=== PATIENT | female | born 1990 | race African-American/Black ===

== ENCOUNTER 2016-07-14 14:05 | Emergency (ER) | payer OTHER ==
[~2016-07-14 14:05] MED LIST: ACET50TA PO; GLYBPOW OR; HUMUINJ SC; HUMUINJ3 SC; IBUP80TA PO; PRENTAB74 PO; SUMA20SP; SUMA5SPR
[2016-07-14] MEDS ORDERED: ACETAMINOPHEN 325 MG TAB As Ordered ONE (14:56)
[2016-07-14] MEDS ORDERED: KETOROLAC 30 MG/ML VIAL (J1885) As Ordered ONE (14:56)
[2016-07-14] MEDS ORDERED: CYCLOBENZAPRINE 10 MG TAB As Ordered ONE (14:56)
--- NOTE | 2016-07-14 15:17 | REP ---
Left shoulder: Four views. History: Pain. Findings: The left glenohumeral and acromioclavicular joints are normally aligned. No fracture or subluxation is seen. Periarticular soft tissues are unremarkable. Impression: Negative left shoulder views. Signed by Gerald Moore MD 07/14/2016 03:09 P
--- NOTE | 2016-07-14 16:07 | EDDOCDS ---
Nurse's Notes [facility] Name: Neeta Swanson Age: 26 yrs Sex: Female : 1990 Arrival Date: 07/14/2016 Time: 14:05 Bed PD Private MD: [facility] - Adults Diagnosis: Muscle spasm of back Presentation: 07/14 14:13 Presenting complaint: Patient states: pain left shoulder began while at work last kr3 night. recently ws on disability for injury left shoulder. last night was first night at work where she had to do active work, had been doing sedentary work. Adult Sepsis Screening: The patient does not have new or worsening altered mentation. Patient's respiratory rate is less than 22. Systolic blood pressure is greater than 100. Patient has a qSOFA score of 0- Negative Sepsis Screen. Suicide/Homicide risk assessment- the patient denies having any suicidal and/or homicidal ideations and does not present with any other emotional, behavioral or mental health complaints. 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 Transition of care: patient was not received from another setting of care. 14:13 Acuity: MARILYN Level 4 kr3 14:13 Method Of Arrival: Walkin/Carried/Asstd kr3 Triage Assessment: 14:15 General: Appears in no apparent distress, Behavior is cooperative. Pain: Location: left kr3 shoulder Pain currently is 10 out of 10 on a pain scale. HIV screening NA for this visit Offered previously. Derm: Skin is normal. Musculoskeletal: Range of motion limited in left shoulder. 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 Naproxen Unknown Oral 2 times per day (Last dose: 07/13/2016) - PMHx: Ovarian cyst; - PSHx: none; - Social history: Smoking status: Patient uses tobacco products, current every day smoker. No barriers to communication noted, The patient speaks fluent Liberian, Speaks appropriately for age. - Family history: Not pertinent. - : The pt / caregiver states he / she is not on anticoagulants. Home medication list is obtained from the patient. - Exposure Risk Screening:: None identified. Screenin:28 Screening information is obtained from the patient. Fall risk: No risks identified. jf3 Assistance ADL's: requires no assistance with activities of daily living. Abuse/DV Screen: The patient / caregiver reports he/she is: not in a situation that causes fear, pain or injury. Nutritional screening: No deficits noted. Advance Directives: Currently, there is no health care proxy. There is no active DNR order. home support is adequate. Assessment: 14:28 Adult Sepsis Screening: The patient does not have new or worsening altered mentation. jf3 Patient's respiratory rate is less than 22. Systolic blood pressure is greater than 100. Patient has a qSOFA score of 0- Negative Sepsis Screen. General: Appears in no apparent distress, comfortable, Behavior is cooperative, pt states injured at work in March 2016, box fell on left shoulder and elbow. [place] pop last night and entire left arm hurting with tingling throughout. Pain: Location: left arm, left shoulder Pain currently is 10 out of 10 on a pain scale. 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 Cardiovascular: Capillary refill < 3 seconds Chest pain is denied. Respiratory: Airway is patent Respiratory effort is even, unlabored, Respiratory pattern is regular, symmetrical, Denies shortness of breath. Derm: Skin is normal. Musculoskeletal: Circulation, motion, and sensation intact Capillary refill < 3 seconds Range of motion limited in left shoulder, left elbow and left wrist, left hand. 16:05 Reassessment: Patient appears in no apparent distress at this time. Musculoskeletal: kr3 sling left arm with good CSM digits left hand. Vital Signs: 14:07 BP 153 / 80; Pulse 111; Resp 18 S; Temp 99.4(O); Pulse Ox 98% on R/A; Weight 127.01 kg gr2 (R); Height 5 ft. 5 in. (165.10 cm) (R); Pain 9/10; 16:04 BP 148 / 95; Pulse 74; Resp 16; Temp 97.8(O); Pulse Ox 100% ; Pain 8/10; kr3 14:07 Body Mass Index 46.59 (127.01 kg, 165.10 cm) gr2 Vitals: 14:07 Log In Time: July 14, 2016 at 14:07. gr2 ED Course: 14:06 Patient visited by Misael Smiley. gr2 14:06 Patient moved to Waiting gr2 14:07 [facility] - [facility] is Private Physician. gr2 14:08 Patient visited by Misael Smiley. gr2 14:08 Patient moved to Pre RCE gr2 14:15 Triage Initiated kr3 14:27 Patient moved to Triage 1 jf3 14:28 The patient / caregiver is instructed regarding the plan of care and ED course. jf3 14:30 Galen Beal PA-C is PHCP. jk8 14:30 Sepideh Saez MD is Attending Physician. jk8 14:30 Patient visited by Galen Beal PA-C. jk8 14:30 Patient visited by Galen Beal PA-C. jk8 14:32 Patient visited by León Charlton RN. jf3 14:57 Patient moved to PD2 / kr3 15:07 [facility] Payment Agreement was scanned into [employer] and attached to record. lg 15:24 Patient visited by León Charlton RN. jf3 15:24 Sling applied to left arm. Patient with positive distal sensation and brisk distal jf3 capillary refill after application. 15:25 Shoulder, Complete Returned. EDMS 16:05 No IV's were initiated during this patient's visit. No procedures done that require kr3 assistance. Administered Medications: 14:59 Drug: ketorolac 60 mg [ketorolac 30 mg/mL (1 mL) injection solution (2 mL)] Route: IM; kr3 Site: right gluteus; 16:04 Follow up: BP 148 / 95; Pulse 74 bpm; Resp 16 bpm; Temp 97.8 Oral; Pulse Ox 100% ; Pain kr3 810 Adult 14:59 Drug: Cyclobenzaprine 10 mg [cyclobenzaprine 10 mg tablet (1 tabs)] Route: PO; kr3 14:59 Drug: Acetaminophen 650 mg [acetaminophen 325 mg tablet (2 tabs)] Route: PO; kr3 16:04 Follow up: Response: No significant change. kr3 Order Results: Radiology Order: Shoulder, Complete Test: Shoulder, Complete REASON FOR EXAMINATION: pain; Left shoulder: Four views.; ; History: Pain.; ; Findings: The left glenohumeral and acromioclavicular joints are normally; aligned. No fracture or subluxation is seen. Periarticular soft tissues are; unremarkable.; ; Impression:; ; Negative left shoulder views.; ; ; Signed by; Gerald Moore MD 07/14/2016 03:09 P; Outcome: 15:51 Discharge ordered by Provider. jk8 16:04 Discharge Assessment: patient administered narcotics - no. The following High Risk kr3 Discharge criteria are identified: None. Discharged to home ambulatory. Condition: stable. Discharge instructions given to patient, Instructed on discharge instructions, follow up and referral plans. medication usage, Demonstrated understanding of instructions, medications, Pt was receptive of discharge instructions/ teaching. Prescriptions given X 4. No special radiology studies were completed. Property sent home with patient. 16:06 Patient left the ED. kr3 Signatures: Dispatcher [employer] EDMS Artemio Bhandari, Cari Guido lg,RN RN kr3 Misael Smiley gr2 Galen Beal PA-C PA-C jk8 León Charltno,RN RN jf3 MTDLul
--- NOTE | 2016-07-14 16:07 | EDDOCDS ---
Physician Documentation [facility] Name: Neeta Swanson Age: 26 yrs Sex: Female : 1990 Arrival Date: 07/14/2016 Time: 14:05 Bed PD Private MD: [facility] - Adults Disposition: 07/14/16 15:51 Discharged to Home/Self Care. Impression: Muscle spasm of back. - Condition is Stable. - Prescriptions for naproxen 500 mg Oral tablet - take 1 tablet by ORAL route every 12 hours; 28 tablet. Tylenol 325 mg Oral Tablet - take 2 tablet by ORAL route every 6 hours as needed; 1 bottle. Cyclobenzaprine 5 mg Oral Tablet - take 1 tablet by ORAL route 3 times per day As needed; 15 tablet. - Medication Reconciliation, Work Release Form - 3 day, Local Pharmacy Hours form. - Follow up: Emergency Department; When: As soon as possible; Reason: Worsening of conditions. Follow up: Private Physician; When: 2 - 3 days; Reason: Recheck today's complaints. - Problem is new. - Symptoms have worsened. Historical: - Allergies: no known allergies; - Home Meds: 1. Naproxen Unknown Oral 2 times per day (Last dose: 07/13/2016) - PMHx: Ovarian cyst; - PSHx: none; - Social history: Smoking status: Patient uses tobacco products, current every day smoker. No barriers to communication noted, The patient speaks fluent Portuguese, Speaks appropriately for age. - Family history: Not pertinent. - : The pt / caregiver states he / she is not on anticoagulants. Home medication list is obtained from the patient. - Exposure Risk Screening:: None identified. 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 5 in. (165.10 cm) (R); Pain 9/10; 16:04 BP 148 / 95; Pulse 74; Resp 16; Temp 97.8(O); Pulse Ox 100% ; Pain 8/10; kr3 14:07 Body Mass Index 46.59 (127.01 kg, 165.10 cm) gr2 MDM: 14:49 ketorolac 60 mg IM once ordered. jk8 14:49 Cyclobenzaprine 10 mg PO once ordered. jk8 14:49 Acetaminophen Tablet 650 mg PO once ordered. jk8 14:50 Sling ordered. jk8 14:51 Shoulder, Complete Ordered. EDMS 14:54 Financial registration complete. lg 15:07 [facility] Payment Agreement was scanned into [employer] and attached to record. lg 15:49 Shoulder, Complete Reviewed. jk8 Administered Medications: 14:59 Drug: ketorolac 60 mg [ketorolac 30 mg/mL (1 mL) injection solution (2 mL)] Route: IM; kr3 Site: right gluteus; 16:04 Follow up: BP 148 / 95; Pulse 74 bpm; Resp 16 bpm; Temp 97.8 Oral; Pulse Ox 100% ; Pain kr3 8/10 Adult 14:59 Drug: Cyclobenzaprine 10 mg [cyclobenzaprine 10 mg tablet (1 tabs)] Route: PO; kr3 14:59 Drug: Acetaminophen 650 mg [acetaminophen 325 mg tablet (2 tabs)] Route: PO; kr3 16:04 Follow up: Response: No significant change. kr3 Signatures: Dispatcher [employer] Artemio Chiu Reg Reg lg Cari Osullivan,RN RN kr3 Galen Beal PA-C PABhavana jk8 León CharltonRN RN jf3 The chart was reviewed and I authenticate all verbal orders and agree with the evaluation and treatment provided.Attachments: 15:07 [facility] Payment Agreement lg MTDD
--- NOTE | 2016-07-16 17:07 | EDDOCDS ---
Physician Documentation [facility] Name: Neeta Swanson Age: 26 yrs Sex: Female : 1990 Arrival Date: 07/14/2016 Time: 14:05 Bed PD Private MD: [facility] - Adults Disposition: 07/14/16 15:51 Discharged to Home/Self Care. Impression: Muscle spasm of back. - Condition is Stable. - Prescriptions for naproxen 500 mg Oral tablet - take 1 tablet by ORAL route every 12 hours; 28 tablet. Tylenol 325 mg Oral Tablet - take 2 tablet by ORAL route every 6 hours as needed; 1 bottle. Cyclobenzaprine 5 mg Oral Tablet - take 1 tablet by ORAL route 3 times per day As needed; 15 tablet. - Medication Reconciliation, Work Release Form - 3 day, Local Pharmacy Hours form. - Follow up: Emergency Department; When: As soon as possible; Reason: Worsening of conditions. Follow up: Private Physician; When: 2 - 3 days; Reason: Recheck today's complaints. - Problem is new. - Symptoms have worsened. Historical: - Allergies: no known allergies; - Home Meds: 1. Naproxen Unknown Oral 2 times per day (Last dose: 07/13/2016) - PMHx: Ovarian cyst; - PSHx: none; - Social history: Smoking status: Patient uses tobacco products, current every day smoker. No barriers to communication noted, The patient speaks fluent Burundian, Speaks appropriately for age. - Family history: Not pertinent. - : The pt / caregiver states he / she is not on anticoagulants. Home medication list is obtained from the patient. - Exposure Risk Screening:: None identified. 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 5 in. (165.10 cm) (R); Pain 9/10; 16:04 BP 148 / 95; Pulse 74; Resp 16; Temp 97.8(O); Pulse Ox 100% ; Pain 8/10; kr3 14:07 Body Mass Index 46.59 (127.01 kg, 165.10 cm) gr2 MDM: 14:49 ketorolac 60 mg IM once ordered. jk8 14:49 Cyclobenzaprine 10 mg PO once ordered. jk8 14:49 Acetaminophen Tablet 650 mg PO once ordered. jk8 14:50 Sling ordered. jk8 14:51 Shoulder, Complete Ordered. EDMS 14:54 Financial registration complete. lg 15:07 [facility] Payment Agreement was scanned into [employer] and attached to record. lg 15:49 Shoulder, Complete Reviewed. jk8 07/15 11:47 T-Sheet-- Draft Copy was scanned into [employer] and attached to record. gb Administered Medications: 07/14 14:59 Drug: ketorolac 60 mg [ketorolac 30 mg/mL (1 mL) injection solution (2 mL)] Route: IM; kr3 Site: right gluteus; 16:04 Follow up: BP 148 / 95; Pulse 74 bpm; Resp 16 bpm; Temp 97.8 Oral; Pulse Ox 100% ; Pain kr3 01/16 Adult 14:59 Drug: Cyclobenzaprine 10 mg [cyclobenzaprine 10 mg tablet (1 tabs)] Route: PO; kr3 14:59 Drug: Acetaminophen 650 mg [acetaminophen 325 mg tablet (2 tabs)] Route: PO; kr3 16:04 Follow up: Response: No significant change. kr3 Signatures: Dispatcher [employer] EDFL Lorraine Solo, Reg Reg gb Artemio Bhandari, Reg Reg lg Cari Osullivan RN RN kr3 Galen Beal PA-C PA-C jk8 León Charlton,RN RN jf3 The chart was reviewed and I authenticate all verbal orders and agree with the evaluation and treatment provided.Attachments: 15:07 [facility] Payment Agreement lg 07/15 11:47 T-Sheet-- Draft Copy gb Chart Complete MTDD
--- NOTE | 2016-07-16 17:07 | EDDOCDS ---
Nurse's Notes [facility] Name: Neeta Swanson Age: 26 yrs Sex: Female : 1990 Arrival Date: 07/14/2016 Time: 14:05 Bed PD Private MD: [facility] - Adults Diagnosis: Muscle spasm of back Presentation: 07/14 14:13 Presenting complaint: Patient states: pain left shoulder began while at work last kr3 night. recently ws on disability for injury left shoulder. last night was first night at work where she had to do active work, had been doing sedentary work. Adult Sepsis Screening: The patient does not have new or worsening altered mentation. Patient's respiratory rate is less than 22. Systolic blood pressure is greater than 100. Patient has a qSOFA score of 0- Negative Sepsis Screen. Suicide/Homicide risk assessment- the patient denies having any suicidal and/or homicidal ideations and does not present with any other emotional, behavioral or mental health complaints. 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 Transition of care: patient was not received from another setting of care. 14:13 Acuity: MARILYN Level 4 kr3 14:13 Method Of Arrival: Walkin/Carried/Asstd kr3 Triage Assessment: 14:15 General: Appears in no apparent distress, Behavior is cooperative. Pain: Location: left kr3 shoulder Pain currently is 10 out of 10 on a pain scale. HIV screening NA for this visit Offered previously. Derm: Skin is normal. Musculoskeletal: Range of motion limited in left shoulder. 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 Naproxen Unknown Oral 2 times per day (Last dose: 07/13/2016) - PMHx: Ovarian cyst; - PSHx: none; - Social history: Smoking status: Patient uses tobacco products, current every day smoker. No barriers to communication noted, The patient speaks fluent North Korean, Speaks appropriately for age. - Family history: Not pertinent. - : The pt / caregiver states he / she is not on anticoagulants. Home medication list is obtained from the patient. - Exposure Risk Screening:: None identified. Screenin:28 Screening information is obtained from the patient. Fall risk: No risks identified. jf3 Assistance ADL's: requires no assistance with activities of daily living. Abuse/DV Screen: The patient / caregiver reports he/she is: not in a situation that causes fear, pain or injury. Nutritional screening: No deficits noted. Advance Directives: Currently, there is no health care proxy. There is no active DNR order. home support is adequate. Assessment: 14:28 Adult Sepsis Screening: The patient does not have new or worsening altered mentation. jf3 Patient's respiratory rate is less than 22. Systolic blood pressure is greater than 100. Patient has a qSOFA score of 0- Negative Sepsis Screen. General: Appears in no apparent distress, comfortable, Behavior is cooperative, pt states injured at work in March 2016, box fell on left shoulder and elbow. [place] pop last night and entire left arm hurting with tingling throughout. Pain: Location: left arm, left shoulder Pain currently is 10 out of 10 on a pain scale. 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 Cardiovascular: Capillary refill < 3 seconds Chest pain is denied. Respiratory: Airway is patent Respiratory effort is even, unlabored, Respiratory pattern is regular, symmetrical, Denies shortness of breath. Derm: Skin is normal. Musculoskeletal: Circulation, motion, and sensation intact Capillary refill < 3 seconds Range of motion limited in left shoulder, left elbow and left wrist, left hand. 16:05 Reassessment: Patient appears in no apparent distress at this time. Musculoskeletal: kr3 sling left arm with good CSM digits left hand. Vital Signs: 14:07 BP 153 / 80; Pulse 111; Resp 18 S; Temp 99.4(O); Pulse Ox 98% on R/A; Weight 127.01 kg gr2 (R); Height 5 ft. 5 in. (165.10 cm) (R); Pain 9/10; 16:04 BP 148 / 95; Pulse 74; Resp 16; Temp 97.8(O); Pulse Ox 100% ; Pain 8/10; kr3 14:07 Body Mass Index 46.59 (127.01 kg, 165.10 cm) gr2 Vitals: 14:07 Log In Time: July 14, 2016 at 14:07. gr2 ED Course: 14:06 Patient visited by Misael Smiley. gr2 14:06 Patient moved to Waiting gr2 14:07 [facility] - [facility] is Private Physician. gr2 14:08 Patient visited by Misael Smiley. gr2 14:08 Patient moved to Pre RCE gr2 14:15 Triage Initiated kr3 14:27 Patient moved to Triage 1 jf3 14:28 The patient / caregiver is instructed regarding the plan of care and ED course. jf3 14:30 Galen Beal PA-C is PHCP. jk8 14:30 Sepideh Saez MD is Attending Physician. jk8 14:30 Patient visited by Galen Beal PA-C. jk8 14:30 Patient visited by Gaeln Beal PA-C. jk8 14:32 Patient visited by León Charlton RN. jf3 14:57 Patient moved to PD2 / kr3 15:07 [facility] Payment Agreement was scanned into [email or web address] and attached to record. lg 15:24 Patient visited by León Charlton RN. jf3 15:24 Sling applied to left arm. Patient with positive distal sensation and brisk distal jf3 capillary refill after application. 15:25 Shoulder, Complete Returned. EDMS 16:05 No IV's were initiated during this patient's visit. No procedures done that require kr3 assistance. 07/15 11:47 T-Sheet-- Draft Copy was scanned into [email or web address] and attached to record. gb Administered Medications: 07/14 14:59 Drug: ketorolac 60 mg [ketorolac 30 mg/mL (1 mL) injection solution (2 mL)] Route: IM; kr3 Site: right gluteus; 16:04 Follow up: BP 148 / 95; Pulse 74 bpm; Resp 16 bpm; Temp 97.8 Oral; Pulse Ox 100% ; Pain kr3 8 Adult 14:59 Drug: Cyclobenzaprine 10 mg [cyclobenzaprine 10 mg tablet (1 tabs)] Route: PO; kr3 14:59 Drug: Acetaminophen 650 mg [acetaminophen 325 mg tablet (2 tabs)] Route: PO; kr3 16:04 Follow up: Response: No significant change. kr3 Order Results: Radiology Order: Shoulder, Complete Test: Shoulder, Complete REASON FOR EXAMINATION: pain; Left shoulder: Four views.; ; History: Pain.; ; Findings: The left glenohumeral and acromioclavicular joints are normally; aligned. No fracture or subluxation is seen. Periarticular soft tissues are; unremarkable.; ; Impression:; ; Negative left shoulder views.; ; ; Signed by; Gerald Moore MD 07/14/2016 03:09 P; Outcome: 15:51 Discharge ordered by Provider. jk8 16:04 Discharge Assessment: patient administered narcotics - no. The following High Risk kr3 Discharge criteria are identified: None. Discharged to home ambulatory. Condition: stable. Discharge instructions given to patient, Instructed on discharge instructions, follow up and referral plans. medication usage, Demonstrated understanding of instructions, medications, Pt was receptive of discharge instructions/ teaching. Prescriptions given X 4. No special radiology studies were completed. Property sent home with patient. 16:06 Patient left the ED. kr3 Signatures: Dispatcher [employer] EDAL Lorraine Solo, Reg Reg gb Artemio Bhandari, Reg Reg lg Cari Osullivan,HEAVEN RN kr3 Misael Smiley gr2 Galen Beal PA-C PA-C jk8 León Charlton,RN RN jf3 Chart Complete MTDD
--- NOTE | 2016-07-16 17:07 | EDDOCDS ---
Physician Documentation [facility] Name: Neeta Swanson Age: 26 yrs Sex: Female : 1990 Arrival Date: 07/14/2016 Time: 14:05 Bed PD Private MD: [facility] - Adults Disposition: 07/14/16 15:51 Discharged to Home/Self Care. Impression: Muscle spasm of back. - Condition is Stable. - Prescriptions for naproxen 500 mg Oral tablet - take 1 tablet by ORAL route every 12 hours; 28 tablet. Tylenol 325 mg Oral Tablet - take 2 tablet by ORAL route every 6 hours as needed; 1 bottle. Cyclobenzaprine 5 mg Oral Tablet - take 1 tablet by ORAL route 3 times per day As needed; 15 tablet. - Medication Reconciliation, Work Release Form - 3 day, Local Pharmacy Hours form. - Follow up: Emergency Department; When: As soon as possible; Reason: Worsening of conditions. Follow up: Private Physician; When: 2 - 3 days; Reason: Recheck today's complaints. - Problem is new. - Symptoms have worsened. Historical: - Allergies: no known allergies; - Home Meds: 1. Naproxen Unknown Oral 2 times per day (Last dose: 07/13/2016) - PMHx: Ovarian cyst; - PSHx: none; - Social history: Smoking status: Patient uses tobacco products, current every day smoker. No barriers to communication noted, The patient speaks fluent Comoran, Speaks appropriately for age. - Family history: Not pertinent. - : The pt / caregiver states he / she is not on anticoagulants. Home medication list is obtained from the patient. - Exposure Risk Screening:: None identified. 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 5 in. (165.10 cm) (R); Pain 9/10; 16:04 BP 148 / 95; Pulse 74; Resp 16; Temp 97.8(O); Pulse Ox 100% ; Pain 8/10; kr3 14:07 Body Mass Index 46.59 (127.01 kg, 165.10 cm) gr2 MDM: 14:49 ketorolac 60 mg IM once ordered. jk8 14:49 Cyclobenzaprine 10 mg PO once ordered. jk8 14:49 Acetaminophen Tablet 650 mg PO once ordered. jk8 14:50 Sling ordered. jk8 14:51 Shoulder, Complete Ordered. EDMS 14:54 Financial registration complete. lg 15:07 [facility] Payment Agreement was scanned into [employer] and attached to record. lg 15:49 Shoulder, Complete Reviewed. jk8 07/15 11:47 T-Sheet-- Draft Copy was scanned into [employer] and attached to record. gb Administered Medications: 07/14 14:59 Drug: ketorolac 60 mg [ketorolac 30 mg/mL (1 mL) injection solution (2 mL)] Route: IM; kr3 Site: right gluteus; 16:04 Follow up: BP 148 / 95; Pulse 74 bpm; Resp 16 bpm; Temp 97.8 Oral; Pulse Ox 100% ; Pain kr3 01/16 Adult 14:59 Drug: Cyclobenzaprine 10 mg [cyclobenzaprine 10 mg tablet (1 tabs)] Route: PO; kr3 14:59 Drug: Acetaminophen 650 mg [acetaminophen 325 mg tablet (2 tabs)] Route: PO; kr3 16:04 Follow up: Response: No significant change. kr3 Signatures: Dispatcher [employer] EDMD Lorraine Solo, Reg Reg gb Artemio Bhandari, Reg Reg lg Cari Osullivan RN RN kr3 Galen Beal PA-C PA-C jk8 León Charlton,RN RN jf3 The chart was reviewed and I authenticate all verbal orders and agree with the evaluation and treatment provided.Attachments: 15:07 [facility] Payment Agreement lg 07/15 11:47 T-Sheet-- Draft Copy gb Chart Complete MTDD
== END 2016-07-14 16:06 | disposition home or self-care (01) ==
LOC: M ED 14:05
DX: M62.830 Muscle spasm of back (principal); Z79.1 Long term (current) use of non-steroidal anti-inflammatories (NSAID); F17.210 Nicotine dependence, cigarettes, uncomplicated
CPT/HCPCS: 73030; 96372; 99284; J1885

== ENCOUNTER 2016-11-18 09:54 | Emergency (ER) | payer MEDICAID, OTHER ==
[~2016-11-18] VITALS: Ht 165.1 cm; Wt 142.3 kg
[2016-11-18] MEDS ORDERED: BUPR15TA PO (10:08)
[2016-11-18] MEDS ORDERED: AMOX875T PO (11:58)
[2016-11-18] MEDS ORDERED: MAGICMW MT (11:58)
[2016-11-18 12:07] VITALS: BP 141/72
== END 2016-11-18 12:07 | disposition home or self-care (01) ==
LOC: M ED 10:42
DX: J02.0 Streptococcal pharyngitis (principal); J45.909 Unspecified asthma, uncomplicated; E66.01 Morbid (severe) obesity due to excess calories; Z87.891 Personal history of nicotine dependence; Z79.899 Other long term (current) drug therapy

== ENCOUNTER 2016-12-26 10:39 | Emergency (ER) | payer MEDICAID, OTHER ==
[~2016-12-26] VITALS: Ht 160 cm; Wt 142.0 kg
[~2016-12-26 10:39] MED LIST changes: +AMOX875T PO; +BUPR15TA PO; +MAGICMW MT
[2016-12-26] MEDS ORDERED: ACETAMINOPHEN TAB 650MG DOSE (2X325MG) PO ONE (11:30)
[2016-12-26] MEDS ORDERED: ONDANSETRON 4 MG ORAL DISINTEGRATING TAB (S0181) PO ONE (11:30)
[2016-12-26 11:57] LABS: BASO % 0.6 % (0.0-1.0); EOS # 0.2 K/mm3 (0.0-0.50); EOS % 2.7 % (0.0-3.0); LARGE UNSTAINED CELL # 0.1 K/mm3 (0.0-0.4); LARGE UNSTAINED CELL % 1.7 % (0.0-4.0); LYMPH # 2.2 K/mm3 (1.5-6.5); LYMPH % 27.2 % (24.0-44.0); MEAN CORPUSCULAR HGB CONC 33.5 g/dl (32.0-36.5); MEAN CORPUSCULAR VOLUME 89.6 fl (80.0-96.0); MONO # 0.3 K/mm3 (0.0-0.8); NEUTROPHILS # 4.9 K/mm3 (1.8-7.7); NEUTROPHILS % 63.8 % (36.0-66.0); PLATELET COUNT, AUTOMATED 304 k/mm3 (150-450); RED CELL DISTRIBUTION WIDTH 14.8 % (11.5-14.5); WHITE BLOOD COUNT 7.7 K/mm3 (4.0-10.0)
[2016-12-26 12:17] LABS: CONTROL LINE HCG INT CTR LINE PRESENT
[2016-12-26 12:42] LABS: ALBUMIN 3.8 GM/DL (3.2-5.2); ALBUMIN/GLOBULIN RATIO 0.95 (1.00-1.93); ALKALINE PHOSPHATASE 71 U/L (45-117); ALT/SGPT 23 U/L (12-78); ANION GAP 6 MEQ/L (8-16); AST/SGOT 14 U/L (15-37); BILIRUBIN,DIRECT < 0.1 MG/DL (0.0-0.2); BILIRUBIN,TOTAL 0.3 MG/DL (0.2-1.0); BLOOD UREA NITROGEN 9 MG/DL (7-18); CARBON DIOXIDE LEVEL 25 MEQ/L (21-32); CHLORIDE LEVEL 110 MEQ/L (98-107); CREATININE FOR GFR 0.92 MG/DL (0.55-1.02); GLOMERULAR FILTRATION RATE > 60.0 (>60); GLUCOSE, FASTING 96 MG/DL (70-105); POTASSIUM SERUM 4.1 MEQ/L (3.5-5.1); SODIUM LEVEL 141 MEQ/L (136-145); TOTAL PROTEIN 7.8 GM/DL (6.4-8.2)
[2016-12-26] MEDS ORDERED: NAPR500T PO (13:00)
[2016-12-26 13:12] VITALS: BP 128/94
== END 2016-12-26 13:12 | disposition home or self-care (01) ==
LOC: M ED 10:39
DX: R51 Headache (principal); R53.83 Other fatigue; F99 Mental disorder, not otherwise specified

== ENCOUNTER → 2017-01-15 | Outpatient (REF) | payer OTHER ==
[~2017-01-15] MED LIST changes: +NAPR500T PO; +PENI500T PO
[2017-01-15 20:37] LABS: ALBUMIN 3.6 GM/DL (3.2-5.2); ALKALINE PHOSPHATASE 63 U/L (45-117); ALT/SGPT 25 U/L (12-78); ANION GAP 8 MEQ/L (8-16); AST/SGOT 15 U/L (15-37); BILIRUBIN,TOTAL 0.3 MG/DL (0.2-1.0); BLOOD UREA NITROGEN 10 MG/DL (7-18); CALCIUM LEVEL 8.6 MG/DL (8.5-10.1); CARBON DIOXIDE LEVEL 23 MEQ/L (21-32); CHLORIDE LEVEL 108 MEQ/L (98-107); CHOLESTEROL LEVEL 129 MG/DL (<200); CREATININE FOR GFR 0.86 MG/DL (0.55-1.02); GLOMERULAR FILTRATION RATE > 60.0 (>60); GLUCOSE, FASTING 102 MG/DL (70-105); POTASSIUM SERUM 4.4 MEQ/L (3.5-5.1); SODIUM LEVEL 139 MEQ/L (136-145); TOTAL PROTEIN 7.2 GM/DL (6.4-8.2); TRIGLYCERIDES LEVEL 127 MG/DL (<150)
== END ==
LOC: M LAB REF 17:55
PROVIDERS: ATTEND Nurse Practitioner Family
DX: R63.5 Abnormal weight gain (principal); Z13.220 Encounter for screening for lipoid disorders; Z13.29 Encounter for screening for other suspected endocrine disorder; F32.9 Major depressive disorder, single episode, unspecified

== ENCOUNTER 2017-03-11 10:18 | Day surgery (SDC) | payer OTHER ==
[~2017-03-11] VITALS: Ht 162.6 cm; Wt 138.3 kg
[~2017-03-11 10:18] MED LIST changes: -PENI500T PO
[2017-03-11] MEDS ORDERED: LIDOCAINE 1% MDV 20ML VIAL ONE (10:19)
[2017-03-11] MEDS ORDERED: dexameTHASONE 10 MG/1 ML VIAL PRES.FREE (J1100) ONE (10:19)
[2017-03-11] MEDS ORDERED: ROPIvacaine 0.5% 30 ML INJECTION (J2795) ONE (10:19)
[2017-03-11] MEDS ORDERED: LR 1,000 ML IV ONE (10:45)
[2017-03-11 11:11] LABS: CONTROL LINE HCG INT CTR LINE PRESENT
[2017-03-11] MEDS ORDERED: LIDOCAINE 1% MDV 20ML VIAL As Ordered ONE (11:24)
[2017-03-11] MEDS ORDERED: EPINEPHrine 1MG/ML INJ 30ML MD-VIAL As Ordered ONE (11:26)
[2017-03-11] MEDS ORDERED: fentaNYL 100 MCG/2 ML INJECTION (J3010) As Ordered ONE ×2 (11:55→13:19)
[2017-03-11] MEDS ORDERED: MIDAZOLAM INJ 2 MG/2 ML VIAL (J2250) As Ordered ONE (11:55)
[2017-03-11] MEDS: MIDAZOLAM INJ 2 MG/2 ML VIAL (J2250) IV PRN ×2 (12:24→12:26)
[2017-03-11] MEDS ORDERED: fentaNYL 100 MCG/2 ML INJECTION (J3010) IV PRN ×2 (12:45→15:00)
[2017-03-11] MEDS ORDERED: PROPOFOL 200 MG/20 ML VIAL As Ordered ONE ×2 (13:19→13:59)
[2017-03-11] MEDS ORDERED: ROCURONIUM BROMIDE 50 MG/5 ML VIAL/SYRINGE As Ordered ONE (13:19)
[2017-03-11] MEDS ORDERED: LIDOCAINE 2% INJ 100 MG/5 ML SDV (FOR ANES.) As Ordered ONE (13:19)
[2017-03-11] MEDS ORDERED: SUCCINYLCHOLINE 100 MG/5 ML SYRINGE (J0330) As Ordered ONE ×2 (13:19→13:49)
[2017-03-11] MEDS ORDERED: dexameTHASONE 4 MG/ML 1ML VIAL (J1100) As Ordered ONE ×2 (13:19→13:47)
[2017-03-11] MEDS ORDERED: PHENYLephrine HCL 500 MCG/5 ML (100MCG/ML) SYRINGE (J2370) As Ordered ONE (13:28)
[2017-03-11] MEDS ORDERED: ePHEDrine SULFATE 25 MG/5 ML(5MG/ML) SYRINGE As Ordered ONE (13:28)
[2017-03-11] MEDS ORDERED: METOCLOPRAMIDE INJ 10MG/2ML VIAL (J2765) As Ordered ONE (13:46)
[2017-03-11] MEDS ORDERED: GLYCOPYRROLATE INJ 0.2 MG/ML 2 ML VIAL As Ordered ONE (13:53)
[2017-03-11] MEDS ORDERED: ONDANSETRON 4MG/2ML VIAL (J2405) As Ordered ONE (14:11)
[2017-03-11] MEDS ORDERED: PERCOCET 5MG/325MG TAB PO PRN (15:00)
[2017-03-11] MEDS ORDERED: ONDANSETRON 4MG/2ML VIAL (J2405) IV PRN (15:00)
[2017-03-11] MEDS ORDERED: LR 1,000 ML IV SCH ×2 (15:00)
[2017-03-11] MEDS ORDERED: HYDROmorphone HCL 1 MG/ML SYRINGE (J1170) IV PRN (15:00)
[2017-03-11 15:30] VITALS: BP 125/65
--- NOTE | 2017-03-13 05:54 | RO ---
DATE OF PROCEDURE: 03/11/2017 PREPROCEDURE DIAGNOSES: 1. Left shoulder impingement. 2. Left shoulder possible rotator cuff tear. POSTPROCEDURE DIAGNOSES: 1. Left shoulder impingement. 2. Left shoulder partial thickness bursal sided rotator cuff tear. PROCEDURE: Left shoulder arthroscopy with rotator cuff debridement and subacromial decompression. SURGEON: Dr. Aleksey Mojica [employer]ING OPERATOR: LUCA Singer ANESTHESIA: General with a preoperative nerve block. ESTIMATED BLOOD LOSS: Less than 50 mL. IV FLUIDS: Lactated ringers. IMPLANTS: None. INDICATION: Neeta is a 26-year-old female who sustained a left shoulder injury at work. She had failed extensive nonoperative treatment including physical therapy, subacromial cortisone injections and anti-inflammatory medications. On physical exam, she was noted to have positive impingement signs and some slight weakness in the supraspinatus. Preoperative MRI showed a large subacromial spur and some tendinopathy in the supraspinatus. We discussed the risks and benefits of arthroscopic management. I explained that this would most likely be a decompression and debridement if there was a partial rotator cuff tear, unlikely to need a repair. After discussing the risks and benefits of the above procedure, written informed consent was obtained. PROCEDURE: The patient was identified in the preoperative holding area and the left shoulder was initialed by myself. She had a preoperative nerve block by anesthesia. She was then brought to the operating room and carefully placed supine on a well padded OR table with the extra large coronado bag. General anesthesia was then induced without complication. She was then placed into the right side down lateral decubitus position with an axillary roll. Due to the patient's large size, we used extra seat belts and straps to secure her to the OR table. Her body mass index (BMI) was over 50. She had Venodyne boots bilateral lower extremities for deep venous thrombosis (DVT) prophylaxis. She received appropriate IV antibiotics within 1 hour of incision. Examination under anesthesia revealed 170 degrees of positive forward flexion, 60 degrees of external rotation with arm at her side and no increased anterior or posterior translation. The left arm was then prepped and draped in a normal sterile fashion with the left arm in a Arthrex star sleeve and then hooked up to 10 pounds of traction. Prior to incision, a time out was performed in which myself and all OR staff confirmed the patient's name, medical record number, date of and the correct side and site of procedure. A spinal needle was used to localize the glenohumeral joint. An incision made with the 11 blade. 30 degree arthroscope attempted to enter the glenohumeral joint but was unable to do so. The scope was then placed into the subacromial space where bursitis and a large subacromial spur were identified. A lateral working portal was localized with a spinal needle and then cautery used to perform a bursectomy and to skeletonize the anterior acromion. The CA ligament was not fully released. There was a partial thickness bursal sided rotator cuff tear in the entire supraspinatus. A switching stick was used to palpate and probe that tear and was estimated to be less than 25% thickness. No significant tearing was noted on MRI either. I then performed a rotator cuff debridement with the #4-0 shaver. Switching stick was used to repalpate the rotator cuff and no high grade partial tears were appreciated. The shoulder was internally and externally rotated and abducted as well and the cuff moved nicely as a unit. I then used the bur to perform an acromioplasty. Patient did not have any AC joint symptoms preop. I then attempted again to place the scope back into the glenohumeral joint but had difficulty doing so due to the patient's body habitus. Given that she did not have any intra-articular pathology on her MRI or concerns for labral tear based on preoperative examination, felt that it was best to avoid further attempts at entering the joint. The shoulder was irrigated and drained. Portals closed with #3-0 Nylon suture and then a bulky sterile bandage applied. Patient was placed into a standard shoulder mobilizer. She was carefully transferred to a stretcher and sent to the postanesthesia care unit in stable condition. All counts were correct times two. Complications: None.
== END 2017-03-11 16:14 | disposition home or self-care (01) ==
LOC: M SDC 10:18
PROVIDERS: ATTEND Orthopaedic Surgery
DX: M75.42 Impingement syndrome of left shoulder (principal); M75.112 Incomplete rotator cuff tear or rupture of left shoulder, not specified as traumatic; J45.909 Unspecified asthma, uncomplicated; R06.83 Snoring
CPT/HCPCS: 29822; 29826; 36415; 84703; 96374; 96375; J0330; J0690; J1100; J2250; J2370; J2405; J2765; J2795; J3010

== ENCOUNTER 2017-03-30 04:36 | Emergency (ER) | payer OTHER ==
[~2017-03-30] VITALS: Ht 162.6 cm; Wt 88.6 kg
[2017-03-30 07:27] VITALS: BP 172/86
[2017-03-30] MEDS ORDERED: PENI500T PO (07:37)
[2017-03-30] MEDS ORDERED: PENICILLIN V POTASSIUM 500 MG TAB PO ONE (07:45)
[2017-03-30] MEDS ORDERED: NAPROXEN 250 MG TAB PO ONE (07:45)
== END 2017-03-30 07:47 | disposition home or self-care (01) ==
LOC: M ED 04:36
DX: J02.0 Streptococcal pharyngitis (principal); Z87.891 Personal history of nicotine dependence

== ENCOUNTER 2017-04-18 20:43 | Emergency (ER) | payer OTHER ==
[~2017-04-18] VITALS: Ht 162.6 cm; Wt 133.2 kg
[~2017-04-18 20:43] MED LIST changes: +PENI500T PO
[2017-04-18 20:52] VITALS: BP 143/98
[2017-04-18] MEDS ORDERED: VITA250L PO (20:57)
[2017-04-18] MEDS ORDERED: LOVE1INJ SC (20:57)
[2017-04-18] MEDS ORDERED: MULT1CHW39 PO (20:57)
[2017-04-18] MEDS ORDERED: BIOT10008 PO (20:57)
[2017-04-18] MEDS ORDERED: OXYCODONE/APAP 5MG/325MG(BULK FOR ED) 1 TABLET PO ONE (21:30)
== END 2017-04-18 21:46 | disposition home or self-care (01) ==
LOC: M ED 20:43
DX: M25.512 Pain in left shoulder (principal); I10 Essential (primary) hypertension; Z79.899 Other long term (current) drug therapy; Z87.891 Personal history of nicotine dependence

== ENCOUNTER → 2017-05-21 | Outpatient (REF) | payer OTHER ==
[~2017-05-21] MED LIST changes: +BIOT10008 PO; +LOVE1INJ SC; +MULT1CHW39 PO; +VITA250L PO
[2017-05-21 12:37] LABS: ALBUMIN 3.7 GM/DL (3.2-5.2); ALBUMIN/GLOBULIN RATIO 1.19 (1.00-1.93); ALKALINE PHOSPHATASE 64 U/L (45-117); ALT/SGPT 30 U/L (12-78); ANION GAP 16 MEQ/L (8-16); AST/SGOT 19 U/L (7-37); BILIRUBIN,TOTAL 0.5 MG/DL (0.2-1.0); BLOOD UREA NITROGEN 6 MG/DL (7-18); CALCIUM LEVEL 8.7 MG/DL (8.5-10.1); CARBON DIOXIDE LEVEL 17 MEQ/L (21-32); CHLORIDE LEVEL 108 MEQ/L (98-107); CHOLESTEROL LEVEL 104 MG/DL (<200); CREATININE FOR GFR 0.65 MG/DL (0.55-1.02); GLOMERULAR FILTRATION RATE > 60.0 (>60); GLUCOSE, FASTING 78 MG/DL (70-105); POTASSIUM SERUM 3.8 MEQ/L (3.5-5.1); SODIUM LEVEL 141 MEQ/L (136-145); TOTAL PROTEIN 6.8 GM/DL (6.4-8.2); TRIGLYCERIDES LEVEL 110 MG/DL (<150)
== END ==
LOC: M LAB REF 11:59
PROVIDERS: ATTEND Nurse Practitioner Adult Health
DX: E88.81 Metabolic syndrome and other insulin resistance (principal)

== ENCOUNTER 2017-06-06 20:52 | Emergency (ER) | payer OTHER ==
[2017-06-06] MEDS: NITROFURANTOIN (MACROBID) 100 MG CAP PO (22:22)
[2017-06-06] MEDS: PHENAZOPYRIDINE 100 MG TAB PO (22:22)
== END 2017-06-06 22:41 | disposition home or self-care (01) ==
LOC: M ED 20:52
DX: N39.0 Urinary tract infection, site not specified (principal); I10 Essential (primary) hypertension; J45.909 Unspecified asthma, uncomplicated; Z98.84 Bariatric surgery status; Z79.899 Other long term (current) drug therapy; Z87.891 Personal history of nicotine dependence
CPT/HCPCS: 81001

== ENCOUNTER → 2017-11-28 | Outpatient (CLI) | payer OTHER | LOC: M RAD 09:31 | DX: N63.20 Unspecified lump in the left breast, unspecified quadrant (principal); Z80.3 Family history of malignant neoplasm of breast | CPT/HCPCS: 77065 ==

== ENCOUNTER 2017-12-31 11:33 | Emergency (ER) | payer OTHER ==
[2017-12-31] MEDS: PANTOPRAZOLE 40MG INJ (PROTONIX) (C9113) IV (12:20)
[2017-12-31] MEDS: GI COCKTAIL 50ML BTL(HYOSCYAMINE/MAALOX/LIDOCAINE VISCOUS)(1:3:1) PO (12:20)
[2017-12-31] MEDS: NS 1,000 ML IV (12:21)
[2017-12-31 12:27] LABS: KETONE, URINE AUTO RFX NEGATIVE (NEGATIVE); LEUKOCYTE ESTERASE UR AUTO RFX NEGATIVE (NEGATIVE); MUCUS, URINE RFX SMALL (NEGATIVE); NITRITE, URINE AUTO RFX NEGATIVE (NEGATIVE); RBC, URINE AUTO RFX 0 /HPF (0-3); SPECIFIC GRAVITY UR AUTO RFX 1.016 (1.002-1.035); SQUAM EPITHELIAL CELL UR AURFX 5 /HPF (0-6); WBC, URINE AUTO RFX 4 /HPF (0-3)
[2017-12-31 12:29] LABS: BASO # 0.1 10^3/uL (0.0-0.2); BASO % 0.6 % (0.0-1.0); EOS # 0.1 10^3/uL (0.0-0.50); HEMATOCRIT 37.3 % (36.0-47.0); HEMOGLOBIN 12.5 g/dl (12.0-15.5); IMMATURE GRANULOCYTE % 0.2 % (0-3.0); LYMPH # 3.7 10^3/uL (1.5-6.5); LYMPH % 38.2 % (24.0-44.0); MEAN CORPUSCULAR HEMOGLOBIN 30.9 pg (27.0-33.0); MEAN CORPUSCULAR HGB CONC 33.5 g/dl (32.0-36.5); MEAN CORPUSCULAR VOLUME 92.1 fl (80.0-96.0); MONO # 0.7 10^3/uL (0.0-0.8); NEUTROPHILS # 5.1 10^3/uL (1.8-7.7); PLATELET COUNT, AUTOMATED 332 10^3/uL (150-450); RED BLOOD COUNT 4.05 10^6/uL (4.00-5.40); WHITE BLOOD COUNT 9.6 10^3/uL (4.0-10.0)
[2017-12-31 12:51] LABS: ALBUMIN 3.5 GM/DL (3.2-5.2); ALKALINE PHOSPHATASE 69 U/L (45-117); ALT/SGPT 35 U/L (12-78); AMYLASE 79 U/L (25-115); ANION GAP 8 MEQ/L (8-16); AST/SGOT 20 U/L (7-37); BILIRUBIN,DIRECT 0.1 MG/DL (0.0-0.2); BILIRUBIN,TOTAL 0.4 MG/DL (0.2-1.0); BLOOD UREA NITROGEN 11 MG/DL (7-18); CALCIUM LEVEL 8.5 MG/DL (8.5-10.1); CARBON DIOXIDE LEVEL 24 MEQ/L (21-32); CHLORIDE LEVEL 108 MEQ/L (98-107); CREATININE FOR GFR 0.85 MG/DL (0.55-1.30); GLOMERULAR FILTRATION RATE > 60.0 (>60); GLUCOSE, FASTING 88 MG/DL (70-100); LIPASE 94 U/L (73-393); POTASSIUM SERUM 3.8 MEQ/L (3.5-5.1); SODIUM LEVEL 140 MEQ/L (136-145); TOTAL PROTEIN 7.4 GM/DL (6.4-8.2)
== END 2017-12-31 13:15 | disposition home or self-care (01) ==
LOC: M ED 11:33
DX: R10.2 Pelvic and perineal pain (principal); K21.9 Gastro-esophageal reflux disease without esophagitis; I10 Essential (primary) hypertension; Z98.84 Bariatric surgery status; Z79.899 Other long term (current) drug therapy; Z87.891 Personal history of nicotine dependence
CPT/HCPCS: C9113

== ENCOUNTER 2018-03-23 08:54 | Emergency (ER) | payer OTHER ==
[2018-03-23 09:41] LABS: BASO # 0.1 10^3/uL (0.0-0.2); BASO % 0.8 % (0.0-1.0); EOS # 0.1 10^3/uL (0.0-0.50); EOS % 1.4 % (0.0-3.0); HEMATOCRIT 36.5 % (36.0-47.0); HEMOGLOBIN 11.8 g/dl (12.0-15.5); IMMATURE GRANULOCYTE % 0.2 % (0-3.0); LYMPH # 2.5 10^3/uL (1.5-6.5); LYMPH % 37.5 % (24.0-44.0); MEAN CORPUSCULAR HEMOGLOBIN 29.8 pg (27.0-33.0); MEAN CORPUSCULAR HGB CONC 32.3 g/dl (32.0-36.5); MEAN CORPUSCULAR VOLUME 92.2 fl (80.0-96.0); MONO # 0.5 10^3/uL (0.0-0.8); MONO % 7.5 % (0.0-5.0); NEUTROPHILS # 3.5 10^3/uL (1.8-7.7); NEUTROPHILS % 52.6 % (36.0-66.0); PLATELET COUNT, AUTOMATED 294 10^3/uL (150-450); RED BLOOD COUNT 3.96 10^6/uL (4.00-5.40); RED CELL DISTRIBUTION WIDTH 14.3 % (11.5-14.5); WHITE BLOOD COUNT 6.7 10^3/uL (4.0-10.0)
[2018-03-23 10:08] LABS: HCG, SERUM QUANTITATIVE < 1.0 MIU/ML
== END 2018-03-23 10:40 | disposition home or self-care (01) ==
LOC: M ED 08:54
DX: O20.9 Hemorrhage in early pregnancy, unspecified (principal); O16.1 Unspecified maternal hypertension, first trimester; O99.511 Diseases of the respiratory system complicating pregnancy, first trimester; J45.909 Unspecified asthma, uncomplicated; Z3A.00 Weeks of gestation of pregnancy not specified
CPT/HCPCS: 76856

== ENCOUNTER 2018-05-04 13:41 | Emergency (ER) | payer OTHER ==
[2018-05-04 14:16] LABS: BASO # 0.1 10^3/uL (0.0-0.2); BASO % 0.5 % (0.0-1.0); EOS # 0.1 10^3/uL (0.0-0.50); EOS % 0.8 % (0.0-3.0); HEMATOCRIT 33.4 % (36.0-47.0); IMMATURE GRANULOCYTE % 0.4 % (0-3.0); KETONE, URINE AUTO RFX NEGATIVE (NEGATIVE); LYMPH # 3.4 10^3/uL (1.5-6.5); LYMPH % 35.9 % (24.0-44.0); MEAN CORPUSCULAR HEMOGLOBIN 29.9 pg (27.0-33.0); MEAN CORPUSCULAR HGB CONC 32.9 g/dl (32.0-36.5); MEAN CORPUSCULAR VOLUME 90.8 fl (80.0-96.0); MONO # 0.6 10^3/uL (0.0-0.8); MONO % 6.9 % (0.0-5.0); MUCUS, URINE RFX SMALL (NEGATIVE); NEUTROPHILS # 5.2 10^3/uL (1.8-7.7); NEUTROPHILS % 55.5 % (36.0-66.0); NITRITE, URINE AUTO RFX NEGATIVE (NEGATIVE); PLATELET COUNT, AUTOMATED 301 10^3/uL (150-450); RBC, URINE AUTO RFX 4 /HPF (0-3); RED BLOOD COUNT 3.68 10^6/uL (4.00-5.40); RED CELL DISTRIBUTION WIDTH 15.2 % (11.5-14.5); SPECIFIC GRAVITY UR AUTO RFX 1.024 (1.002-1.035); SQUAM EPITHELIAL CELL UR AURFX 10 /HPF (0-6); WBC, URINE AUTO RFX 7 /HPF (0-3); WHITE BLOOD COUNT 9.3 10^3/uL (4.0-10.0)
[2018-05-04 14:23] LABS: LEUKOCYTE ESTERASE UR AUTO RFX TRACE (NEGATIVE)
[2018-05-04 15:06] LABS: ANION GAP 7 MEQ/L (8-16); BLOOD UREA NITROGEN 10 MG/DL (7-18); CALCIUM LEVEL 8.4 MG/DL (8.5-10.1); CARBON DIOXIDE LEVEL 26 MEQ/L (21-32); CHLORIDE LEVEL 107 MEQ/L (98-107); CREATININE FOR GFR 0.67 MG/DL (0.55-1.30); GLOMERULAR FILTRATION RATE > 60.0 (>60); GLUCOSE, FASTING 78 MG/DL (70-100); HCG, SERUM QUANTITATIVE 51223 MIU/ML; LIPASE 97 U/L (73-393); POTASSIUM SERUM 3.8 MEQ/L (3.5-5.1); SODIUM LEVEL 140 MEQ/L (136-145)
[2018-05-04] MEDS: NS 1,000 ML IV (17:03)
[2018-05-04] MEDS: METOCLOPRAMIDE INJ 10MG/2ML VIAL (J2765) IV (17:03)
== END 2018-05-04 19:42 | disposition home or self-care (01) ==
LOC: M ED 13:41
DX: O26.891 Other specified pregnancy related conditions, first trimester (principal); O21.8 Other vomiting complicating pregnancy; R10.2 Pelvic and perineal pain; Z3A.01 Less than 8 weeks gestation of pregnancy; O10.011 Pre-existing essential hypertension complicating pregnancy, first trimester; O99.511 Diseases of the respiratory system complicating pregnancy, first trimester; J45.909 Unspecified asthma, uncomplicated; O99.841 Bariatric surgery status complicating pregnancy, first trimester; Z87.891 Personal history of nicotine dependence
CPT/HCPCS: J2765

== ENCOUNTER → 2018-05-28 | Outpatient (REF) | payer OTHER ==
[~2018-05-28] MED LIST changes: +FLUOXETINE PO; +MACR100C43 PO; +NAPR-49 PO; -NAPR500T PO; +OMEP40CA2 PO; +PEPC1TAB5 PO; +PRENTAB45 PO; +PYRI1TAB5 PO; +REGL10TA6 PO; +SPIR-10 PO; +TRI-TAB; +VITA200016 PO; +[UNRECOGNIZED DRUG - CODE] PO
[2018-05-29 10:11] LABS: HEPATITIS C VIRUS ABY INDEX 0.1 INDEX (<0.8); HIV 1&2 SCREEN CENTAUR NEGATIVE (NEGATIVE); RUBELLA IgG QUALITATIVE IMMUNE (IMMUNE)
== END ==
LOC: M LAB REF 12:24
PROVIDERS: ATTEND Obstetrics & Gynecology
DX: Z34.81 Encounter for supervision of other normal pregnancy, first trimester (principal)

== ENCOUNTER 2018-07-12 10:56 | Emergency (ER) | payer OTHER ==
[~2018-07-12] VITALS: Ht 165.1 cm; Wt 93.2 kg
[~2018-07-12 10:56] MED LIST changes: -NAPR-49 PO; +NAPR-50 PO
[2018-07-12] MEDS ORDERED: NS 1,000 ML IV ONE (11:45)
[2018-07-12 11:52] LABS: BASO # 0.1 10^3/uL (0.0-0.2); BASO % 0.5 % (0.0-1.0); EOS # 0.1 10^3/uL (0.0-0.50); EOS % 0.7 % (0.0-3.0); HEMATOCRIT 34.7 % (36.0-47.0); HEMOGLOBIN 11.8 g/dl (12.0-15.5); LYMPH # 2.9 10^3/uL (1.5-4.5); LYMPH % 28.9 % (24.0-44.0); MEAN CORPUSCULAR HEMOGLOBIN 32.2 pg (27.0-33.0); MEAN CORPUSCULAR VOLUME 94.8 fl (80.0-96.0); MONO # 0.8 10^3/uL (0.0-0.8); MONO % 7.8 % (0.0-5.0); NEUTROPHILS # 6.2 10^3/uL (1.8-7.7); NEUTROPHILS % 61.7 % (36.0-66.0); PLATELET COUNT, AUTOMATED 233 10^3/uL (150-450); RED BLOOD COUNT 3.66 10^6/uL (4.00-5.40); WHITE BLOOD COUNT 10.1 10^3/uL (4.0-10.0)
[2018-07-12 12:00] LABS: AMORPHOUS SEDIMENT SMALL (NEGATIVE); APPEARANCE, URINE CLOUDY (CLEAR); BACTERIA, URINE AUTO 1+ (NEGATIVE); BILIRUBIN, URINE AUTO NEGATIVE (NEGATIVE); BLOOD, URINE BLOOD NEGATIVE (NEGATIVE); COLOR, URINE AMBER (YELLOW); GLUCOSE, URINE (UA) AUTO NEGATIVE (NEGATIVE); KETONE, URINE AUTO NEGATIVE (NEGATIVE); LEUKOCYTE ESTERASE, URINE AUTO TRACE (NEGATIVE); MUCUS, URINE SMALL (NEGATIVE); NITRITE, URINE AUTO NEGATIVE (NEGATIVE); PROTEIN, URINE AUTO NEGATIVE (NEGATIVE); RBC, URINE AUTO 5 /HPF (0-3); SPECIFIC GRAVITY URINE AUTO 1.029 (1.002-1.035); SQUAMOUS EPITHELIAL CELL UR AU 11 /HPF (0-6); WBC, URINE AUTO 2 /HPF (0-3)
[2018-07-12 12:13] LABS: BLOOD UREA NITROGEN 8 MG/DL (7-18); CALCIUM LEVEL 7.8 MG/DL (8.5-10.1); CARBON DIOXIDE LEVEL 21 MEQ/L (21-32); CHLORIDE LEVEL 108 MEQ/L (98-107); CREATININE FOR GFR 0.54 MG/DL (0.55-1.30); GLOMERULAR FILTRATION RATE > 60.0 (>60); GLUCOSE, FASTING 67 MG/DL (70-100); SODIUM LEVEL 138 MEQ/L (136-145)
[2018-07-12] MEDS ORDERED: ENDO10TA8 PO (12:24)
[2018-07-12] MEDS ORDERED: IBUP80TA PO (12:24)
--- NOTE | 2018-07-12 12:57 | REP ---
Clinical: Left flank pain. Rule out urolithiasis. Technique: Real time kwok scale ultrasound examination using curved array transducer. Findings: Bilateral kidneys are normal in contour, size, echogenicity without hydronephrosis, obvious nephrolithiasis, cystic or renal mass lesion. No perinephric fluid collection. Right kidney measures 12.2 x 6.6 x 4.2 cm. Left kidney measures 12.1 x 5.1 x 5.5 cm. The bladder is normal in appearance. Intrauterine identified. Impression: No hydronephrosis or obvious nephrolithiasis. Electronically Signed by Chandler Hartman MD 07/12/2018 12:49 P
[2018-07-12] MEDS ORDERED: ACE65ERTAB PO (13:30)
[2018-07-12] MEDS ORDERED: NITR-67 PO (13:31)
[2018-07-12 13:40] VITALS: BP 115/65
== END 2018-07-12 13:41 | disposition home or self-care (01) ==
LOC: M ED 10:56
DX: O23.42 Unspecified infection of urinary tract in pregnancy, second trimester (principal); O99.012 Anemia complicating pregnancy, second trimester; O13.2 Gestational [pregnancy-induced] hypertension without significant proteinuria, second trimester; O99.512 Diseases of the respiratory system complicating pregnancy, second trimester; O99.342 Other mental disorders complicating pregnancy, second trimester; O99.842 Bariatric surgery status complicating pregnancy, second trimester; Z87.442 Personal history of urinary calculi; Z87.891 Personal history of nicotine dependence; Z79.899 Other long term (current) drug therapy

== ENCOUNTER → 2018-07-21 | Outpatient (CLI) | payer OTHER ==
[~2018-07-21] MED LIST changes: +ACE65ERTAB PO; +ENDO10TA8 PO; +NITR-67 PO
[2018-07-21 16:52] LABS: HEMATOCRIT 34.8 % (36.0-47.0); HEMOGLOBIN 11.9 g/dl (12.0-15.5); MEAN CORPUSCULAR HEMOGLOBIN 32.1 pg (27.0-33.0); MEAN CORPUSCULAR HGB CONC 34.2 g/dl (32.0-36.5); MEAN CORPUSCULAR VOLUME 93.8 fl (80.0-96.0); PLATELET COUNT, AUTOMATED 263 10^3/uL (150-450); RED BLOOD COUNT 3.71 10^6/uL (4.00-5.40); WHITE BLOOD COUNT 11.6 10^3/uL (4.0-10.0)
[2018-07-21 17:12] LABS: ALBUMIN 3.1 GM/DL (3.2-5.2); ALT/SGPT 24 U/L (12-78); BILIRUBIN,TOTAL 0.2 MG/DL (0.2-1.0); BLOOD UREA NITROGEN 7 MG/DL (7-18); CALCIUM LEVEL 8.1 MG/DL (8.5-10.1); CARBON DIOXIDE LEVEL 24 MEQ/L (21-32); CHLORIDE LEVEL 103 MEQ/L (98-107); CREATININE FOR GFR 0.58 MG/DL (0.55-1.30); GLOMERULAR FILTRATION RATE > 60.0 (>60); GLUCOSE CHALLENGE TEST 1 HOUR 154 MG/DL (LESS THAN 140); GLUCOSE, FASTING 154 MG/DL (70-100); POTASSIUM SERUM 3.6 MEQ/L (3.5-5.1); SODIUM LEVEL 137 MEQ/L (136-145); TOTAL PROTEIN 6.3 GM/DL (6.4-8.2)
== END ==
LOC: M LAB 14:46
PROVIDERS: ATTEND Obstetrics & Gynecology
DX: O24.419 Gestational diabetes mellitus in pregnancy, unspecified control (principal)

== ENCOUNTER → 2018-07-23 | Outpatient (CLI) | payer OTHER | LOC: M LAB 08:55 | PROVIDERS: ATTEND Obstetrics & Gynecology | DX: Z36.89 Encounter for other specified antenatal screening (principal); R73.02 Impaired glucose tolerance (oral); Z3A.00 Weeks of gestation of pregnancy not specified ==

== ENCOUNTER → 2018-08-18 | Outpatient (REF) | payer OTHER ==
[2018-08-18 14:14] LABS: ALBUMIN 2.5 GM/DL (3.2-5.2); ALT/SGPT 21 U/L (12-78); BILIRUBIN,TOTAL 0.1 MG/DL (0.2-1.0); BLOOD UREA NITROGEN 10 MG/DL (7-18); CALCIUM LEVEL 7.7 MG/DL (8.5-10.1); CARBON DIOXIDE LEVEL 26 MEQ/L (21-32); CHLORIDE LEVEL 107 MEQ/L (98-107); CREATININE FOR GFR 0.52 MG/DL (0.55-1.30); GLOMERULAR FILTRATION RATE > 60.0 (>60); GLUCOSE, FASTING 76 MG/DL (70-100); POTASSIUM SERUM 3.9 MEQ/L (3.5-5.1); SODIUM LEVEL 139 MEQ/L (136-145); TOTAL PROTEIN 5.7 GM/DL (6.4-8.2)
[2018-08-18 14:39] LABS: HEMOGLOBIN A1c 5.1 %
== END ==
LOC: M LAB REF 13:32
PROVIDERS: ATTEND Obstetrics & Gynecology
DX: Z34.82 Encounter for supervision of other normal pregnancy, second trimester (principal); Z3A.00 Weeks of gestation of pregnancy not specified

== ENCOUNTER → 2018-09-17 | Outpatient (REF) | payer OTHER ==
[~2018-09-17] MED LIST changes: -ACET50TA PO; +MAPA500T17 PO; -MULT1CHW39 PO; +MULT200T7 PO; -NAPR-50 PO; +NAPR-837 PO
[2018-09-17 12:57] LABS: HEMOGLOBIN 10.5 g/dl (12.0-15.5); MEAN CORPUSCULAR HEMOGLOBIN 32.3 pg (27.0-33.0); MEAN CORPUSCULAR HGB CONC 33.9 g/dl (32.0-36.5); MEAN CORPUSCULAR VOLUME 95.4 fl (80.0-96.0); PLATELET COUNT, AUTOMATED 265 10^3/uL (150-450); RED BLOOD COUNT 3.25 10^6/uL (4.00-5.40); WHITE BLOOD COUNT 10.9 10^3/uL (4.0-10.0)
== END ==
LOC: M LAB REF 12:26
PROVIDERS: ATTEND Obstetrics & Gynecology
DX: Z34.82 Encounter for supervision of other normal pregnancy, second trimester (principal); Z36.89 Encounter for other specified antenatal screening
CPT/HCPCS: 85027; 86850; 86901; J2790

== ENCOUNTER 2018-10-09 07:26 | Outpatient (CLI) | payer OTHER ==
[~2018-10-09] VITALS: Ht 165.1 cm; Wt 107.3 kg
[2018-10-09 07:44] VITALS: BP 119/64
[2018-10-09] MEDS ORDERED: VITAD1000T PO (07:51)
[2018-10-09] MEDS ORDERED: PROZ20CA11 PO (07:51)
[2018-10-09 09:06] VITALS: BP 110/54
== END 2018-10-09 10:45 | disposition home or self-care (01) ==
LOC: M LDO 07:26
PROVIDERS: ATTEND Obstetrics & Gynecology
DX: O26.893 Other specified pregnancy related conditions, third trimester (principal); Z3A.29 29 weeks gestation of pregnancy; O99.213 Obesity complicating pregnancy, third trimester

== ENCOUNTER 2018-11-14 20:52 | Outpatient (CLI) | payer OTHER ==
[~2018-11-14] VITALS: Ht 165.1 cm; Wt 108.3 kg
[~2018-11-14 20:52] MED LIST changes: +PROZ20CA11 PO; +VITAD1000T PO
[2018-11-14 21:09] VITALS: BP 130/67
[2018-11-14] MEDS ORDERED: FIORICET TAB PO ONE (21:45)
[2018-11-14 21:57] LABS: HEMOGLOBIN 9.2 g/dl (12.0-15.5); MEAN CORPUSCULAR HEMOGLOBIN 31.8 pg (27.0-33.0); MEAN CORPUSCULAR HGB CONC 32.9 g/dl (32.0-36.5); MEAN CORPUSCULAR VOLUME 96.9 fl (80.0-96.0); PLATELET COUNT, AUTOMATED 202 10^3/uL (150-450); RED BLOOD COUNT 2.89 10^6/uL (4.00-5.40); WHITE BLOOD COUNT 9.9 10^3/uL (4.0-10.0)
[2018-11-14 22:14] LABS: TOTAL PROTEIN,RANDOM URINE 20.3 MG/DL (0.0-12.0)
[2018-11-14 22:20] LABS: ALT/SGPT 19 U/L (12-78); BILIRUBIN,TOTAL 0.1 MG/DL (0.2-1.0); CREATININE FOR GFR 0.58 MG/DL (0.55-1.30); GLOMERULAR FILTRATION RATE > 60.0 (>60); LDH LACTATE DEHYDROGENASE 193 U/L (84-246); URIC ACID 3.8 MG/DL (2.6-6.0)
[2018-11-15] MEDS ORDERED: LACTATED RINGER'S 1000 ML IV STA (00:02)
[2018-11-15] MEDS ORDERED: PROMETHAZINE INJ 25 MG/ML VIAL (J2550) IV PRN (00:15)
[2018-11-15] MEDS ORDERED: BUTORPHANOL 2 MG/ML INJ (J0595) IV ONE (00:15)
[2018-11-15] MEDS: LR 1,000 ML IV SCH ×2 (01:12→08:58)
[2018-11-15 07:12] VITALS: BP 107/51
[2018-11-15] MEDS ORDERED: FIORICET TAB PO PRN (07:15)
[2018-11-15 08:59] VITALS: BP 112/56
[2018-11-15] MEDS ORDERED: METOCLOPRAMIDE INJ 10MG/2ML VIAL (J2765) IV ONE (09:45)
[2018-11-15] MEDS ORDERED: diphenhydrAMINE INJ 50MG/ML VIAL (J1200) IV PRN (09:45)
[2018-11-15] MEDS ORDERED: BUTACAP78 PO (12:12)
--- NOTE | 2018-11-15 20:57 | NUR ---
L&D Triage Note: S: 28yo at 34+ wks present with c/o headache, dizziness and nausea. Denies Headache trauma, URI symptoms h/o migraines. No ctx, LOF or vaginal bleeding. Reports active movement. O: vss, AF cat 1 tracing gen: well appearing neuro: grossly normal 9.9>--9.2/28.0--<202, preeclamptic panel wnl, spot urine wnl -patient provided stadol / phenergan and Fioricet with minimal relief -Reglan and benadryl with relief of headache A/P: 28yo at 34wks with headache - resolved Reassuring status -home with PTL precautions -rx for Fioricet -f/u with her OB later this week Terra Nixon MD
== END 2018-11-15 11:37 | disposition home or self-care (01) ==
LOC: M LDO 20:52
PROVIDERS: ATTEND Obstetrics & Gynecology
DX: O99.89 Other specified diseases and conditions complicating pregnancy, childbirth and the puerperium (principal); R51 Headache; H53.9 Unspecified visual disturbance; O26.893 Other specified pregnancy related conditions, third trimester; M54.9 Dorsalgia, unspecified; Z3A.34 34 weeks gestation of pregnancy
CPT/HCPCS: 36415; 59025; 82247; 82565; 82570; 83615; 84156; 84450; 84460; 84550; 85027; J0595; J1200; J2765

== ENCOUNTER → 2018-12-03 | Outpatient (REF) | payer OTHER ==
[~2018-12-03] MED LIST changes: +BUTA1CAP4 PO; +BUTACAP78 PO; +FERR1TAB8 PO
== END ==
LOC: M LAB REF 12:41
PROVIDERS: ATTEND Obstetrics & Gynecology
DX: Z34.83 Encounter for supervision of other normal pregnancy, third trimester (principal); Z3A.00 Weeks of gestation of pregnancy not specified

== ENCOUNTER 2018-12-11 00:05 | Outpatient (CLI) | payer OTHER ==
[~2018-12-11] VITALS: Ht 160 cm; Wt 117.7 kg
[~2018-12-11 00:05] MED LIST changes: -BUTA1CAP4 PO; -FERR1TAB8 PO
[2018-12-11 00:40] VITALS: BP 111/71
[2018-12-11 01:13] VITALS: BP 98/64
[2018-12-11 01:26] VITALS: BP 96/59
[2018-12-11 01:41] VITALS: BP 103/57
[2018-12-11] MEDS ORDERED: FIORICET TAB PO ONE ×2 (02:15→08:45)
[2018-12-11] MEDS ORDERED: FERR1TAB8 PO (02:42)
[2018-12-11] MEDS ORDERED: PROMETHAZINE INJ 25 MG/ML VIAL (J2550) IV ONE (03:45)
[2018-12-11] MEDS ORDERED: LR 1,000 ML IV SCH (03:45)
[2018-12-11 09:14] VITALS: BP 110/57
[2018-12-11 11:02] VITALS: BP 119/55
[2018-12-11] MEDS ORDERED: BUTA1CAP4 PO (11:13)
== END 2018-12-11 11:23 | disposition home or self-care (01) ==
LOC: M LDO 00:05
PROVIDERS: ATTEND Obstetrics & Gynecology
DX: O99.89 Other specified diseases and conditions complicating pregnancy, childbirth and the puerperium (principal); R51 Headache; Z3A.37 37 weeks gestation of pregnancy

== ENCOUNTER 2018-12-12 14:25 | Outpatient (CLI) | payer OTHER ==
[~2018-12-12] VITALS: Ht 160 cm; Wt 118.4 kg
[~2018-12-12 14:25] MED LIST changes: +BUTA1CAP4 PO; +FERR1TAB8 PO
[2018-12-12 14:34] VITALS: BP 133/70
[2018-12-12 14:49] VITALS: BP 123/66
[2018-12-12 15:40] VITALS: BP 111/57
== END 2018-12-12 15:53 | disposition home or self-care (01) ==
LOC: M LDO 14:25
PROVIDERS: ATTEND Specialist
DX: O36.8130 Decreased fetal movements, third trimester, not applicable or unspecified (principal); Z3A.37 37 weeks gestation of pregnancy

== ENCOUNTER 2018-12-13 16:41 | Outpatient (CLI) | payer OTHER ==
[~2018-12-13] VITALS: Ht 160 cm; Wt 117.6 kg
[2018-12-13 16:58] VITALS: BP 117/63
[2018-12-13] MEDS ORDERED: PERCOCET 5MG/325MG TAB PO ONE (17:15)
[2018-12-13 17:27] VITALS: BP 116/55
[2018-12-13 17:29] LABS: HEMATOCRIT 26.8 % (36.0-47.0); HEMOGLOBIN 8.9 g/dl (12.0-15.5); MEAN CORPUSCULAR HEMOGLOBIN 31.3 pg (27.0-33.0); MEAN CORPUSCULAR HGB CONC 33.2 g/dl (32.0-36.5); MEAN CORPUSCULAR VOLUME 94.4 fl (80.0-96.0); PLATELET COUNT, AUTOMATED 235 10^3/uL (150-450); RED BLOOD COUNT 2.84 10^6/uL (4.00-5.40); WHITE BLOOD COUNT 9.5 10^3/uL (4.0-10.0)
[2018-12-13 18:56] VITALS: BP 123/65
== END 2018-12-13 19:00 | disposition home or self-care (01) ==
LOC: M LDO 16:41
PROVIDERS: ATTEND Specialist
DX: O36.8130 Decreased fetal movements, third trimester, not applicable or unspecified (principal); O26.893 Other specified pregnancy related conditions, third trimester; R51 Headache; R11.0 Nausea; O99.89 Other specified diseases and conditions complicating pregnancy, childbirth and the puerperium; H53.8 Other visual disturbances; Z3A.37 37 weeks gestation of pregnancy

== ENCOUNTER 2018-12-22 07:28 | Inpatient (IN) | payer OTHER ==
[2018-12-22] VITALS (41 sets, daily range): BP systolic 112–140; BP diastolic 55–85
[~2018-12-22] VITALS: Ht 165.1 cm; Wt 118.7 kg
[2018-12-22] MEDS ORDERED: MULTCAP PO (08:01)
[2018-12-22] MEDS ORDERED: LACTATED RINGER'S 1000 ML IV STA (08:37)
[2018-12-22] MEDS ORDERED: OXYTOCIN DRIP 30 UNITS in APPROPRIATE DILUENT 1 EA IV SCH (08:45)
[2018-12-22 09:21] LABS: HEMATOCRIT 28.3 % (36.0-47.0); HEMOGLOBIN 9.3 g/dl (12.0-15.5); MEAN CORPUSCULAR HEMOGLOBIN 30.9 pg (27.0-33.0); MEAN CORPUSCULAR HGB CONC 32.9 g/dl (32.0-36.5); PLATELET COUNT, AUTOMATED 203 10^3/uL (150-450); RED BLOOD COUNT 3.01 10^6/uL (4.00-5.40); WHITE BLOOD COUNT 9.7 10^3/uL (4.0-10.0)
[2018-12-22 09:54] LABS: ALT/SGPT 17 U/L (12-78); BILIRUBIN,TOTAL 0.2 MG/DL (0.2-1.0); CREATININE FOR GFR 0.58 MG/DL (0.55-1.30); GLOMERULAR FILTRATION RATE > 60.0 (>60); LDH LACTATE DEHYDROGENASE 258 U/L (84-246); URIC ACID 4.1 MG/DL (2.6-6.0)
[2018-12-22] MEDS ORDERED: FENTANYL 2MCG/ML ROPIVACAINE 0.2% IN 0.9% NACL 100ML IVBAG As Ordered ONE (12:43)
[2018-12-22] MEDS: LR 1,000 ML IV SCH ×2 (12:45→17:43)
[2018-12-22] MEDS ORDERED: LACTATED RINGER'S 1000 ML IV PRN (13:45)
[2018-12-22] MEDS ORDERED: EPIDURAL/PCA KEYS XX PRN (13:45)
[2018-12-22] MEDS ORDERED: EPIDURAL COMMENT XX SCH (13:45)
[2018-12-22] MEDS ORDERED: NALOXONE INJ 0.4 MG/1 ML VIAL (J2310) IV PRN (13:45)
[2018-12-22] MEDS ORDERED: ONDANSETRON 4MG/2ML VIAL (J2405) IV PRN (13:45)
[2018-12-22] MEDS ORDERED: diphenhydrAMINE INJ 50MG/ML VIAL (J1200) IV PRN (13:45)
[2018-12-22] MEDS ORDERED: ePHEDrine SULFATE 25 MG/5 ML(5MG/ML) SYRINGE IV PRN (13:45)
[2018-12-22] MEDS ORDERED: REFRIGERATOR IV KEYS XX PRN (13:45)
[2018-12-22] MEDS: FENTANYL/ROPIVACAINE/NACL BAG 100 ML EPIDURAL SCH ×2 (17:43→23:33)
--- NOTE | 2018-12-22 19:53 | HPE ---
DATE OF ADMISSION: 12/22/2018 Neeta is a 28-year-old female, 8, para 2-1-5-3, with a history of diabetes, estimated date of confinement (EDC) 12/28/2018, estimated gestational age 39-3/7 weeks gestation, who is being admitted for an induction. Patient has suspected macrosomia on ultrasound. She also had a prior fetus that was 10 pounds 11 ounces. Currently patient has gestational diabetes, diet controlled. Her record reviewed, which was essentially unremarkable other than gestational diabetes and patient does have a prior history of gastric bypass. LABORATORIES: Blood type is O positive, rubella immune, hepatitis negative, HIV negative, gonorrhea and chlamydia negative, group B Streptococcus (GBS) is negative. PAST MEDICAL HISTORY: She is significant for gestational diabetes. PAST SURGICAL HISTORY 1. Shoulder arthroscopy on the left. 2. Gastric bypass. SOCIAL HISTORY: Patient denies any alcohol or drug or cigarette smoking. She is . FAMILY HISTORY: Significant for thyroid disease and diabetes. MEDICATIONS: - vitamin - multivitamins - vitamin B12 - calcium. ALLERGIES: No known drug allergies: PHYSICAL EXAMINATION: Morbidly obese female in no acute distress. HEENT: Grossly within normal limits. ABDOMEN: Soft, nontender, nondistended. EXTREMITIES: No clubbing, cyanosis or edema. VAGINAL EXAM: 2-3 cm dilated, 60-70% effaced, fetus at -3 station, in vertex position. Tracing reviewed; category one tracing. ASSESSMENT: 1. Intrauterine at 39 weeks gestation being admitted for induction. 2. Gestational diabetes, diet controlled. 3. Morbid obesity. 4. Prior history of macrosomia and current suspected macrosomia. At last ultrasound, fetus was 9 pounds 5 ounces. PLAN: Patient is being admitted to labor and delivery. Induction process discussed. Risks and benefits of induction also discussed as well as her gestational diabetes and the risk of macrosomia and shoulder dystocia. Patient is fully aware of risks and is willing for a trial of labor. She will undergo Pitocin induction with possible artificial rupture of membrane.
[2018-12-23] VITALS (25 sets, daily range): BP systolic 108–149; BP diastolic 52–89
[2018-12-23] MEDS: LR 1,000 ML IV SCH (02:27)
[2018-12-23] MEDS ORDERED: OXYTOCIN DRIP 30 UNITS in APPROPRIATE DILUENT 1 EA IV SCH (04:36)
[2018-12-23] MEDS ORDERED: OXYTOCIN 30 UNITS IN 0.9% NaCl 500ML IV BAG (J2590) As Ordered ONE (04:40)
[2018-12-23] MEDS ORDERED: DIBUCAINE 1% OINTMENT 30GM TOP PRN (04:45)
[2018-12-23] MEDS ORDERED: RHOGAM 300 MCG (1500 IU) INJ (J2790) IM SCH (04:45)
[2018-12-23] MEDS ORDERED: ANUSOL HC CREAM 30GM TOP PRN (04:45)
[2018-12-23] MEDS ORDERED: MEASLES,MUMPS,RUBELLA VACCINE INJ (MMR-II) (90707) SC SCH (04:45)
[2018-12-23] MEDS ORDERED: METHYLERGONOVINE MALEATE 0.2 MG TAB PO PRN (04:45)
[2018-12-23] MEDS ORDERED: IBUPROFEN 800 MG TAB PO PRN (04:45)
[2018-12-23] MEDS ORDERED: ACETAMINOPHEN 500 MG TAB PO PRN (04:45)
[2018-12-23] MEDS ORDERED: IBUPROFEN 600 MG TAB PO PRN (04:45)
[2018-12-23 05:01] LABS: CORD GAS PH A 7.265 UNITS
[2018-12-23 05:02] LABS: CORD GAS ABE A -3.5; CORD GAS O2 SAT A 51.6 %; CORD GAS PO2 A 26.2 mmHg; CORD GAS SBC A 20.6 MEQ/L; CORD GAS TCO2 A 25.6 MEQ/L
[2018-12-23 05:04] LABS: CORD GAS ABE V -4.3; CORD GAS HCO3 V 20.5 MEQ/L; CORD GAS O2 SAT V 81.2 %; CORD GAS PCO2 V 36.9 mmHg; CORD GAS PH V 7.363 UNITS; CORD GAS PO2 V 39.9 mmHg; CORD GAS SBC V 20.6 MEQ/L; CORD GAS TCO2 V 21.7 MEQ/L
[2018-12-23] MEDS ORDERED: SLF 3 ML SYR IV PRN (06:15)
[2018-12-23] MEDS: ACETAMINOPHEN TAB 650MG DOSE (2X325MG) PO PRN ×2 (07:31→18:13)
[2018-12-23] MEDS: PRENATAL VITAMINS CHEWABLE TABLET PO SCH (09:26)
[2018-12-23] MEDS: DOCUSATE SODIUM 100 MG CAP PO SCH ×2 (09:26→21:00)
--- NOTE | 2018-12-23 10:33 | DN ---
DATE OF DELIVERY: 12/23/2018 Neeta is a 28-year-old female, 8, para 2-1-5-3, who presented to labor and delivery at 39 weeks gestation for induction. She underwent Pitocin induction with artificial rupture of membranes. She then progressed to fully dilated, delivered a live male infant in right occiput anterior position with tight nuchal cord times two, which was caught in the perineum. scores 9 and 9, weight 8 pounds 13 ounces. Placenta delivered spontaneously intact. Three-vessel cord. Perineum, vagina and cervix inspected. No laceration noted. Estimated blood loss 350 mL. Both mother and baby in stable condition.
[2018-12-23] MEDS: SLF 3 ML SYR IV SCH ×2 (14:52→22:00)
[2018-12-24] MEDS: ACETAMINOPHEN TAB 650MG DOSE (2X325MG) PO PRN (03:33)
[2018-12-24 05:28] VITALS: BP 117/78
[2018-12-24] MEDS: SLF 3 ML SYR IV SCH (06:54)
[2018-12-24] MEDS: PRENATAL VITAMINS CHEWABLE TABLET PO SCH (07:56)
[2018-12-24] MEDS: DOCUSATE SODIUM 100 MG CAP PO SCH (07:56)
== END 2018-12-24 15:05 | disposition home or self-care (01) | DRG 560 ==
LOC: M LDI 07:28 → M OBS 12-23 08:57
PROVIDERS: ADMIT Obstetrics & Gynecology; ATTEND Obstetrics & Gynecology
PROC: 3E033VJ Introduction of Other Hormone into Peripheral Vein, Percutaneous Approach (ICD-10-PCS; 2018-12-22)
PROC: 10E0XZZ Delivery of Products of Conception, External Approach (ICD-10-PCS; principal; 2018-12-23)
PROC: 10907ZC Drainage of Amniotic Fluid, Therapeutic from Products of Conception, Via Natural or Artificial Opening (ICD-10-PCS; 2018-12-23)
DX: O24.420 Gestational diabetes mellitus in childbirth, diet controlled (principal); E66.9 Obesity, unspecified; Z3A.39 39 weeks gestation of pregnancy; O99.844 Bariatric surgery status complicating childbirth; O36.63X0 Maternal care for excessive fetal growth, third trimester, not applicable or unspecified; O99.214 Obesity complicating childbirth; O69.1XX0 Labor and delivery complicated by cord around neck, with compression, not applicable or unspecified; Z37.0 Single live birth

== ENCOUNTER → 2019-04-29 | Outpatient (REF) | payer OTHER ==
[~2019-04-29] MED LIST changes: +CHOL100029 PO; +MULTCAP PO; -OMEP40CA2 PO; +OMEP40CA97 PO; -VITAD1000T PO
[2019-04-29 17:39] LABS: HEMATOCRIT 35.7 % (36.0-47.0); HEMOGLOBIN 11.6 g/dl (12.0-15.5); MEAN CORPUSCULAR HEMOGLOBIN 30.1 pg (27.0-33.0); MEAN CORPUSCULAR HGB CONC 32.5 g/dl (32.0-36.5); MEAN CORPUSCULAR VOLUME 92.5 fl (80.0-96.0); PLATELET COUNT, AUTOMATED 412 10^3/uL (150-450); RED BLOOD COUNT 3.86 10^6/uL (4.00-5.40); WHITE BLOOD COUNT 11.8 10^3/uL (4.0-10.0)
[2019-04-29 17:59] LABS: HCG, SERUM QUANTITATIVE 94192 MIU/ML
[2019-04-30 12:37] LABS: RUBELLA IgG QUALITATIVE IMMUNE (IMMUNE)
[2019-04-30 13:05] LABS: HEPATITIS C VIRUS ABY INDEX 0.1 INDEX (<0.8)
[2019-04-30 13:06] LABS: HIV 1&2 SCREEN CENTAUR NEGATIVE (NEGATIVE)
== END ==
LOC: M LAB REF 17:04
PROVIDERS: ATTEND Obstetrics & Gynecology
DX: Z32.01 Encounter for pregnancy test, result positive (principal); O36.80X0 Pregnancy with inconclusive fetal viability, not applicable or unspecified; Z3A.00 Weeks of gestation of pregnancy not specified

== ENCOUNTER → 2019-06-11 | Outpatient (REF) | payer MEDICAID | LOC: M LAB REF 12:30 | PROVIDERS: ATTEND Obstetrics & Gynecology | DX: Z36.89 Encounter for other specified antenatal screening (principal); Z3A.00 Weeks of gestation of pregnancy not specified ==

== ENCOUNTER 2019-06-13 19:27 | Emergency (ER) | payer MEDICAID ==
[~2019-06-13] VITALS: Ht 162.6 cm; Wt 95.5 kg
[2019-06-13 19:52] LABS: BASO % 0.4 % (0.0-1.0); EOS # 0.1 10^3/uL (0.0-0.5); EOS % 0.8 % (0.0-3.0); HEMATOCRIT 35.5 % (36.0-47.0); HEMOGLOBIN 11.8 g/dl (12.0-15.5); LYMPH # 3.7 10^3/uL (1.5-5.0); LYMPH % 34.1 % (24.0-44.0); MEAN CORPUSCULAR HEMOGLOBIN 31.6 pg (27.0-33.0); MEAN CORPUSCULAR HGB CONC 33.2 g/dl (32.0-36.5); MEAN CORPUSCULAR VOLUME 94.9 fl (80.0-96.0); MONO # 0.6 10^3/uL (0.0-0.8); MONO % 5.1 % (0.0-5.0); NEUTROPHILS # 6.4 10^3/uL (1.5-8.5); NEUTROPHILS % 59.1 % (36.0-66.0); PLATELET COUNT, AUTOMATED 248 10^3/uL (150-450); RED BLOOD COUNT 3.74 10^6/uL (4.00-5.40); WHITE BLOOD COUNT 10.8 10^3/uL (4.0-10.0)
[2019-06-13 20:48] LABS: BLOOD UREA NITROGEN 11 MG/DL (7-18); CALCIUM LEVEL 8.2 MG/DL (8.5-10.1); CARBON DIOXIDE LEVEL 22 MEQ/L (21-32); CHLORIDE LEVEL 109 MEQ/L (98-107); CREATININE FOR GFR 0.66 MG/DL (0.55-1.30); GLOMERULAR FILTRATION RATE > 60.0 (>60); GLUCOSE, FASTING 150 MG/DL (70-100); HCG, SERUM QUANTITATIVE 64545 MIU/ML; POTASSIUM SERUM 3.6 MEQ/L (3.5-5.1); SODIUM LEVEL 139 MEQ/L (136-145)
[2019-06-13] MEDS ORDERED: RHOGAM 300 MCG (1500 IU) INJ (J2790) IM ONE (21:45)
[2019-06-13 22:39] VITALS: BP 131/74
--- NOTE | 2019-06-14 08:37 | REP ---
Emergency obstetric sonography: Repeat dictation. History: Vaginal bleeding. Preliminary report is provided at time of exam by [facility]. Sonographic findings: Scanning through the gravid uterus demonstrates a single living intrauterine gestation in a free-floating lie. heart rate is recorded at 153 beats per minute. motion is observed. No subchorionic hemorrhage is appreciated. Anterior placenta is seen without evidence of previa. No gross anomaly is seen. Closed cervical length is 4.3 cm. Biometry chart: BPD 2.3 cm 13 weeks 6 days [place] Dyne-rump length 7.6 cm 13 weeks 5 days Head circumference 9.0 cm 14 weeks 0 days Abdominal circumference 6.9 cm 13 weeks 4 days Femur length 1.1 cm 13 weeks 2 days HC/AC ratio normal 1.30, cephalic index normal 0.71, estimated weight 77 grams/0 pounds 2 ounces/45th percentile for 13 weeks 2 days. Impression: Viable single intrauterine gestation at 13 weeks 5 days by today's composite sonographic criteria. MARC by today's sonography December 14, 2019. No complication is identified. Electronically Signed by Gerald Moore MD 06/14/2019 09:03 A
== END 2019-06-13 22:40 | disposition home or self-care (01) ==
LOC: M ED 19:27
DX: O26.851 Spotting complicating pregnancy, first trimester (principal); Z31.82 Encounter for Rh incompatibility status; O24.410 Gestational diabetes mellitus in pregnancy, diet controlled; O16.9 Unspecified maternal hypertension, unspecified trimester; O99.841 Bariatric surgery status complicating pregnancy, first trimester; O99.331 Smoking (tobacco) complicating pregnancy, first trimester; Z3A.13 13 weeks gestation of pregnancy; Z79.899 Other long term (current) drug therapy
CPT/HCPCS: 76801; 80048; 81001; 84702; 85025; 86850; 86901; 87086; 93976; 96372; 99283; J2790

== ENCOUNTER → 2019-07-15 | Outpatient (CLI) | payer OTHER ==
--- NOTE | 2019-07-15 20:25 | REP ---
Clinical: Anatomical evaluation. Comparison: 06/13/2019 . Findings: Examination demonstrates a single live intrauterine in breech presentation. motion is identified by technologist. Placenta is noted anterior and grade zero without evidence for placenta previa or abruption. Amniotic fluid volume is normal. Cervix measures 3.8 cm in length and appears closed. No evidence for nuchal cord. Gestational age by LMP 17 weeks 6 days with MARC 12/17/2019 . Gestational age by current measurements 18 weeks 1 day with MARC at 12/15/2019 . FHR equals 146 beats per minute. BPD 4.0 cm 18 weeks 0 days HC 15.1 cm 18 weeks 1 day AC 12.8 cm 18 weeks 2 days FL 2.7 cm 18 weeks 1 day HL 2.5 cm 17 weeks 6 days HC/AC ratio 1.18 Estimated weight 231 grams ( 60th percentile). Anatomical assessment demonstrates normal structures including cranium, choroid plexus, cavum, cerebellum/posterior fossa, facial features, lungs, diaphragm, stomach, cord insertion/three-vessel cord, kidneys/bladder, spine, and extremities. Impression: Single live intrauterine in breech presentation demonstrating appropriate interval growth. Limited evaluation of the heart/ventricular outflow tracts. Remainder of the anatomical assessment is complete and normal. Electronically Signed by Chandler Hartman MD 07/15/2019 08:17 P
== END ==
LOC: M RAD 12:09
PROVIDERS: ATTEND Obstetrics & Gynecology
DX: O32.1XX0 Maternal care for breech presentation, not applicable or unspecified (principal); Z36.89 Encounter for other specified antenatal screening; Z3A.17 17 weeks gestation of pregnancy

== ENCOUNTER → 2019-08-18 | Outpatient (CLI) | payer OTHER ==
--- NOTE | 2019-08-19 07:39 | REP ---
Clinical: Anatomical evaluation. Comparison: 07/15/2019 . Findings: Examination demonstrates a single live intrauterine in cephalic presentation. motion is identified by technologist. Placenta is noted anterior and grade I I without evidence for placenta previa or abruption. Amniotic fluid volume is normal. Cervix measures 4.3 cm in length and appears closed. Nuchal cord cannot be excluded. Gestational age by LMP 22 weeks 5-day with MARC 12/17/2019 . Gestational age by current measurements 22 weeks 5-day with MARC it is 12/17/2019 . FHR equals 160 beats per minute. Estimated weight 525 grams ( 44th percentile). Anatomical assessment demonstrates normal structures including cranium, choroid plexus, cavum, facial features, lungs, four-chamber heart/ventricular outflow tracts, diaphragm, stomach, cord insertion/three-vessel cord, kidneys/bladder, and extremities. Impression: 1. Single live intrauterine in cephalic presentation demonstrating appropriate interval growth. 2. Nuchal cord cannot be excluded. 3. In conjunction with prior examination anatomical assessment is complete and normal. Electronically Signed by Chandler Hartman MD 08/19/2019 07:30 A
== END ==
LOC: M RAD 13:52
PROVIDERS: ATTEND Obstetrics & Gynecology
DX: Z34.82 Encounter for supervision of other normal pregnancy, second trimester (principal); Z36.89 Encounter for other specified antenatal screening; Z3A.22 22 weeks gestation of pregnancy

== ENCOUNTER → 2019-10-14 | Outpatient (REF) | payer OTHER ==
[2019-10-14 12:36] LABS: HEMATOCRIT 30.1 % (36.0-47.0); HEMOGLOBIN 9.6 g/dl (12.0-15.5); MEAN CORPUSCULAR HEMOGLOBIN 29.7 pg (27.0-33.0); MEAN CORPUSCULAR HGB CONC 31.9 g/dl (32.0-36.5); MEAN CORPUSCULAR VOLUME 93.2 fl (80.0-96.0); PLATELET COUNT, AUTOMATED 226 10^3/uL (150-450); RED BLOOD COUNT 3.23 10^6/uL (4.00-5.40); WHITE BLOOD COUNT 9.8 10^3/uL (4.0-10.0)
== END ==
LOC: M LAB REF 12:13
PROVIDERS: ATTEND Obstetrics & Gynecology
DX: Z34.82 Encounter for supervision of other normal pregnancy, second trimester (principal)
CPT/HCPCS: 85027; 86850; 86901; J2790

== ENCOUNTER → 2019-11-15 | Outpatient (REF) | payer OTHER | LOC: M LAB REF 12:00 | PROVIDERS: ATTEND Obstetrics & Gynecology | DX: Z34.83 Encounter for supervision of other normal pregnancy, third trimester (principal) ==

== ENCOUNTER → 2019-11-18 | Outpatient (CLI) | payer OTHER ==
--- NOTE | 2019-11-19 03:22 | REP ---
Clinical: Growth evaluation. Comparison: 08/18/2019 . Findings: Examination demonstrates a single live intrauterine in cephalic presentation. motion is identified by technologist. Placenta is noted anterior and grade I I without evidence for placenta previa or abruption. Amniotic fluid volume is normal. Cervix measures 3.1 cm in length and appears closed. No evidence for nuchal cord. Gestational age by LMP 35 weeks 6 days with MARC 12/17/2019 . Gestational age by current measurements 35 weeks 3 days with MARC see 12/20/2019 . FHR equals 158 beats per minute. Estimated weight 2801 grams ( 51st percentile). Impression: Single live intrauterine in cephalic presentation demonstrating appropriate interval growth. No gross abnormalities are identified.
== END ==
LOC: M WHC 10:57
PROVIDERS: ATTEND Advanced Practice Midwife
DX: O24.410 Gestational diabetes mellitus in pregnancy, diet controlled (principal); Z3A.35 35 weeks gestation of pregnancy

== ENCOUNTER 2019-12-01 11:03 | Inpatient (IN) | payer OTHER ==
[~2019-12-01] VITALS: Ht 165.1 cm; Wt 119.1 kg
[2019-12-01] VITALS (39 sets, daily range): BP systolic 118–176; BP diastolic 58–103
[2019-12-01] MEDS ORDERED: LACTATED RINGER'S 1000 ML IV STA (11:24)
[2019-12-01] MEDS ORDERED: LR 1,000 ML IV SCH (11:24)
[2019-12-01 11:52] LABS: HEMATOCRIT 28.2 % (36.0-47.0); MEAN CORPUSCULAR HEMOGLOBIN 27.2 pg (27.0-33.0); MEAN CORPUSCULAR HGB CONC 31.9 g/dl (32.0-36.5); MEAN CORPUSCULAR VOLUME 85.2 fl (80.0-96.0); PLATELET COUNT, AUTOMATED 181 10^3/uL (150-450); RED BLOOD COUNT 3.31 10^6/uL (4.00-5.40); WHITE BLOOD COUNT 11.1 10^3/uL (4.0-10.0)
[2019-12-01 12:00] LABS: ALBUMIN 2.5 GM/DL (3.2-5.2); ALT/SGPT 14 U/L (12-78); BILIRUBIN,TOTAL 0.2 MG/DL (0.2-1.0); BLOOD UREA NITROGEN 6 MG/DL (7-18); CALCIUM LEVEL 8.2 MG/DL (8.5-10.1); CARBON DIOXIDE LEVEL 22 MEQ/L (21-32); CHLORIDE LEVEL 109 MEQ/L (98-107); CREATININE FOR GFR 0.62 MG/DL (0.55-1.30); GLOMERULAR FILTRATION RATE > 60.0 (>60); GLUCOSE, FASTING 102 MG/DL (70-100); POTASSIUM SERUM 3.4 MEQ/L (3.5-5.1); SODIUM LEVEL 140 MEQ/L (136-145); TOTAL PROTEIN 6.2 GM/DL (6.4-8.2)
[2019-12-01] MEDS ORDERED: FENTANYL 2MCG/ML ROPIVACAINE 0.2% IN 0.9% NACL 100ML IVBAG As Ordered ONE (12:54)
[2019-12-01] MEDS ORDERED: LACTATED RINGER'S 1000 ML IV PRN (15:45)
[2019-12-01] MEDS ORDERED: EPIDURAL/PCA KEYS XX PRN (15:45)
[2019-12-01] MEDS ORDERED: NALOXONE INJ 0.4MG/1ML VIAL (J2310 PER 1MG) IV PRN (15:45)
[2019-12-01] MEDS ORDERED: EPIDURAL COMMENT XX SCH (15:45)
[2019-12-01] MEDS ORDERED: ePHEDrine SULFATE 25 MG/5 ML(5MG/ML) SYRINGE IV PRN (15:45)
[2019-12-01] MEDS ORDERED: FENTANYL/ROPIVACAINE/NACL BAG 100 ML EPIDURAL SCH (15:45)
[2019-12-01] MEDS ORDERED: diphenhydrAMINE 50MG/ML VIAL (J1200) IV PRN (15:45)
[2019-12-01] MEDS ORDERED: ONDANSETRON 4MG/2ML VIAL IV PRN (15:45)
[2019-12-01] MEDS ORDERED: REFRIGERATOR IV KEYS XX PRN (15:45)
[2019-12-01] MEDS ORDERED: OXYTOCIN 30 UNITS IN 0.9% NaCl 500ML IV BAG (J2590) As Ordered ONE (17:00)
[2019-12-01] MEDS ORDERED: OXYTOCIN DRIP 30 UNITS in IV 1 EA IV SCH ×2 (17:00→20:21)
[2019-12-01] MEDS ORDERED: MOM 30ML SUSPENSION UDC PO PRN (20:30)
[2019-12-01] MEDS ORDERED: IBUPROFEN 600MG TAB PO PRN (20:30)
[2019-12-01] MEDS ORDERED: METHYLERGONOVINE MALEATE 0.2 MG TAB PO PRN (20:30)
[2019-12-01] MEDS ORDERED: RHOGAM 300 MCG (1500 IU) INJ (J2790) IM SCH (20:30)
[2019-12-01] MEDS ORDERED: MEASLES,MUMPS,RUBELLA VACCINE INJ (MMR-II) (90707) SC SCH (20:30)
[2019-12-01] MEDS ORDERED: IBUPROFEN 800 MG TAB PO PRN (20:30)
[2019-12-01] MEDS ORDERED: ACETAMINOPHEN TAB 650MG DOSE (2X325MG) PO PRN (20:30)
[2019-12-01] MEDS ORDERED: DIBUCAINE 1% OINTMENT 30GM TOP PRN (20:30)
[2019-12-01] MEDS ORDERED: DOCUSATE SODIUM 100 MG CAP PO PRN (20:30)
[2019-12-01] MEDS: DOCUSATE SODIUM 100 MG CAP PO SCH (21:00)
[2019-12-01] MEDS: ACETAMINOPHEN 500 MG TAB PO PRN (22:03)
[2019-12-01] MEDS ORDERED: ONDANSETRON 4 MG TAB PO ONE (23:15)
[2019-12-02] VITALS (9 sets, daily range): BP systolic 138–162; BP diastolic 62–93
[2019-12-02] MEDS ORDERED: LR 600 ML IV ONE (01:30)
[2019-12-02] MEDS ORDERED: BICITRA 30ML SOLN UDC PO ONE (02:15)
[2019-12-02 02:52] LABS: BASO % 0.2 % (0.0-1.0); HEMATOCRIT 27.8 % (36.0-47.0); HEMOGLOBIN 8.9 g/dl (12.0-15.5); LYMPH # 1.4 10^3/uL (1.5-5.0); LYMPH % 7.1 % (24.0-44.0); MEAN CORPUSCULAR HEMOGLOBIN 27.1 pg (27.0-33.0); MEAN CORPUSCULAR VOLUME 84.5 fl (80.0-96.0); MONO # 1.2 10^3/uL (0.0-0.8); MONO % 6.2 % (0.0-5.0); NEUTROPHILS # 16.4 10^3/uL (1.5-8.5); NEUTROPHILS % 85.4 % (36.0-66.0); PLATELET COUNT, AUTOMATED 200 10^3/uL (150-450); RED BLOOD COUNT 3.29 10^6/uL (4.00-5.40); WHITE BLOOD COUNT 19.2 10^3/uL (4.0-10.0)
[2019-12-02] MEDS ORDERED: OMEPRAZOLE 20 MG CAP PO ONE (03:15)
[2019-12-02 03:16] LABS: ALBUMIN 2.3 GM/DL (3.2-5.2); ALT/SGPT 16 U/L (12-78); BILIRUBIN,TOTAL 0.3 MG/DL (0.2-1.0); BLOOD UREA NITROGEN 7 MG/DL (7-18); CALCIUM LEVEL 8.2 MG/DL (8.5-10.1); CARBON DIOXIDE LEVEL 22 MEQ/L (21-32); CHLORIDE LEVEL 105 MEQ/L (98-107); CREATININE FOR GFR 0.49 MG/DL (0.55-1.30); GLOMERULAR FILTRATION RATE > 60.0 (>60); GLUCOSE, FASTING 126 MG/DL (70-100); POTASSIUM SERUM 3.7 MEQ/L (3.5-5.1); SODIUM LEVEL 137 MEQ/L (136-145); TOTAL PROTEIN 5.7 GM/DL (6.4-8.2)
[2019-12-02] MEDS: ACETAMINOPHEN 500 MG TAB PO PRN ×2 (04:05→11:40)
--- NOTE | 2019-12-02 08:06 | REPVR ---
PROCEDURE INFORMATION: Exam: US Abdomen Limited, Right Upper Quadrant Exam date and time: 12/02/2019 7:55 AM Age: 29 years old Clinical indication: Vomiting; Abdominal pain; Additional info: Pain, vomiting TECHNIQUE: Imaging protocol: Real-time ultrasound of the abdomen with image documentation. Examination was focused on the right upper quadrant. COMPARISON: RENAL US 07/12/2018 12:38 PM FINDINGS: Liver: Normal. No masses. Gallbladder: Gallbladder is dilated. No gallbladder wall thickening. Small sludge in the gallbladder. No shadowing gallstones. Common bile duct: CBD measures 5.4 mm in diameter. Pancreas: Pancreas is obscured by overlying bowel gas. Right kidney: Right kidney measures 12.8 cm in length. No right hydronephrosis. Normal right renal echogenicity. IMPRESSION: 1. No evidence of acute cholecystitis. 2. Small sludge in the gallbladder. 3. Dilated gallbladder. Possible fasting state. Electronically signed by: Torsten De La Crzu On 12/02/2019 08:06:17 AM
[2019-12-02] MEDS ORDERED: PROMETHAZINE INJ 25 MG/ML VIAL (J2550) IV ONE ×2 (09:00→17:00)
[2019-12-02] MEDS ORDERED: PANTOPRAZOLE 40MG VIAL (C9113 PER 1) IV ONE (09:00)
[2019-12-02] MEDS: PRENATAL VITAMINS CHEWABLE TABLET PO SCH (09:00)
[2019-12-02] MEDS ORDERED: OMEPRAZOLE 20 MG CAP PO SCH (09:00)
[2019-12-02] MEDS ORDERED: BUTORPHANOL 2 MG/ML INJ (J0595) IV ONE (09:00)
[2019-12-02] MEDS ORDERED: SUCRALFATE 1 GM TAB PO ONE (10:00)
--- NOTE | 2019-12-02 10:15 | HPE ---
DATE OF ADMISSION: 12/01/2019 HISTORY: Neeta is a 29-year-old female, 6, para 1-3-1-4, with an expected date of confinement (EDC) of 12/25/2019, estimated gestational age (EGA) 38 weeks gestation, history of gestational diabetes, noncompliant with her sugar testing. She also has morbid obesity with a history of prior macrosomia. She presented to labor and delivery with complaints of contractions every 3-4 minutes. Upon evaluation, she was found to be in labor. At this point, a decision was made for admission. Her record was reviewed which was essentially unremarkable other than her history of gestational diabetes for which she was not compliant with her sugar log. LABS: Blood type is O negative. Rubella immune. Hepatitis negative. HIV negative. GC and chlamydia negative. 1-hour sugar testing was abnormal. Her GBS is negative. PAST MEDICAL HISTORY: Denies. PAST SURGICAL HISTORY: Shoulder arthroscopy and gastric bypass. FAMILY HISTORY: Mother with thyroid disease. SOCIAL HISTORY: She is a former smoker. Denies any alcohol, drug use. REVIEW OF SYSTEMS: Unremarkable. MEDICATIONS: vitamin. ALLERGIES: No known drug allergies. PHYSICAL EXAMINATION: Obese female in no acute distress. Abdomen: Soft, nontender, nondistended, gravid. Extremities: No clubbing, cyanosis or edema. Vaginal Exam: 3-4 cm dilated, 100% effaced, fetus at -2 station, vertex position, and intact membranes. ASSESSMENT: 1. Intrauterine at 38 weeks gestation in early labor. 2. Gestational diabetic with poor compliance. PLAN: Admit to labor and delivery. Routine labs sent as well as complete medical panel. Will continue to monitor. Anticipate delivery.
[2019-12-02] MEDS: DOCUSATE SODIUM 100 MG CAP PO SCH ×2 (10:27→19:30)
[2019-12-02] MEDS: LR 1,000 ML IV SCH ×2 (10:27→16:56)
[2019-12-02 11:13] LABS: AMPHETAMINES URINE REFLEX NEGATIVE (NEGATIVE); BARBITURATES URINE REFLEX NEGATIVE (NEGATIVE); BENZODIAZEPINES URINE REFLEX NEGATIVE (NEGATIVE); CANNABINOIDS URINE REFLEX NEGATIVE (NEGATIVE); COCAINE METABOLITE URINE REFLE NEGATIVE (NEGATIVE); METHADONE URINE REFLEX NEGATIVE (NEGATIVE); OPIATES URINE REFLEX NEGATIVE (NEGATIVE); PHENCYCLIDINE URINE REFLEX NEGATIVE (NEGATIVE)
[2019-12-02 12:28] LABS: AMORPHOUS SEDIMENT SMALL (NEGATIVE); APPEARANCE, URINE CLOUDY (CLEAR); BACTERIA, URINE AUTO NEGATIVE (NEGATIVE); BILIRUBIN, URINE AUTO 1+ (NEGATIVE); BLOOD, URINE BLOOD 2+ (NEGATIVE); COLOR, URINE AMBER (YELLOW); GLUCOSE, URINE (UA) AUTO 1+ mg/dL (NEGATIVE); KETONE, URINE AUTO 2+ mg/dL (NEGATIVE); LEUKOCYTE ESTERASE, URINE AUTO NEGATIVE (NEGATIVE); MUCUS, URINE SMALL (NEGATIVE); NITRITE, URINE AUTO NEGATIVE (NEGATIVE); PROTEIN, URINE AUTO 2+ mg/dL (NEGATIVE); RBC, URINE AUTO 111 /HPF (0-3); SPECIFIC GRAVITY URINE AUTO 1.043 (1.002-1.035); SQUAMOUS EPITHELIAL CELL UR AU 2 /HPF (0-6); UROBILINOGEN, URINE AUTO 0.2 mg/dL (0.0-2.0); WBC, URINE AUTO 2 /HPF (0-3)
[2019-12-02 12:37] LABS: AMYLASE 74 U/L (25-115); LIPASE 132 U/L (73-393)
--- NOTE | 2019-12-02 12:59 | CR.PDOC ---
General Date of Consultation: Dec 02, 2019 Consultation REASON FOR CONSULTATION/CHIEF COMPLAINT: Abdominal pain. HISTORY OF PRESENT ILLNESS: 29-year-old female who is admitted post vaginal delivery yesterday is being consulted on for abdominal pain. Patient reports epigastric abdominal pain separate than her labor pains which started yesterday around the same time she went into labor. She denies any prior history of similar abdominal pain. She does report a history of gastric bypass 3 years ago, underwent abdominal ultrasound earlier today which was negative for acute cholecystitis. She has had blood work including lipase and amylase, which is negative as well. She denies any previous history of heartburn/reflux. She reports pain is epigastric, constant, sharp, nonradiating, associated nausea and vomiting. She denies any chest pain, shortness of breath, diarrhea or constipation. 10 point review of system is negative except for above ALLERGIES: Please see below. HOME MEDICATIONS: Please see below. PAST MEDICAL HISTORY: 1. Morbid obesity. PAST SURGICAL HISTORY: 1. Gastric bypass FAMILY HISTORY: Negative for malignancy SOCIAL HISTORY: Previous smoker. Denies alcohol. Denies drug use PHYSICAL EXAMINATION: VITAL SIGNS: Please see below. GENERAL: No distress, morbidly obese HEENT: Normocephalic, atraumatic, moist mucous membranes NECK: Supple CARDIOVASCULAR EXAMINATION: S1, S2, no murmurs RESPIRATORY EXAMINATION: Diminished, poor air movement, no wheezing ABDOMINAL EXAMINATION: Soft, diffuse tenderness to palpation, no rebound or guarding, nondistended, positive bowel sounds EXTREMITIES: Range of motion intact SKIN: No rash NEUROLOGICAL EXAMINATION: Alert and oriented 3, no focal deficits PSYCHIATRIC EXAMINATION: Calm and cooperative LABORATORY DATA: Please see below. ASSESSMENT/PLAN: 29-year-old female who is admitted after an uncomplicated vaginal delivery is evaluated for epigastric abdominal pain. 1. Abdominal pain. Epigastric, abdominal ultrasound, negative for gallbladder disease, lipase/am ylase within normal limits, history of gastric bypass surgery, reports minimal relief with Protonix/Carafate, Mylanta as needed, upper GI series ordered for further evaluation, we'll continue to follow and further workup based on clinical progression. 2. . Management as per primary team Vital Signs/I&O Vital Signs Date Time Temp Pulse Resp B/P (MAP) Pulse Ox O2 Delivery O2 Flow Rate FiO2 12/02/19 09:33 18 12/02/19 08:50 154/77 (102) 12/02/19 08:30 98.1 110 99 Room Air I&O- Last 24 Hours up to 6 AM 12/02/19 06:00 Output Total 700 ml Balance -700 ml Laboratory Data Labs 24H Laboratory Tests 2 12/02/19 02:38: Immature Granulocyte % (Auto) 1.1, Neutrophils (%) (Auto) 85.4H, Lymphocytes (%) (Auto) 7.1L, Monocytes (%) (Auto) 6.2H, Eosinophils (%) (Auto) 0.0, Basophils (%) (Auto) 0.2, Neutrophils # (Auto) 16.4H, Lymphocytes # (Auto) 1.4L, Monocytes # (Auto) 1.2H, Eosinophils # (Auto) 0.0, Basophils # (Auto) 0.0, Nucleated Red Blood Cells % (auto) 0.1H, Anion Gap 10, Glomerular Filtration Rate > 60.0, Calcium Level 8.2L, Total Bilirubin 0.3, Aspartate Amino Transf (AST/SGOT) 25, Alanine Aminotransferase (ALT/SGPT) 16, Alkaline Phosphatase 113, Total Protein 5.7L, Albumin 2.3L, Albumin/Globulin Ratio 0.7L 12/02/19 09:00: Bedside Glucose (Misc Panel) 139H 12/02/19 09:06: Urine Color LIAN, Urine Appearance CLOUDYH, Urine pH 5.0, Urine Specific [place] 1.043, Urine Protein 2+H, Urine Glucose (Auto)(UA) 1+H, Urine Ketones (Auto) 2+H, Urine Blood 2+H, Urine Nitrite NEGATIVE, Urine Bilirubin 1+H, Urine Urobilinogen 0.2, Urine Leukocyte Esterase (Auto) NEGATIVE, Urine WBC (Auto) 2, Urine RBC (Auto) 111H, Urine Hyaline Casts (Auto) 0, Urine Bacteria (Auto) NEGATIVE, Urine Squamous Epithelial Cells 2, Urine Amorphous Sediment (Auto) SMALLH, Urine Mucus (Auto) SMALL, Urine Sperm (Auto) , Urine Opiates Screen NEGATIVE, Urine Methadone Screen NEGATIVE, Urine Barbiturates Screen NEGATIVE, Urine Phencyclidine Screen NEGATIVE, Urine Amphetamines Screen NEGATIVE, Urine B enzodiazepines Screen NEGATIVE, Urine Cocaine Metabolite Screen NEGATIVE, Urine Cannabinoids Screen NEGATIVE 12/02/19 11:58: Amylase Level 74, Lipase 132 CBC/BMP Laboratory Tests 12/02/19 02:38 Allergies Coded Allergies: No Known Allergies (Unverified , 11/14/18) Home Medications Scheduled Cyanocobalamin (Vitamin B-12) (Vitamin B-12) 250 Mcg Tiff, 500 MCG PO DAILY, (Reported) Multivitamin (Multivitamins) 1 Each Capsule, 1 CAP PO DAILY for 30 Days, #30 (Reported) Vit No.129/Iron/Folic ( One Daily Tablet) 1 Tab Tab, 1 TAB PO DAILY for 30 Days, #30 (Reported) Vitamin D (Vitamin D3) 1,000 Unit Tablet, 1 TAB PO DAILY for 30 Days, #30 (Reported) YULIANA LR MD Dec 02, 2019 12:59
[2019-12-02] MEDS ORDERED: MAALOX 30 ML SUSP *UDC PO PRN (13:00)
[2019-12-02] MEDS ORDERED: MORPHINE 2 MG/ML 1ML VIAL (J2270) IV ONE ×2 (13:45→22:45)
[2019-12-02] MEDS: ONDANSETRON 4MG/2ML VIAL IV SCH ×3 (15:07→23:12)
[2019-12-02] MEDS ORDERED: KETOROLAC 30 MG/ML 1ML VIAL IV ONE (17:00)
[2019-12-02] MEDS: GASTROGRAFIN SOLUTION 30ML PO SCH ×2 (17:43→18:14)
[2019-12-02] MEDS ORDERED: ISOVUE-370 76% 100ML VIAL As Ordered ONE (19:08)
--- NOTE | 2019-12-02 19:34 | REPVR ---
PROCEDURE INFORMATION: Exam: CT Abdomen And Pelvis With Contrast Exam date and time: 12/02/2019 7:11 PM Age: 29 years old Clinical indication: Nausea and vomiting; Abdominal pain; Generalized; Prior surgery; Surgery date: Post-operative (0-2 days); Surgery type: Gave yesterday; Additional info: Nausea, vomiting, abd pain TECHNIQUE: Imaging protocol: Computed tomography of the abdomen and pelvis with intravenous contrast. Axial, coronal and sagittal reformatted images were created and reviewed. Radiation optimization: All CT scans at this facility use at least one of these dose optimization techniques: automated exposure control; mA and/or kV adjustment per patient size (includes targeted exams where dose is matched to clinical indication); or iterative reconstruction. Contrast material: ISOVUE 370; Contrast volume: 100 ml; Contrast route: INTRAVENOUS (IV); COMPARISON: CT ABD PELVIS WITH CONTRAST 09/12/2017 9:05 PM FINDINGS: Lungs: Minimal bibasilar atelectatic change. Mediastinal space: Contrast in the distal esophagus, suggesting reflux. Liver: Unremarkable. Gallbladder and bile ducts: No radiodense gallstones. No biliary ductal dilatation. Pancreas: Unremarkable. Spleen: Unremarkable. Adrenals: Unremarkable. Kidneys and ureters: No mass. No radiodense calculi. No hydronephrosis. Stomach and bowel: Status post gastric bypass surgery. Multiple moderately dilated loops of proximal small bowel with abrupt transition to decompressed small bowel in the region of the anastomosis in the left mid abdomen, where there are several thick-walled, edematous loops of small bowel associated with an apparent intussusception versus internal hernia. No pneumatosis. Appendix: Normal. Intraperitoneal space: Small ascites, likely reactive. No organized collection. No free air. Vasculature: Unremarkable. No aneurysm. Lymph nodes: No pathologically enlarged lymph nodes. Bladder: Unremarkable. Reproductive: uterus. Bones/joints: No acute osseous abnormality. Mild degenerative changes. Soft tissues: Unremarkable. IMPRESSION: 1. High-grade small bowel obstruction, secondary to left mid abdominal small bowel intussusception versus internal hernia. Closed-loop component/developing ischemia is suspected. Emergent surgical consultation is recommended. 2. Additional findings, as above. Electronically signed by: Satnam Roberts On 12/02/2019 19:34:35 PM
[2019-12-02] MEDS ORDERED: AMPICILLIN SOD/SULBACTAM SOD 3 GM in D5W MINI-BAG PLUS 100 ML IV ONE (20:00)
[2019-12-02] MEDS ORDERED: NALOXONE INJ 0.4MG/1ML VIAL (J2310 PER 1MG) As Ordered ONE ×2 (23:45→23:56)
[2019-12-02] MEDS ORDERED: NALOXONE INJ 0.4MG/1ML VIAL (J2310 PER 1MG) IV STA ×2 (23:54)
[2019-12-03] VITALS (13 sets, daily range): BP systolic 122–168; BP diastolic 62–108
[2019-12-03] MEDS: LR 1,000 ML IV SCH ×3 (01:00→16:59)
[2019-12-03] MEDS: ONDANSETRON 4MG/2ML VIAL IV SCH (03:21)
[2019-12-03 03:26] LABS: HEMATOCRIT 27.8 % (36.0-47.0); MEAN CORPUSCULAR HEMOGLOBIN 27.3 pg (27.0-33.0); MEAN CORPUSCULAR HGB CONC 32.4 g/dl (32.0-36.5); MEAN CORPUSCULAR VOLUME 84.2 fl (80.0-96.0); PLATELET COUNT, AUTOMATED 219 10^3/uL (150-450)
[2019-12-03 03:42] LABS: LYMPHOCYTES 4 % (16-44); MONOCYTES 8 % (0-5); NEUTROPHILS 86 % (28-66); PLATELET ESTIMATE NORMAL (NORMAL)
[2019-12-03] MEDS: PIPERACILLIN/TAZOBACTAM SOD 3.375 GM in D5W MINI-BAG PLUS 50 ML IV SCH ×4 (03:45→19:52)
[2019-12-03 03:59] LABS: ALBUMIN 2.2 GM/DL (3.2-5.2); ALT/SGPT 19 U/L (12-78); BILIRUBIN,TOTAL 0.2 MG/DL (0.2-1.0); BLOOD UREA NITROGEN 11 MG/DL (7-18); CALCIUM LEVEL 8.1 MG/DL (8.5-10.1); CARBON DIOXIDE LEVEL 26 MEQ/L (21-32); CHLORIDE LEVEL 105 MEQ/L (98-107); CREATININE FOR GFR 0.62 MG/DL (0.55-1.30); GLOMERULAR FILTRATION RATE > 60.0 (>60); GLUCOSE, FASTING 122 MG/DL (70-100); POTASSIUM SERUM 3.4 MEQ/L (3.5-5.1); SODIUM LEVEL 137 MEQ/L (136-145); TOTAL PROTEIN 5.5 GM/DL (6.4-8.2)
[2019-12-03] MEDS ORDERED: LIDOCAINE 2% 100MG/5ML SDV (FOR ANES.) As Ordered ONE (06:39)
[2019-12-03] MEDS ORDERED: KETOROLAC 60MG 2ML VIAL As Ordered ONE (06:39)
[2019-12-03] MEDS ORDERED: dexameTHASONE 4 MG/ML 1ML VIAL (J1100 PER 1MG) As Ordered ONE (06:39)
[2019-12-03] MEDS ORDERED: fentaNYL 100 MCG/2 ML INJECTION (J3010) As Ordered ONE (06:39)
[2019-12-03] MEDS ORDERED: ONDANSETRON 4MG/2ML VIAL As Ordered ONE (06:39)
[2019-12-03] MEDS ORDERED: ROCURONIUM BROMIDE 50 MG/5 ML VIAL As Ordered ONE ×2 (06:39→08:12)
[2019-12-03] MEDS ORDERED: MIDAZOLAM INJ 2MG/2ML VIAL (J2250 PER 1MG) As Ordered ONE (06:39)
[2019-12-03] MEDS ORDERED: propofoL 200 MG/20 ML VIAL As Ordered ONE (06:39)
[2019-12-03] MEDS ORDERED: BUPIVACAINE HCL 0.25% 30ML VIAL As Ordered ONE (07:02)
[2019-12-03] MEDS ORDERED: SUCCINYLCHOLINE 100 MG/5 ML SYRINGE (J0330) As Ordered ONE ×2 (07:24→07:47)
[2019-12-03] MEDS ORDERED: HYDROmorphone HCL 2 MG/ML 1ML VIAL (J1170) As Ordered ONE (07:47)
[2019-12-03] MEDS ORDERED: PHENYLephrine HCL 500 MCG/5 ML (100MCG/ML) SYRINGE (J2370) As Ordered ONE (08:08)
--- NOTE | 2019-12-03 08:20 | CR ---
DATE OF CONSULTATION: 12/03/[address] QUINN REASON FOR CONSULTATION: Bowel obstruction, possible intussusception status post gastric bypass. HISTORY OF PRESENT ILLNESS: The patient is a 29-year-old woman who presented to the hospital on November 30 in labor with her fifth child. She reported that even at the time that she presented she was having some nausea and vomiting. This persisted after delivery and she had severe upper abdominal pain with severe nausea and vomiting. Simple measures did not resolve her symptoms and ultimately she underwent a CT scan of the abdomen and pelvis done at approximately 1900 on December 01. This was interpreted by the radiologist as showing dilated loops of proximal small bowel with an apparent intussusception versus an internal hernia at the site of her small bowel anastomosis following her gastric bypass. Following this, a nasogastric tube was placed which improved her comfort level significantly and has had large amounts of drainage. I was consulted to evaluate the patient regarding this problem. MEDICATIONS: Prior to admission, vitamin B12, multivitamin, vitamin, and some vitamin D. ALLERGIES: The patient reports NO KNOWN DRUG ALLERGIES. PAST SURGICAL HISTORY: The patient underwent a left shoulder arthroscopy back in about 2016. She also had her gastric bypass in 2017. She reports that she was approaching 400 pounds before her bypass and was approximately 175 before her most recent . Medical history is significant primarily for her obesity. SOCIAL HISTORY: She is a former smoker, but denies any alcohol use. FAMILY HISTORY Her mother apparently has some thyroid disease. REVIEW OF SYSTEMS: The patient denies any heart trouble, breathing problems, kidney or bladder issues. She has no ongoing bone or joint issues. She denies any history of seizure or stroke. She has had no history of deep vein thrombosis (DVT) or pulmonary embolus. PHYSICAL EXAMINATION: Reveals a pleasant woman lying quietly on the hospital stretcher. She was dozing when I came to see her, but roused readily and was alert and oriented. She appears fairly comfortable currently at rest, but does complain of some epigastric abdominal discomfort. The nasogastric (NG) tube is draining some greenish brown fluid. Most recent vital signs show a pulse of 103, blood pressure of 139/79 and her room air oxygen saturation is 100%. Skin is warm and dry. Mucous membranes are moist. Neck is supple. Heart exam shows a regular rhythm. The lungs are clear. The abdomen is obese and protuberant. She does have some bowel sounds present. She has some tenderness to percussion in the epigastrium. Palpation reveals moderate direct tenderness in the upper abdomen and mid epigastrium. There is no rebound or significant guarding. Extremities are without edema and she has palpable radial and pedal pulses. LABORATORY FINDINGS: Her most recent labs were on the at 2:30 in the morning and showed normal electrolytes with BUN of 7, creatinine 0.5 and a glucose of 126. Liver function tests were normal. She had a CBC also on the at 0238 showing a white count of 19,000, hemoglobin 9, hematocrit 28 and a platelet count of 200,000. CT scan as noted was done at approximately 1900 on the . This set of images I reviewed personally. There does appear to be an intussusception at the level of the small [id number]-cohco bowel anastomosis. Her efferent limb from her gastric bypass in the proximal small bowel is quite distended at the time of the study. Distally, the small bowel was decompressed. There is no evidence of free air and no pneumatosis. IMPRESSION: Small bowel intussusception status post gastric bypass. PLAN: I counseled the patient that surgery is indicated to assess the bowel and reduce her intussusception. I will obtain some stat labs including a CBC, CPA and a lactate. I will also start her on some Zosyn to guard against significant infectious problems. I advised her that urgent surgery is warranted. Unfortunately, I have a patient with a perforated viscus who is already getting ready to go to the operating room and I will proceed with that surgery first and she can then go shortly thereafter. I counseled her that I would hope to do this laparoscopically, but if necessary an open incision would be made. She had an opportunity to ask questions. She desires to proceed with the surgery. We will see how her labs look, but plan on proceeding as soon as might be following the emergency that is already scheduled. MARIBEL
--- NOTE | 2019-12-03 08:27 | REP ---
Portable chest x-ray: Single view. History: Aspiration. Comparison study: May 29, 2016. Findings: An NG tube enters left upper quadrant of the abdomen. The lungs are symmetrically aerated and clear. Monitoring electrodes are seen. Pleural angles are sharp. Cardiomediastinal silhouette is unremarkable. Impression: No infiltrate seen. Electronically Signed by Gerald Moore MD 12/03/2019 08:19 A
[2019-12-03] MEDS ORDERED: METOCLOPRAMIDE INJ 10MG/2ML VIAL (J2765 PER 1) As Ordered ONE (08:28)
[2019-12-03] MEDS ORDERED: SUGAMMADEX SODIUM 500 MG/5 ML VIAL (BRIDION) As Ordered ONE (08:29)
[2019-12-03] MEDS ORDERED: BOOSTRIX/ADACEL VACCINE (DIPHTH/PERTUSS/ACELL/TETANUS) 0.5ML SYR IM ONE (09:00)
[2019-12-03] MEDS ORDERED: LABETALOL 100MG/20ML VIAL As Ordered ONE (09:16)
[2019-12-03] MEDS ORDERED: ACETAMINOPHEN 1000MG 100ML IV BTL (OFIRMEV) (J0131 PER 10MG) As Ordered ONE (09:30)
[2019-12-03] MEDS ORDERED: ZOSYN 3.375GM VIAL (J2543) As Ordered ONE (10:00)
[2019-12-03] MEDS ORDERED: fentaNYL 100 MCG/2 ML INJECTION (J3010) IV PRN (12:00)
[2019-12-03] MEDS ORDERED: ONDANSETRON 4MG/2ML VIAL IV PRN (12:00)
[2019-12-03] MEDS ORDERED: PERCOCET 5MG/325MG TAB PO PRN (12:00)
[2019-12-03] MEDS ORDERED: LR 1,000 ML IV SCH (12:00)
[2019-12-03] MEDS ORDERED: METOCLOPRAMIDE INJ 10MG/2ML VIAL (J2765 PER 1) IV PRN (12:00)
[2019-12-03] MEDS: PRENATAL VITAMINS CHEWABLE TABLET PO SCH (12:27)
[2019-12-03] MEDS: DOCUSATE SODIUM 100 MG CAP PO SCH ×2 (12:27→19:50)
[2019-12-03] MEDS: oxyCODONE 5MG TAB PO PRN ×2 (15:45→19:51)
--- NOTE | 2019-12-03 17:24 | ECGEPIP ---
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 No significant changes Electronically Signed on 12-03-2019 17:23:40 EDT by River Vergara
[2019-12-03] MEDS: MORPHINE 2 MG/ML 1ML VIAL (J2270) IV PRN (22:27)
[2019-12-04] VITALS: BP 124/64
[2019-12-04] MEDS: oxyCODONE 5MG TAB PO PRN ×5 (00:01→16:42)
[2019-12-04] MEDS: PIPERACILLIN/TAZOBACTAM SOD 3.375 GM in D5W MINI-BAG PLUS 50 ML IV SCH ×4 (02:01→20:00)
[2019-12-04 04:00] VITALS: BP 118/63
[2019-12-04] MEDS: MORPHINE 2 MG/ML 1ML VIAL (J2270) IV PRN (05:57)
--- NOTE | 2019-12-04 07:35 | IPNPDOC ---
Text Note Date of Service The patient was seen on 12/04/19. 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 Adequate pain management. Out of bed independently. Voiding. VSS, afebrile, normotensive. NG tube draining small amount serosanguinous fluid Abdominal dressings intact, small amount of old drainage noted Fundus firm Lochia rubra light without odor PP #3, day 1 post abdominal surgery for bowel obstruction Continue Post operative care per surgery. VS,Fishbone, I+O VS, Fishbone, I+O Vital Signs Date Time Temp Pulse Resp B/P (MAP) Pulse Ox O2 Delivery O2 Flow Rate FiO2 12/04/19 06:07 16 12/04/19 04:00 98.1 96 118/63 (81) 100 Room Air 12/03/19 17:30 2.0 I&O- Last 24 Hours up to 6 AM 12/04/19 06:00 Intake Total 4780 ml Output Total 1650 ml Balance 3130 ml Sherin Rodriguez CNM Dec 04, 2019 07:32
[2019-12-04 08:00] VITALS: BP 123/66
[2019-12-04] MEDS: PRENATAL VITAMINS CHEWABLE TABLET PO SCH (08:11)
[2019-12-04] MEDS: DOCUSATE SODIUM 100 MG CAP PO SCH ×2 (08:12→19:58)
[2019-12-04] MEDS: LR 1,000 ML IV SCH ×3 (08:17→16:42)
--- NOTE | 2019-12-04 11:10 | IPNPDOC ---
Subjective Date Seen The patient was seen on 12/04/19. Subjective Chief Complaint/HPI Patient has still has the NG tube and she is nothing by mouth but does not any offer any complaints of abdominal pain, nausea, vomiting General: Denies: ROS Unobtainable, Chills, Night Sweats, Fatigue, Malaise, Normal Appetite, Other Symptoms Constitutional: Denies: Chills, Fever, Malaise, Night Sweats, Weakness, Fatigue, Weight Loss, Lethargy, Other Pulmonary: Denies: Dyspnea, Cough, Pleuritic Chest Pain, Other Symptoms Cardiovascular: Denies: Chest Pain, Palpitations, Orthopnea, Paroxysmal Noc. Dyspnea, Edema, Lt Headedness, Other Symptoms Gastrointestinal: Denies: Nausea, Vomiting, Abdominal Pain, Diarrhea, Constipation, Melena, Hematochezia, Other Symptoms Musculoskeletal: Denies: Neck Pain, Back Pain, Shoulder Pain, Arm Pain, Hand Pain, Leg Pain, Foot Pain, Joint Pain, Muscle Pain, Spasms, Other Symptoms Neurological: Denies: Weakness, Numbness, Incoordination, Change in speech, Confusion, Seizures, Other Symptoms Objective Physical Examination General Exam: Positive: Alert, Cooperative Eye Exam: Positive: PERRLA, Conjunctiva & lids normal ENT Exam: Positive: Atraumatic, Mucous membr. moist/pink Chest Exam: Positive: Clear to auscultation, Normal air movement Heart Exam: Positive: Rate Normal, Normal S1, Normal S2 Abdomen Exam: Positive: Normal bowel sounds, Soft, Other (NG tube in place) Extremity Exam: Positive: Normal pulses Skin Exam: Positive: Nl turgor and temperature Neuro Exam: Positive: Strength at 5/5 X4 ext, Cranial Nerves 3-12 NL Psych Exam: Positive: Mood NL, Oriented x 3 Assessment /Plan Problems (1) Normal delivery Status: Acute Problem Text: Status post normal full-term delivery Further, as per MILK DRIVER team (2) Hypokalemia Status: Acute Problem Text: Potassium chloride 40 mg by mouth 1 given Check labs in a.m. (3) Intussusception Status: Acute Problem Text: Status post surgical intervention for intussusception Patient is clinically stable, asymptomatic. NG tube in place Continue IV fluids and IV Zosyn Continue morphine sulfate for pain management Further management as per surgery Plan/VTE VTE Prophylaxis Ordered?: Yes VS, I&O, 24H, Fishbone Vital Signs/I&O Vital Signs Date Time Temp Pulse Resp B/P (MAP) Pulse Ox O2 Delivery O2 Flow Rate FiO2 12/04/19 08:11 98.1 96 16 118/63 100 Room Air 12/03/19 17:30 2.0 I&O- Last 24 Hours up to 6 AM 12/04/19 05:59 Intake Total 4030 ml Output Total 2025 ml Balance 2004 ml DANITZA BECERRA MD Dec 04, 2019 11:10
[2019-12-04 12:00] VITALS: BP 120/63
[2019-12-04] MEDS ORDERED: POTASSIUM CHLORIDE 10 MEQ SR TABLET PO ONE (12:00)
[2019-12-04 16:00] VITALS: BP 131/66
--- NOTE | 2019-12-04 16:07 | DN ---
DATE OF DELIVERY: 12/01/2019 This is a 29-year-old female, 6, para 1-3-1-4 with a history of gestational diabetes, at approximately 38 weeks gestation who was admitted in active labor. She progressed to fully dilated after artificial rupture of membranes. Delivered a live male in left occiput anterior position over an intact perineum. scores 9 and 9, weight 6 pounds 9 ounces. Placenta delivered spontaneously intact. Three-vessel cord. Perineum, vagina, cervix inspected. No laceration noted. Estimated blood loss 300 mL. Both mother and baby in stable condition.
--- NOTE | 2019-12-04 18:34 | IPN ---
DATE: 12/04/2019 The patient is status post small-bowel resection and reanastomosis for a small-bowel intussusception and overall has been doing relatively well. Her nasogastric (NG) tube has been putting out much less today compared to yesterday. Her urine output has bumped up quite nicely, and overall she is having some discomfort but not severe pain like she was preoperatively. She has had no nausea and no vomiting. Abdomen is mildly distended, obese, but she states this is better than it was yesterday. IMPRESSION AND PLAN: The patient seems to be making some slow but progressive improvement. Unfortunately, it may take a little while for her ileus to resolve postoperatively, given the small-bowel necrosis that occurred in the small-bowel resection, and thus at this point I would like to keep her NG tube in place and nothing by mouth and will watch how she does overnight with this. I would recommend that she increase her activity and will decrease her intravenous (IV) fluids as well.
[2019-12-04] MEDS: ACETAMINOPHEN 500 MG TAB PO PRN (19:59)
[2019-12-04 21:00] VITALS: BP 119/65
[2019-12-05] VITALS (14 sets, daily range): BP systolic 111–148; BP diastolic 56–83
[2019-12-05] MEDS: PIPERACILLIN/TAZOBACTAM SOD 3.375 GM in D5W MINI-BAG PLUS 50 ML IV SCH ×4 (02:40→20:09)
[2019-12-05] MEDS ORDERED: POTASSIUM CHLORIDE 10 MEQ SR TABLET PO ONE (07:30)
[2019-12-05] MEDS: PRENATAL VITAMINS CHEWABLE TABLET PO SCH (08:29)
[2019-12-05] MEDS: oxyCODONE 5MG TAB PO PRN ×2 (08:29→16:32)
[2019-12-05] MEDS: DOCUSATE SODIUM 100 MG CAP PO SCH ×2 (08:29→20:08)
[2019-12-05 08:49] LABS: HEMATOCRIT 22.2 % (36.0-47.0); MEAN CORPUSCULAR HEMOGLOBIN 27.1 pg (27.0-33.0); MEAN CORPUSCULAR HGB CONC 30.6 g/dl (32.0-36.5); MEAN CORPUSCULAR VOLUME 88.4 fl (80.0-96.0); PLATELET COUNT, AUTOMATED 235 10^3/uL (150-450); RED BLOOD COUNT 2.51 10^6/uL (4.00-5.40); WHITE BLOOD COUNT 8.2 10^3/uL (4.0-10.0)
[2019-12-05 08:52] LABS: ALBUMIN 1.7 GM/DL (3.2-5.2); ALT/SGPT 13 U/L (12-78); BILIRUBIN,TOTAL 0.2 MG/DL (0.2-1.0); BLOOD UREA NITROGEN 9 MG/DL (7-18); CALCIUM LEVEL 7.6 MG/DL (8.5-10.1); CARBON DIOXIDE LEVEL 27 MEQ/L (21-32); CHLORIDE LEVEL 107 MEQ/L (98-107); CREATININE FOR GFR 0.59 MG/DL (0.55-1.30); GLOMERULAR FILTRATION RATE > 60.0 (>60); GLUCOSE, FASTING 68 MG/DL (70-100); POTASSIUM SERUM 3.3 MEQ/L (3.5-5.1); SODIUM LEVEL 142 MEQ/L (136-145); TOTAL PROTEIN 4.7 GM/DL (6.4-8.2)
[2019-12-05 08:57] LABS: HEMOGLOBIN 6.8 g/dl (12.0-15.5)
[2019-12-05] MEDS ORDERED: BOOSTRIX/ADACEL VACCINE (DIPHTH/PERTUSS/ACELL/TETANUS) 0.5ML SYR IM ONE (09:00)
--- NOTE | 2019-12-05 10:17 | IPNPDOC ---
Subjective Date Seen The patient was seen on 12/05/19. Subjective Chief Complaint/HPI Patient seen and examined. She is sitting in chair with her baby, offers no new complaints. NG tube in place General: Denies: ROS Unobtainable, Chills, Night Sweats, Fatigue, Malaise, Normal Appetite, Other Symptoms Constitutional: Denies: Chills, Fever, Malaise, Night Sweats, Weakness, Fatigue, Weight Loss, Lethargy, Other Pulmonary: Denies: Dyspnea, Cough, Pleuritic Chest Pain, Other Symptoms Cardiovascular: Denies: Chest Pain, Palpitations, Orthopnea, Paroxysmal Noc. Dyspnea, Edema, Lt Headedness, Other Symptoms Gastrointestinal: Denies: Nausea, Vomiting, Abdominal Pain, Diarrhea, Constipation, Melena, Hematochezia, Other Symptoms Endocrine: Denies: Polydipsia, Polyphagia, Polyuria, Heat Intolerance, Cold Intolerance, Other Endocrine Sx Musculoskeletal: Denies: Neck Pain, Back Pain, Shoulder Pain, Arm Pain, Hand Pain, Leg Pain, Foot Pain, Joint Pain, Muscle Pain, Spasms, Other Symptoms Neurological: Denies: Weakness, Numbness, Incoordination, Change in speech, Confusion, Seizures, Other Symptoms Objective Physical Examination General Exam: Positive: Alert, Cooperative Eye Exam: Positive: PERRLA, Conjunctiva & lids normal ENT Exam: Positive: Atraumatic, Mucous membr. 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 NG tube in place Continue IV fluids and IV Zosyn Continue morphine sulfate for pain management Further management as per surgery (3) Hypokalemia Status: Acute Problem Text: Potassium chloride 40 mg by mouth 1 given Check labs in a.m. (4) Acute blood loss as cause of postoperative anemia Status: Acute Problem Text: Transfuse 2 units of PRBC today Repeat H&H in a.m. Plan/VTE VTE Prophylaxis Ordered?: Yes VS, I&O, 24H, Fishbone Vital Signs/I&O Vital Signs Date Time Temp Pulse Resp B/P (MAP) Pulse Ox O2 Delivery O2 Flow Rate FiO2 12/05/19 08:59 97.7 77 18 117/58 96 Room Air 12/03/19 17:30 2.0 I&O- Last 24 Hours up to 6 AM 12/05/19 06:00 Intake Total 2062.5 ml Output Total 1950 ml Balance 112.5 ml Laboratory Data 24H LABS Laboratory Tests 2 12/05/19 08:11: Nucleated Red Blood Cells % (auto) 0.6H, Anion Gap 8, Glomerular Filtration Rate > 60.0, Calcium Level 7.6L, Total Bilirubin 0.2, Aspartate Amino Transf (AST/SGOT) 14, Alanine Aminotransferase (ALT/SGPT) 13, Alkaline Phosphatase 67, Total Protein 4.7L, Albumin 1.7#L, Albumin/Globulin Ratio 0.6L CBC/BMP Laboratory Tests 12/05/19 08:11 DANITZA BECERRA MD Dec 05, 2019 10:17
--- NOTE | 2019-12-05 15:07 | IPNPDOC ---
Progress Note Date of Service: Dec 05, 2019 Progress Note S: Improving. Lochia normal. Receiving 2 units PRBCs. O: vss, AF Gen: well appearing, NG tube in place abd: soft, FF below umbilicus, appropriately tender ext: neg calf tender A?P 29yo PPD#4 s/p - stable Bowel obstruction from Intussusception s/p exploratory laparotomy and bowel resection stable - Obstetrical stable. Continue surgical management Terra Nixon MD VS, I&O, 24H, Fishbone Vital Signs/I&O Vital Signs Date Time Temp Pulse Resp B/P (MAP) Pulse Ox O2 Delivery O2 Flow Rate FiO2 12/05/19 12:00 97.5 80 18 132/79 (96) 99 Room Air 12/03/19 17:30 2.0 I&O- Last 24 Hours up to 6 AM 12/05/19 06:00 Intake Total 2062.5 ml Output Total 1950 ml Balance 112.5 ml Laboratory Data 24H LABS Laboratory Tests 2 12/05/19 08:11: Nucleated Red Blood Cells % (auto) 0.6H, Anion Gap 8, Glomerular Filtration Rate > 60.0, Calcium Level 7.6L, Total Bilirubin 0.2, Aspartate Amino Transf (AST /SGOT) 14, Alanine Aminotransferase (ALT/SGPT) 13, Alkaline Phosphatase 67, Total Protein 4.7L, Albumin 1.7#L, Albumin/Globulin Ratio 0.6L CBC/BMP Laboratory Tests 12/05/19 08:11 TERRA NIXON MD. Dec 05, 2019 15:07
[2019-12-05] MEDS: ACETAMINOPHEN 500 MG TAB PO PRN (18:57)
[2019-12-06] VITALS: BP 119/68
[2019-12-06] MEDS: oxyCODONE 5MG TAB PO PRN (00:25)
[2019-12-06] MEDS: PIPERACILLIN/TAZOBACTAM SOD 3.375 GM in D5W MINI-BAG PLUS 50 ML IV SCH ×3 (02:14→14:26)
[2019-12-06 04:00] VITALS: BP 126/76
[2019-12-06 07:03] LABS: BASO % 0.3 % (0.0-1.0); EOS # 0.1 10^3/uL (0.0-0.5); EOS % 1.1 % (0.0-3.0); LYMPH # 2.1 10^3/uL (1.5-5.0); LYMPH % 30.5 % (24.0-44.0); MEAN CORPUSCULAR HEMOGLOBIN 28.1 pg (27.0-33.0); MEAN CORPUSCULAR HGB CONC 32.5 g/dl (32.0-36.5); MEAN CORPUSCULAR VOLUME 86.4 fl (80.0-96.0); MONO # 0.5 10^3/uL (0.0-0.8); MONO % 7.6 % (0.0-5.0); NEUTROPHILS # 3.9 10^3/uL (1.5-8.5); NEUTROPHILS % 56.5 % (36.0-66.0); PLATELET COUNT, AUTOMATED 282 10^3/uL (150-450); RED BLOOD COUNT 3.24 10^6/uL (4.00-5.40)
[2019-12-06 07:08] LABS: HEMOGLOBIN 9.1 g/dl (12.0-15.5)
[2019-12-06 07:32] LABS: ALT/SGPT 16 U/L (12-78); BILIRUBIN,TOTAL 0.2 MG/DL (0.2-1.0); BLOOD UREA NITROGEN 6 MG/DL (7-18); CARBON DIOXIDE LEVEL 27 MEQ/L (21-32); CHLORIDE LEVEL 106 MEQ/L (98-107); CREATININE FOR GFR 0.68 MG/DL (0.55-1.30); GLOMERULAR FILTRATION RATE > 60.0 (>60); GLUCOSE, FASTING 76 MG/DL (70-100); POTASSIUM SERUM 3.4 MEQ/L (3.5-5.1); SODIUM LEVEL 140 MEQ/L (136-145); TOTAL PROTEIN 5.3 GM/DL (6.4-8.2)
[2019-12-06 08:00] VITALS: BP 129/70
--- NOTE | 2019-12-06 08:06 | IPN ---
DATE: 12/05/2019 The patient seems to be doing well at this point status post small bowel resection. Her nasogastric (NG) tube really has not had much out this morning and she has had no nausea or vomiting. She has had some flatus and bowel movements. Her abdomen is soft, nontender, nondistended; however, morbidly obese. IMPRESSION AND PLAN: The patient is resolving her bowel obstruction. I would recommend that we discontinue her NG tube and see how she is doing later on today and if she is still tolerating this out and still has flatus and bowel movements then we can start her on a clear liquid diet. I anticipate if she does well with clears today that we can progress to a regular diet tomorrow and probable discharge after that.
[2019-12-06] MEDS: DOCUSATE SODIUM 100 MG CAP PO SCH (09:27)
[2019-12-06] MEDS: PRENATAL VITAMINS CHEWABLE TABLET PO SCH (09:27)
--- NOTE | 2019-12-06 10:01 | IPNPDOC ---
Subjective Date Seen The patient was seen on 12/06/19. Subjective Chief Complaint/HPI Patient is comfortable in no distress tolerated to toast and tea today General: Denies: ROS Unobtainable, Chills, Night Sweats, Fatigue, Malaise, Normal Appetite, Other Symptoms Constitutional: Denies: Chills, Fever, Malaise, Night Sweats, Weakness, Fatigue, Weight Loss, Lethargy, Other Pulmonary: Denies: Dyspnea, Cough, Pleuritic Chest Pain, Other Symptoms Cardiovascular: Denies: Chest Pain, Palpitations, Orthopnea, Paroxysmal Noc. Dyspnea, Edema, Lt Headedness, Other Symptoms Gastrointestinal: Denies: Nausea, Vomiting, Abdominal Pain, Diarrhea, Constipation, Melena, Hematochezia, Other Symptoms Musculoskeletal: Denies: Neck Pain, Back Pain, Shoulder Pain, Arm Pain, Hand Pain, Leg Pain, Foot Pain, Joint Pain, Muscle Pain, Spasms, Other Symptoms Neurological: Denies: Weakness, Numbness, Incoordination, Change in speech, Confusion, Seizures, Other Symptoms Objective Physical Examination General Exam: Positive: Alert, Cooperative Chest Exam: Positive: Clear to auscultation, Normal air movement Heart Exam: Positive: Rate Normal, Normal S1, Normal S2 Abdomen Exam: Positive: Normal bowel sounds, Soft, Other (NG tube in place) Extremity Exam: Positive: Normal pulses Skin Exam: Positive: Nl turgor and temperature Assessment /Plan Problems (1) Normal delivery Status: Acute Problem Text: Status post normal full-term delivery Discharge plan as per PULP MAKER team (2) Intussusception Status: Acute Problem Text: Status post surgical intervention for intussusception Patient is clinically stable, asymptomatic. NG tube in place Continue IV fluids and IV Zosyn Continue morphine sulfate for pain management Patient received 2 units of PRBC yesterday. Her hemoglobin is 9.1 today Patient tolerated solid food this morning Discharge planning as per surgery (3) Hypokalemia Status: Acute Problem Text: Potassium chloride 40 mg by mouth 1 given Check labs in a.m. (4) Acute blood loss as cause of postoperative anemia Status: Acute Problem Text: Transfuse 2 units of PRBC today Repeat H&H is 9.1 and 28 Monitor CBC in a.m. Plan/VTE VTE Prophylaxis Ordered?: Yes VS, I&O, 24H, Fishbone Vital Signs/I&O Vital Signs Date Time Temp Pulse Resp B/P (MAP) Pulse Ox O2 Delivery O2 Flow Rate FiO2 12/06/19 08:00 97.8 71 18 129/70 (89) Room Air 12/06/19 04:00 98 12/05/19 15:32 I&O- Last 24 Hours up to 6 AM 12/06/19 06:00 Intake Total 1817 ml Output Total 1630 ml Balance 187 ml Laboratory Data 24H LABS Laboratory Tests 2 12/06/19 06:24: Immature Granulocyte % (Auto) 4.0H, Neutrophils (%) (Auto) 56.5, Lymphocytes (%) (Auto) 30.5, Monocytes (%) (Auto) 7.6H, Eosinophils (%) (Auto) 1.1, Basophils (%) (Auto) 0.3, Neutrophils # (Auto) 3.9, Lymphocytes # (Auto) 2.1, Monocytes # (Auto) 0.5, Eosinophils # (Auto) 0.1, Basophils # (Auto) 0.0, Nucleated Red Blood Cells % (auto) 0.4H, Anion Gap 7L, Glomerular Filtration Rate > 60.0, Calcium Level 8.0L, Total Bilirubin 0.2, Aspartate Amino Transf (AST/SGOT) 15, Alanine Aminotransferase (ALT/SGPT) 16, Alkaline Phosphatase 77, Total Protein 5.3L, Albumin 2.0L, Albumin/Globulin Ratio 0.6L CBC/BMP Laboratory Tests 12/06/19 06:24 DANITZA BECERRA MD Dec 06, 2019 10:01
[2019-12-06 12:28] VITALS: BP 131/79
--- NOTE | 2019-12-06 13:10 | IPN ---
DATE OF SERVICE: 12/06/2019 The patient has been doing quite well with the clear liquids overnight. Has been up, moving around. No significant pain or discomfort and feeling great otherwise. She is in the midst of changing her baby's diaper, and otherwise she feels great and feeling better each day. Otherwise, does not look distended and does not have any other complaints at this time. Her vitals have been stable. Her hematocrit is pending today. IMPRESSION AND PLAN: The patient is status post small bowel resection. She tolerated clears quite nicely yesterday. Will advance her diet as tolerated today; and once she is tolerating food, she can be discharged home from a surgical standpoint. She will need to followup with Dr. Du next week for staple removal, but I anticipate if she does well with breakfast and lunch that she could be discharged home this afternoon with followup with Dr. Du next week.
[2019-12-06] MEDS ORDERED: OXYC-517 PO (19:50)
--- NOTE | 2019-12-06 20:07 | DS.PDOC ---
Discharge Summary General Date of Admission Dec 01, 2019 at 11:16 Date of Discharge 12/06/19 Attending Physician: Alexander Velasquez DO Specialist/Consultants Involve: Win Du Discharge Summary PROCEDURES PERFORMED DURING STAY: [Vaginal delivery and Resection of small bowel due to bowel obstruction secondary to intussuseption from prior gastric bypass]. ADMITTING DIAGNOSES: 1. [Term In labor 2. Bowel obstruction secondary to intususeption from prior gastric bypass.]. DISCHARGE DIAGNOSES: 1. [Same]. COMPLICATIONS/CHIEF COMPLAINT: LABOR. Small bowel obstruction HISTORY OF PRESENT ILLNESS: . HOSPITAL COURSE: [29 y/o female Para 5 with prior history of gastric bypass at term admitted in labor. She had an uncomplicated vaginal delivery but soon after developed severe pain with nausea and vomiting. She underwent a cat scan after a hospitalist consult and was found to have a small bowel obstruction due to intususeption after gastric bypass. She underwent a small bowel resection as well as two units of PRBC transfusion. She did well. Tolerated po well and on post fay mumber 3 she remain stab;e and was discharge home]. DISCHARGE MEDICATIONS: Please see below. ALLERGIES: Please see below. PHYSICAL EXAMINATION ON DISCHARGE: VITAL SIGNS: Please see below. GENERAL: Appears well in no distress] HEENT: [WNL] NECK: [WNL] CARDIOVASCULAR EXAMINATION: RESPIRATORY EXAMINATION: ABDOMINAL EXAMINATION: [Soft; ND. Good BS] EXTREMITIES: [No C/C/E] SKIN: [WNL] NEUROLOGICAL EXAMINATION: PSYCHIATRIC EXAMINATION: LABORATORY DATA: Please see below. IMAGING: PROGNOSIS: [good] ACTIVITY: [As tolerated]. DIET: [Regular] DISCHARGE PLAN: [Discharge home. F/U with Dr. Du in one week for staple remove and DR. Velasquez in 6 weeks for care.] DISPOSITION: Home. DISCHARGE INSTRUCTIONS: 1. [See discharge]. ITEMS TO FOLLOWUP ON ON OUTPATIENT: 1. [Stable removal in one week. 6 weeks for ]. DISCHARGE CONDITION: [Stable]. TIME SPENT ON DISCHARGE: Greater than [45] minutes. Vital Signs/I&Os Vital Signs Date Time Temp Pulse Resp B/P (MAP) Pulse Ox O2 Delivery O2 Flow Rate FiO2 12/06/19 17:00 97.2 64 18 100 Room Air 12/06/19 12:28 131/79 (96) 6/28/20 15:32 I&O- Last 24 Hours up to 6 AM 12/06/19 06:00 Intake Total 1817 ml Output Total 1630 ml Balance 187 ml Laboratory Data Labs 24H Laboratory Tests 2 12/06/19 06:24: Immature Granulocyte % (Auto) 4.0H, Neutrophils (%) (Auto) 56.5, Lymphocytes (%) (Auto) 30.5, Monocytes (%) (Auto) 7.6H, Eosinophils (%) (Auto) 1.1, Basophils (%) (Auto) 0.3, Neutrophils # (Auto) 3.9, Lymphocytes # (Auto) 2.1, Monocytes # (Auto) 0.5, Eosinophils # (Auto) 0.1, Basophils # (Auto) 0.0, Nucleated Red Blo od Cells % (auto) 0.4H, Anion Gap 7L, Glomerular Filtration Rate > 60.0, Calcium Level 8.0L, Total Bilirubin 0.2, Aspartate Amino Transf (AST/SGOT) 15, Alanine Aminotransferase (ALT/SGPT) 16, Alkaline Phosphatase 77, Total Protein 5.3L, Albumin 2.0L, Albumin/Globulin Ratio 0.6L CBC/BMP Laboratory Tests 12/06/19 06:24 Discharge Medications Scheduled Cyanocobalamin (Vitamin B-12) (Vitamin B-12) 250 Mcg Tiff, 500 MCG PO DAILY, (Reported) Multivitamin (Multivitamins) 1 Each Capsule, 1 CAP PO DAILY, (Reported) Vit No.129/Iron/Folic ( One Daily Tablet) 1 Tab Tab, 1 TAB PO DAILY, (Reported) Vitamin D (Vitamin D3) 1,000 Unit Tablet, 1 TAB PO DAILY, (Reported) Scheduled PRN Oxycodone HCl (Oxycodone HCl) 5 Mg Tablet, 5 MG PO Q4HP PRN for MODERATE/SEVERE PAIN (PS 5-10) Allergies Coded Allergies: No Known Allergies (Unverified , 11/14/18) Alexander Velasquez DO Dec 06, 2019 20:07
--- NOTE | 2019-12-09 09:44 | RO ---
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 POSTOPERATIVE DIAGNOSIS: Infarcted intussusception of jejunum into jejunum status post gastric bypass. PROCEDURE PERFORMED: Robotic-assisted laparoscopy, laparotomy with resection of infarcted intussusception and reconstruction of jejunojejunal anastomosis. SURGEON: Dr. Du ANESTHESIA: General. INDICATIONS FOR THE PROCEDURE: Patient is a 29-year-old woman who presented to obstetrics approximately at term with an intrauterine gestation for delivery. She presented on 12/01/2019 and delivered vaginally that evening. Following her delivery, she had some nausea and vomiting and abdominal pain. This persisted into the . She ultimately underwent evaluation with a CT scan of the abdomen and pelvis. The patient is status post a Toby-en-Y gastric bypass in 2017. The CT scan revealed an intussusception at the level of the jejunojejunal anastomosis. I was consulted and she is now for laparoscopy and possible laparotomy. OPERATIVE PROCEDURE: The patient was brought to the operating room with a nasogastric tube in place. She was placed supine on the operating table. She was placed under general endotracheal anesthesia. The patient's abdomen was prepped and draped in a sterile fashion. 0.25% Marcaine was infiltrated at the trocar sites. Palpation of the abdomen under anesthesia revealed a roughly 12 cm mass that was mobile in the left midabdomen slightly above the level of the umbilicus. I selected a point for insertion of the initial trocar in the right midabdomen about at the level of the umbilicus. A short transverse incision was made. A Veress needle was inserted and after positive hanging drop test the abdomen was insufflated with carbon dioxide gas. An 8 mm trocar was placed over a 5 mm scope and advanced through the abdominal wall without difficulty. Initial examination revealed a prominent uterus. There was no sign of trocar or Veress needle injury. There was dilated small bowel identified in the mid and upper abdomen with some decompressed bowel in the lower abdomen, particularly on the right. The liver appeared normal. A second trocar was placed along the midline above the umbilicus and two additional trocars were placed in the left lower quadrant. The patient was tilted to a slight Trendelenburg position and rolled slightly to the right. The patient cart of the [employer] system was brought into position and the endoscope port was docked. This was the medial left lower quadrant trocar. Targeting took place. A Prograsp grasper, a Force bipolar and a cauterizing scissor were inserted. I then moved to the control console and proceeded with the laparoscopic of the robotic portion of the procedure. The dilated bowel was inspected. I identified the level of the jejunojejunal anastomosis. Two of the three lumens at this anastomosis were markedly dilated. As I moved the small bowel around I identified the third lumen, which was completely decompressed. The site of the intussusception was clearly identified. The lumen of the bowel at the area of the intussusception was markedly dilated. The wall of the bowel appeared intact and viable. The scissors were removed and a suction college intern was used to probe the area. I then placed an additional grasper instead of the suction college intern. I attempted with gentle traction on the intussusceptum to remove this from within the intussuscipiens. It was impossible to try to apply significant compression to the intussuscipiens to deliver the small bowel. The bowel was somewhat edematous and several small seromuscular tears were created. Ultimately, I determined within fairly short order that an open approach would be necessary to address this. Therefore, the robot was undocked. The patient cart was withdrawn. I returned to the patient bedside. I elected to make a paramedian incision in the left lower quadrant centered on the trocar site in this area. An incision approximately 10 cm in length was made. This was deepened through the abundant fibrofatty subcutaneous tissues using cautery. The fascia was divided longitudinally and the rectus muscle fibers were spread. The posterior fascia was then also incised longitudinally. A Mobius retractor was inserted. By palpation the mass of the intussusception was identified and this was delivered through the retractor. Inspection identified the limb of bowel coming from the ligament of Treitz. The intussusception was of the proximal portion of the Toby limb intussuscepting into the anastomosis. I tried to deliver the intussusceptum by applying some external compression but this was ineffective. The bowel within the lumen felt quite firm. At this point, I elected to open the bowel and inspect the intussusceptum. An incision was made along the suture line and on opening the bowel a suction was used to remove a small amount of fluid. It was clear that the intussusceptum was about 10-15 cm in length and was quite edematous and appeared infarcted. Therefore, I continued the incision to extend the opening in the bowel and effectively remove the proximal attachment of the Toby limb from the anastomosis. The end was excised removing the infarcted intussusceptum and this was sent for permanent pathology. I trimmed up the opening in the bowel, which now represented the limb from the ligament of Treitz at its anastomosis to the Toby limb. The tissues were tailored somewhat and the residual opening was closed with a firing of a TX60G stapler. This was reinforced with some sutures of #3-0 Vicryl. The remaining limb of small bowel was then anastomosed just distal to this closure. This was performed with a linear cutter 55 with residual opening closed with a TX60G. This anastomosis was also reinforced with several #3-0 Vicryl sutures. I then used a number of #2-0 silk sutures to close the gap between the mesentery of the adjacent loops of small bowel. Final inspection showed excellent anastomosis. There was no sign of any bleeding. The reconstructed anastomosis was then returned to the abdomen. The abdomen was copiously irrigated with warm saline irrigation. The Mobius retractor was removed. The posterior rectus sheath was closed with a running locking suture of #1 Vicryl. The muscle fibers were allowed to fall back together and the anterior sheath was closed with interrupted simple sutures of #1 Vicryl. The subcutaneous tissues were closed with some chromic sutures and the skin edges were approximated with running subcuticular #4-0 Vicryl or simple buried #4-0 Vicryl sutures and Steri-Strips. Sterile dressings were applied. The patient tolerated procedure well without apparent complication. She was awakened in the operating room, extubated and moved to the recovery room in stable condition. Edited: 12/09/2019 0951 trevor LÓPEZ
== END 2019-12-06 20:45 | disposition home or self-care (01) | DRG 560 ==
LOC: M LDO 11:03 → M LDI 11:16 → M OBS 21:26 → M PED 12-03 13:10
PROVIDERS: ADMIT Obstetrics & Gynecology; ATTEND Obstetrics & Gynecology
PROC: 10E0XZZ Delivery of Products of Conception, External Approach (ICD-10-PCS; principal; 2019-12-01)
PROC: 0DB80ZZ Excision of Small Intestine, Open Approach (ICD-10-PCS; 2019-12-03)
PROC: 0D1A0ZA Bypass Jejunum to Jejunum, Open Approach (ICD-10-PCS; 2019-12-03)
PROC: 8E0W4CZ Robotic Assisted Procedure of Trunk Region, Percutaneous Endoscopic Approach (ICD-10-PCS; 2019-12-03)
PROC: 30233N1 Transfusion of Nonautologous Red Blood Cells into Peripheral Vein, Percutaneous Approach (ICD-10-PCS; 2019-12-05)
DX: O24.429 Gestational diabetes mellitus in childbirth, unspecified control (principal); K56.1 Intussusception; E66.01 Morbid (severe) obesity due to excess calories; D62 Acute posthemorrhagic anemia; Z37.0 Single live birth; Z3A.38 38 weeks gestation of pregnancy; Z91.19 Patient's noncompliance with other medical treatment and regimen; Z87.891 Personal history of nicotine dependence; O99.214 Obesity complicating childbirth; O99.63 Diseases of the digestive system complicating the puerperium; E87.6 Hypokalemia; O99.285 Endocrine, nutritional and metabolic diseases complicating the puerperium; O99.03 Anemia complicating the puerperium; Z53.31 Laparoscopic surgical procedure converted to open procedure; O99.845 Bariatric surgery status complicating the puerperium

== ENCOUNTER 2020-02-07 15:11 | Emergency (ER) | payer OTHER ==
[~2020-02-07] VITALS: Ht 165.1 cm; Wt 94.5 kg
[~2020-02-07 15:11] MED LIST changes: +OXYC-517 PO
[2020-02-07] MEDS ORDERED: OMEP-221 PO (15:22)
[2020-02-07] MEDS ORDERED: PHEN15CA PO (15:22)
[2020-02-07] MEDS ORDERED: SUCR1TAB56 PO (15:22)
[2020-02-07] MEDS ORDERED: SPIR-10 PO (15:22)
[2020-02-07] MEDS ORDERED: BACITRACIN OINTMENT 30GM TUBE TOP STA (16:35)
[2020-02-07] MEDS ORDERED: IBUPROFEN 600MG TAB PO ONE (16:45)
[2020-02-07] MEDS ORDERED: ACETAMINOPHEN 500 MG TAB PO ONE (16:45)
[2020-02-07] MEDS ORDERED: BACI500O21 TOP (16:46)
[2020-02-07 17:05] VITALS: BP 136/78
== END 2020-02-07 17:11 | disposition home or self-care (01) ==
LOC: M ED 15:11
DX: T22.231A Burn of second degree of right upper arm, initial encounter (principal); Y92.099 Unspecified place in other non-institutional residence as the place of occurrence of the external cause; Y93.9 Activity, unspecified

== ENCOUNTER 2020-08-29 18:50 | Inpatient (IN) | payer OTHER, SELFPAY ==
[~2020-08-29] VITALS: Ht 165.1 cm; Wt 79.2 kg
[~2020-08-29 18:50] MED LIST changes: +BACI500O21 TOP; +OMEP-221 PO; +PHEN15CA PO; +SUCR1TAB56 PO
[2020-08-29 20:18] LABS: BASO # 0.1 10^3/uL (0.0-0.2); BASO % 0.2 % (0.0-1.0); EOS % 0.2 % (0.0-3.0); HEMATOCRIT 33.4 % (36.0-47.0); HEMOGLOBIN 10.9 g/dl (12.0-15.5); LYMPH % 4.2 % (24.0-44.0); MEAN CORPUSCULAR HEMOGLOBIN 29.8 pg (27.0-33.0); MEAN CORPUSCULAR HGB CONC 32.6 g/dl (32.0-36.5); MEAN CORPUSCULAR VOLUME 91.3 fl (80.0-96.0); MONO # 0.5 10^3/uL (0.0-0.8); MONO % 1.9 % (2.0-8.0); NEUTROPHILS # 21.8 10^3/uL (1.5-8.5); NEUTROPHILS % 92.7 % (36.0-66.0); PLATELET COUNT, AUTOMATED 372 10^3/uL (150-450); RED BLOOD COUNT 3.66 10^6/uL (4.00-5.40); WHITE BLOOD COUNT 23.6 10^3/uL (4.0-10.0)
[2020-08-29 20:40] LABS: HCG, SERUM QUALITATIVE NEGATIVE (NEGATIVE)
[2020-08-29] MEDS ORDERED: NS 1,000 ML IV ONE (20:40)
[2020-08-29] MEDS ORDERED: MORPHINE 4 MG/ML 1ML VIAL/SYRINGE (J2270) IV ONE (20:40)
[2020-08-29] MEDS ORDERED: ONDANSETRON 4MG/2ML VIAL IV ONE (20:40)
[2020-08-29 20:43] LABS: ALBUMIN 3.5 GM/DL (3.2-5.2); ALT/SGPT 17 U/L (12-78); BILIRUBIN,DIRECT 0.3 MG/DL (0.0-0.2); BILIRUBIN,TOTAL 0.7 MG/DL (0.2-1.0); BLOOD UREA NITROGEN 9 MG/DL (7-18); CALCIUM LEVEL 8.3 MG/DL (8.5-10.1); CARBON DIOXIDE LEVEL 26 MEQ/L (21-32); CHLORIDE LEVEL 109 MEQ/L (98-107); CREATININE FOR GFR 0.68 MG/DL (0.55-1.30); GLOMERULAR FILTRATION RATE > 60.0 (>60); GLUCOSE, FASTING 115 MG/DL (70-100); LIPASE 42 U/L (73-393); POTASSIUM SERUM 3.6 MEQ/L (3.5-5.1); SODIUM LEVEL 140 MEQ/L (136-145); TOTAL PROTEIN 7.1 GM/DL (6.4-8.2)
[2020-08-29] MEDS ORDERED: PIPERACILLIN/TAZOBACTAM SOD 3.375 GM in D5W MINI-BAG PLUS 50 ML IV ONE (20:45)
[2020-08-29] MEDS ORDERED: NS 1,320 ML in IV 1 EA IV ONE (20:45)
[2020-08-29] MEDS ORDERED: ACETAMINOPHEN 500 MG TAB PO ONE (20:50)
[2020-08-29] MEDS ORDERED: fentaNYL 100 MCG/2 ML INJECTION (J3010) IV ONE ×2 (21:10→22:00)
--- NOTE | 2020-08-29 21:51 | REPVR ---
PROCEDURE INFORMATION: Exam: XR Complete Acute Abdomen Series Exam date and time: 08/29/20 (8:52pm) Age: 30 years old Clinical indication: Abdominal pain. Evaluate for free air, peritonitis. History of Toby-en-Y surgery and intussusception. TECHNIQUE: Imaging protocol: XR complete acute abdomen series, including 2 or more views of the abdomen and a single view chest COMPARISON: Portable CXR of 12/03/19 FINDINGS: Lung bragg are clear. No focal infiltrates. No pleural effusions. Normal heart size. Bilateral nipple piercings. Flat and upright films of the abdomen are provided. Mildly distended, air-filled small bowel loops in the mid and lower abdomen, and in the left abdomen. Some air-fluid levels are present on the upright film. No definite free air. No abnormal mass. IMPRESSION: No acute chest pathology. Clear lung bragg. Possible small bowel obstruction. Small bowel air-fluid levels are present. Some small bowel loops are mildly distended. No definite free air. Clinical correlation and follow-up are suggested. Electronically signed by: Chanell Singer On 08/29/2020 21:51:14 PM
[2020-08-29] MEDS: GASTROGRAFIN SOLUTION 30ML PO SCH ×2 (22:48→23:22)
[2020-08-29] MEDS ORDERED: ISOVUE-370 76% 100ML VIAL As Ordered ONE (23:39)
[2020-08-29] MEDS ORDERED: KETOROLAC 30 MG/ML 1ML VIAL IV ONE (23:45)
--- NOTE | 2020-08-30 00:27 | REPVR ---
PROCEDURE INFORMATION: Exam: CT Abdomen And Pelvis With Contrast Exam date and time: 08/29/2020 9:57 PM Age: 30 years old Clinical indication: Abdominal pain; Epigastric; Additional info: Epigastric pain, peritonitis, nausea, HX rouxeny, colectomy TECHNIQUE: Imaging protocol: Computed tomography of the abdomen and pelvis with contrast. Axial, coronal and sagittal reformatted images were created and reviewed. Radiation optimization: All CT scans at this facility use at least one of these dose optimization techniques: automated exposure control; mA and/or kV adjustment per patient size (includes targeted exams where dose is matched to clinical indication); or iterative reconstruction. Contrast material: ISO; Contrast volume: 100 ml; Contrast route: INTRAVENOUS (IV); COMPARISON: CT ABD/PEL W/IV ORAL CONTRAS 12/02/2019 7:02 PM FINDINGS: Lungs: Mild linear stranding and groundglass at the lung bases, likely due to atelectasis. Pleural spaces: Trace dependent pleural fluid at the lung bases. Liver: Mild hepatomegaly. Gallbladder and bile ducts: Cholelithiasis and mild gallbladder distention. Pancreas: Unremarkable. Spleen: Unremarkable. Adrenal glands: Normal. No mass. Kidneys and ureters: No mass. No radiodense calculi. No hydronephrosis. Stomach and bowel: Status post gastric bypass surgery. Multiple dilated, mildly thickened loops of small bowel without discrete transition point. Contrast passes into the right colon. No pneumatosis. Appendix: Normal. Intraperitoneal space: Trace nonspecific free pelvic fluid, likely physiologic. No organized fluid collection. No free air. Vasculature: Unremarkable. No aneurysm. Lymph nodes: No pathologically enlarged lymph nodes. Urinary bladder: Unremarkable as visualized. Reproductive: Unremarkable. Bones/joints: No acute osseous abnormality. Mild degenerative changes. Soft tissues: Unremarkable. IMPRESSION: 1. Multiple dilated, mildly thickened loops of small bowel without discrete transition point. Query nonspecific enteritis and/or ileus. A component of underlying partial small bowel obstruction cannot be excluded. 2. Additional findings, as above. Electronically signed by: Satnam Roberts On 08/30/2020 00:26:54 AM
--- NOTE | 2020-08-30 02:21 | HPEPDOC ---
[facility] Medical History & Physical Date of Admission Aug 30, 2020 Date of Service: Aug 30, 2020 Other Provider Bettye Rodriguez Attending Physician: ARIC LYNN MD History and Physical TIME OF SERVICE: 245pm CHIEF COMPLAINT: abdominal pain HISTORY OF PRESENT ILLNESS: Part of the history was obtained from LUCA Barth, and chart review the pt had received pain meds and was lethargic. This 30 yr old F presented w c/o 7/10 in severity mid abdominal pain associated w nausea and diarrhea that begun yesterday. She denied having v/f/c. Lary discussed the case with & started abx. REVIEW OF SYSTEMS: 12-point review of systems negative except as listed in HPI PAST MEDICAL/ SURGICAL HISTORY: gastric bypass partial colectomy SOCIAL HISTORY: former smoker, drinks socially a few times a month FAMILY HISTORY: thyroid dz ALLERGIES: Please see below. HOME MEDICATIONS: Please see below. PHYSICAL EXAMINATION: Vital Signs Date Time Temp Pulse Resp B/P (MAP) Pulse Ox O2 Delivery O2 Flow Rate FiO2 08/29/20 18:51 98.5 105 18 130/70 (90) 98 08/29/20 21:22 Room Air GENERAL APPEARANCE: well nourished and developed/ doesnt appear toxic CARDIOVASCULAR: RRR /NMRG / no BLE edema LUNGS: CTAB on RA ABDOMEN: + tattoo / soft / flat / tender w palpation MUSCULOSKELETAL: NCAT NEUROLOGICAL: speech not dysarthric PSYCHIATRIC: lethargic but arousable w vocal stimuli LABORATORY DATA: 08/29/20 20:08 08/29/20 20:08: Immature Granulocyte % (Auto) 0.8, Neutrophils (%) (Auto) 92.7H, Lymphocytes (%) (Auto) 4.2L, Monocytes (%) (Auto) 1.9L, Eosinophils (%) (Auto) 0.2, Basophils (%) (Auto) 0.2, Neutrophils # (Auto) 21.8H, Lymphocytes # (Auto) 1.0L, Monocytes # (Auto) 0.5, Eosinophils # (Auto) 0.0, Basophils # (Auto) 0.1, Nucleated Red Blood Cells % (auto) 0.0, Anion Gap 5L, Glomerular Filtration Rate > 60.0, Lactic Acid Level 1.0, Calcium Level 8.3L, Total Bilirubin 0.7, Direct Bilirubin 0.3H, Aspartate Amino Transf (AST/SGOT) 8, Alanine Aminotransferase (ALT/SGPT) 17, Alkaline Phosphatase 88, Total Protein 7.1, Albumin 3.5, Albumin/Globulin Ratio 1.0L, Lipase 42L, Human Chorionic Gonadotropin, Qual NEGATIVE 08/30/20 00:44: Urine Color YELLOW, Urine Appearance CLEAR, Urine pH 5.0, Urine Specific [place] >1.060H, Urine Protein NEGATIVE, Urine Glucose (UA) NEGATIVE, Urine Ketones TRACEH, Urine Blood NEGATIVE, Urine Nitrite NEGATIVE, Urine Bilirubin NEGATIVE, Urine Urobilinogen 0.2, Urine Leukocyte Esterase NEGATIVE, Urine WBC (Auto) 0, Urine RBC (Auto) 0, Urine Hyaline Casts (Auto) 0, Urine Bacteria (Auto) NEGATIVE, Urine Squamous Epithelial Cells 2, Urine Mucus (Auto) SMALL, Urine Sperm (Auto) IMAGING: XRAY abd IMPRESSION: IMPRESSION: No acute chest pathology. Clear lung bragg. CT abd/pelvis IMPRESSION: 1. Multiple dilated, mildly thickened loops of small bowel without discrete transition point. Query nonspecific enteritis and/or ileus. A component of underlying partial small bowel obstruction cannot be excluded. 2. Additional findings, as above. MICROBIOLOGY: covid neg ASSESSMENT: is a 30 yr old w a hx of who presented w c/o abdominal pain possibly 2/2 enteritis, ileitis or partial SBO. PLAN: 1 Sepsis Possibly 2/2 partial SBO vs enteritis/illeitus SIRS criterial elevated WBC and HR Plan: admit to medical floor / NPO / IVF/ placed consult for / morphine for pain / Zosyn & IVF / f/u blood cx 2 N anemia Plan: trend Hg / Iron studies / will likely need out pt Gyne referral DVT px w SCDs Dispo: home after at least 2 midnights stay Home Medications Scheduled Desogestrel-Ethinyl Estradiol (Isibloom 28 Day Tablet) 1 Each Tablet, 1 TAB PO DAILY Misoprostol (Misoprostol) 200 Mcg Tablet, 200 MCG PO [facility] Omeprazole (Omeprazole) 40 Mg Capsule.dr, 40 MG PO BID Allergies Coded Allergies: NSAIDS (Non-Steroidal Anti-Inflamma (Unverified Adverse Reaction, Unknown, nsaids, 02/07/20) gastric bypass A-FIB/CHADSVASC A-FIB History Current/History of A-Fib/PAF?: No Current PO Anticoag Therapy: No ARIC LYNN MD Aug 30, 2020 02:21
[2020-08-30 02:41] LABS: FERRITIN 21 NG/ML (8-252); IRON (FE) 8 UG/DL (50-170); PERCENT SATURATION 1.9 % (13.2-45.0); TOTAL IRON BINDING CAPACITY 431 UG/DL (250-450)
[2020-08-30] MEDS ORDERED: MISO200T56 PO (02:59)
[2020-08-30] MEDS ORDERED: OMEP-221 PO (02:59)
[2020-08-30] MEDS ORDERED: ISIB1TAB PO (02:59)
[2020-08-30] MEDS: LR 1,000 ML IV SCH ×3 (03:03→14:16)
[2020-08-30] MEDS: PIPERACILLIN/TAZOBACTAM SOD 4.5 GM in D5W MINI-BAG PLUS 50 ML IV SCH ×4 (05:16→21:58)
[2020-08-30 05:40] LABS: HEMOGLOBIN 9.5 g/dl (12.0-15.5); MEAN CORPUSCULAR HGB CONC 32.8 g/dl (32.0-36.5); MEAN CORPUSCULAR VOLUME 91.5 fl (80.0-96.0); PLATELET COUNT, AUTOMATED 326 10^3/uL (150-450); RED BLOOD COUNT 3.17 10^6/uL (4.00-5.40); WHITE BLOOD COUNT 20.6 10^3/uL (4.0-10.0)
[2020-08-30 06:02] LABS: BLOOD UREA NITROGEN 8 MG/DL (7-18); CALCIUM LEVEL 7.7 MG/DL (8.5-10.1); CARBON DIOXIDE LEVEL 25 MEQ/L (21-32); CHLORIDE LEVEL 108 MEQ/L (98-107); CREATININE FOR GFR 0.61 MG/DL (0.55-1.30); GLOMERULAR FILTRATION RATE > 60.0 (>60); GLUCOSE, FASTING 100 MG/DL (70-100); POTASSIUM SERUM 3.5 MEQ/L (3.5-5.1); SODIUM LEVEL 140 MEQ/L (136-145)
[2020-08-30 07:00] VITALS: O2SAT 99
[2020-08-30 07:29] VITALS: BP 107/59
[2020-08-30 08:00] VITALS: BP 111/58
[2020-08-30] MEDS: MORPHINE 2 MG/ML 1ML VIAL (J2270) IV PRN ×6 (09:02→21:59)
[2020-08-30] MEDS: ONDANSETRON 4MG/2ML VIAL IV PRN ×2 (09:18→21:58)
[2020-08-30 09:31] LABS: TROPONIN I < 0.02 NG/ML (< 0.10)
[2020-08-30 09:35] LABS: VITAMIN B12 LEVEL 287 PG/ML
[2020-08-30 09:37] LABS: FOLATE 7.8 NG/ML
[2020-08-30 11:30] VITALS: BP 103/61
[2020-08-30 15:41] VITALS: BP 108/53
--- NOTE | 2020-08-30 19:05 | IPNPDOC ---
Subjective Date Seen The patient was seen on 08/30/20. Subjective Chief Complaint/HPI Mrs. Swanson is a 30 year old female with gastric bypass and partial colectomy who presents with abdominal pain. This morning, she denies dyspnea but reported a pleuritic chest pain. She continues to have abdominal pain. Discussed case with general surgery. Patient does not have SBO, but has enteritis. Recommending NPO and antibiotics. Otherwise I spoke with radiology. Cannot have another contrast study within 24 hours of the previous. Objective Physical Examination General Exam: Positive: Alert, Cooperative, Moderate Distress Eye Exam: Positive: EOMI; Negative: Sclera icteric ENT Exam: Positive: Atraumatic Chest Exam: Positive: Clear to auscultation; Negative: Rales, Rhonchi, Wheezing Heart Exam: Positive: Rate Normal, Regular Rhythm Abdomen Exam: Positive: BS Hypoactive, Tenderness Extremity Exam: Negative: Edema Neuro Exam: Positive: Normal Speech Psych Exam: Positive: Mental status NL, Mood NL Assessment /Plan Assessment Mrs. Swanson is a 30 year old female with gastric bypass and partial colectomy who presents with abdominal pain. General surgery evaluated patient. Patient does not have SBO, but has enteritis. Recommending NPO and antibiotics. Plan/VTE VTE Prophylaxis Ordered?: Yes Plan 1. Enteritis -General surgery following recommendations appreciated -Not SBO -NPO and Zosyn 2. Sepsis -Patient has leukocytosis and tachycardia -IVF and Zosyn -LA of 1 3. Normocytic anemia -Iron low at 8 -Ferritin at 21 -After resolution of abdominal pain and enteritis, can consider starting iron 4. Pleuritic chest pain -Troponin negative -At room air -She is on OCP -Cannot obtain contrast studies within [address] Will obtain CT angio chest tomorrow Disposition: pending clinical improvement VS, I&O, 24H, Fishbone Vital Signs/I&O Vital Signs Date Time Temp Pulse Resp B/P (MAP) Pulse Ox O2 Delivery O2 Flow Rate FiO2 08/30/20 16:36 16 Room Air 08/30/20 15:41 99.2 71 108/53 (71) 100 I&O- Last 24 Hours up to 6 AM 08/30/20 06:00 Intake Total 2520 ml Output Total 0 ml Balance 2520 ml Laboratory Data 24H LABS Laboratory Tests 2 08/29/20 20:08: Immature Granulocyte % (Auto) 0.8, Neutrophils (%) (Auto) 92.7H, Lymphocytes (%) (Auto) 4.2L, Monocytes (%) (Auto) 1.9L, Eosinophils (%) (Auto) 0.2, Basophils (%) (Auto) 0.2, Neutrophils # (Auto) 21.8H, Lymphocytes # (Auto) 1.0L, Monocytes # (Auto) 0.5, Eosinophils # (Auto) 0.0, Basophils # (Auto) 0.1, Nucleated Red Blood Cells % (auto) 0.0, Anion Gap 5L, Glomerular Filtration Rate > 60.0, Lactic Acid Level 1.0, Calcium Level 8.3L, Iron Level 8L, Total Iron Binding Capacity 431, Transferrin % Saturation 1.9L, Ferritin 21, Total Bilirubin 0.7, Direct Bilirubin 0.3H, Aspartate Amino Transf (AST/SGOT) 8, Alanine Aminotransferase (ALT/SGPT) 17, Alkaline Phosphatase 88, Total Protein 7.1, Albumin 3.5, Albumin/Globulin Ratio 1.0L, Lipase 42L, Vitamin B12 Level 287, Folate 7.8, Human Chorionic Gonadotropin, Qual NEGATIVE 08/30/20 00:44: Urine Color YELLOW, Urine Appearance CLEAR, Urine pH 5.0, Urine Specific [place] >1.060H, Urine Protein NEGATIVE, Urine Glucose (UA) NEGATIVE, Urine Ketones TRACEH, Urine Blood NEGATIVE, Urine Nitrite NEGATIVE, Urine Bilirubin NEGATIVE, Urine Urobilinogen 0.2, Urine Leukocyte Esterase NEGATIVE, Urine WBC (Auto) 0, Urine RBC (Auto) 0, Urine Hyaline Casts (Auto) 0, Urine Bacteria (Auto) NEGATIVE, Urine Squamous Epithelial Cells 2, Urine Mucus (Auto) SMALL, Urine Sperm (Auto) 08/30/20 01:59: Coronavirus (COVID-19)(PCR) NEGATIVE 08/30/20 05:16: Nucleated Red Blood Cells % (auto) 0.0, Anion Gap 7L, Glomerular Filtration Rate > 60.0, Calcium Level 7.7L, Troponin I < 0.02 08/30/20 11:41: Bedside Glucose (Misc Panel) 75 08/30/20 13:02: Troponin I < 0.02 08/30/20 17:56: Bedside Glucose (Misc Panel) 68L CBC/BMP Laboratory Tests 08/29/20 20:08 08/30/20 05:16 Microbiology Microbiology 08/29/20 Blood Culture, Received Pending 08/29/20 Blood Culture, Received Pending LAURA GARVEY 24, 2021 19:05
[2020-08-30 20:00] VITALS: BP 133/60
[2020-08-31] VITALS: BP 119/61
[2020-08-31] MEDS ORDERED: ACETAMINOPHEN TAB 650MG DOSE (2X325MG) PO PRN (00:20)
[2020-08-31] MEDS: LR 1,000 ML IV SCH (01:09)
[2020-08-31] MEDS: PIPERACILLIN/TAZOBACTAM SOD 4.5 GM in D5W MINI-BAG PLUS 50 ML IV SCH ×4 (03:50→22:15)
[2020-08-31] MEDS: MORPHINE 2 MG/ML 1ML VIAL (J2270) IV PRN ×4 (03:53→20:52)
[2020-08-31 04:00] VITALS: BP 115/66
[2020-08-31 05:58] LABS: HEMATOCRIT 26.6 % (36.0-47.0); HEMOGLOBIN 8.5 g/dl (12.0-15.5); MEAN CORPUSCULAR HEMOGLOBIN 29.6 pg (27.0-33.0); MEAN CORPUSCULAR VOLUME 92.7 fl (80.0-96.0); PLATELET COUNT, AUTOMATED 298 10^3/uL (150-450); RED BLOOD COUNT 2.87 10^6/uL (4.00-5.40); WHITE BLOOD COUNT 11.1 10^3/uL (4.0-10.0)
[2020-08-31 06:15] LABS: BLOOD UREA NITROGEN 10 MG/DL (7-18); CALCIUM LEVEL 7.8 MG/DL (8.5-10.1); CARBON DIOXIDE LEVEL 26 MEQ/L (21-32); CHLORIDE LEVEL 109 MEQ/L (98-107); CREATININE FOR GFR 0.65 MG/DL (0.55-1.30); GLOMERULAR FILTRATION RATE > 60.0 (>60); GLUCOSE, FASTING 70 MG/DL (70-100); POTASSIUM SERUM 3.3 MEQ/L (3.5-5.1); SODIUM LEVEL 142 MEQ/L (136-145)
[2020-08-31 07:27] VITALS: BP 117/62
[2020-08-31] MEDS: KCL 20MEQ IN D5/0.45NS 1000ML 1,000 ML IV SCH ×2 (07:53→20:48)
--- NOTE | 2020-08-31 09:13 | ECGEPIP ---
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
[2020-08-31] MEDS ORDERED: ISOVUE-370 76% 100ML VIAL As Ordered ONE (10:19)
--- NOTE | 2020-08-31 11:01 | REP ---
INDICATION: Pleuritic chest pain. COMPARISON: None. TECHNIQUE: CT of the chest with IV contrast, CT angiography. FINDINGS: There are no emboli in the pulmonary trunk or central pulmonary arteries. There are no emboli in the pulmonary artery lobar or segment branches. There is atelectasis in the right lower lobe and in the left lower lobe. There is a 2 mm lung nodule peripherally in the right upper lobe. The lung bragg are otherwise clear. There are no pleural effusions. There is no pleural thickening. There is no mediastinal, hilar or axillary lymph node enlargement. The thoracic aorta is unremarkable. Cardiac size is normal. There is no pericardial effusion. Upper abdomen: The visualized areas of the adrenals, spleen, pancreas and liver are unremarkable. IMPRESSION: There are no pulmonary emboli. There is atelectasis in the right lower lobe and in the left lower lobe. There are no pleural effusions. No pleural thickening. There is a 2 mm nodule peripherally in the right upper lobe. <Electronically signed by Ambrosio Howell > 08/31/20 1056
[2020-08-31 12:00] VITALS: BP 101/59
--- NOTE | 2020-08-31 12:24 | IPNPDOC ---
Text Note Date of Service The patient was seen on 08/31/20. NOTE General Surgery Dr Alva. The pt is a 30 yo female admitted 08/30/20 with partial SBO, possible enteritis/Ileitis. The pt was started on IV abx and IVF and NPO. This AM the pt reports some improvement in abdominal pain. Denies nausea, emesis. Reports diarrhea x 1, denies any blood. Tmax 100.7 VSS Awake and alert, NAD resting in bed. abd soft, ND, tenderness noted with light palpation LUQ with grimacing noted on exam. WBC 11.1, decreased from 20.6. Hgb 8.5. Plt 295. BC neg x 2. A/P 30 yo female with partial SBO, possible enteritis/Ileitis. The pt is reviewed and examined as per Dr Alva this AM. Continue IVF Continue IV abx. Trial of clear liquids. monitor. VS,Fishbone, I+O VS, Fishbone, I+O Laboratory Tests 08/31/20 05:19 Vital Signs Date Time Temp Pulse Resp B/P (MAP) Pulse Ox O2 Delivery O2 Flow Rate FiO2 08/31/20 12:00 97.8 68 18 101/59 (73) 95 Room Air I&O- Last 24 Hours up to 6 AM 08/31/20 05:59 Intake Total 3250 ml Output Total 1100 ml Balance 2150 ml Charisma Castro Aug 31, 2020 12:24
--- NOTE | 2020-08-31 12:31 | CR ---
CONSULTATION DATE: 08/30/2020 REASON FOR CONSULTATION: Abdominal pain. HISTORY OF PRESENT ILLNESS: The patient is a 30-year-old female with history of gastric bypass in the past as well as small bowel obstruction. She presented yesterday with severe abdominal pain associated with nausea and diarrhea. Denies any fevers or chills. No recent changes in diet or activity. No changes in medications. In the emergency room she was found to have leukocytosis 23.[address] findings showing what appeared to be enteritis with possible obstruction. Recommendation was to admit to medicine service for antibiotics and I was asked to consult. At this time her abdominal pain is slightly improved from admission. She is not having any vomiting just slight nausea occasionally and continues to have loose stools. Last normal bowel movement was yesterday. MEDICAL HISTORY: Obesity. SURGICAL HISTORY: Gastric bypass and partial small bowel resection secondary to obstruction. FAMILY HISTORY: Noncontributory. SOCIAL HISTORY: Denies drug, alcohol or tobacco abuse. ALLERGIES: NSAIDS. HOME MEDICATIONS: Please see Med Rec. REVIEW OF SYSTEMS: Pertinent positives and negatives as stated in the HPI. PHYSICAL EXAMINATION: General: No acute distress. Vitals: Temp 96.5, pulse 66, respirations 16, blood pressure 111/58, pulse ox 97% on room air. HEENT: Pupils equal, round and reactive to light and accommodation. Heart: S1 and S2 regular rate and rhythm. Lungs: Clear to auscultation bilaterally. Abdomen: Soft, tender to palpation epigastric and left upper quadrant, localized guarding, no rigidity. Extremities: No clubbing, cyanosis or edema. LABS: White count 23.6, down to 20.6 this morning, hemoglobin 9.5, platelets 326. Potassium 3.5, creatinine 0.61, lactic acid 1. IMAGING: CT abdomen and pelvis show multiple dilated, mildly thickened loops of small bowel without discrete transition point, possible enteritis versus ileus, underlying partial small bowel obstruction cannot be excluded. ASSESSMENT/PLAN: The patient is a 30-year-old female with left upper quadrant and epigastric abdominal pains, nausea and diarrhea, presents with severe abdominal pain, also having findings of enteritis on CT. Recommendation at this time is to treat as an enteritis, IV fluids, NPO and antibiotics. I will continue to monitor her closely. If she improves over the next 24 hours will start her on liquid diet and slowly advance as tolerated. If she starts to show any signs of obstruction with increased nausea and some emesis we will place an NG tube and treat as necessary. Thank you for the consult and will continue to follow with you.
[2020-08-31 13:23] LABS: HEMATOCRIT 28.2 % (36.0-47.0); HEMOGLOBIN 9.1 g/dl (12.0-15.5); MEAN CORPUSCULAR HEMOGLOBIN 29.8 pg (27.0-33.0); MEAN CORPUSCULAR HGB CONC 32.3 g/dl (32.0-36.5); MEAN CORPUSCULAR VOLUME 92.5 fl (80.0-96.0); PLATELET COUNT, AUTOMATED 325 10^3/uL (150-450); RED BLOOD COUNT 3.05 10^6/uL (4.00-5.40); WHITE BLOOD COUNT 9.8 10^3/uL (4.0-10.0)
[2020-08-31 13:54] LABS: BLOOD UREA NITROGEN 8 MG/DL (7-18); CARBON DIOXIDE LEVEL 28 MEQ/L (21-32); CHLORIDE LEVEL 108 MEQ/L (98-107); CREATININE FOR GFR 0.68 MG/DL (0.55-1.30); GLOMERULAR FILTRATION RATE > 60.0 (>60); GLUCOSE, FASTING 87 MG/DL (70-100); POTASSIUM SERUM 3.8 MEQ/L (3.5-5.1); SODIUM LEVEL 141 MEQ/L (136-145)
[2020-08-31 16:00] VITALS: BP 111/62
--- NOTE | 2020-08-31 19:01 | IPNPDOC ---
Subjective Date Seen The patient was seen on 08/31/20. Subjective Chief Complaint/HPI Mrs. Swanson is a 30 year old female with gastric bypass and partial colectomy who presents with abdominal pain. This morning, she denies dyspnea, but still has pleuritic chest pain. Troponin was negative x2. Ordered CT angio for PE which was also negative. Otherwise, general surgery advance diet to clear liquids Objective Physical Examination General Exam: Positive: Alert, Cooperative Eye Exam: Positive: EOMI; Negative: Sclera icteric ENT Exam: Positive: Atraumatic Chest Exam: Positive: Clear to auscultation; Negative: Rales, Rhonchi, Wheezing Heart Exam: Positive: Rate Normal, Regular Rhythm Abdomen Exam: Positive: BS Hypoactive, Tenderness Extremity Exam: Negative: Edema Neuro Exam: Positive: Normal Speech Psych Exam: Positive: Mental status NL, Mood NL Assessment /Plan Assessment Mrs. Swanson is a 30 year old female with gastric bypass and partial colectomy who presents with abdominal pain. General surgery evaluated patient. Patient does not have SBO, but has enteritis. Continuing with supportive care and antibiotics Plan/VTE VTE Prophylaxis Ordered?: Yes Plan 1. Enteritis -General surgery following recommendations appreciated -Not SBO -Clear liquid diet and Zosyn day 2 2. Sepsis -Patient has leukocytosis and tachycardia -IVF and Zosyn day 2 -LA of 1 3. Normocytic anemia -Iron low at 8 -Ferritin at 21 -After resolution of abdominal pain and enteritis, can consider starting iron 4. Pleuritic chest pain -Troponin negative -She is on OCP. CT angio negative for PE Disposition: pending clinical improvement VS, I&O, 24H, [facility] Vital Signs/I&O Vital Signs Date Time Temp Pulse Resp B/P (MAP) Pulse Ox O2 Delivery O2 Flow Rate FiO2 08/31/20 17:18 18 Room Air 08/31/20 16:00 97.6 75 111/62 (78) 99 I&O- Last 24 Hours up to 6 AM 08/31/20 06:00 Intake Total 3250 ml Output Total 1100 ml Balance 2150 ml Laboratory Data 24H LABS Laboratory Tests 2 08/30/20 23:45: Bedside Glucose (Misc Panel) 76 08/31/20 05:19: Nucleated Red Blood Cells % (auto) 0.0, Anion Gap 7L, Glomerular Filtration Rate > 60.0, Calcium Level 7.8L, Magnesium Level 2.0 08/31/20 13:10: Nucleated Red Blood Cells % (auto) 0.0, Anion Gap 5L, Glomerular Filtration Rate > 60.0, Calcium Level 8.0L CBC/BMP Laboratory Tests 08/31/20 05:19 08/31/20 13:10 Microbiology Microbiology 08/29/20 Blood Culture - Preliminary, Resulted No growth after 24 hours . All specim... 08/29/20 Blood Culture - Preliminary, Resulted No growth after 24 hours . All specim... LAURA GARVEY DO Aug 31, 2020 19:01
[2020-08-31 20:00] VITALS: BP 122/67
[2020-08-31] MEDS ORDERED: KETOROLAC 30 MG/ML 1ML VIAL IV ONE (22:40)
[2020-09-01] VITALS: BP 113/67
[2020-09-01] MEDS: PIPERACILLIN/TAZOBACTAM SOD 4.5 GM in D5W MINI-BAG PLUS 50 ML IV SCH ×4 (03:44→22:03)
[2020-09-01 04:00] VITALS: BP 122/60
[2020-09-01 05:29] LABS: HEMOGLOBIN 8.3 g/dl (12.0-15.5); MEAN CORPUSCULAR HEMOGLOBIN 29.1 pg (27.0-33.0); MEAN CORPUSCULAR HGB CONC 31.9 g/dl (32.0-36.5); MEAN CORPUSCULAR VOLUME 91.2 fl (80.0-96.0); PLATELET COUNT, AUTOMATED 301 10^3/uL (150-450); RED BLOOD COUNT 2.85 10^6/uL (4.00-5.40); WHITE BLOOD COUNT 6.5 10^3/uL (4.0-10.0)
[2020-09-01 06:07] LABS: BLOOD UREA NITROGEN 4 MG/DL (7-18); CALCIUM LEVEL 7.8 MG/DL (8.5-10.1); CARBON DIOXIDE LEVEL 28 MEQ/L (21-32); CHLORIDE LEVEL 111 MEQ/L (98-107); CREATININE FOR GFR 0.57 MG/DL (0.55-1.30); GLOMERULAR FILTRATION RATE > 60.0 (>60); GLUCOSE, FASTING 104 MG/DL (70-100); POTASSIUM SERUM 3.6 MEQ/L (3.5-5.1); SODIUM LEVEL 144 MEQ/L (136-145)
[2020-09-01] MEDS: KCL 20MEQ IN D5/0.45NS 1000ML 1,000 ML IV SCH (07:36)
[2020-09-01] MEDS: ONDANSETRON 4MG/2ML VIAL IV PRN (07:38)
[2020-09-01 08:00] VITALS: BP 142/75
--- NOTE | 2020-09-01 10:26 | IPNPDOC ---
Text Note Date of Service The patient was seen on 09/01/20. NOTE General Surgery Dr Alva. The pt is a 30 yo female admitted 08/30/20 with partial SBO, possible enteritis/Ileitis. This AM the pt continues to report some improvement in abdominal pain. Denies nausea, emesis. States she is tolerating clear liquids but has had some discomfort with Jell-O. Tmax 99.3 VSS Awake and alert, NAD resting in bed. abd soft, ND, she is still noted to have some tenderness in the LUQ but this is less pronounced compared with yesterday, still with some guarding but this is less and no grimacing. WBC 6.5, down trending Hgb 8.3 Plt 301 BC neg x 2. A/P 30 yo female with partial SBO, possible enteritis/Ileitis. The pt is reviewed and examined as per Dr. Alva this morning. For the most part, the patient has tolerated clear liquids and Dr. Alva feels she could try soft diet and see if she tolerates this. If she is able to tolerate a soft diet he has discussed with the patient that she could possibly be discharged home later today to finish course of oral antibiotics as an outpatient. Continue to monitor. VS,Fishbone, I+O VS, Fishbone, I+O Laboratory Tests 08/31/20 13:10 09/01/20 05:13 Vital Signs Date Time Temp Pulse Resp B/P (MAP) Pulse Ox O2 Delivery O2 Flow Rate FiO2 09/01/20 08:00 98.5 57 16 142/75 (97) 99 Room Air I&O- Last 24 Hours up to 6 AM 09/01/20 06:00 Intake Total 2785 ml Output Total 400 ml Balance 2385 ml Charisma Castro Sep 01, 2020 10:26
[2020-09-01] MEDS: MORPHINE 2 MG/ML 1ML VIAL (J2270) IV PRN (12:59)
[2020-09-01 14:00] VITALS: BP 124/68
[2020-09-01] MEDS: PERCOCET 5MG/325MG TAB PO PRN (18:37)
--- NOTE | 2020-09-01 19:57 | IPNPDOC ---
Subjective Date Seen The patient was seen on 09/01/20. Subjective Chief Complaint/HPI Mrs. Swanson is a 30 year old female with gastric bypass and partial colectomy who presents with abdominal pain. This morning, she did okay with the clear liquids. Denies dyspnea. Pleuritic chest pain improved, and reports it is more upper abdomen/lower chest pain. She was advanced to mechanical soft diet by general surgery. Did not tolerate it as well. Will continue with antibiotics. Objective Physical Examination General Exam: Positive: Alert, Cooperative Eye Exam: Positive: EOMI; Negative: Sclera icteric ENT Exam: Positive: Atraumatic Chest Exam: Positive: Clear to auscultation; Negative: Rales, Rhonchi, Wheezing Heart Exam: Positive: Rate Normal, Regular Rhythm Abdomen Exam: Positive: BS Hypoactive, Tenderness Extremity Exam: Negative: Edema Neuro Exam: Positive: Normal Speech Psych Exam: Positive: Mental status NL, Mood NL Assessment /Plan Assessment Mrs. Swanson is a 30 year old female with gastric bypass and partial colectomy who presents with abdominal pain. General surgery evaluated patient. Patient does not have SBO, but has enteritis. Continuing with supportive care and antibiotics. Advancing diet as tolerated Plan/VTE VTE Prophylaxis Ordered?: Yes Plan 1. Enteritis -General surgery following recommendations appreciated -Not SBO -Clear liquid diet and Zosyn day 3 2. Sepsis -Patient has leukocytosis and tachycardia. Both have resolved -IVF and Zosyn day 3 -LA of 1 3. Normocytic anemia -Iron low at 8 -Ferritin at 21 -After resolution of abdominal pain and enteritis, can consider starting iron 4. Pleuritic chest pain/upper abdominal pain -Troponin negative -She is on OCP. CT angio negative for PE -Most likely pain from her abdomen rather than chest pain Disposition: pending ability to tolerate a solid diet VS, I&O, 24H, Fishbone Vital Signs/I&O Vital Signs Date Time Temp Pulse Resp B/P (MAP) Pulse Ox O2 Delivery O2 Flow Rate FiO2 09/01/20 18:37 16 09/01/20 14:00 97.4 72 124/68 (86) 99 Room Air I&O- Last 24 Hours up to 6 AM 09/01/20 06:00 Intake Total 2785 ml Output Total 400 ml Balance 2385 ml Laboratory Data 24H LABS Laboratory Tests 2 09/01/20 01:49: Bedside Glucose (Misc Panel) 103 09/01/20 05:13: Nucleated Red Blood Cells % (auto) 0.0, Anion Gap 5L, Glomerular Filtration Rate > 60.0, Calcium Level 7.8L CBC/BMP Laboratory Tests 09/01/20 05:13 Microbiology Microbiology 08/29/20 Blood Culture - Preliminary, Resulted No Growth after 48 hours. All Specime... 08/29/20 Blood Culture - Preliminary, Resulted No Growth after 48 hours. All Specime... LAURA GARVEY DO Sep 01, 2020 19:56
[2020-09-01 20:13] VITALS: BP 130/72
[2020-09-02] MEDS: PIPERACILLIN/TAZOBACTAM SOD 4.5 GM in D5W MINI-BAG PLUS 50 ML IV SCH (04:13)
[2020-09-02] MEDS: PERCOCET 5MG/325MG TAB PO PRN (05:53)
[2020-09-02 06:00] VITALS: BP 123/78
[2020-09-02 06:18] LABS: HEMATOCRIT 26.9 % (36.0-47.0); HEMOGLOBIN 8.7 g/dl (12.0-15.5); MEAN CORPUSCULAR HEMOGLOBIN 29.8 pg (27.0-33.0); MEAN CORPUSCULAR HGB CONC 32.3 g/dl (32.0-36.5); MEAN CORPUSCULAR VOLUME 92.1 fl (80.0-96.0); PLATELET COUNT, AUTOMATED 353 10^3/uL (150-450); RED BLOOD COUNT 2.92 10^6/uL (4.00-5.40); WHITE BLOOD COUNT 5.8 10^3/uL (4.0-10.0)
[2020-09-02 06:40] LABS: BLOOD UREA NITROGEN 5 MG/DL (7-18); CARBON DIOXIDE LEVEL 27 MEQ/L (21-32); CHLORIDE LEVEL 112 MEQ/L (98-107); CREATININE FOR GFR 0.59 MG/DL (0.55-1.30); GLOMERULAR FILTRATION RATE > 60.0 (>60); GLUCOSE, FASTING 82 MG/DL (70-100); POTASSIUM SERUM 3.5 MEQ/L (3.5-5.1); SODIUM LEVEL 143 MEQ/L (136-145)
[2020-09-02] MEDS ORDERED: MIRALAX *UNIT DOSE* 17GM PACKET PO PRN (07:35)
[2020-09-02] MEDS ORDERED: DOCUSATE SODIUM 100MG CAPSULE PO SCH (09:00)
[2020-09-02] MEDS ORDERED: AUGM875T28 PO (09:47)
[2020-09-02] MEDS ORDERED: PROBCAP14 PO (09:47)
--- NOTE | 2020-09-02 23:16 | DS.PDOC ---
Discharge Summary General Date of Admission Aug 30, 2020 at 03:14 Date of Discharge Sep 02, 2020 Specialist/Consultants [facility] General surgery, Dr. Alva Discharge Summary PROCEDURES PERFORMED DURING STAY: None ADMITTING DIAGNOSES: 1. Sepsis 2. Enteritis 3. Normocytic anemia DISCHARGE DIAGNOSES: 1. Sepsis 2. Enteritis 3. Normocytic anemia COMPLICATIONS/CHIEF COMPLAINT: Abdominal pain HISTORY OF PRESENT ILLNESS: Mrs. Swanson is a 30 year old female who presents with abdominal pain. Abdominal pain started the day prior to admission. She had 7/10 mid abdominal pain with associated nausea and diarrhea. Denies vomiting. Denies fever or chills. Work up in the ED was significant for enteritis and possibly ileus vs SBO. Otherwise, patient had leukocytosis of 23.6 and tachyc ardia of 105. Patient met criteria for SIRS. Patient was admitted for sepsis 2/2 to enteritis HOSPITAL COURSE: General surgery evaluated patient. She did not have SBO, but does have enteritis. She was treated with IV Zosyn and started on NPO diet. She did well and was eventually advanced to solid diet. Otherwise, she had pleuritic chest pain early in the admission. Troponin was negative x2. CT angio chest was negative for PE, but did demonstrate a 2mm lung nodule. On day of discharge, she was feeling better. Abdominal pain improved and she tolerated a solid diet. She felt ready for home and subsequently discharged home DISCHARGE MEDICATIONS: Please see below. ALLERGIES: Please see below. PHYSICAL EXAMINATION ON DISCHARGE: VITAL SIGNS: Please see below. GENERAL: Comfortable, in no apparent distress HEENT: Head normocephalic, atraumatic NECK: Supple CARDIOVASCULAR EXAMINATION: Regular rate and rhythm RESPIRATORY EXAMINATION: Lungs clear to auscultation bilaterally ABDOMINAL EXAMINATION: Soft, non-tender, normal bowel sounds EXTREMITIES: No pitting edema bilaterally SKIN: Warm and dry NEUROLOGICAL EXAMINATION: CN 3-12 grossly intact PSYCHIATRIC EXAMINATION: Normal mood and affect LABORATORY DATA: Please see below. IMAGING: radiologist interpretation CT abd/pelvis 1. Multiple dilated, mildly thickened loops of small bowel without discrete transition point. Query nonspecific enteritis and/or ileus. A component of underlying partial small bowel obstruction cannot be excluded. CT angio chest There are no pulmonary emboli. There is atelectasis in the right lower lobe and in the left lower lobe. There are no pleural effusions. No pleural thickening. There is a 2 mm nodule peripherally in the right upper lobe. PROGNOSIS: Good ACTIVITY: As tolerated. DIET: As tolerated DISCHARGE PLAN: Home DISPOSITION: 01 Home, Self-Care. DISCHARGE INSTRUCTIONS: 1. Follow up with PCP within 1 week ITEMS TO FOLLOWUP ON ON OUTPATIENT: 1. Right upper lobe 2mm nodule DISCHARGE CONDITION: Stable. Total time spent on discharge planning, discharge summary, and medication recon ciliation: 40 minutes Vital Signs/I&Os Vital Signs Date Time Temp Pulse Resp B/P (MAP) Pulse Ox O2 Delivery O2 Flow Rate FiO2 09/02/20 06:23 16 09/02/20 06:00 98.1 64 123/78 (93) 100 Room Air I&O- Last 24 Hours up to 6 AM0 09/02/20 05:59 Intake Total 1200 ml Output Total 300 ml Balance 900 ml Laboratory Data Labs 24H Laboratory Tests 2 09/02/20 05:46: Nucleated Red Blood Cells % (auto) 0.0, Anion Gap 4L, Glomerular Filtration Rate > 60.0, Calcium Level 8.0L CBC/BMP Laboratory Tests 09/02/20 05:46 Microbiology Microbiology 08/29/20 Blood Culture - Preliminary, Resulted No Growth after 72 hours. All specime... 08/29/20 Blood Culture - Preliminary, Resulted No Growth after 72 hours. All specime... Discharge Medications Scheduled Amoxicillin/Potassium Clav (Augmentin 875-125 Tablet) 1 Each Tablet, 1 TAB PO BID Desogestrel-Ethinyl Estradiol (Isibloom 28 Day Tablet) 1 Each Tablet, 1 TAB PO DAILY, (Reported) Lactobacillus Acidophilus (Probiotic) 1 Each Capsule, 1 CAP PO DAILY Misoprostol (Misoprostol) 200 Mcg Tablet, 200 MCG PO [facility]HS, (Reported) Omeprazole (Omeprazole) 40 Mg Capsule.dr, 40 MG PO BID, (Reported) Allergies Coded Allergies: NSAIDS (Non-Steroidal Anti-Inflamma (Unverified Adverse Reaction, Unknown, nsaids, 02/07/20) gastric bypass LAURA GARVEY DO Sep 02, 2020 23:16
== END 2020-09-02 11:55 | disposition home or self-care (01) | DRG 720 ==
LOC: M ED 18:50 → M ED INP 08-30 03:14 → ENRESERV 08-30 04:00 → M PCU 08-30 04:24 → M MS5PR 09-01 14:00 → UNDODISIN 09-02 10:30
PROVIDERS: ADMIT Internal Medicine; ATTEND Internal Medicine
DX: A41.9 Sepsis, unspecified organism (principal); D64.9 Anemia, unspecified; K52.9 Noninfective gastroenteritis and colitis, unspecified; Z79.899 Other long term (current) drug therapy; Z88.6 Allergy status to analgesic agent; Z87.891 Personal history of nicotine dependence; R10.9 Unspecified abdominal pain

== ENCOUNTER 2021-03-04 13:46 | Emergency (ER) | payer OTHER ==
[~2021-03-04] VITALS: Ht 162.6 cm; Wt 79.1 kg
[~2021-03-04 13:46] MED LIST changes: +AUGM875T28 PO; +ISIB1TAB PO; +MISO200T56 PO; +OMEP40CA4 PO; -OMEP40CA97 PO; +PROBCAP14 PO
[2021-03-04] MEDS ORDERED: BUPR150T12 (14:11)
[2021-03-04] MEDS ORDERED: NORE1PAT (14:11)
[2021-03-04 15:30] LABS: BASO # 0.1 10^3/uL (0.0-0.2); EOS # 0.1 10^3/uL (0.0-0.5); EOS % 1.2 % (0.0-3.0); HEMATOCRIT 33.3 % (36.0-47.0); HEMOGLOBIN 10.8 g/dl (12.0-15.5); LYMPH # 3.1 10^3/uL (1.5-5.0); LYMPH % 37.5 % (24.0-44.0); MEAN CORPUSCULAR HEMOGLOBIN 29.8 pg (27.0-33.0); MEAN CORPUSCULAR HGB CONC 32.4 g/dl (32.0-36.5); MEAN CORPUSCULAR VOLUME 91.7 fl (80.0-96.0); MONO # 0.5 10^3/uL (0.0-0.8); MONO % 5.7 % (2.0-8.0); NEUTROPHILS # 4.4 10^3/uL (1.5-8.5); NEUTROPHILS % 54.5 % (36.0-66.0); PLATELET COUNT, AUTOMATED 313 10^3/uL (150-450); RED BLOOD COUNT 3.63 10^6/uL (4.00-5.40); WHITE BLOOD COUNT 8.1 10^3/uL (4.0-10.0)
[2021-03-04 15:57] LABS: ALBUMIN 3.3 GM/DL (3.2-5.2); ALT/SGPT 22 U/L (12-78); BILIRUBIN,DIRECT 0.1 MG/DL (0.0-0.2); BILIRUBIN,TOTAL 0.3 MG/DL (0.2-1.0); BLOOD UREA NITROGEN 10 MG/DL (7-18); CALCIUM LEVEL 8.7 MG/DL (8.5-10.1); CARBON DIOXIDE LEVEL 29 MEQ/L (21-32); CHLORIDE LEVEL 108 MEQ/L (98-107); CREATININE FOR GFR 0.78 MG/DL (0.55-1.30); GLOMERULAR FILTRATION RATE > 60.0 (>60); GLUCOSE, FASTING 81 MG/DL (70-100); LIPASE 57 U/L (73-393); POTASSIUM SERUM 4.4 MEQ/L (3.5-5.1); SODIUM LEVEL 141 MEQ/L (136-145); TOTAL PROTEIN 6.4 GM/DL (6.4-8.2)
[2021-03-04] MEDS ORDERED: NS 1,000 ML IV ONE (16:20)
[2021-03-04] MEDS ORDERED: MORPHINE 4 MG/ML 1ML VIAL/SYRINGE (J2270) IV ONE (16:20)
[2021-03-04] MEDS ORDERED: ONDANSETRON 4MG/2ML VIAL IV ONE (16:20)
--- NOTE | 2021-03-04 16:57 | REP ---
INDICATION: upper abd pain, nausea ? bowel obstruction. COMPARISON: Multiple the latest 08/01/2020 TECHNIQUE: Standard helical technique without intravenous or oral bowel preparatory contrast administration FINDINGS: The lung bases are clear. Limited evaluation of the liver and spleen show no gross abnormalities or significant changes. Dense material is seen in the dependent portion of the gallbladder likely secondary to either gravel-like calculi or dense sludge. This is essentially unchanged compared to the prior exam. Limited evaluation of the pancreas, adrenal glands, and kidneys show no gross abnormalities. Limited evaluation of the bowel loops and the mesenteries show no gross abnormalities. There is no evidence of mass or adenopathy. There is no evidence of free air. There is a trace amount of free pelvic fluid which is likely physiologic. There are left upper quadrant postoperative changes status quo. Bone window technique throughout the examination shows no significant change in appearance of the osseous structures. IMPRESSION: There is no evidence of acute disease. Findings as described above. <Electronically signed by Jose D Polanco > 03/04/21 2301
[2021-03-04] MEDS ORDERED: OMEPRAZOLE 20 MG CAP PO ONE (18:05)
[2021-03-04] MEDS ORDERED: SUCRALFATE SUSP 1GM/10ML UD PO ONE (18:05)
[2021-03-04] MEDS ORDERED: OMEP40CA4 PO (18:39)
[2021-03-04 19:50] VITALS: BP 115/80
== END 2021-03-04 19:53 | disposition home or self-care (01) ==
LOC: M ED 13:46
DX: R10.13 Epigastric pain (principal); K27.9 Peptic ulcer, site unspecified, unspecified as acute or chronic, without hemorrhage or perforation; K80.20 Calculus of gallbladder without cholecystitis without obstruction; Z98.84 Bariatric surgery status; Z90.49 Acquired absence of other specified parts of digestive tract; D75.9 Disease of blood and blood-forming organs, unspecified; F41.9 Anxiety disorder, unspecified; F32.9 Major depressive disorder, single episode, unspecified; Z79.3 Long term (current) use of hormonal contraceptives; Z79.899 Other long term (current) drug therapy; Z88.6 Allergy status to analgesic agent
CPT/HCPCS: 74176; 80047; 80048; 80076; 81001; 83690; 84702; 85025; 96361; 96374; 96375; 99284; J2270; J2405

== ENCOUNTER → 2021-04-12 | Outpatient (CLI) | payer OTHER ==
[~2021-04-12] MED LIST changes: +BUPR150T12; +ISOVUE-370 76% 100ML VIAL As Ordered ONE; +NORE1PAT; +TESS100C PO
--- NOTE | 2021-04-12 16:35 | REP ---
INDICATION: SOLITARY PULMONARY NODULE COMPARISON: 08/31/2020 the only prior a CT angio chest TECHNIQUE: Standard helical technique after the intravenous administration of 100 cc Isovue 370. FINDINGS: The mediastinum and pulmonary angelo are stable. There is no evidence of a mass or adenopathy. There are no pleural or pericardial effusions. The imaged upper abdomen and imaged osseous structures are stable. Evaluation of the lung bragg shows a stable 2 mm size nodule in the right upper lobe. There is an incidental calcified granuloma in the right lower lobe. No new abnormal nodules, masses, or opacities have developed. IMPRESSION: Stable CT examination of the chest as described above. Follow-up as per the revised Fleischner society criteria. <Electronically signed by Jose D Polanco > 04/12/21 0339
== END ==
LOC: M RAD 16:02
PROVIDERS: ATTEND Physician Assistant
DX: R91.8 Other nonspecific abnormal finding of lung field (principal); J84.10 Pulmonary fibrosis, unspecified
CPT/HCPCS: 71260; Q9967

== ENCOUNTER → 2021-04-13 | Outpatient (CLI) | payer OTHER ==
[~2021-04-13] MED LIST changes: -ISOVUE-370 76% 100ML VIAL As Ordered ONE
== END ==
LOC: M LABSMTC 10:44
PROVIDERS: ATTEND Pediatrics
DX: Z20.828 Contact with and (suspected) exposure to other viral communicable diseases (principal)

== ENCOUNTER 2021-04-16 09:22 | Emergency (ER) | payer OTHER ==
[~2021-04-16] VITALS: Ht 162.6 cm; Wt 77.3 kg
[~2021-04-16 09:22] MED LIST changes: -TESS100C PO
--- OUTSIDE RECORDS SUMMARY | 2021-04-16 09:28 | CCD | Continuity of Care Document ---
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 [employer] [phone] Problems Description No Information Available Social History Type Date Description Comments Sex Unknown ETOH Use Rarely consumes alcohol Tobacco Use Start: Unknown End: Unknown Patient is a former smoker quiet in March 2016 Allergies and adverse reactions Description No Known Drug Allergies Medications Active Medications SIG Qnty Indications Ordering Provide r Date Multivitamin Adult Tablets 1 by mouth every day Unknown Control by mouth Unknown Immunizations Description No Information Available Vital Signs Date Vital Result Comment 11/26/2017 2:12pm Body Temperature 98.4 F Height 63.5 inches 5'3.50" Weight 203.50 lb BMI (Body Mass Index) 35.5 kg/m2 06/20/2017 8:20am Height 64.5 inches 5'4.50" Weight 262.00 lb BMI (Body Mass Index) 44.3 kg/m2 Results Description No Information Available Procedures Description No Information Available Medical Devices Description No Information Available Encounters Description No Information Available Assessments Description No Information Available Plan of Treatment 08/10/2018 - Aleksey Mojica MD* M75.42 Impingement syndrome of left shoulder* Follow up:* prn * M75.22 Bicipital tendinitis, left shoulder Functional Status Description No Information Available Mental Status Description No Information Available Referrals Description No Information Available
--- OUTSIDE RECORDS SUMMARY | 2021-04-16 09:29 | CCD ---
Author Organization Unknown Address [address] [place] [address] Phone [phone] Care Team Providers Care Environmental Services Technician Name Role Phone Meggan Azar Unavailable Unavailable Allergies Code Code System Name Reaction Severity Status Onset NKDA Medications Name Status Start Date Stop Date amoxicillin 875 mg-potassium clavulanate 125 mg tablet TAKE ONE TABLET BY MOUTH TWO TIMES A DAY Completed 02/15/2021 B12 Active Not available cephalexin 500 mg capsule TAKE 1 CAPSULE BY MOUTH EVERY 6 HOURS FOR 7 DAYS Completed 07/12/2020 fluconazole 150 mg tablet Completed 2020 Isibloom 0.15 mg-0.03 mg tablet TAKE ONE TABLET BY MOUTH EVERY DAY Completed 02/2021 misoprostol 200 mcg tablet TAKE ONE TABLET BY MOUTH FOUR TIMES A DAY WITH MEALS AND AT BEDTIME Completed 02/15/2021 multivitamin Active Not available omeprazole 40 mg capsule,delayed release TAKE ONE CAPSULE BY MOUTH TWICE A DAY 30 MINUTES BEFORE MEALS Active Not available ondansetron HCl 4 mg tablet TAKE ONE TABLET BY MOUTH EVERY 4 HOURS NEEDED Completed 02/15/2021 oxycodone 5 mg tablet TAKE 1 TABLET BY MOUTH EVERY 4 HOURS NEEDED FOR MODERATE SEVERE PAIN (PAIN SCALE 5 10). DO NOT EXCEED 6 PER 24 HOURS Completed 05/24/2020 phentermine 15 mg capsule TAKE 1 CAPSULE BY MOUTH ONCE DAILY Completed 02/2021 spironolactone 25 mg tablet Completed 07/2020 sucralfate 1 gram tablet Completed 021 Take Action 1.5 mg tablet TAKE DIRECTED Completed 09/05/2020 Tri-Lo-Desirae 0.18/0.215/0.25 mg-25 mcg tablet Completed 02/15/2021 Vitamin D Active Not available Wellbutrin XL 150 mg 24 hr tablet, exten ded release Take 1 tablet every day by oral route. 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 History Body Mass Index 30+ - Obesity Active 11/12/2016 Hi story Depressive Disorder Active 11/12/2016 History Abnormal Weight Gain Unknown 11/12/2016 History Exposure to Second Hand Tobacco Smoke Active 11/12/2016 History Procedure by Method Unknown 11/12/2016 History Vitamin D Deficiency Active 01/22/2017 History Metabolic Syndrome X Active 01/22/2017 History Clinical Finding Unknown 01/22/2017 History Streptococcal Sore Throat Unknown 03/31/2017 Histor y Pre-surgery Testing Unknown 03/31/2017 History Crowding of Teeth Unknown 04/23/2017 History Dental Caries on Smooth Surface Penetrating into Pulp Unknown 04/23/2017 History Hirsutism Active 05/28/2017 History Finding of Gastrointestinal Device Active 05/28/2017 History Contraception Care Management Unknown 03/10/2019 [email or web address] Procedures Date Name Performed by 02/14/2021 CT, Chest, W/ Contrast [facility] [address] [place] [id number] (Work Place) Notes: Bariatric surgery, emergency smal l bowel surgery, Results Lab Results Date Name Specimen Result Interpretation Description Value Range Status Address 09/02/2020 Cbc Normal White Blood Count 5.8 10 4.0-10. 0 10 [facility]: [address] [place] [address] Low Red Blood Count 2.92 10 4.00-5.40 10 [facility]: [address] [place] [address] Low Hemoglobin 8.7 g/dL 12.0-15.5 g/dL F inal [facility]: [address] [place] [address] Low Hematocrit 26.9 % 36.0-47.0 % [facility]: [address] [place] [address] Normal Mean Corpuscular Volume 92.1 fL 80.0 -96.0 fL [facility]: [address] [place] [address] Normal Mean Corpuscular Hemoglobin 29.8 pg 27.0-33.0 pg [facility]: [address] [place] [address] Normal Mean Corpuscular HGB Conc 32.3 g/dL 32.0-36.5 g/dL [facility]: [address] [facility] Normal Red Cell Distribution Width 13.8 % 1 1.5-14.5 % [facility]: [address] [facility] Normal Platelet Count, Automated 353 10 150 -450 10 [facility]: [address] [facility] Normal Nucleated Red Blood Cell % 0.0 % 0- 0 % [facility]: [address] [facility] 09/02/2020 BMP, Serum or Plasma Normal Glucose, Fastin g 82 mg/dL 70-100 mg/dL [facility]: 83 0 [facility] Low Blood Urea Nitrogen 5 mg/dL 7-18 mg/ dL [facility]: 0 [facility] Normal Creatinine for GFR 0.59 mg/dL 0.55-1 .30 mg/dL [facility]: 0 [facility] Normal Glomerular Filtration Rate > 60.0 >6 0 [facility]: [address] [facility] Normal Sodium Level 143 mEq/L 136-145 mEq/L [facility]: [address] [facility] Normal Potassium Serum 3.5 mEq/L 3.5-5.1 mE q/L [facility]: 0 [facility] High Chloride Level 112 mEq/L 98-107 mEq/ L [facility]: [address] [facility] Normal Carbon Dioxide Level 27 mEq/L 21-32 mEq/L [facility]: [address] [facility] Low Anion Gap 4 mEq/L 8-16 mEq/L [facility]: [address] [facility] Low Calcium Level 8.0 mg/dL 8.5-10.1 mg/ dL [facility]: [address] [facility] 09/01/2020 Glucose, Fingerstick, Blood Normal Bedside Glucose 103 mg/dL 70-105 mg/dL [facility]: [address] 0 [facility] 09/01/2020 Cbc Normal White Blood Count 6.5 10 4.0-10. 0 10 [facility]: [address] [place] [address] Low Red Blood Count 2.85 10 4.00-5.40 10 [facility]: [address] [place] [address] Low Hemoglobin 8.3 g/dL 12.0-15.5 g/dL F inal [facility]: [address] [place] [address] Low Hematocrit 26.0 % 36.0-47.0 % [facility]: [address] [place] [address] Normal Mean Corpuscular Volume 91.2 fL 80.0 -96.0 fL [facility]: [address] [place] [address] Normal Mean Corpuscular Hemoglobin 29.1 pg 27.0-33.0 pg [facility]: [address] [place] [address] Low Mean Corpuscular HGB Conc 31.9 g/dL 32.0-36.5 g/dL [facility]: [address] [place] [address] Normal Red Cell Distribution Width 13.9 % 1 1.5-14.5 % [facility]: [address] [place] [address] Normal Platelet Count, Automated 301 10 150 -450 10 [facility]: [address] [place] [address] Normal Nucleated Red Blood Cell % 0.0 % 0- 0 % [facility]: [address] [place] [address] 09/01/2020 BMP, Serum or Plasma High Glucose, Fastin g 104 mg/dL 70-100 mg/dL [facility]: 83 0 [facility] Low Blood Urea Nitrogen 4 mg/dL 7-18 mg/ dL [facility]: [address] [place] [address] Normal Creatinine for GFR 0.57 mg/dL 0.55-1 .30 mg/dL [facility]: [address] [place] [address] Normal Glomerular Filtration Rate > 60.0 >6 0 [facility]: [address] [place] [address] Normal Sodium Level 144 mEq/L 136-145 mEq/L [facility]: [address] [place] [address] Normal Potassium Serum 3.6 mEq/L 3.5-5.1 mE q/L [facility]: [address] [place] [address] High Chloride Level 111 mEq/L 98-107 mEq/ L [facility]: [address] [place] [address] Normal Carbon Dioxide Level 28 mEq/L 21-32 mEq/L [facility]: [address] [place] [address] Low Anion Gap 5 mEq/L 8-16 mEq/L [facility]: [address] [place] [address] Low Calcium Level 7.8 mg/dL 8.5-10.1 mg/ dL [facility]: [address] [place] [address] 08/31/2020 Cbc High White Blood Count 11.1 10 4.0-10 .0 10 [facility]: [address] [place] [address] Low Red Blood Count 2.87 10 4.00-5.40 10 [facility]: [address] [place] [address] Low Hemoglobin 8.5 g/dL 12.0-15.5 g/dL F inal [facility]: [address] [place] [address] Low Hematocrit 26.6 % 36.0-47.0 % [facility]: [address] [place] [address] Normal Mean Corpuscular Volume 92.7 fL 80.0 -96.0 fL [facility]: [address] [place] [address] Normal Mean Corpuscular Hemoglobin 29.6 pg 27.0-33.0 pg [facility]: [address] [place] [address] Normal Mean Corpuscular HGB Conc 32.0 g/dL 32.0-36.5 g/dL [facility]: [address] [place] [address] Normal Red Cell Distribution Width 14.4 % 1 1.5-14.5 % [facility]: [address] [place] [address] Normal Platelet Count, Automated 298 10 150 -450 10 [facility]: [address] [place] [address] Normal Nucleated Red Blood Cell % 0.0 % 0- 0 % [facility]: [address] [place] [address] 08/31/2020 BMP, Serum or Plasma Normal Glucose, Fastin g 70 mg/dL 70-100 mg/dL [facility]: [address] 0 [facility] Normal Blood Urea Nitrogen 10 mg/dL 7-18 mg /dL [facility]: [address] [facility] Normal Creatinine for GFR 0.65 mg/dL 0.55-1 .30 mg/dL [facility]: [address] [facility] Normal Glomerular Filtration Rate > 60.0 >6 0 [facility]: [address] [facility] Normal Sodium Level 142 mEq/L 136-145 mEq/L [facility]: [address] [facility] Low Potassium Serum 3.3 mEq/L 3.5-5.1 mE q/L [facility]: [address] [facility] High Chloride Level 109 mEq/L 98-107 mEq/ L [facility]: [address] [facility] Normal Carbon Dioxide Level 26 mEq/L 21-32 mEq/L [facility]: [address] [facility] Low Anion Gap 7 mEq/L 8-16 mEq/L [facility]: [address] [facility] Low Calcium Level 7.8 mg/dL 8.5-10.1 mg/ dL [facility]: 0 [facility] 08/31/2020 Magnesium, Serum or Plasma Normal Magnesium Level 2.0 mg/dL 1.8-2.4 mg/dL [facility]: [address] 0 [facility] 08/31/2020 Cbc Normal White Blood Count 9.8 10 4.0-10. 0 10 [facility]: [address] [facility] Low Red Blood Count 3.05 10 4.00-5.40 10 [facility]: [address] [facility] Low Hemoglobin 9.1 g/dL 12.0-15.5 g/dL F inal [facility]: 0 [facility] Low Hematocrit 28.2 % 36.0-47.0 % [facility]: [address] [facility] Normal Mean Corpuscular Volume 92.5 fL 80.0 -96.0 fL [facility]: [address] [facility] Normal Mean Corpuscular Hemoglobin 29.8 pg 27.0-33.0 pg [facility]: [address] [facility] Normal Mean Corpuscular HGB Conc 32.3 g/dL 32.0-36.5 g/dL [facility]: [address] [facility] Normal Red Cell Distribution Width 14.3 % 1 1.5-14.5 % [facility]: [address] [facility] Normal Platelet Count, Automated 325 10 150 -450 10 [facility]: [address] [facility] Normal Nucleated Red Blood Cell % 0.0 % 0- 0 % [facility]: 0 [facility] 08/31/2020 BMP, Serum or Plasma Normal Glucose, Fastin g 87 mg/dL 70-100 mg/dL [facility]: [address] 0 [facility] Normal Blood Urea Nitrogen 8 mg/dL 7-18 mg/ dL [facility]: 0 [facility] Normal Creatinine for GFR 0.68 mg/dL 0.55-1 .30 mg/dL [facility]: 0 [facility] Normal Glomerular Filtration Rate > 60.0 >6 0 [facility]: 0 [facility] Normal Sodium Level 141 mEq/L 136-145 mEq/L [facility]: 0 [facility] Normal Potassium Serum 3.8 mEq/L 3.5-5.1 mE q/L [facility]: [address] [facility] High Chloride Level 108 mEq/L 98-107 mEq/ L [facility]: 0 [facility] Normal Carbon Dioxide Level 28 mEq/L 21-32 mEq/L [facility]: 0 [facility] Low Anion Gap 5 mEq/L 8-16 mEq/L [facility]: 0 [facility] Low Calcium Level 8.0 mg/dL 8.5-10.1 mg/ dL [facility]: 0 [facility] 08/30/2020 UA W/ Reflex to Culture Normal Appearance, Urine Rfx clear clear [facility]: [address] 0 [facility] Normal Color, Urine Rfx yellow yellow [facility]: [address] [facility] Normal pH,urine Rfx 5.0 units 5.0-9.0 units [facility]: [address] [facility] High Specific [place] Ur Auto Rfx >1.060 1.002-1.035 [facility]: [address] [facility] Normal Protein, Urine Auto Rfx negative mg/ dL negative mg/dL [facility]: [address] [facility] Normal Glucose, Urine (UA) Auto Rfx n egative mg/dL negative mg/dL [facility]: [address] [facility] High Ketone, Urine Auto Rfx trace mg/dL n egative mg/dL [facility]: [address] [facility] Normal Urobilinogen, Urine Auto Rfx 0.2 mg/ dL 0.0-2.0 mg/dL [facility]: [address] [facility] Normal Bilirubin, Urine Auto Rfx negative n egative [facility]: [address] [facility] Normal Nitrite, Urine Auto Rfx negative neg ative [facility]: [address] [facility] Normal Leukocyte Esterase Ur Auto Rfx negat mick negative [facility]: [address] [facility] Normal Blood, Urine Blood Rfx negative nega tive [facility]: [address] [facility] Normal WBC, Urine Auto Rfx 0 /hpf 0-3 /hpf [facility]: [address] [facility] Normal RBC, Urine Auto Rfx 0 /hpf 0-3 /hpf [facility]: [address] [facility] Normal Bacteria, Urine Auto Rfx negative ne gative [facility]: [address] [facility] Normal Squam Epithelial Cell Ur Aurfx 2 /hp f 0-6 /hpf [facility]: [address] [facility] Normal Mucus, Urine Rfx small negative Fin [facility]: [address] [facility] Normal Hyaline Cast, Urine Auto Rfx 0 /lpf 0-1 /lpf [facility]: [address] [facility] 08/30/2020 SARS CoV 2 RNA (COVID-19), QL, storyboard artist-PCR, Respirat ory Specimen Normal Sars Covid-19 Amplification negative negative [facility]: [address] [facility] 08/30/2020 Cbc High White Blood Count 20.6 10 4.0-10 .0 10 [facility]: [address] [place] [address] Low Red Blood Count 3.17 10 4.00-5.40 10 [facility]: 0 [facility] Low Hemoglobin 9.5 g/dL 12.0-15.5 g/dL F inal [facility]: [address] [place] [address] Low Hematocrit 29.0 % 36.0-47.0 % [facility]: 0 [facility] Normal Mean Corpuscular Volume 91.5 fL 80.0 -96.0 fL [facility]: 0 [facility] Normal Mean Corpuscular Hemoglobin 30.0 pg 27.0-33.0 pg [facility]: [address] [place] [address] Normal Mean Corpuscular HGB Conc 32.8 g/dL 32.0-36.5 g/dL [facility]: 0 [facility] Normal Red Cell Distribution Width 14.3 % 1 1.5-14.5 % [facility]: [address] [facility] Normal Platelet Count, Automated 326 10 150 -450 10 [facility]: 0 [facility] Normal Nucleated Red Blood Cell % 0.0 % 0- 0 % [facility]: [address] [facility] 08/30/2020 BMP, Serum or Plasma Normal Glucose, Fastin g 100 mg/dL 70-100 mg/dL [facility]: [address] 0 [facility] Normal Blood Urea Nitrogen 8 mg/dL 7-18 mg/ dL [facility]: [address] [facility] Normal Creatinine for GFR 0.61 mg/dL 0.55-1 .30 mg/dL [facility]: [address] [facility] Normal Glomerular Filtration Rate > 60.0 >6 0 [facility]: [address] [facility] Normal Sodium Level 140 mEq/L 136-145 mEq/L [facility]: [address] [facility] Normal Potassium Serum 3.5 mEq/L 3.5-5.1 mE q/L [facility]: [address] [facility] High Chloride Level 108 mEq/L 98-107 mEq/ L [facility]: [address] [facility] Normal Carbon Dioxide Level 25 mEq/L 21-32 mEq/L [facility]: [address] [facility] Low Anion Gap 7 mEq/L 8-16 mEq/L [facility]: [address] [facility] Low Calcium Level 7.7 mg/dL 8.5-10.1 mg/ dL [facility]: [address] [facility] 08/30/2020 Troponin I, Blood Normal Troponin I < 0.02 NG/mL < 0.10 NG/mL [facility]: [address] [facility] 08/30/2020 Glucose, Fingerstick, Blood Normal Bedside Glucose 75 mg/dL 70- 105 mg/dL [facility]: [address] 0 [facility] 08/30/2020 Troponin I, Blood Normal Troponin I < 0.02 NG/mL < 0.10 NG/mL [facility]: [address] [facility] 08/30/2020 Glucose, Fingerstick, Blood Low Bedside Glucose 68 mg/dL 70-105 mg/dL [facility]: [address] 0 [facility] 08/30/2020 Glucose, Fingerstick, Blood Normal Bedside Glucose 76 mg/dL 70- 105 mg/dL [facility]: [address] 0 [facility] 08/29/2020 CBC W/ Auto Diff High White Blood Count 23.6 10 4.0-10.0 10 [facility]: [address] [place] [address] Low Red Blood Count 3.66 10 4.00-5.40 10 [facility]: [address] [place] [address] Low Hemoglobin 10.9 g/dL 12.0-15.5 g/dL [facility]: [address] [place] [address] Low Hematocrit 33.4 % 36.0-47.0 % [facility]: [address] [place] [address] Normal Mean Corpuscular Volume 91.3 fL 80.0 -96.0 fL [facility]: [address] [place] [address] Normal Mean Corpuscular Hemoglobin 29.8 pg 27.0-33.0 pg [facility]: [address] [place] [address] Normal Mean Corpuscular HGB Conc 32.6 g/dL 32.0-36.5 g/dL [facility]: [address] [place] [address] Normal Red Cell Distribution Width 14.2 % 1 1.5-14.5 % [facility]: [address] [place] [address] Normal Platelet Count, Automated 372 10 150 -450 10 [facility]: 0 [facility] High Neutrophils % 92.7 % 36.0-66.0 % [facility]: [address] [facility] Low Lymph % 4.2 % 24.0-44.0 % [facility]: [address] [facility] Low [place] % 1.9 % 2.0-8.0 % [facility]: [address] [facility] Normal Eos % 0.2 % 0.0-3.0 % [facility]: 0 [facility] Normal Baso % 0.2 % 0.0-1.0 % [facility]: 0 [facility] Normal Immature Granulocyte % 0.8 % 0-3.0 % [facility]: 0 [facility] Normal Nucleated Red Blood Cell % 0.0 % 0- 0 % [facility]: [address] [facility] High Neutrophils # 21.8 10 1.5-8.5 10 [facility]: [address] [facility] Low Lymph # 1.0 10 1.5-5.0 10 [facility]: [address] [facility] Normal [place] # 0.5 10 0.0-0.8 10 [facility]: [address] [facility] Normal Eos # 0.0 10 0.0-0.5 10 [facility]: [address] [facility] Normal Baso # 0.1 10 0.0-0.2 10 [facility]: [address] [facility] 08/29/2020 Lactic Acid, Serum or Plasma Normal Lactic Acid Sepsis Protocol 1.0 mmol/L 0.4-2.0 mmol/L [facility]: 0 [facility] 08/29/2020 Hepatic Function Panel, Serum Normal AST/SG OT 8 U/L 7-37 U/L [facility]: [address] [facility] Normal ALT/SGPT 17 U/L 12-78 U/L [facility]: [address] [facility] Normal Alkaline Phosphatase 88 U/L 45-117 U /L [facility]: [address] [facility] Normal Bilirubin,total 0.7 mg/dL 0.2-1.0 mg /dL [facility]: [address] [facility] High Bilirubin,direct 0.3 mg/dL 0.0-0.2 m g/dL [facility]: [address] [facility] Normal Total Protein 7.1 gm/dL 6.4-8.2 gm/d L [facility]: [address] [facility] Normal Albumin 3.5 gm/dL 3.2-5.2 gm/dL [facility]: [address] [facility] Low Albumin/globulin Ratio 1.0 1.2-2. 2 [facility]: [address] [facility] 08/29/2020 BMP, Serum or Plasma High Glucose, Fastin g 115 mg/dL 70-100 mg/dL [facility]: 83 0 [facility] Normal Blood Urea Nitrogen 9 mg/dL 7-18 mg/ dL [facility]: 0 [facility] Normal Creatinine for GFR 0.68 mg/dL 0.55-1 .30 mg/dL [facility]: 0 [facility] Normal Glomerular Filtration Rate > 60.0 >6 0 [facility]: [address] [facility] Normal Sodium Level 140 mEq/L 136-145 mEq/L [facility]: [address] [place] [address] Normal Potassium Serum 3.6 mEq/L 3.5-5.1 mE q/L [facility]: 0 [facility] High Chloride Level 109 mEq/L 98-107 mEq/ L [facility]: 0 [facility] Normal Carbon Dioxide Level 26 mEq/L 21-32 mEq/L [facility]: 0 [facility] Low Anion Gap 5 mEq/L 8-16 mEq/L [facility]: [address] [place] [address] Low Calcium Level 8.3 mg/dL 8.5-10.1 mg/ dL [facility]: 0 [facility] 08/29/2020 Lipase, Serum or Plasma Low Lipase 42 U/L 7 3-393 U/L [facility]: [address] [facility] 08/29/2020 beta-HCG, Qualitative, Serum or Plasma Normal HCG, Serum Qualitative negative negative [facility]: [address] [place] [address] 08/29/2020 TIBC (Total Iron-binding Capacity), Serum Low Iron (Fe) 8 ug/dL 50-170 ug/dL [facility] nter: 0 [facility] Normal Total Iron Binding Capacity 431 ug/d L 250-450 ug/dL [facility]: 0 [facility] Low Percent Saturation 1.9 % 13.2-45.0 % Final [facility]: 830 [facility] 08/29/2020 Vitamin B12 + Folate, Serum or Blood Normal Vitamin B12 Level 287 pg/mL Final [facility] nter: 830 [facility] Normal Folate 7.8 NG/mL Final [facility]: 830 [facility] 08/29/2020 Ferritin, Serum or Plasma Normal Ferritin 21 NG/mL 8-252 NG/mL Final [facility]: 830 [facility] 08/29/2020 Culture, Blood BLOOD No observation recorded. [facility]: [address] [place] [address] 08/29/2020 Culture, Blood BLOOD No observation recorded. [facility]: [address] [place] [address] Past Encounters 02/15/2021 History of Bypass of Stomach; Nicotine Dependence with Current Use; Obesity; Vitamin D Deficiency; Hyperlipidemia Screening Meggan Azar PA-C: [address] [place] [phone], Ph. 09/12/2020 SARS-CoV-2 Vaccination JOE ReyesC: [address] [place] [phone], Ph. 09/08/2020 Sepsis; Iron Deficiency Anemia; Acute Vaginitis; Solitary Nodule of Lung Meggan Azar PA-C: [address] [place] [phone], Ph. 07/12/2020 Abnormal Weight Gain MORELIA Vasques-BC: [address] [place] [phone], Ph. Social History Tobacco Smoking Status Heavy Tobacco Smoker (1/2 pack per a day) Vaccine List Vaccine Type COVID-19 vaccine, vector-nr, [id number], PF , 0.5 mL .5 mL Plan of Care Reminders Provider Appointments None recorded. Lab None recorded. Referral None recorded. Procedures None recorded. Surgeries None recorded. Imaging None recorded. Vitals 02/15/2021 05:00PM TELEHEALTH 20 Height 65 in 09/08/2020 02:00PM TCM Height Weight BMI Blood Pressure 65 in 175 lbs 4 oz 29.2 kg/m2 129/78 mm[Hg] 07/12/2020 10:20AM TELEHEALTH 20 Height 65 in 03/17/2020 Blood Pressure 157/111 mm[Hg] 02/02/2020 Height Weight BMI Blood Pressure 65 in 216 lbs 36.07 kg/m2 151/90 mm[Hg] 03/10/2019 Height Weight BMI Blood Pressure 65 in 192 lbs 32.07 kg/m2 120/80 mm[Hg] 01/27/2019 Height Weight BMI Blood Pressure 65 in 229 lbs 4 oz 38.29 kg/m2 121/83 mm[Hg]
--- OUTSIDE RECORDS SUMMARY | 2021-04-16 09:30 | CCD ---
Author Author [facility] Address Unknown Phone Unavailable Support Name Relationship Address Phone FEDEXG Next Of Kin [address] [place] [address] Gregory Wesley Next Of Kin Unknown Unavailable ALEXANDR[place] [address] CONCENTRGEO Next Of Kin [address] [place] [address] Javier Patel MD Next Of Kin [address] [place] [address] CONVERGYS Next Of Kin [address] [place] [address] Bettye Champagne Next Of Kin [address] [place], [place] [id number] UE Next Of Kin Unknown Unavailable Melissa Jovel Next Of Kin [address] [place] [address] 315 LOWES Next Of Kin [address] [facility] [address] [place] [address] CARLTON MCCLENDON Next Of Kin [address] [place] [address] ALEXY'S Next Of Kin [address] [place] [address] YO RAQUEL Next Of Kin [address] [place] [address] [place] [address] STREAM Next Of Kin [address] [place] [address] YO EPHRAIN Next Of Kin [address] [place] [address] NICE AND EASY Next Of Kin [address] [place] [address] Unavailable LAZARO SOTO Next Of Kin [address] [place] [address] LAZARO SOTO E[address] [place] [address] Unavailable Care Team Providers Care Tobacco Prevention Health Educator Name Role Phone Rodriguez, E Bettye BLOCK OUT MACHINE OPERATOR Unavailable Unavailable Rodriguez, E Bettye BLOCK OUT MACHINE OPERATOR Unavailable Unavailable Rodriguez, E Bettye BLOCK OUT MACHINE OPERATOR Unavailable Unavailable Rodriguez, E Bettye BLOCK OUT MACHINE OPERATOR Unavailable Unavailable Rodriguez, E Bettye BLOCK OUT MACHINE OPERATOR Unavailable Unavailable Rodriguez, E Bettye BLOCK OUT MACHINE OPERATOR Unavailable Unavailable Rodriguez, E Bettye BLOCK OUT MACHINE OPERATOR Unavailable Unavailable Rodriguez, E Bettye BLOCK OUT MACHINE OPERATOR Unavailable Unavailable Rodriguez, E Bettye BLOCK OUT MACHINE OPERATOR Unavailable Unavailable Rodriguez, E Bettye BLOCK OUT MACHINE OPERATOR Unavailable Unavailable Rodriguez, E Bettye BLOCK OUT MACHINE OPERATOR Unavailable Unavailable Rodriguez, E Bettye BLOCK OUT MACHINE OPERATOR Unavailable Unavailable Rodriguez, E Bettye BLOCK OUT MACHINE OPERATOR Unavailable Unavailable Rodriguez, E Bettye BLOCK OUT MACHINE OPERATOR Unavailable Unavailable Rodriguez, E Bettye BLOCK OUT MACHINE OPERATOR Unavailable Unavailable Rodriguez, E Bettye BLOCK OUT MACHINE OPERATOR Unavailable Unavailable Rodriguez, E Bettye BLOCK OUT MACHINE OPERATOR Unavailable Unavailable Rodriguez, E Bettye BLOCK OUT MACHINE OPERATOR Unavailable Unavailable Rodriguez, E Bettye BLOCK OUT MACHINE OPERATOR Unavailable Unavailable Rodriguez, E Bettye BLOCK OUT MACHINE OPERATOR Unavailable Unavailable Rodriguez, E Bettye BLOCK OUT MACHINE OPERATOR Unavailable Unavailable Rodriguez, E Bettye BLOCK OUT MACHINE OPERATOR Unavailable Unavailable Rodriguez, E Bettye BLOCK OUT MACHINE OPERATOR Unavailable Unavailable Scordo, M Meggan PA Unavailable Unavailable Scordo, M Meggan PA Unavailable Unavailable Scordo, M Meggan PA Unavailable Unavailable Scordo, M Meggan PA Unavailable Unavailable Scordo, M Meggan PA Unavailable Unavailable Scordo, M Meggan PA Unavailable Unavailable Scordo, M Meggan PA Unavailable Unavailable Scordo, M Meggan PA Unavailable Unavailable Scordo, M Meggan PA Unavailable Unavailable Scordo, M Meggan PA Unavailable Unavailable Scordo, M Meggan PA Unavailable Unavailable Scordo, M Meggan PA Unavailable Unavailable Scordo, M Meggan PA Unavailable Unavailable Scordo, M Meggan PA Unavailable Unavailable Scordo, M Meggan PA Unavailable Unavailable Scordo, M Meggan PA Unavailable Unavailable Scordo, M Meggan PA Unavailable Unavailable Scordo, M Meggan PA Unavailable Unavailable Scordo, M Meggan PA Unavailable Unavailable Scordo, M Meggan PA Unavailable Unavailable Scordo, M Meggan PA Unavailable Unavailable Scordo, M Meggan PA Unavailable Unavailable Scordo, M Meggan PA Unavailable Unavailable Scordo, M Meggan PA Unavailable Unavailable Scordo, M Mgegan PA Unavailable Unavailable Scordo, M Meggan PA Unavailable Unavailable Scordo, M Meggan PA Unavailable Unavailable Scordo, M Meggan PA Unavailable Unavailable Scordo, M Meggan PA Unavailable Unavailable Scordo, M Meggan PA Unavailable Unavailable Scordo, M Meggan PA Unavailable Unavailable Scordo, M Meggan PA Unavailable Unavailable Scordo, M Meggan PA Unavailable Unavailable Scordo, M Meggan PA Unavailable Unavailable Scordo, M Meggan PA Unavailable Unavailable Scordo, M Meggan PA Unavailable Unavailable Scordo, M Meggan PA Unavailable Unavailable Scordo, M Meggan PA Unavailable Unavailable Scordo, M Meggan PA Unavailable Unavailable Scordo, M Meggan PA Unavailable Unavailable Scordo, M Meggan PA Unavailable Unavailable Scordo, M Meggan PA Unavailable Unavailable Scordo, M Meggan PA Unavailable Unavailable Scordo, M Meggan PA Unavailable Unavailable Scordo, M Meggan PA Unavailable Unavailable Scordo, M Meggan PA Unavailable Unavailable Scordo, M Meggan PA Unavailable Unavailable Asif, [place] Nichelle Unavailable Unavailable Asif, [place] Nichelle Unavailable Unavailable Asif, [place] Nichelle Unavailable Unavailable Asif, [place] Nichelle Unavailable Unavailable Asif, [place] Nichelle Unavailable Unavailable Asif, [place] Nichelle Unavailable Unavailable Asif, [place] Nichelle Unavailable Unavailable Asif, [place] Nichelle Unavailable Unavailable Asif, [place] Nichelle Unavailable Unavailable Asif, [place] Nichelle Unavailable Unavailable Asif, [place] Nichelle Unavailable Unavailable Asif, [place] Nichelle Unavailable Unavailable Asif, [place] Nichelle Unavailable Unavailable Re-disclosure Warning The records that you are about to access may contain information from federally-assisted alcohol or drug abuse programs. If such information is present, then the following federally mandated warning applies: This information has been disclosed to you from records protected by federal confidentiality rules (42 CFR part 2). The federal rules prohibit you from making any further disclosure of this information unless further disclosure is expressly permitted by the written consent of the person to whom it pertains or as otherwise permitted by 42 CFR part 2. A general authorization for the release of medical or other information is NOT sufficient for this purpose. The Federal rules restrict any use of the information to criminally investigate or prosecute any alcohol or drug abuse patient.The records that you are about to access may contain highly sensitive health information, the redisclosure of which is protected by Article 27-F of the [place] [facility] Public Health law. If you continue you may have access to information: Regarding HIV / AIDS; Provided by facilities licensed or operated by the [facility] Office of Mental Health; or Provided by the [facility] Office for People With Developmental Disabilities. If such information is present, then the following [facility] mandated warning applies: This information has been disclosed to you from confidential records which are protected by state law. State law prohibits you from making any further disclosure of this information without the specific written consent of the person to whom it pertains, or as otherwise permitted by law. Any unauthorized further disclosure in violation of state law may result in a fine or halfway sentence or both. A general authorization for the release of medical or other information is NOT sufficient authorization for further disc losure. Family History Family Member Name Family Member Gender Family Member Status Date o f Status Description Data Source(s) Unknown Female Problem [facility] ([facility] ) Encounters Encounter Providers Location Date Indications Data Source(s ) Meggan Azar PA-C: [address] [place] [address], Ph. Attender: Meggan SEGOVIA [facility] Medical 02/15/2021 12:00:00 AM EDT [facility] ([facility]) JOE ReyesC: [address] [place] [address], Ph. Attender: Nichelle Asif [facility] Medical 09/12/2020 12:00:00 AM EDT [facility] ([facility]) EDI Reyes: [address] [place] [address], Ph. Attender: Nichelle Asif [facility] Medical 09/12/2020 12:00:00 AM EDT [facility] ([facility]) Meggan Azar PA-C: [address] [place] [address], Ph. Attender: Meggan SEGOVIA [facility] Medical 09/08/2020 12:00:00 AM EDT [place] ([facility]) Meggan Azar PA-C: [address], [place] [address], Ph. Attender: Meggan SEGOVIA [facility] Medical 09/08/2020 12:00:00 AM EDT [place] ([facility]) Meggan Azar PA-C: [address], [place] [address], Ph. Attender: Meggan SEGOVIA [facility] Medical 09/08/2020 12:00:00 AM EDT [place] ([facility]) CAS VasquesBC: [address], [place] [address], Ph. Attender: Bettye Rodriguez NP [facility] Medical 07/12/2020 12:00:00 AM EST [facility] ([facility]) TJ Vasques: [address], [place] [address], Ph. Attender: Bettye Rodriguez NP [facility] Medical 07/12/2020 12:00:00 AM EST [facility] ([facility]) TJ Vasques: [address], [place] [address], Ph. Attender: Bettye Rodriguez NP [facility] Medical 07/12/2020 12:00:00 AM EST [facility] ([facility]) CAS VasquesBC: [address], [place] [address], Ph. Attender: Bettye Rodriguez NP [facility] Medical 07/12/2020 12:00:00 AM EST [facility] ([facility]) Outpatient FP 03/21/2020 02:56:03 PM EDT [facility] Outpatient FP 03/15/2020 12:10:00 PM EDT [facility] Outpatient FP 03/15/2020 08:37:00 AM EDT [facility] Outpatient FP 02/17/2020 02:46:42 PM EDT [facility] Outpatient FP 02/15/2020 02:55:00 PM EDT [facility] Immunizations Vaccine Date Status Description Data Source(s) COVID-19 VACCINE Moderna 11/04/2020 12:00:00 AM EDT completed [place] Vaccine Series Complete: YESThis Data wa s Submitted to [facility] Via [facility]. COVID-19 VACCINE Moderna 10/07/2020 12:00:00 AM EDT completed [place] Vaccine Series Complete: YESThis Data wa s Submitted to [facility] Via [employer]. COVID-19 vaccine, vector-nr, rS-Ad26, PF, 0.5 mL 09/14/2020 10:07:32 AM EDT completed .5 mL [facility] ([facility]) COVID-19 vaccine, vector-nr, rS-Ad26, PF, 0.5 mL 09/14/2020 10:07:32 AM EDT completed .5 mL [facility] ([facility]) COVID-19 VACCINE Marlee 09/14/2020 12:00:00 AM EDT completed [place] Vaccine Series Complete: YESThis Data wa s Submitted to [facility] Via [employer]. Medications Medication Brand Name Start Date Product Form Dose Route Admi nistrative Instructions Pharmacy Instructions Status Indications Reaction Description Data Source(s) 40 mg 03/05/2021 12:00:00 AM EDT capsule,delayed release (DR/EC) 60 TAKE ONE CAPSULE BY MOUTH TWICE A DAY TAKE ONE CAPSULE BY MOUTH TWICE A DAY SOLD: 03/07/2021 [facility] 24 HR Bupropion Hydrochloride 150 MG Extended Release Oral T ablet BUPROPION HCL 02/16/2021 12:00:00 AM EDT tablet extended release 24 hr 30 TAKE ONE TABLET BY MOUTH EVERY DAY TAKE ONE TABLET BY MOUTH EVERY DAY SOLD: 02/20/2021 [facility] 150 mg 09/08/2020 12:00:00 AM EDT tablet 2 TAKE ONE TABLET BY MOUTH ONCE ON DAY 1, THEN 1 TABLET ONCE ON DAY 3 IF SYMPTOMS ARE PERSISTENT TAKE ONE TABLET BY MOUTH ONCE ON DAY 1, THEN 1 TABLET ONCE ON DAY 3 IF SYMPTOMS ARE PERSISTENT SOLD: 09/11/2020 [facility] 875-125 mg 09/02/2020 12:00:00 AM EDT tablet 14 TAKE ONE TABLET BY MOUTH TWO TIMES A DAY TAKE ONE TABLET BY MOUTH TWO TIMES A DAY SOLD: 09/04/2020 [facility] 40 mg 07/21/2020 12:00:00 AM EST capsule,delayed release (DR/EC) 60 TAKE ONE CAPSULE BY MOUTH TWICE A DAY 30 MINUTES BEFORE MEALS TAKE ONE CAPSULE BY MOUTH TWICE A DAY 30 MINUTES BEFORE MEALS SOLD: 08/14/2020 [facility] 28 Day Pack 0.15-0.03 mg DESOGESTREL-ETHINYL ESTRAD IOL 07/21/2020 12:00:00 AM EST tablet 84 TAKE ONE TABLET BY MOUTH EVERY DAY TAKE ONE TABLET BY MOUTH EVERY DAY SOLD: 08/14/2020 [facility] 4 mg 07/21/2020 12:00:00 AM EST tablet 10 TAKE ONE TABLET BY MOUTH EVERY 4 HOURS NEEDED TAKE ONE TABLET BY MOUTH EVERY 4 HOURS NEEDED SOLD: 08/14/2020 [facility] Misoprostol 0.2 MG Oral Tablet 200 mcg MISOPROSTOL 12:00:00 AM EST tablet 120 TAKE ONE TABLET BY M OUTH FOUR TIMES A DAY WITH MEALS AND AT BEDTIME TAKE ONE TABLET BY MOUTH FOUR TIMES A DAY WITH MEALS A ND AT BEDTIME SOLD: 08/14/2020 [facility] Misoprostol 0.2 MG Oral Tablet misoprost ol 200 mcg tablet TAKE ONE TABLET BY MOUTH FOUR TIMES A DAY WITH MEALS AND AT BEDTIME misoprostol 200 mcg tablet TAKE ONE TABLET BY MOUTH FOUR TIMES A DAY WITH MEALS AND AT BEDTIME completed misoprostol 0.2 MG Oral Tablet A [facility] ([facility]) Fluconazole 150 MG Oral Tablet fluconazole 150 mg tabl et fluconazole 150 mg tablet completed fluconazole 150 MG Oral Tablet [facility] ([facility]) Phentermine Hydrochloride 15 MG Oral Cap jesica phentermine 15 mg capsule TAKE 1 CAPSULE BY MOUTH ONCE DAILY phentermine 15 mg capsule TAKE 1 CAPSULE BY MOUTH ONCE DAILY completed phe ntermine hydrochloride 15 MG Oral Capsule [facility] ([facility]) Levonorgestrel 1.5 MG Oral Tablet [Take Action] Take Action 1.5 mg tablet TAKE DIRECTED Take Action 1.5 mg tablet TAKE DIRECTED completed levonorgestrel 1.5 MG Oral Tablet [Take Action] [facility] ([facility]) Oxycodone Hydrochloride 5 MG Oral Tablet oxycodone 5 mg tablet TAKE 1 TABLET BY MOUTH EVERY 4 HOURS NEEDED FOR MODERATE SEVERE PAIN (PAIN SCALE 5 10). DO NOT EXCEED 6 PER 24 HOURS oxycodone 5 mg tablet TAKE 1 TABLET BY M OUTH EVERY 4 HOURS NEEDED FOR MODERATE SEVERE PAIN (PAIN SCALE 5 10). DO NOT EXCEED 6 PER 24 HOURS completed oxycodone hydroc hloride 5 MG Oral Tablet [facility] ([facility]) Oxycodone Hydrochloride 5 MG Oral Tablet oxycodone 5 mg tablet TAKE 1 TABLET BY MOUTH EVERY 4 HOURS NEEDED FOR MODERATE SEVERE PAIN (PAIN SCALE 5 10). DO NOT EXCEED 6 PER 24 HOURS oxycodone 5 mg tablet TAKE 1 TABLET BY M OUTH EVERY 4 HOURS NEEDED FOR MODERATE SEVERE PAIN (PAIN SCALE 5 10). DO NOT EXCEED 6 PER 24 HOURS completed oxycodone hydroc hloride 5 MG Oral Tablet [facility] ([facility]) Spironolactone 25 MG Oral Tablet spironolactone 25 mg tablet spironolactone 25 mg tablet completed spironolacto ne 25 MG Oral Tablet [facility] ([facility]) Ondansetron 4 MG Oral Tablet ondansetron HCl 4 mg tablet TAKE ONE TABLET BY MOUTH EVERY 4 HOURS NEEDED ondansetron HCl 4 mg tablet TAKE ONE TAB LET BY MOUTH EVERY 4 HOURS NEEDED complete d ondansetron 4 MG Oral Tablet [facility] ([facility]) Sucralfate 1000 MG Oral Tablet sucralfate 1 gram table t sucralfate 1 gram tablet completed sucralfate 1000 MG Oral Tablet [facility] ([facility]) Cephalexin 500 MG Oral Capsule cephalexi n 500 mg capsule TAKE 1 CAPSULE BY MOUTH EVERY 6 HOURS FOR 7 DAYS cephalexin 500 mg capsule TAKE 1 CAPSULE BY MOUTH EVERY 6 HOURS FOR 7 DAYS completed cep halexin 500 MG Oral Capsule [facility] ([facility]) Phentermine Hydrochloride 15 MG Oral Cap jesica phentermine 15 mg capsule TAKE 1 CAPSULE BY MOUTH ONCE DAILY phentermine 15 mg capsule TAKE 1 CAPSULE BY MOUTH ONCE DAILY completed phe ntermine hydrochloride 15 MG Oral Capsule [facility] ([facility]) Oxycodone Hydrochloride 5 MG Oral Tablet oxycodone 5 mg tablet TAKE 1 TABLET BY MOUTH EVERY 4 HOURS NEEDED FOR MODERATE SEVERE PAIN (PAIN SCALE 5 10). DO NOT EXCEED 6 PER 24 HOURS oxycodone 5 mg tablet TAKE 1 TABLET BY M OUTH EVERY 4 HOURS NEEDED FOR MODERATE SEVERE PAIN (PAIN SCALE 5 10). DO NOT EXCEED 6 PER 24 HOURS completed oxycodone hydroc hloride 5 MG Oral Tablet [facility] ([facility]) Amoxicillin 875 MG / Clavulanate 125 MG Oral Tablet amoxicillin 875 mg-potassium clavulanate 125 mg tablet TAKE ONE TABLET BY MOUTH TWO TIMES A DAY amoxicillin 875 mg-potassium clavulanate 125 mg tablet TAKE ONE TABLET BY MOUTH TWO TIMES A DAY completed amoxici llin 875 MG / clavulanate 125 MG Oral Tablet [facility] ([facility]) Oxycodone Hydrochloride 5 MG Oral Tablet oxycodone 5 mg tablet TAKE 1 TABLET BY MOUTH EVERY 4 HOURS NEEDED FOR MODERATE SEVERE PAIN (PAIN SCALE 5 10). DO NOT EXCEED 6 PER 24 HOURS oxycodone 5 mg tablet TAKE 1 TABLET BY M OUTH EVERY 4 HOURS NEEDED FOR MODERATE SEVERE PAIN (PAIN SCALE 5 10). DO NOT EXCEED 6 PER 24 HOURS completed oxycodone hydroc hloride 5 MG Oral Tablet [facility] ([facility]) Cephalexin 500 MG Oral Capsule cephalexi n 500 mg capsule TAKE 1 CAPSULE BY MOUTH EVERY 6 HOURS FOR 7 DAYS cephalexin 500 mg capsule TAKE 1 CAPSULE BY MOUTH EVERY 6 HOURS FOR 7 DAYS completed cep halexin 500 MG Oral Capsule [facility] ([facility]) Tri-Lo-Desirae 0.18/0.215/0.25 mg-25 mcg tablet [id number] completed Tri-Lo-Desirae 0.18/0.215/0.25 mg-25 mcg tablet [facility] ([facility]) Phentermine Hydrochloride 15 MG Oral Cap jesica phentermine 15 mg capsule TAKE 1 CAPSULE BY MOUTH ONCE DAILY phentermine 15 mg capsule TAKE 1 CAPSULE BY MOUTH ONCE DAILY completed phe ntermine hydrochloride 15 MG Oral Capsule [facility] ([facility]) Cephalexin 500 MG Oral Capsule cephalexi n 500 mg capsule TAKE 1 CAPSULE BY MOUTH EVERY 6 HOURS FOR 7 DAYS cephalexin 500 mg capsule TAKE 1 CAPSULE BY MOUTH EVERY 6 HOURS FOR 7 DAYS completed cep halexin 500 MG Oral Capsule [facility] ([facility]) Levonorgestrel 1.5 MG Oral Tablet [Take Action] Take Action 1.5 mg tablet TAKE DIRECTED Take Action 1.5 mg tablet TAKE DIRECTED completed levonorgestrel 1.5 MG Oral Tablet [Take Action] [facility] ([facility]) Isibloom 0.15 mg-0.03 mg tablet TAKE ONE TABLET BY MOUTH EVERY DAY [id number] completed Isibloom 0.15 mg-0.0 3 mg tablet [facility] ([facility]) Spironolactone 25 MG Oral Tablet spironolactone 25 mg tablet spironolactone 25 mg tablet completed spironolacto ne 25 MG Oral Tablet [facility] ([facility]) Levonorgestrel 1.5 MG Oral Tablet [Take Action] Take Action 1.5 mg tablet TAKE DIRECTED Take Action 1.5 mg tablet TAKE DIRECTED completed levonorgestrel 1.5 MG Oral Tablet [Take Action] [facility] ([facility]) Misoprostol 0.2 MG Oral Tablet misoprostol 200 mcg tab let misoprostol 200 mcg tablet completed misoprostol 0.2 MG Oral Tablet [facility] ([facility]) Spironolactone 25 MG Oral Tablet spironolactone 25 mg tablet spironolactone 25 mg tablet completed spironolacto ne 25 MG Oral Tablet [facility] ([facility]) Cephalexin 500 MG Oral Capsule cephalexi n 500 mg capsule TAKE 1 CAPSULE BY MOUTH EVERY 6 HOURS FOR 7 DAYS cephalexin 500 mg capsule TAKE 1 CAPSULE BY MOUTH EVERY 6 HOURS FOR 7 DAYS completed cep halexin 500 MG Oral Capsule [facility] ([facility]) Insurance Providers Payer name Policy type / Coverage type Policy ID Covered green party ID Covered green party's relationship to knight Policy Knight Plan Information Managed Care - Community Plan [facility] [id number] S [id number] Medicaid S [id number] S [id number] [facility] Community Plan Medigap Part B [id number] Self [id number] [facility] Community Plan Medigap Part B [id number] Self Managed Care - Community Plan [facility] P [id number] S [id number] Managed Care - MVP P [id number] S [id number] Medicaid S [id number] S [id number] [facility]) Workers Compensation [id number] Self [id number] WORKERS COMPENSATION GENERIC W [id number] Empl [id number] KAYLEE CLAIM MGMT W [id number] Empl [id number] [facility]) Workers Compensation . [id number] Self [facility]) Workers Compensation [id number] Self [id number] MVP MCDHMO [id number] SP [id number] MVP [id number] Elaine [id number] MVP MEDICAID [id number] xxxxxxxxxxx [id number] MVP MEDICAID [id number] Elaine [id number] Medicaid S [id number] S [id number] MVP I [id number] Self [id number] Medicaid S [id number] S [id number] Managed Care - MVP P [id number] S [id number] Medicaid S [id number] S [id number] INSURANCE COVID-19 COVID Elaine C OVID INSURANCE COVID-19 [id number] MVP PI PI MVP Medicaid Commercial [id number] Self [id number] [facility] [id number] SP [id number] MVP MCDHMO [id number] SP [id number] KAYLEE CLAIM SERVICES O [id number] S [id number] [facility] STORE [id number] SP [id number] [facility] [id number] SP [id number] ONE CALL CARE MANAGEMENT O [id number] S [id number] [facility] [id number] SP [id number] [facility] O [id number] S [id number] SELF PAY UNAVAILABLE SP UNAVAILA BLE BLUE CROSS PARTIDA PLAN [id number] SP [id number] [facility] Medicaid Commercial [id number] Self [id number] [facility] HEALTH CARE [id number] SP [id number] SELF PAY ONLY [facility]ARE [id number] SP [id number] Sliding Fee Scale O [id number] S [id number] O BLUE [id number] SP [id number] [facility] O [id number] S [id number] [facility] MCDO [id number] SP [id number] MEDICAID M [id number] S [id number] MEDICAID [id number] SP [id number] P Medicaid Commercial [id number] Self [id number] P Medicaid Commercial [id number] Self [id number] P Medicaid Commercial [id number] Self [id number] [facility] Medicaid Commercial [id number] Self [id number] [facility] O [id number] S [id number] MVP Medicaid Commercial [id number] Self [id number] MVP Medicaid Commercial [id number] Self [id number] MVP MEDICAID PI ANJELICA PAGE [facility] [id number] SP [id number] MVP Medicaid Commercial [id number] Self [id number] MVP Medicaid Commercial [id number] Self [id number] MVP MCDHMO [id number] SP [id number] MVP Medicaid Commercial [id number] Self [id number] Problems, Conditions, and Diagnoses Code Display Name Description Problem Type Effective Dates Data Source(s) [id number] Contraception care management Contraception Care Manag ement Problem 03/10/2019 12:00:00 AM EDT - 09/11/2020 12:00:00 AM EDT [facility] ([facility]) [id number] Contraception care management Contraception Care Manag ement Problem 03/10/2019 12:00:00 AM EDT - 09/11/2020 12:00:00 AM EDT [facility] ([facility]) [id number] Contraception care management Contraception Care Manag ement Problem 03/10/2019 12:00:00 AM EDT - 09/11/2020 12:00:00 AM EDT [facility] ([facility]) [id number] Dental caries on smooth surface penetrat ing into pulp Dental Caries on Smooth Surface Penetrating into Pulp Problem 017 12:00:00 AM EST - 09/11/2020 12:00:00 AM EDT [facility] ([facility]) [id number] Crowding of teeth Crowding of Teeth Problem 04/23 12:00:00 AM EST - 09/11/2020 12:00:00 AM EDT [place] ([facility]) [id number] Dental caries on smooth surface penetrat ing into pulp Dental Caries on Smooth Surface Penetrating into Pulp Problem 017 12:00:00 AM EST - 09/11/2020 12:00:00 AM EDT [place] ([facility]) [id number] Crowding of teeth Crowding of Teeth Problem 04/23 12:00:00 AM EST - 09/11/2020 12:00:00 AM EDT [place] ([facility]) [id number] Dental caries on smooth surface penetrat ing into pulp Dental Caries on Smooth Surface Penetrating into Pulp Problem 017 12:00:00 AM EST - 09/11/2020 12:00:00 AM EDT [place] ([facility]) [id number] Crowding of teeth Crowding of Teeth Problem 04/23 12:00:00 AM EST - 09/11/2020 12:00:00 AM EDT [place] ([facility]) [id number] Pre-surgery testing Pre-surgery Testing Problem 1 12:00:00 AM EDT - 09/11/2020 12:00:00 AM EDT [place] ([facility]) [id number] Streptococcal sore throat Streptococcal Sore Throat Pr oblem 03/31/2017 12:00:00 AM EDT - 09/11/2020 12:00:00 AM EDT POOL ([facility]) [id number] Pre-surgery testing Pre-surgery Testing Problem 1 12:00:00 AM EDT - 09/11/2020 12:00:00 AM EDT POL[place] ([facility]) [id number] Streptococcal sore throat Streptococcal Sore Throat Pr oblem 03/31/2017 12:00:00 AM EDT - 09/11/2020 12:00:00 AM EDT POL[place] ([facility]) [id number] Pre-surgery testing Pre-surgery Testing Problem 1 12:00:00 AM EDT - 09/11/2020 12:00:00 AM EDT [place] ([facility]) [id number] Streptococcal sore throat Streptococcal Sore Throat Pr oblem 03/31/2017 12:00:00 AM EDT - 09/11/2020 12:00:00 AM EDT [place] ([facility]) [id number] Clinical finding Clinical Finding Problem 017 12:00:00 AM EDT - 07/12/2020 12:00:00 AM EST [place] ([facility]) [id number] Clinical finding Clinical Finding Problem 017 12:00:00 AM EDT - 07/12/2020 12:00:00 AM EST [place] ([facility]) [id number] Clinical finding Clinical Finding Problem 017 12:00:00 AM EDT - 07/12/2020 12:00:00 AM EST [facility] ([facility]) [id number] Clinical finding Clinical Finding Problem 017 12:00:00 AM EDT - 07/12/2020 12:00:00 AM EST [place] ([facility]) [id number] Procedure by method Procedure by Method Problem 0 11/12/2016 12:00:00 AM EDT - 07/12/2020 12:00:00 AM EST [place] ([facility]) [id number] Abnormal weight gain Abnormal Weight Gain Problem 11/12/2016 12:00:00 AM EDT - 09/11/2020 12:00:00 AM EDT [place] ([facility]) [id number] Procedure by method Procedure by Method Problem 0 11/12/2016 12:00:00 AM EDT - 07/12/2020 12:00:00 AM EST [place] ([facility]) [id number] Abnormal weight gain Abnormal Weight Gain Problem 11/12/2016 12:00:00 AM EDT - 09/11/2020 12:00:00 AM EDT [place] ([facility]) [id number] Procedure by method Procedure by Method Problem 0 11/12/2016 12:00:00 AM EDT - 07/12/2020 12:00:00 AM EST [place] ([facility]) [id number] Abnormal weight gain Abnormal Weight Gain Problem 11/12/2016 12:00:00 AM EDT - 09/11/2020 12:00:00 AM EDT [place] ([facility]) [id number] Procedure by method Procedure by Method Problem 0 11/12/2016 12:00:00 AM EDT - 07/12/2020 12:00:00 AM EST [place] ([facility]) Surgeries/Procedures No Information Results ID Date Data Source [id number] 09/02/2020 05:46:00 AM EDT [facility]) Name Value Range Interpretation Code Description Data Ophelia rce(s) Supporting Document(s) glucose, fasting 82 mg/dL 70-100 Glucose, Fasting AT [facility]) blood urea nitrogen 5 mg/dL 7-18 Below low normal Blood Urea Nitrogen [place] ([facility]) creatinine for GFR 0.59 mg/dL 0.55-1.30 Creatinine for GF R [place] ([facility]) sodium level 143 mEq/L 136-145 Sodium Level [place] ([facility]) glomerular filtration rate > 60.0 >60 Glomerula r Filtration Rate [place] ([facility]) potassium serum 3.5 mEq/L 3.5-5.1 [facility] chloride level 112 mEq/L 98-107 Above high normal Chloride Level [place] ([facility]) carbon dioxide level 27 mEq/L 21-32 Carbon Dioxide Level [facility]) anion gap 4 mEq/L 8-16 Below low normal Anion Gap [place] ( [facility]) calcium level 8.0 mg/dL 8.5-10.1 Below low normal Calcium Level AT [facility]) ID Date Data Source [id number] 09/02/2020 05:46:00 AM EDT [facility]) Name Value Range Interpretation Code Description Data Ophelia rce(s) Supporting Document(s) white blood count 5.8 10 4.0-10.0 White Blood Count [place] ([facility]) red blood count 2.92 10 4.00-5.40 Below low normal Red Blood Coun t POL[place] ([facility]) hematocrit 26.9 % 36.0-47.0 Below low normal Hematocrit [place] ( [facility]) hemoglobin 8.7 g/dL 12.0-15.5 Below low normal Hemoglobin [place] ( [facility]) mean corpuscular volume 92.1 fL 80.0-96.0 Mean Corpusc ular Volume [place] ([facility]) mean corpuscular HGB conc 32.3 g/dL 32.0-36.5 Mean Corpu scular HGB Conc [facility] ([facility]) mean corpuscular hemoglobin 29.8 pg 27.0-33.0 Mean Cor puscular Hemoglobin [place] ([facility]) platelet count, automated 353 10 150-450 Platelet C ount, Automated [place] ([facility]) red cell distribution width 13.8 % 11.5-14.5 Red Cell Distribution Width [place] ([facility]) nucleated red blood cell % 0.0 % 0-0 Nucleated Red Blood Cell % [place] ([facility]) ID Date Data Source [id number] 09/02/2020 05:46:00 AM EDT [facility]) Name Value Range Interpretation Code Description Data Ophelia rce(s) Supporting Document(s) glucose, fasting 82 mg/dL 70-100 Glucose, Fasting AT [facility]) blood urea nitrogen 5 mg/dL 7-18 Below low normal Blood Urea Nitrogen [place]OO ([facility]) creatinine for GFR 0.59 mg/dL 0.55-1.30 Creatinine for GF R [place] ([facility]) glomerular filtration rate > 60.0 >60 Glomerula r Filtration Rate [place] ([facility]) potassium serum 3.5 mEq/L 3.5-5.1 Potassium Serum ATHE NA ([facility]) sodium level 143 mEq/L 136-145 Sodium Level [place] ([facility]) chloride level 112 mEq/L 98-107 Above high normal Chloride Level [place] ([facility]) carbon dioxide level 27 mEq/L 21-32 Carbon Dioxide Level [place] ([facility]) calcium level 8.0 mg/dL 8.5-10.1 Below low normal Calcium Level AT [facility]) anion gap 4 mEq/L 8-16 Below low normal Anion Gap [place] ( [facility]) ID Date Data Source [id number] 09/02/2020 05:46:00 AM EDT [facility]) Name Value Range Interpretation Code Description Data Ophelia rce(s) Supporting Document(s) white blood count 5.8 10 4.0-10.0 White Blood Count [place] ([facility]) hemoglobin 8.7 g/dL 12.0-15.5 Below low normal Hemoglobin [place] ( [facility]) red blood count 2.92 10 4.00-5.40 Below low normal Red Blood Coun t [place] ([facility]) mean corpuscular volume 92.1 fL 80.0-96.0 Mean Corpusc ular Volume [place] ([facility]) hematocrit 26.9 % 36.0-47.0 Below low normal Hematocrit [place] ( [facility]) mean corpuscular hemoglobin 29.8 pg 27.0-33.0 Mean Cor puscular Hemoglobin [place] ([facility]) mean corpuscular HGB conc 32.3 g/dL 32.0-36.5 Mean Corpu scular HGB Conc [place] ([facility]) platelet count, automated 353 10 150-450 Platelet C ount, Automated [place] ([facility]) red cell distribution width 13.8 % 11.5-14.5 Red Cell Distribution Width [place] ([facility]) nucleated red blood cell % 0.0 % 0-0 Nucleated Red Blood Cell % [place] ([facility]) ID Date Data Source [id number] 09/02/2020 05:46:00 AM EDT [facility] Name Value Range Interpretation Code Description Data Ophelia rce(s) Supporting Document(s) glucose, fasting 82 mg/dL 70-100 Glucose, Fasting AT [facility] ([facility]) blood urea nitrogen 5 mg/dL 7-18 Below low normal Blood Urea Nitrogen [place] ([facility]) creatinine for GFR 0.59 mg/dL 0.55-1.30 Creatinine for GF R [place] ([facility]) sodium level 143 mEq/L 136-145 Sodium Level [place] ([facility]) glomerular filtration rate > 60.0 >60 Glomerula r Filtration Rate [place] ([facility]) chloride level 112 mEq/L 98-107 Above high normal Chloride Level [place] ([facility]) potassium serum 3.5 mEq/L 3.5-5.1 Potassium Serum [facility]) carbon dioxide level 27 mEq/L 21-32 Carbon Dioxide Level [place] ([facility]) anion gap 4 mEq/L 8-16 Below low normal Anion Gap [place] ( [facility]) calcium level 8.0 mg/dL 8.5-10.1 Below low normal Calcium Level AT [facility] ([facility]) ID Date Data Source [id number] 09/02/2020 05:46:00 AM EDT [facility] Name Value Range Interpretation Code Description Data Ophelia rce(s) Supporting Document(s) red blood count 2.92 10 4.00-5.40 Below low normal Red Blood Coun t [place] ([facility]) white blood count 5.8 10 4.0-10.0 White Blood Count [facility] hematocrit 26.9 % 36.0-47.0 Below low normal Hematocrit [place] ( [facility]) hemoglobin 8.7 g/dL 12.0-15.5 Below low normal Hemoglobin [place] ( [facility]) mean corpuscular hemoglobin 29.8 pg 27.0-33.0 Mean Cor puscular Hemoglobin [place] ([facility]) mean corpuscular volume 92.1 fL 80.0-96.0 Mean Corpusc ular Volume [place] ([facility]) red cell distribution width 13.8 % 11.5-14.5 Red Cell Distribution Width [place] ([facility]) mean corpuscular HGB conc 32.3 g/dL 32.0-36.5 Mean Corpu scular HGB Conc [place] ([facility]) platelet count, automated 353 10 150-450 Platelet C ount, Automated [place] ([facility]) nucleated red blood cell % 0.0 % 0-0 Nucleated Red Blood Cell % [place] ([facility]) ID Date Data Source [id number] 09/01/2020 05:13:00 AM EDT [facility] Name Value Range Interpretation Code Description Data Ophelia rce(s) Supporting Document(s) blood urea nitrogen 4 mg/dL 7-18 Below low normal Blood Urea Nitrogen [place] ([facility]) glucose, fasting 104 mg/dL 70-100 Above high normal Glucose, Fas ting [place] ([facility]) glomerular filtration rate > 60.0 >60 Glomerula r Filtration Rate [place] ([facility]) creatinine for GFR 0.57 mg/dL 0.55-1.30 Creatinine for GF R [place] ([facility]) potassium serum 3.6 mEq/L 3.5-5.1 Potassium Serum ATH NA ([facility]) sodium level 144 mEq/L 136-145 Sodium Level [place] ([facility]) chloride level 111 mEq/L 98-107 Above high normal Chloride Level [place] ([facility]) carbon dioxide level 28 mEq/L 21-32 Carbon Dioxide Level [place] ([facility]) anion gap 5 mEq/L 8-16 Below low normal Anion Gap [place] ( [facility]) calcium level 7.8 mg/dL 8.5-10.1 Below low normal Calcium Level AT [facility]) ID Date Data Source [id number] 09/01/2020 05:13:00 AM EDT [place] ([facility]) Name Value Range Interpretation Code Description Data Ophelia rce(s) Supporting Document(s) white blood count 6.5 10 4.0-10.0 White Blood Count [place] ([facility]) red blood count 2.85 10 4.00-5.40 Below low normal Red Blood Coun t [place] ([facility]) hematocrit 26.0 % 36.0-47.0 Below low normal Hematocrit [place] ( [facility]) hemoglobin 8.3 g/dL 12.0-15.5 Below low normal Hemoglobin [place] ( [facility]) mean corpuscular volume 91.2 fL 80.0-96.0 Mean Corpusc ular Volume [place] ([facility]) mean corpuscular hemoglobin 29.1 pg 27.0-33.0 Mean Cor puscular Hemoglobin [place] ([facility]) mean corpuscular HGB conc 31.9 g/dL 32.0-36.5 Below low mary l Mean Corpuscular HGB Conc [place] ([facility]) red cell distribution width 13.9 % 11.5-14.5 Red Cell Distribution Width [place] ([facility]) platelet count, automated 301 10 150-450 Platelet C ount, Automated [place] ([facility]) nucleated red blood cell % 0.0 % 0-0 Nucleated Red Blood Cell % [place] ([facility]) ID Date Data Source [id number] 09/01/2020 05:13:00 AM EDT [place] ([facility]) Name Value Range Interpretation Code Description Data Ophelia rce(s) Supporting Document(s) glucose, fasting 104 mg/dL 70-100 Above high normal Glucose, Fas ting [place] ([facility]) blood urea nitrogen 4 mg/dL 7-18 Below low normal Blood Urea Nitrogen [place] ([facility]) creatinine for GFR 0.57 mg/dL 0.55-1.30 Creatinine for GF R [place] ([facility]) glomerular filtration rate > 60.0 >60 Glomerula r Filtration Rate [place] ([facility]) potassium serum 3.6 mEq/L 3.5-5.1 Potassium Serum ATHE NA ([facility]) sodium level 144 mEq/L 136-145 Sodium Level [place] ([facility]) carbon dioxide level 28 mEq/L 21-32 Carbon Dioxide Level [place] ([facility]) chloride level 111 mEq/L 98-107 Above high normal Chloride Level [place] ([facility]) calcium level 7.8 mg/dL 8.5-10.1 Below low normal Calcium Level AT [facility] ([facility]) anion gap 5 mEq/L 8-16 Below low normal Anion Gap [place] ( [facility]) ID Date Data Source [id number] 09/01/2020 05:13:00 AM EDT [place] ([facility]) Name Value Range Interpretation Code Description Data Ophelia rce(s) Supporting Document(s) white blood count 6.5 10 4.0-10.0 White Blood Count [place] ([facility]) red blood count 2.85 10 4.00-5.40 Below low normal Red Blood Coun t [place] ([facility]) hemoglobin 8.3 g/dL 12.0-15.5 Below low normal Hemoglobin [place] ( [facility]) hematocrit 26.0 % 36.0-47.0 Below low normal Hematocrit [place] ( [facility]) mean corpuscular volume 91.2 fL 80.0-96.0 Mean Corpusc ular Volume [place] ([facility]) mean corpuscular HGB conc 31.9 g/dL 32.0-36.5 Below low mary l Mean Corpuscular HGB Conc [place] ([facility]) mean corpuscular hemoglobin 29.1 pg 27.0-33.0 Mean Cor puscular Hemoglobin [place] ([facility]) platelet count, automated 301 10 150-450 Platelet C ount, Automated [place] ([facility]) red cell distribution width 13.9 % 11.5-14.5 Red Cell Distribution Width [place] ([facility]) nucleated red blood cell % 0.0 % 0-0 Nucleated Red Blood Cell % [place] ([facility]) ID Date Data Source [id number] 09/01/2020 05:13:00 AM EDT [facility] Name Value Range Interpretation Code Description Data Ophelia rce(s) Supporting Document(s) glucose, fasting 104 mg/dL 70-100 Above high normal Glucose, Fas ting [place] ([facility]) blood urea nitrogen 4 mg/dL 7-18 Below low normal Blood Urea Nitrogen [place] ([facility]) creatinine for GFR 0.57 mg/dL 0.55-1.30 Creatinine for GF R [place] ([facility]) glomerular filtration rate > 60.0 >60 Glomerula r Filtration Rate [place] ([facility]) sodium level 144 mEq/L 136-145 Sodium Level [place] ([facility]) potassium serum 3.6 mEq/L 3.5-5.1 Potassium Serum ATH NA ([facility]) anion gap 5 mEq/L 8-16 Below low normal Anion Gap [place] ( [facility]) chloride level 111 mEq/L 98-107 Above high normal Chloride Level [place] ([facility]) carbon dioxide level 28 mEq/L 21-32 Carbon Dioxide Level [place] ([facility]) calcium level 7.8 mg/dL 8.5-10.1 Below low normal Calcium Level AT [facility]) ID Date Data Source [id number] 09/01/2020 05:13:00 AM EDT [facility] Name Value Range Interpretation Code Description Data Ophelia rce(s) Supporting Document(s) white blood count 6.5 10 4.0-10.0 White Blood Count [place] ([facility]) red blood count 2.85 10 4.00-5.40 Below low normal Red Blood Coun t [place] ([facility]) hemoglobin 8.3 g/dL 12.0-15.5 Below low normal Hemoglobin [place] ( [facility]) hematocrit 26.0 % 36.0-47.0 Below low normal Hematocrit [facility]) mean corpuscular volume 91.2 fL 80.0-96.0 Mean Corpusc ular Volume [place] ([facility]) mean corpuscular hemoglobin 29.1 pg 27.0-33.0 Mean Cor puscular Hemoglobin [place] ([facility]) mean corpuscular HGB conc 31.9 g/dL 32.0-36.5 Below low mary l Mean Corpuscular HGB Conc [place] ([facility]) red cell distribution width 13.9 % 11.5-14.5 Red Cell Distribution Width [place] ([facility]) platelet count, automated 301 10 150-450 Platelet C ount, Automated [place] ([facility]) nucleated red blood cell % 0.0 % 0-0 Nucleated Red Blood Cell % [place] ([facility]) ID Date Data Source [id number] 09/01/2020 01:49:00 AM EDT [facility] Name Value Range Interpretation Code Description Data Ophelia rce(s) Supporting Document(s) bedside glucose 103 mg/dL 70-105 Bedside Glucose [place] ([facility]) ID Date Data Source [id number] 09/01/2020 01:49:00 AM EDT [facility] Name Value Range Interpretation Code Description Data Ophelia rce(s) Supporting Document(s) bedside glucose 103 mg/dL 70-105 Bedside Glucose ATHE ([facility]) ID Date Data Source [id number] 09/01/2020 01:49:00 AM EDT [facility] Name Value Range Interpretation Code Description Data Ophelia rce(s) Supporting Document(s) bedside glucose 103 mg/dL 70-105 Bedside Glucose ATHE ([facility]) ID Date Data Source [id number] 08/31/2020 01:10:00 PM EDT [facility]) Name Value Range Interpretation Code Description Data Ophelia rce(s) Supporting Document(s) blood urea nitrogen 8 mg/dL 7-18 Blood Urea Nitro gen [place] ([facility]) glucose, fasting 87 mg/dL 70-100 Glucose, Fasting AT [facility] ([facility]) creatinine for GFR 0.68 mg/dL 0.55-1.30 Creatinine for GF R [place] ([facility]) sodium level 141 mEq/L 136-145 Sodium Level [place] (No [facility]) glomerular filtration rate > 60.0 >60 Glomerula r Filtration Rate [place] ([facility]) potassium serum 3.8 mEq/L 3.5-5.1 Potassium Serum ATH NA ([facility]) chloride level 108 mEq/L 98-107 Above high normal Chloride Level [place] ([facility]) anion gap 5 mEq/L 8-16 Below low normal Anion Gap [place] ( [facility]) carbon dioxide level 28 mEq/L 21-32 Carbon Dioxide Level [place] ([facility]) calcium level 8.0 mg/dL 8.5-10.1 Below low normal Calcium Level AT [facility] ([facility]) ID Date Data Source [id number] 08/31/2020 01:10:00 PM EDT [place] ([facility]) Name Value Range Interpretation Code Description Data Ophelia rce(s) Supporting Document(s) white blood count 9.8 10 4.0-10.0 White Blood Count [place] ([facility]) red blood count 3.05 10 4.00-5.40 Below low normal Red Blood Coun t [place] [facility] [facility] hemoglobin 9.1 g/dL 12.0-15.5 Below low normal Hemoglobin [place] ( [facility]) hematocrit 28.2 % 36.0-47.0 Below low normal Hematocrit [place] ( [facility]) mean corpuscular hemoglobin 29.8 pg 27.0-33.0 Mean Cor puscular Hemoglobin [place] ([facility]) mean corpuscular volume 92.5 fL 80.0-96.0 Mean Corpusc ular Volume [place] ([facility]) red cell distribution width 14.3 % 11.5-14.5 Red Cell Distribution Width [place] ([facility]) mean corpuscular HGB conc 32.3 g/dL 32.0-36.5 Mean Corpu scular HGB Conc [place] ([facility]) platelet count, automated 325 10 150-450 Platelet C ount, Automated [place] ([facility]) nucleated red blood cell % 0.0 % 0-0 Nucleated Red Blood Cell % [place] ([facility]) ID Date Data Source [id number] 08/31/2020 01:10:00 PM EDT [facility]) Name Value Range Interpretation Code Description Data Ophelia rce(s) Supporting Document(s) glucose, fasting 87 mg/dL 70-100 Glucose, Fasting AT [facility]) creatinine for GFR 0.68 mg/dL 0.55-1.30 Creatinine for GF R [place] ([facility]) blood urea nitrogen 8 mg/dL 7-18 Blood Urea Nitro gen [place] ([facility]) glomerular filtration rate > 60.0 >60 Glomerula r Filtration Rate [place] ([facility]) potassium serum 3.8 mEq/L 3.5-5.1 Potassium Serum ATH NA ([facility]) sodium level 141 mEq/L 136-145 Sodium Level [place] (No [facility]) chloride level 108 mEq/L 98-107 Above high normal Chloride Level [place] ([facility]) calcium level 8.0 mg/dL 8.5-10.1 Below low normal Calcium Level AT [facility]) anion gap 5 mEq/L 8-16 Below low normal Anion Gap [place] ( [facility]) carbon dioxide level 28 mEq/L 21-32 Carbon Dioxide Level [facility]) ID Date Data Source [id number] 08/31/2020 01:10:00 PM EDT [facility]) Name Value Range Interpretation Code Description Data Ophelia rce(s) Supporting Document(s) red blood count 3.05 10 4.00-5.40 Below low normal Red Blood Coun t [facility]) white blood count 9.8 10 4.0-10.0 White Blood Count [place] ([facility]) mean corpuscular volume 92.5 fL 80.0-96.0 Mean Corpusc ular Volume [place] ([facility]) hemoglobin 9.1 g/dL 12.0-15.5 Below low normal Hemoglobin [place] ( [facility]) hematocrit 28.2 % 36.0-47.0 Below low normal Hematocrit [place] ( [facility]) mean corpuscular hemoglobin 29.8 pg 27.0-33.0 Mean Cor puscular Hemoglobin [place] ([facility]) platelet count, automated 325 10 150-450 Platelet C ount, Automated [place] ([facility]) red cell distribution width 14.3 % 11.5-14.5 Red Cell Distribution Width [place] ([facility]) mean corpuscular HGB conc 32.3 g/dL 32.0-36.5 Mean Corpu scular HGB Conc [place] ([facility]) nucleated red blood cell % 0.0 % 0-0 Nucleated Red Blood Cell % [place] ([facility]) ID Date Data Source [id number] 08/31/2020 01:10:00 PM EDT [place] ([facility]) Name Value Range Interpretation Code Description Data Ophelia rce(s) Supporting Document(s) glucose, fasting 87 mg/dL 70-100 Glucose, Fasting AT [facility]) creatinine for GFR 0.68 mg/dL 0.55-1.30 Creatinine for GF R [place] ([facility]) blood urea nitrogen 8 mg/dL 7-18 Blood Urea Nitro gen [place] ([facility]) glomerular filtration rate > 60.0 >60 Glomerula r Filtration Rate [place] ([facility]) sodium level 141 mEq/L 136-145 Sodium Level [place] ([facility]) chloride level 108 mEq/L 98-107 Above high normal Chloride Level [place] ([facility]) carbon dioxide level 28 mEq/L 21-32 Carbon Dioxide Level [place] ([facility]) potassium serum 3.8 mEq/L 3.5-5.1 Potassium Serum ATHE NA ([facility]) anion gap 5 mEq/L 8-16 Below low normal Anion Gap [place] ( [facility]) calcium level 8.0 mg/dL 8.5-10.1 Below low normal Calcium Level AT [facility] ([facility]) ID Date Data Source [id number] 08/31/2020 01:10:00 PM EDT [place] ([facility]) Name Value Range Interpretation Code Description Data Ophelia rce(s) Supporting Document(s) white blood count 9.8 10 4.0-10.0 White Blood Count [place] ([facility]) red blood count 3.05 10 4.00-5.40 Below low normal Red Blood Coun t [place] ([facility]) hemoglobin 9.1 g/dL 12.0-15.5 Below low normal Hemoglobin [place] ( [facility]) hematocrit 28.2 % 36.0-47.0 Below low normal Hematocrit [place] ( [facility]) mean corpuscular volume 92.5 fL 80.0-96.0 Mean Corpusc ular Volume [place] ([facility]) mean corpuscular HGB conc 32.3 g/dL 32.0-36.5 Mean Corpu scular HGB Conc [place] ([facility]) mean corpuscular hemoglobin 29.8 pg 27.0-33.0 Mean Cor puscular Hemoglobin [place] ([facility]) red cell distribution width 14.3 % 11.5-14.5 Red Cell Distribution Width [place] ([facility]) platelet count, automated 325 10 150-450 Platelet C ount, Automated [place] ([facility]) nucleated red blood cell % 0.0 % 0-0 Nucleated Red Blood Cell % [place] ([facility]) ID Date Data Source [id number] 08/31/2020 05:19:00 AM EDT [place] ([facility]) Name Value Range Interpretation Code Description Data Ophelia rce(s) Supporting Document(s) magnesium level 2.0 mg/dL 1.8-2.4 Magnesium Level ATHE NA [facility]) ID Date Data Source [id number] 08/31/2020 05:19:00 AM EDT [facility] Name Value Range Interpretation Code Description Data Ophelia rce(s) Supporting Document(s) glucose, fasting 70 mg/dL 70-100 Glucose, Fasting AT [facility]) blood urea nitrogen 10 mg/dL 7-18 Blood Urea Nitro gen [place] ([facility]) creatinine for GFR 0.65 mg/dL 0.55-1.30 Creatinine for GF R [place] ([facility]) sodium level 142 mEq/L 136-145 Sodium Level [place] (No [facility]) glomerular filtration rate > 60.0 >60 Glomerula r Filtration Rate [place] ([facility]) potassium serum 3.3 mEq/L 3.5-5.1 Below low normal Potassium Seru m [place] ([facility]) carbon dioxide level 26 mEq/L 21-32 Carbon Dioxide Level [place] ([facility]) chloride level 109 mEq/L 98-107 Above high normal Chloride Level [place] ([facility]) anion gap 7 mEq/L 8-16 Below low normal Anion Gap [place] ( [facility]) calcium level 7.8 mg/dL 8.5-10.1 Below low normal Calcium Level AT [facility]) ID Date Data Source [id number] 08/31/2020 05:19:00 AM EDT [facility] Name Value Range Interpretation Code Description Data Ophelia rce(s) Supporting Document(s) white blood count 11.1 10 4.0-10.0 Above high normal White Blood Count [place] ([facility]) hemoglobin 8.5 g/dL 12.0-15.5 Below low normal Hemoglobin [place] ( [facility]) red blood count 2.87 10 4.00-5.40 Below low normal Red Blood Coun t [facility]) mean corpuscular volume 92.7 fL 80.0-96.0 Mean Corpusc ular Volume [place] ([facility]) hematocrit 26.6 % 36.0-47.0 Below low normal Hematocrit [place] ( [facility]) mean corpuscular HGB conc 32.0 g/dL 32.0-36.5 Mean Corpu scular HGB Conc [place] ([facility]) mean corpuscular hemoglobin 29.6 pg 27.0-33.0 Mean Cor puscular Hemoglobin [place] ([facility]) platelet count, automated 298 10 150-450 Platelet C ount, Automated [place] ([facility]) red cell distribution width 14.4 % 11.5-14.5 Red Cell Distribution Width [place] ([facility]) nucleated red blood cell % 0.0 % 0-0 Nucleated Red Blood Cell % [place] ([facility]) ID Date Data Source [id number] 08/31/2020 05:19:00 AM EDT [place] ([facility]) Name Value Range Interpretation Code Description Data Ophelia rce(s) Supporting Document(s) magnesium level 2.0 mg/dL 1.8-2.4 [facility]) ID Date Data Source [id number] 08/31/2020 05:19:00 AM EDT [facility] Name Value Range Interpretation Code Description Data Ophelia rce(s) Supporting Document(s) glucose, fasting 70 mg/dL 70-100 Glucose, Fasting AT [facility] ([facility]) blood urea nitrogen 10 mg/dL 7-18 Blood Urea Nitro gen [place] ([facility]) creatinine for GFR 0.65 mg/dL 0.55-1.30 Creatinine for GF R [place] ([facility]) glomerular filtration rate > 60.0 >60 Glomerula r Filtration Rate [place] ([facility]) sodium level 142 mEq/L 136-145 Sodium Level [place] (No [facility]) potassium serum 3.3 mEq/L 3.5-5.1 Below low normal Potassium Seru m [place] ([facility]) chloride level 109 mEq/L 98-107 Above high normal Chloride Level [place] ([facility]) carbon dioxide level 26 mEq/L 21-32 Carbon Dioxide Level [place] ([facility]) anion gap 7 mEq/L 8-16 Below low normal Anion Gap [place] ( [facility]) calcium level 7.8 mg/dL 8.5-10.1 Below low normal Calcium Level AT [facility] ([facility]) ID Date Data Source [id number] 08/31/2020 05:19:00 AM EDT [place] ([facility]) Name Value Range Interpretation Code Description Data Ophelia rce(s) Supporting Document(s) white blood count 11.1 10 4.0-10.0 Above high normal White Blood Count [place] ([facility]) red blood count 2.87 10 4.00-5.40 Below low normal Red Blood Coun t [place] ([facility]) hematocrit 26.6 % 36.0-47.0 Below low normal Hematocrit [place] ( [facility]) hemoglobin 8.5 g/dL 12.0-15.5 Below low normal Hemoglobin [place] ( [facility]) mean corpuscular volume 92.7 fL 80.0-96.0 Mean Corpusc ular Volume [place] ([facility]) mean corpuscular hemoglobin 29.6 pg 27.0-33.0 Mean Cor puscular Hemoglobin [place] ([facility]) platelet count, automated 298 10 150-450 Platelet C ount, Automated [place] ([facility]) red cell distribution width 14.4 % 11.5-14.5 Red Cell Distribution Width [place] ([facility]) mean corpuscular HGB conc 32.0 g/dL 32.0-36.5 Mean Corpu scular HGB Conc [place] ([facility]) nucleated red blood cell % 0.0 % 0-0 Nucleated Red Blood Cell % [place] ([facility]) ID Date Data Source [id number] 08/31/2020 05:19:00 AM EDT [place] ([facility]) Name Value Range Interpretation Code Description Data Ophelia rce(s) Supporting Document(s) magnesium level 2.0 mg/dL 1.8-2.4 Magnesium Level ATHE NA ([facility]) ID Date Data Source [id number] 08/31/2020 05:19:00 AM EDT [facility] Name Value Range Interpretation Code Description Data Ophelia rce(s) Supporting Document(s) blood urea nitrogen 10 mg/dL 7-18 Blood Urea Nitro gen [place] ([facility]) glucose, fasting 70 mg/dL 70-100 Glucose, Fasting AT [facility]) creatinine for GFR 0.65 mg/dL 0.55-1.30 Creatinine for GF R [place] ([facility]) glomerular filtration rate > 60.0 >60 Glomerula r Filtration Rate [place] ([facility]) sodium level 142 mEq/L 136-145 Sodium Level [place] (No [facility]) potassium serum 3.3 mEq/L 3.5-5.1 Below low normal Potassium Seru m [place] ([facility]) chloride level 109 mEq/L 98-107 Above high normal Chloride Level [place] ([facility]) carbon dioxide level 26 mEq/L 21-32 Carbon Dioxide Level [facility] anion gap 7 mEq/L 8-16 Below low normal Anion Gap [place] ( [facility]) calcium level 7.8 mg/dL 8.5-10.1 Below low normal Calcium Level AT [facility]) ID Date Data Source [id number] 08/31/2020 05:19:00 AM EDT [facility] Name Value Range Interpretation Code Description Data Ophelia rce(s) Supporting Document(s) white blood count 11.1 10 4.0-10.0 Above high normal White Blood Count [place] ([facility]) red blood count 2.87 10 4.00-5.40 Below low normal Red Blood Coun t [place] ([facility]) mean corpuscular volume 92.7 fL 80.0-96.0 Mean Corpusc ular Volume [place] ([facility]) hematocrit 26.6 % 36.0-47.0 Below low normal Hematocrit [place] ( [facility]) hemoglobin 8.5 g/dL 12.0-15.5 Below low normal Hemoglobin [place] ( [facility]) mean corpuscular HGB conc 32.0 g/dL 32.0-36.5 Mean Corpu scular HGB Conc [place] ([facility]) mean corpuscular hemoglobin 29.6 pg 27.0-33.0 Mean Cor puscular Hemoglobin [place] ([facility]) platelet count, automated 298 10 150-450 Platelet C ount, Automated [place] ([facility]) red cell distribution width 14.4 % 11.5-14.5 Red Cell Distribution Width [place] ([facility]) nucleated red blood cell % 0.0 % 0-0 Nucleated Red Blood Cell % [place] ([facility]) ID Date Data Source [id number] 08/30/2020 11:45:00 PM EDT [place] ([facility]) Name Value Range Interpretation Code Description Data Ophelia rce(s) Supporting Document(s) bedside glucose 76 mg/dL 70-105 Bedside Glucose ATHE ([facility]) ID Date Data Source [id number] 08/30/2020 11:45:00 PM EDT [place] ([facility]) Name Value Range Interpretation Code Description Data Pohelia rce(s) Supporting Document(s) bedside glucose 76 mg/dL 70-105 Bedside Glucose ATHE ([facility]) ID Date Data Source [id number] 08/30/2020 11:45:00 PM EDT [facility] Name Value Range Interpretation Code Description Data Ophelia rce(s) Supporting Document(s) bedside glucose 76 mg/dL 70-105 Bedside Glucose ATHE ([facility]) ID Date Data Source [id number] 08/30/2020 05:56:00 PM EDT [place] ([facility]) Name Value Range Interpretation Code Description Data Ophelia rce(s) Supporting Document(s) bedside glucose 68 mg/dL 70-105 Below low normal Bedside Glucos e [place] ([facility]) ID Date Data Source [id number] 08/30/2020 05:56:00 PM EDT [place] ([facility]) Name Value Range Interpretation Code Description Data Ophelia rce(s) Supporting Document(s) bedside glucose 68 mg/dL 70-105 Below low normal Bedside Glucos e [place] ([facility]) ID Date Data Source [id number] 08/30/2020 05:56[facility] Name Value Range Interpretation Code Description Data Ophelia rce(s) Supporting Document(s) bedside glucose 68 mg/dL 70-105 Below low normal Bedside Glucos e [place] ([facility]) ID Date Data Source [id number] 08/30/2020 01:02:00 [facility] Name Value Range Interpretation Code Description Data Ophelia rce(s) Supporting Document(s) troponin I < 0.02 < 0.10 Troponin I [facility] ([facility]) ID Date Data Source [id number] 08/30/2020 01:02:00 PM EDT [place] ([facility]) Name Value Range Interpretation Code Description Data Ophelia rce(s) Supporting Document(s) troponin I < 0.02 < 0.10 Troponin I [facility]) ID Date Data Source [id number] 08/30/2020 01:02:00 [facility] Name Value Range Interpretation Code Description Data Ophelia rce(s) Supporting Document(s) troponin I < 0.02 < 0.10 Troponin I [place] ([facility]) ID Date Data Source [id number] 08/30/2020 11:41:00 AM EDT [place] ([facility]) Name Value Range Interpretation Code Description Data Ophelia rce(s) Supporting Document(s) bedside glucose 75 mg/dL 70-105 Bedside Glucose ATHE NA ([facility]) ID Date Data Source [id number] 08/30/2020 11:41:00 AM EDT [facility]) Name Value Range Interpretation Code Description Data Ophelia rce(s) Supporting Document(s) bedside glucose 75 mg/dL 70-105 Bedside Glucose [facility] ([facility]) ID Date Data Source [id number] 08/30/2020 11:41:00 AM EDT [facility] Name Value Range Interpretation Code Description Data Ophelia rce(s) Supporting Document(s) bedside glucose 75 mg/dL 70-105 Bedside Glucose [facility] ([facility]) ID Date Data Source [id number] 08/30/2020 05:16:00 AM EDT [facility]) Name Value Range Interpretation Code Description Data Ophelia rce(s) Supporting Document(s) troponin I < 0.02 < 0.10 Troponin I [facility] ([facility]) ID Date Data Source [id number] 08/30/2020 05:16:00 AM EDT [facility]) Name Value Range Interpretation Code Description Data Ophelia rce(s) Supporting Document(s) blood urea nitrogen 8 mg/dL 7-18 Blood Urea Nitro gen [place] ([facility]) glucose, fasting 100 mg/dL 70-100 Glucose, Fasting AT [facility] ([facility]) glomerular filtration rate > 60.0 >60 Glomerula r Filtration Rate [facility] ([facility]) sodium level 140 mEq/L 136-145 Sodium Level [place] (No [facility]) creatinine for GFR 0.61 mg/dL 0.55-1.30 Creatinine for GF R [facility] ([facility]) chloride level 108 mEq/L 98-107 Above high normal Chloride Level [facility] ([facility]) carbon dioxide level 25 mEq/L 21-32 Carbon Dioxide Level [facility] ([facility]) potassium serum 3.5 mEq/L 3.5-5.1 Potassium Serum ATHE NA ([facility]) calcium level 7.7 mg/dL 8.5-10.1 Below low normal Calcium Level AT [facility] ([facility]) anion gap 7 mEq/L 8-16 Below low normal Anion Gap [place] ( [facility]) ID Date Data Source [id number] 08/30/2020 05:16:00 AM EDT [place] ([facility]) Name Value Range Interpretation Code Description Data Ophelia rce(s) Supporting Document(s) white blood count 20.6 10 4.0-10.0 Above high normal White Blood Count [facility] ([facility]) red blood count 3.17 10 4.00-5.40 Below low normal Red Blood Coun t [facility] ([facility]) hemoglobin 9.5 g/dL 12.0-15.5 Below low normal Hemoglobin [place] ( [facility]) mean corpuscular volume 91.5 fL 80.0-96.0 Mean Corpusc ular Volume [facility] ([facility]) hematocrit 29.0 % 36.0-47.0 Below low normal Hematocrit [place] ( [facility]) mean corpuscular hemoglobin 30.0 pg 27.0-33.0 Mean Cor puscular Hemoglobin [facility] ([facility]) mean corpuscular HGB conc 32.8 g/dL 32.0-36.5 Mean Corpu scular HGB Conc [facility] ([facility]) red cell distribution width 14.3 % 11.5-14.5 Red Cell Distribution Width [facility] ([facility]) platelet count, automated 326 10 150-450 Platelet C ount, Automated [facility] ([facility]) nucleated red blood cell % 0.0 % 0-0 Nucleated Red Blood Cell % [place] ([facility]) ID Date Data Source [id number] 08/30/2020 05:16:00 AM EDT [place] ([facility]) Name Value Range Interpretation Code Description Data Ophelia rce(s) Supporting Document(s) troponin I < 0.02 < 0.10 Troponin I [place] ([facility]) ID Date Data Source [id number] 08/30/2020 05:16:00 AM EDT [place] ([facility]) Name Value Range Interpretation Code Description Data Ophelia rce(s) Supporting Document(s) glucose, fasting 100 mg/dL 70-100 Glucose, Fasting AT [facility]) blood urea nitrogen 8 mg/dL 7-18 Blood Urea Nitro gen POLO ([facility]) creatinine for GFR 0.61 mg/dL 0.55-1.30 Creatinine for GF R [place] ([facility]) sodium level 140 mEq/L 136-145 Sodium Level [place] (No [facility]) glomerular filtration rate > 60.0 >60 Glomerula r Filtration Rate [place] ([facility]) potassium serum 3.5 mEq/L 3.5-5.1 Potassium Serum ATH NA ([facility]) chloride level 108 mEq/L 98-107 Above high normal Chloride Level [place] ([facility]) calcium level 7.7 mg/dL 8.5-10.1 Below low normal Calcium Level AT [facility]) anion gap 7 mEq/L 8-16 Below low normal Anion Gap POLO ( [facility]) carbon dioxide level 25 mEq/L 21-32 Carbon Dioxide Level [place] ([facility]) ID Date Data Source [id number] 08/30/2020 05:16:00 AM EDT [place] ([facility]) Name Value Range Interpretation Code Description Data Ophelia rce(s) Supporting Document(s) white blood count 20.6 10 4.0-10.0 Above high normal White Blood Count POLO ([facility]) red blood count 3.17 10 4.00-5.40 Below low normal Red Blood Coun t POLO ([facility]) hemoglobin 9.5 g/dL 12.0-15.5 Below low normal Hemoglobin POLO ( [facility]) mean corpuscular hemoglobin 30.0 pg 27.0-33.0 Mean Cor puscular Hemoglobin [place] ([facility]) hematocrit 29.0 % 36.0-47.0 Below low normal Hematocrit [place] ( [facility]) mean corpuscular volume 91.5 fL 80.0-96.0 Mean Corpusc ular Volume [place] ([facility]) mean corpuscular HGB conc 32.8 g/dL 32.0-36.5 Mean Corpu scular HGB Conc [place] ([facility]) red cell distribution width 14.3 % 11.5-14.5 Red Cell Distribution Width [place] ([facility]) platelet count, automated 326 10 150-450 Platelet C ount, Automated POLO ([facility]) nucleated red blood cell % 0.0 % 0-0 Nucleated Red Blood Cell % [place] ([facility]) ID Date Data Source [id number] 08/30/2020 05:16:00 AM EDT [place] ([facility]) Name Value Range Interpretation Code Description Data Ophelia rce(s) Supporting Document(s) troponin I < 0.02 < 0.10 Troponin I [facility]) ID Date Data Source [id number] 08/30/2020 05:16:00 AM EDT [facility]) Name Value Range Interpretation Code Description Data Ophelia rce(s) Supporting Document(s) glucose, fasting 100 mg/dL 70-100 Glucose, Fasting AT [facility] ([facility]) blood urea nitrogen 8 mg/dL 7-18 Blood Urea Nitro gen POLO ([facility]) glomerular filtration rate > 60.0 >60 Glomerula r Filtration Rate POLO ([facility]) sodium level 140 mEq/L 136-145 Sodium Level POLO (No [facility]) creatinine for GFR 0.61 mg/dL 0.55-1.30 Creatinine for GF R POLO ([facility]) carbon dioxide level 25 mEq/L 21-32 Carbon Dioxide Level POLO ([facility]) potassium serum 3.5 mEq/L 3.5-5.1 Potassium Serum ATHE NA ([facility]) chloride level 108 mEq/L 98-107 Above high normal Chloride Level [place] ([facility]) anion gap 7 mEq/L 8-16 Below low normal Anion Gap [place] ( [facility]) calcium level 7.7 mg/dL 8.5-10.1 Below low normal Calcium Level AT [facility]) ID Date Data Source [id number] 08/30/2020 05:16:00 AM EDT [place] ([facility]) Name Value Range Interpretation Code Description Data Ophelia rce(s) Supporting Document(s) white blood count 20.6 10 4.0-10.0 Above high normal White Blood Count [place] ([facility]) red blood count 3.17 10 4.00-5.40 Below low normal Red Blood Coun t POLO ([facility]) hemoglobin 9.5 g/dL 12.0-15.5 Below low normal Hemoglobin POLO ( [facility]) hematocrit 29.0 % 36.0-47.0 Below low normal Hematocrit POLO ( [facility]) mean corpuscular volume 91.5 fL 80.0-96.0 Mean Corpusc ular Volume [place] ([facility]) mean corpuscular hemoglobin 30.0 pg 27.0-33.0 Mean Cor puscular Hemoglobin POLO ([facility]) mean corpuscular HGB conc 32.8 g/dL 32.0-36.5 Mean Corpu scular HGB Conc OPLO ([facility]) red cell distribution width 14.3 % 11.5-14.5 Red Cell Distribution Width [place] ([facility]) platelet count, automated 326 10 150-450 Platelet C ount, Automated [place] ([facility]) nucleated red blood cell % 0.0 % 0-0 Nucleated Red Blood Cell % [place] ([facility]) ID Date Data Source [id number] 08/30/2020 01:59:00 AM EDT [facility]) Name Value Range Interpretation Code Description Data Ophelia rce(s) Supporting Document(s) sars covid-19 amplification negative negative Sars Cov id-19 Amplification [facility]) ID Date Data Source [id number] 08/30/2020 01:59:00 AM EDT [facility]) Name Value Range Interpretation Code Description Data Ophelia rce(s) Supporting Document(s) sars covid-19 amplification negative negative Sars Cov id-19 Amplification [facility]) ID Date Data Source [id number] 08/30/2020 01:59:00 AM EDT [facility] Name Value Range Interpretation Code Description Data Ophelia rce(s) Supporting Document(s) SARS coronavirus 2 RNA [Presence] in Res piratory specimen by [facility] with probe detection NEGATIVE [facility] This lab was ordered by [facility] a nd reported by [facility]. ID Date Data Source [id number] 08/30/2020 01:59:00 AM EDT [facility]) Name Value Range Interpretation Code Description Data Ophelia rce(s) Supporting Document(s) sars covid-19 amplification negative negative Sars Cov id-19 Amplification [facility]) ID Date Data Source [id number] 08/30/2020 12:44:00 AM EDT [facility]) Name Value Range Interpretation Code Description Data Ophelia rce(s) Supporting Document(s) appearance, urine rfx clear clear Appearance, Ur ine Rfx PLOO ([facility]) color, urine rfx yellow yellow Color, Urine Rfx AT [facility] ([facility]) pH,urine rfx 5.0 units 5.0-9.0 pH,urine Rfx POLO ([facility]) specific gravity ur auto rfx >1.060 1.002-1.035 Above high n ormal Specific [place] Ur Auto Rfx POLO ([facility]) glucose, urine (UA) auto rfx negative negative Glucose , Urine (UA) Auto Rfx [place] ([facility]) protein, urine auto rfx negative negative Protein, Uri ne Auto Rfx [place] ([facility]) ketone, urine auto rfx trace negative Above high normal Ketone , Urine Auto Rfx [place] ([facility]) bilirubin, urine auto rfx negative negative Bilirubin, Urine Auto Rfx [place] ([facility]) urobilinogen, urine auto rfx 0.2 mg/dL 0.0-2.0 Urobili nogen, Urine Auto Rfx [place] ([facility]) nitrite, urine auto rfx negative negative Nitrite, Uri ne Auto Rfx [place] ([facility]) leukocyte esterase ur auto rfx negative negative Leukocyte Esterase Ur Auto Rfx [place] ([facility]) RBC, urine auto rfx 0 /hpf 0-3 RBC, Urine Auto Rfx [place] ([facility]) blood, urine blood rfx negative negative Blood, Urine Blood Rfx [place] ([facility]) WBC, urine auto rfx 0 /hpf 0-3 WBC, Urine Auto Rfx [place] ([facility]) squam epithelial cell ur aurfx 2 /hpf 0-6 Squam Epithelial Cell Ur Aurfx POLO ([facility]) bacteria, urine auto rfx negative negative Bacteria, U rine Auto Rfx [place] ([facility]) mucus, urine rfx small negative Mucus, Urine Rfx AT [facility] ([facility]) hyaline cast, urine auto rfx 0 /lpf 0-1 Hyaline Cast, Urine Auto Rfx [place] ([facility]) ID Date Data Source [id number] 08/30/2020 12:44:00 AM EDT [place] ([facility]) Name Value Range Interpretation Code Description Data Ophelia rce(s) Supporting Document(s) appearance, urine rfx clear clear Appearance, Ur ine Rfx [place] ([facility]) color, urine rfx yellow yellow Color, Urine Rfx AT [facility] ([facility]) pH,urine rfx 5.0 units 5.0-9.0 pH,urine Rfx [place] (No [facility]) glucose, urine (UA) auto rfx negative negative Glucose , Urine (UA) Auto Rfx [place] ([facility]) protein, urine auto rfx negative negative Protein, Uri ne Auto Rfx [place] ([facility]) specific gravity ur auto rfx >1.060 1.002-1.035 Above high n ormal Specific [place] Ur Auto Rfx [place] ([facility]) bilirubin, urine auto rfx negative negative Bilirubin, Urine Auto Rfx [place] ([facility]) ketone, urine auto rfx trace negative Above high normal Ketone , Urine Auto Rfx [place] ([facility]) urobilinogen, urine auto rfx 0.2 mg/dL 0.0-2.0 Urobili nogen, Urine Auto Rfx [place] ([facility]) leukocyte esterase ur auto rfx negative negative Leukocyte Esterase Ur Auto Rfx [place] ([facility]) nitrite, urine auto rfx negative negative Nitrite, Uri ne Auto Rfx [place] ([facility]) RBC, urine auto rfx 0 /hpf 0-3 RBC, Urine Auto Rfx [place] ([facility]) blood, urine blood rfx negative negative Blood, Urine Blood Rfx [place] ([facility]) WBC, urine auto rfx 0 /hpf 0-3 WBC, Urine Auto Rfx [place] ([facility]) squam epithelial cell ur aurfx 2 /hpf 0-6 Squam Epithelial Cell Ur Aurfx [place] ([facility]) mucus, urine rfx small negative Mucus, Urine Rfx AT [facility] ([facility]) bacteria, urine auto rfx negative negative Bacteria, U rine Auto Rfx [place] ([facility]) hyaline cast, urine auto rfx 0 /lpf 0-1 Hyaline Cast, Urine Auto Rfx [place] ([facility]) ID Date Data Source [id number] 08/30/2020 12:44:00 AM EDT [place] ([facility]) Name Value Range Interpretation Code Description Data Ophelia rce(s) Supporting Document(s) appearance, urine rfx clear clear Appearance, Ur ine Rfx [place] ([facility]) color, urine rfx yellow yellow Color, Urine Rfx AT [place] ([facility]) pH,urine rfx 5.0 units 5.0-9.0 pH,urine Rfx [place] (No [facility]) specific gravity ur auto rfx >1.060 1.002-1.035 Above high n ormal Specific [place] Ur Auto Rfx [place] ([facility]) protein, urine auto rfx negative negative Protein, Uri ne Auto Rfx [place] ([facility]) glucose, urine (UA) auto rfx negative negative Glucose , Urine (UA) Auto Rfx [place] ([facility]) ketone, urine auto rfx trace negative Above high normal Ketone , Urine Auto Rfx [place] ([facility]) bilirubin, urine auto rfx negative negative Bilirubin, Urine Auto Rfx [place] ([facility]) urobilinogen, urine auto rfx 0.2 mg/dL 0.0-2.0 Urobili nogen, Urine Auto Rfx [place] ([facility]) nitrite, urine auto rfx negative negative Nitrite, Uri ne Auto Rfx [place] ([facility]) leukocyte esterase ur auto rfx negative negative Leukocyte Esterase Ur Auto Rfx [place] ([facility]) blood, urine blood rfx negative negative Blood, Urine Blood Rfx [place] ([facility]) WBC, urine auto rfx 0 /hpf 0-3 WBC, Urine Auto Rfx [place] ([facility]) bacteria, urine auto rfx negative negative Bacteria, U rine Auto Rfx [place] ([facility]) RBC, urine auto rfx 0 /hpf 0-3 RBC, Urine Auto Rfx [place] ([facility]) squam epithelial cell ur aurfx 2 /hpf 0-6 Squam Epithelial Cell Ur Aurfx [place] ([facility]) mucus, urine rfx small negative Mucus, Urine Rfx AT [facility] ([facility]) hyaline cast, urine auto rfx 0 /lpf 0-1 Hyaline Cast, Urine Auto Rfx [place] ([facility]) ID Date Data Source [id number] 08/29/2020 08:48:00 PM EDT [facility]) Name Value Range Interpretation Code Description Data Ophelia rce(s) Supporting Document(s) ID Date Data Source [id number] 08/29/2020 08:48:00 PM EDT [facility]) Name Value Range Interpretation Code Description Data Ophelia rce(s) Supporting Document(s) ID Date Data Source [id number] 08/29/2020 08:48:00 PM EDT [facility]) Name Value Range Interpretation Code Description Data Ophelia rce(s) Supporting Document(s) ID Date Data Source [id number] 08/29/2020 08:48:00 PM EDT [facility]) Name Value Range Interpretation Code Description Data Ophelia rce(s) Supporting Document(s) ID Date Data Source [id number] 08/29/2020 08:48:00 PM EDT [facility]) Name Value Range Interpretation Code Description Data Ophelia rce(s) Supporting Document(s) ID Date Data Source [id number] 08/29/2020 08:48:00 PM EDT [facility]) Name Value Range Interpretation Code Description Data Ophelia rce(s) Supporting Document(s) ID Date Data Source [id number] 08/29/2020 08:08:00 PM EDT POLO ([facility]) Name Value Range Interpretation Code Description Data Ophelia rce(s) Supporting Document(s) ferritin 21 NG/mL 8-252 Ferritin POL[place] ([facility]) ID Date Data Source [id number] 08/29/2020 08:08:00 PM EDT [place] ([facility]) Name Value Range Interpretation Code Description Data Ophelia rce(s) Supporting Document(s) vitamin B12 level 287 pg/mL Vitamin B12 Level [place] ([facility]) folate 7.8 NG/mL Folate [place] ([facility]) ID Date Data Source [id number] 08/29/2020 08:08:00 PM EDT POL[place] ([facility]) Name Value Range Interpretation Code Description Data Ophelia rce(s) Supporting Document(s) total iron binding capacity 431 ug/dL 250-450 Total Ir on Binding Capacity POLO ([facility]) iron (fe) 8 ug/dL 50-170 Below low normal Iron (Fe) [place] ( [facility]) percent saturation 1.9 % 13.2-45.0 Below low normal Percent Sat uration POLO ([facility]) ID Date Data Source [id number] 08/29/2020 08:08:00 PM EDT POL[place] ([facility]) Name Value Range Interpretation Code Description Data Ophelia rce(s) Supporting Document(s) HCG, serum qualitative negative negative [facility], [facility] ID Date Data Source [id number] 08/29/2020 08:08:00 [facility] Name Value Range Interpretation Code Description Data Ophelia rce(s) Supporting Document(s) lipase 42 U/L 73-393 Below low normal Lipase POLO ( [facility]) ID Date Data Source [id number] 08/29/2020 08:08:00 PM EDT POL[place] ([facility]) Name Value Range Interpretation Code Description Data Ophelia rce(s) Supporting Document(s) glucose, fasting 115 mg/dL 70-100 Above high normal Glucose, Fas ting POLO ([facility]) blood urea nitrogen 9 mg/dL 7-18 Blood Urea Nitro gen POLO ([facility]) glomerular filtration rate > 60.0 >60 Glomerula r Filtration Rate POLO ([facility]) creatinine for GFR 0.68 mg/dL 0.55-1.30 Creatinine for GF R POLO ([facility]) sodium level 140 mEq/L 136-145 Sodium Level POLO ([facility]) potassium serum 3.6 mEq/L 3.5-5.1 Potassium [facility] carbon dioxide level 26 mEq/L 21-32 Carbon Dioxide Level [place] ([facility]) chloride level 109 mEq/L 98-107 Above high normal Chloride Level POLO ([facility]) calcium level 8.3 mg/dL 8.5-10.1 Below low normal Calcium Level AT [place] ([facility]) anion gap 5 mEq/L 8-16 Below low normal Anion Gap POLO ( [facility]) ID Date Data Source [id number] 08/29/2020 08:08:00 PM EDT [place] ([facility]) Name Value Range Interpretation Code Description Data Ophelia rce(s) Supporting Document(s) AST/SGOT 8 U/L 7-37 AST/SGOT [place] ([facility]) ALT/SGPT 17 U/L 12-78 ALT/SGPT [place] ([facility]) bilirubin,total 0.7 mg/dL 0.2-1.0 Bilirubin,total ATHE ([facility]) alkaline phosphatase 88 U/L 45-117 Alkaline Phosph atase POL[place] ([facility]) albumin 3.5 gm/dL 3.2-5.2 Albumin POLO ([facility]) total protein 7.1 gm/dL 6.4-8.2 Total Protein POLO ( [facility]) bilirubin,direct 0.3 mg/dL 0.0-0.2 Above high normal Bilirubin,di rect POLO ([facility]) albumin/globulin ratio 1.2-2.2 Below low normal Albumin /globulin Ratio POLO ([facility]) ID Date Data Source [id number] 08/29/2020 08:08:00 PM EDT [facility]) Name Value Range Interpretation Code Description Data Ophelia rce(s) Supporting Document(s) lactic acid sepsis protocol 1.0 mmol/L 0.4-2.0 Lactic A jaswant Sepsis Protocol [place] ([facility]) ID Date Data Source [id number] 08/29/2020 08:08:00 PM EDT [place] ([facility]) Name Value Range Interpretation Code Description Data Ophelia rce(s) Supporting Document(s) white blood count 23.6 10 4.0-10.0 Above high normal White Blood Count [place] ([facility]) hematocrit 33.4 % 36.0-47.0 Below low normal Hematocrit [place] ( [facility]) red blood count 3.66 10 4.00-5.40 Below low normal Red Blood Coun t POLO ([facility]) hemoglobin 10.9 g/dL 12.0-15.5 Below low normal Hemoglobin POLO ( [facility]) mean corpuscular volume 91.3 fL 80.0-96.0 Mean Corpusc ular Volume POLO ([facility]) mean corpuscular hemoglobin 29.8 pg 27.0-33.0 Mean Cor puscular Hemoglobin POLO ([facility]) red cell distribution width 14.2 % 11.5-14.5 Red Cell Distribution Width POLO ([facility]) mean corpuscular HGB conc 32.6 g/dL 32.0-36.5 Mean Corpu scular HGB Conc POLO ([facility]) platelet count, automated 372 10 150-450 Platelet C ount, Automated POLO ([facility]) neutrophils % 92.7 % 36.0-66.0 Above high normal Neutrophils % A THENA ([facility]) mono % 1.9 % 2.0-8.0 Below low normal [place] % POLO ( [facility]) lymph % 4.2 % 24.0-44.0 Below low normal Lymph % POLO ( [facility]) baso % 0.2 % 0.0-1.0 Baso % POLO ([facility]) eos % 0.2 % 0.0-3.0 Eos % POLO ([facility]) neutrophils # 21.8 10 1.5-8.5 Above high normal Neutrophils # A THENA ([facility]) immature granulocyte % 0.8 % 0-3.0 Immature Gran ulocyte % POLO ([facility]) nucleated red blood cell % 0.0 % 0-0 Nucleated Red Blood Cell % POL[place] ([facility]) lymph # 1.0 10 1.5-5.0 Below low normal Lymph # POLO ( [facility]) eos # 0.0 10 0.0-0.5 Eos # POLO ([facility]) mono # 0.5 10 0.0-0.8 [place] # POLO ([facility]) baso # 0.1 10 0.0-0.2 Baso # POLO ([facility]) ID Date Data Source [id number] 08/29/2020 08:08:00 PM EDT [place] ([facility]) Name Value Range Interpretation Code Description Data Ophelia rce(s) Supporting Document(s) ferritin 21 NG/mL 8-252 Ferritin POL[place] ([facility]) ID Date Data Source [id number] 08/29/2020 08:08:00 PM EDT [place] ([facility]) Name Value Range Interpretation Code Description Data Ophelia rce(s) Supporting Document(s) folate 7.8 NG/mL Folate POL[place] ([facility]) vitamin B12 level 287 pg/mL Vitamin B12 Level HENDERSON ([facility]) ID Date Data Source [id number] 08/29/2020 08:08:00 PM EDT [facility]) Name Value Range Interpretation Code Description Data Ophelia rce(s) Supporting Document(s) iron (fe) 8 ug/dL 50-170 Below low normal Iron (Fe) HENDERSON ( [facility]) percent saturation 1.9 % 13.2-45.0 Below low normal Percent Sat uration [place]ENDERSON ([facility]) total iron binding capacity 431 ug/dL 250-450 Total Ir on Binding Capacity [facility] ID Date Data Source [id number] 08/29/2020 08:08:00 PM EDT [place] ([facility]) Name Value Range Interpretation Code Description Data Ophelia rce(s) Supporting Document(s) HCG, serum qualitative negative negative HCG, Serum Qu alitative [facility]) ID Date Data Source [id number] 08/29/2020 08:08:00 PM EDT [facility] Name Value Range Interpretation Code Description Data Ophelia rce(s) Supporting Document(s) lipase 42 U/L 73-393 Below low normal Lipase [place] ( [facility]) ID Date Data Source [id number] 08/29/2020 08:08:00 PM EDT [facility] Name Value Range Interpretation Code Description Data Ophelia rce(s) Supporting Document(s) glucose, fasting 115 mg/dL 70-100 Above high normal Glucose, Fas ting [facility]) creatinine for GFR 0.68 mg/dL 0.55-1.30 Creatinine for GF R POLO ([facility]) glomerular filtration rate > 60.0 >60 Glomerula r Filtration Rate POLO ([facility]) sodium level 140 mEq/L 136-145 Sodium Level POLO (No [facility]) blood urea nitrogen 9 mg/dL 7-18 Blood Urea Nitro gen POLO ([facility]) potassium serum 3.6 mEq/L 3.5-5.1 Potassium Serum ATHE NA ([facility]) chloride level 109 mEq/L 98-107 Above high normal Chloride Level POLO ([facility]) carbon dioxide level 26 mEq/L 21-32 Carbon Dioxide Level POLO ([facility]) anion gap 5 mEq/L 8-16 Below low normal Anion Gap POLO ( [facility]) calcium level 8.3 mg/dL 8.5-10.1 Below low normal Calcium Level AT [facility]) ID Date Data Source [id number] 08/29/2020 08:08:00 PM EDT POLO ([facility]) Name Value Range Interpretation Code Description Data Ophelia rce(s) Supporting Document(s) AST/SGOT 8 U/L 7-37 AST/SGOT [place] ([facility]) ALT/SGPT 17 U/L 12-78 ALT/SGPT [place] ([facility]) bilirubin,total 0.7 mg/dL 0.2-1.0 Bilirubin,total ATHE ([facility]) alkaline phosphatase 88 U/L 45-117 Alkaline Phosph atase POL[facility] ([facility]) total protein 7.1 gm/dL 6.4-8.2 Total Protein POLO ( [facility]) albumin/globulin ratio 1.2-2.2 Below low normal Albumin /globulin Ratio POLO ([facility]) albumin 3.5 gm/dL 3.2-5.2 Albumin [facility] ([facility]) bilirubin,direct 0.3 mg/dL 0.0-0.2 Above high normal Bilirubin,di rect POLO ([facility]) ID Date Data Source [id number] 08/29/2020 08:08:00 PM EDT [place] ([facility]) Name Value Range Interpretation Code Description Data Ophelia rce(s) Supporting Document(s) lactic acid sepsis protocol 1.0 mmol/L 0.4-2.0 Lactic A jaswant Sepsis Protocol [place] ([facility]) ID Date Data Source [id number] 08/29/2020 08:08:00 PM EDT [place] ([facility]) Name Value Range Interpretation Code Description Data Ophelia rce(s) Supporting Document(s) white blood count 23.6 10 4.0-10.0 Above high normal White Blood Count [place] ([facility]) red blood count 3.66 10 4.00-5.40 Below low normal Red Blood Coun t [facility]) hematocrit 33.4 % 36.0-47.0 Below low normal Hematocrit [place] ( [facility]) hemoglobin 10.9 g/dL 12.0-15.5 Below low normal Hemoglobin [place] ( [facility]) mean corpuscular volume 91.3 fL 80.0-96.0 Mean Corpusc ular Volume [place] ([facility]) mean corpuscular hemoglobin 29.8 pg 27.0-33.0 Mean Cor puscular Hemoglobin [place] ([facility]) mean corpuscular HGB conc 32.6 g/dL 32.0-36.5 Mean Corpu scular HGB Conc [place] ([facility]) red cell distribution width 14.2 % 11.5-14.5 Red Cell Distribution Width [place] ([facility]) platelet count, automated 372 10 150-450 [facility], [facility] neutrophils % 92.7 % 36.0-66.0 Above high normal Neutrophils % A THENA ([facility]) lymph % 4.2 % 24.0-44.0 Below low normal Lymph % [facility]) mono % 1.9 % 2.0-8.0 Below low normal [place] % [place]ERSON ( [facility]) eos % 0.2 % 0.0-3.0 Eos % POLO ([facility]) baso % 0.2 % 0.0-1.0 Baso % POLO ([facility]) immature granulocyte % 0.8 % 0-3.0 Immature Gran ulocyte % POLO ([facility]) nucleated red blood cell % 0.0 % 0-0 Nucleated Red Blood Cell % POLO ([facility]) neutrophils # 21.8 10 1.5-8.5 Above high normal Neutrophils # A THENA ([facility]) mono # 0.5 10 0.0-0.8 [place] # POLO ([facility]) lymph # 1.0 10 1.5-5.0 Below low normal Lymph # POLO ( [facility]) eos # 0.0 10 0.0-0.5 Eos # POLO ([facility]) baso # 0.1 10 0.0-0.2 Baso # POLO ([facility]) ID Date Data Source [id number] 08/29/2020 08:08:00 PM EDT POLO ([facility]) Name Value Range Interpretation Code Description Data Ophelia rce(s) Supporting Document(s) ferritin 21 NG/mL 8-252 Ferritin POL[facility] ([facility]) ID Date Data Source [id number] 08/29/2020 08:08:00 PM EDT POLO ([facility]) Name Value Range Interpretation Code Description Data Ophelia rce(s) Supporting Document(s) vitamin B12 level 287 pg/mL Vitamin B12 Level POLO ([facility]) folate 7.8 NG/mL Folate POL[place] ([facility]) ID Date Data Source [id number] 08/29/2020 08:08:00 PM EDT POLO ([facility]) Name Value Range Interpretation Code Description Data Ophelia rce(s) Supporting Document(s) total iron binding capacity 431 ug/dL 250-450 Total Ir on Binding Capacity POLO ([facility]) iron (fe) 8 ug/dL 50-170 Below low normal Iron (Fe) POLO ( [facility]) percent saturation 1.9 % 13.2-45.0 Below low normal Percent Sat uration POL[place] ([facility]) ID Date Data Source [id number] 08/29/2020 08:08:00 PM EDT [place] ([facility]) Name Value Range Interpretation Code Description Data Ophelia rce(s) Supporting Document(s) HCG, serum qualitative negative negative HCG, Serum Qu alitative POLO ([facility]) ID Date Data Source [id number] 08/29/2020 08:08:00 PM EDT [facility] Name Value Range Interpretation Code Description Data Ophelia rce(s) Supporting Document(s) lipase 42 U/L 73-393 Below low normal Lipase [place] ( [facility]) ID Date Data Source [id number] 08/29/2020 08:08:00 PM EDT [facility] Name Value Range Interpretation Code Description Data Ophelia rce(s) Supporting Document(s) glucose, fasting 115 mg/dL 70-100 Above high normal Glucose, Fas ting POLO ([facility]) creatinine for GFR 0.68 mg/dL 0.55-1.30 Creatinine for GF R POLO ([facility]) glomerular filtration rate > 60.0 >60 Glomerula r Filtration Rate POLO ([facility]) blood urea nitrogen 9 mg/dL 7-18 Blood Urea Nitro gen POLO ([facility]) carbon dioxide level 26 mEq/L 21-32 Carbon Dioxide Level POLO ([facility]) potassium serum 3.6 mEq/L 3.5-5.1 Potassium Serum ATHE NA ([facility]) sodium level 140 mEq/L 136-145 [facility] chloride level 109 mEq/L 98-107 Above high normal Chloride Level POLO ([facility]) anion gap 5 mEq/L 8-16 Below low normal Anion Gap POLO ( [facility]) calcium level 8.3 mg/dL 8.5-10.1 Below low normal Calcium Level AT MAY ([facility]) ID Date Data Source [id number] 08/29/2020 08:08:00 PM EDT POLO ([facility]) Name Value Range Interpretation Code Description Data Ophelia rce(s) Supporting Document(s) AST/SGOT 8 U/L 7-37 AST/SGOT [place] ([facility]) ALT/SGPT 17 U/L 12-78 ALT/SGPT [place] ([facility]) bilirubin,direct 0.3 mg/dL 0.0-0.2 Above high normal Bilirubin,di rect POL[place] ([facility]) bilirubin,total 0.7 mg/dL 0.2-1.0 Bilirubin,total ATHE NA ([facility]) alkaline phosphatase 88 U/L 45-117 Alkaline Phosph atase POL[place] ([facility]) total protein 7.1 gm/dL 6.4-8.2 Total Protein POLO ( [facility]) albumin 3.5 gm/dL 3.2-5.2 Albumin POL[place] ([facility]) albumin/globulin ratio 1.2-2.2 Below low normal Albumin /globulin Ratio POLO ([facility]) ID Date Data Source [id number] 08/29/2020 08:08:00 PM EDT POL[place] ([facility]) Name Value Range Interpretation Code Description Data Ophelia rce(s) Supporting Document(s) lactic acid sepsis protocol 1.0 mmol/L 0.4-2.0 Lactic A jaswant Sepsis Protocol POLO ([facility]) ID Date Data Source [id number] 08/29/2020 08:08:00 PM EDT POLO ([facility]) Name Value Range Interpretation Code Description Data Ophelia rce(s) Supporting Document(s) white blood count 23.6 10 4.0-10.0 Above high normal White Blood Count POLO ([facility]) hematocrit 33.4 % 36.0-47.0 Below low normal Hematocrit POLO ( [facility]) red blood count 3.66 10 4.00-5.40 Below low normal Red Blood Coun t POLO ([facility]) hemoglobin 10.9 g/dL 12.0-15.5 Below low normal Hemoglobin POLO ( [facility]) mean corpuscular volume 91.3 fL 80.0-96.0 Mean Corpusc ular Volume POLO ([facility]) mean corpuscular hemoglobin 29.8 pg 27.0-33.0 Mean Cor puscular Hemoglobin POLO ([facility]) red cell distribution width 14.2 % 11.5-14.5 Red Cell Distribution Width POLO ([facility]) platelet count, automated 372 10 150-450 Platelet C ount, Automated POLO ([facility]) mean corpuscular HGB conc 32.6 g/dL 32.0-36.5 Mean Corpu scular HGB Conc POLO ([facility]) neutrophils % 92.7 % 36.0-66.0 Above high normal Neutrophils % [facility] ([facility]) mono % 1.9 % 2.0-8.0 Below low normal [place] % POLO ( [facility]) lymph % 4.2 % 24.0-44.0 Below low normal Lymph % POLO ( [facility]) eos % 0.2 % 0.0-3.0 Eos % POLO ([facility]) baso % 0.2 % 0.0-1.0 Baso % POL[facility] ([facility]) nucleated red blood cell % 0.0 % 0-0 Nucleated Red Blood Cell % POL[facility] ([facility]) neutrophils # 21.8 10 1.5-8.5 Above high normal Neutrophils # [facility] immature granulocyte % 0.8 % 0-3.0 Immature Gran ulocyte % POLO ([facility]) baso # 0.1 10 0.0-0.2 Baso # [facility] ([facility]) mono # 0.5 10 0.0-0.8 [place] # POLO ([facility]) eos # 0.0 10 0.0-0.5 Eos # POL[place] ([facility]) lymph # 1.0 10 1.5-5.0 Below low normal Lymph # [place] ( [facility]) ID Date Data Source [id number] 07/06/2020 12:00:00 AM EST [facility] Name Value Range Interpretation Code Description Data Ophelia rce(s) Supporting Document(s) SARS coronavirus 2 Ag Negative [facility] This lab was ordered by [facility] and reported by [facility]. ID Date Data Source [id number] 03/17/2020 03:05:04 PM EDT [facility] Vital SignsBlood Pressure: 157/111 left arm sitting automaticMultiple Vital SignsVitals #2BP: 157/98 Name Value Range Interpretation Code Description Data Ophelia rce(s) Supporting Document(s) Procedure Social History No Information Vital Signs ID Date Data Source UNK Name Value Range Interpretation Code Description Data Source(s) Body height 65 [in_i] 65 [in_i] POLO ([facility]) Diastolic blood pressure 78 mm[Hg] 78 mm[Hg] POL[facility] ([facility]) Body height 65 [in_i] 65 [in_i] [facility] ([facility]) Body mass index (BMI) [Ratio] 29.2 kg/m2 29.2 k g/m2 POL[facility] ([facility]) Systolic blood pressure 129 mm[Hg] 129 mm[Hg] Celina THENA ([facility]) Body weight 2804 [oz_av] 2804 [oz_av] [facility] ([facility]) Diastolic blood pressure 78 mm[Hg] 78 mm[Hg] [facility] ([facility]) Body height 65 [in_i] 65 [in_i] [facility] ([facility]) Body mass index (BMI) [Ratio] 29.2 kg/m2 29.2 k g/m2 POL[facility] ([facility]) Systolic blood pressure 129 mm[Hg] 129 mm[Hg] A THENA ([facility]) Body weight 2804 [oz_av] 2804 [oz_av] [facility] ([facility]) Diastolic blood pressure 78 mm[Hg] 78 mm[Hg] POLO ([facility]) Body height 65 [in_i] 65 [in_i] [facility]O ([facility]) Body mass index (BMI) [Ratio] 29.2 kg/m2 29.2 k g/m2 POL[facility] ([facility]) Systolic blood pressure 129 mm[Hg] 129 mm[Hg] A THENA ([facility]) Body weight 2804 [oz_av] 2804 [oz_av] POL[facility] ([facility]) Body height 65 [in_i] 65 [in_i] POLO ([facility]) Body height 65 [in_i] 65 [in_i] POLO ([facility]) Body height 65 [in_i] 65 [in_i] [facility] ([facility]) Body height 65 [in_i] 65 [in_i] [facility] ([facility]) Diastolic blood pressure 111 mm[Hg] 111 mm[Hg] [facility] ([facility]) Systolic blood pressure 157 mm[Hg] 157 mm[Hg] [facility] Diastolic blood pressure 111 mm[Hg] 111 mm[Hg] [facility] ([facility]) Systolic blood pressure 157 mm[Hg] 157 mm[Hg] [facility] Diastolic blood pressure 111 mm[Hg] 111 mm[Hg] POLO ([facility]) Systolic blood pressure 157 mm[Hg] 157 mm[Hg] A [facility] ([facility]) Diastolic blood pressure 111 mm[Hg] 111 mm[Hg] POLO ([facility]) Systolic blood pressure 157 mm[Hg] 157 mm[Hg] A THENA ([facility]) Patient Treatment Plan of Care Planned Activity Planned Date Details Description Data Source (s) Tri-Lo-Desirae 0.18/0.215/0.25 mg-25 mcg tablet POLO ([facility]) Levonorgestrel 1.5 MG Oral Tablet [Take Action] POLO ([facility]) Sucralfate 1000 MG Oral Tablet POLO ([facility]) Spironolactone 25 MG Oral Tablet POLO ([facility]) Phentermine Hydrochloride 15 MG Oral Capsule POLO ([facility]) Oxycodone Hydrochloride 5 MG Oral Tablet POLO ([facility]) Ondansetron 4 MG Oral Tablet POLO ([facility]) Misoprostol 0.2 MG Oral Tablet POLO ([facility]) Isibloom 0.15 mg-0.03 mg tablet TAKE ONE TABLET BY MOUTH EVERY DAY POLO ([facility]) Fluconazole 150 MG Oral Tablet POLO ([facility]) Cephalexin 500 MG Oral Capsule POLO ([facility]) Amoxicillin 875 MG / Clavulanate 125 MG Oral Tablet POLO ([facility]) Levonorgestrel 1.5 MG Oral Tablet [Take Action] POLO ([facility]) Spironolactone 25 MG Oral Tablet POLO ([facility]) Phentermine Hydrochloride 15 MG Oral Capsule POLO ([facility]) Oxycodone Hydrochloride 5 MG Oral Tablet POLO ([facility]) Cephalexin 500 MG Oral Capsule POLO ([facility]) Levonorgestrel 1.5 MG Oral Tablet [Take Action] POLO ([facility]) Spironolactone 25 MG Oral Tablet POLO ([facility]) Phentermine Hydrochloride 15 MG Oral Capsule POLO ([facility]) Oxycodone Hydrochloride 5 MG Oral Tablet POLO ([facility]) Cephalexin 500 MG Oral Capsule POLO ([facility]) Oxycodone Hydrochloride 5 MG Oral Tablet POLO ([facility]) Misoprostol 0.2 MG Oral Tablet POLO ([facility]) Cephalexin 500 MG Oral Capsule POLO ([facility])
--- OUTSIDE RECORDS SUMMARY | 2021-04-16 11:29 | CCD ---
Author Author [facility] Address Unknown Phone Unavailable Support Name Relationship Address Phone FEDEXG Next Of Kin [address] [place] [address] Gregory Wesley Next Of Kin Unknown Unavailable [place] [address] CONCENTRGEO Next Of Kin [address] [place] [address] Javier Patel MD Next Of Kin [address] [place] [address] CONVERGGENA Next Of Kin [address] [place] [address] Bettye Champagne Next Of Kin [address] [place], [place] [id number] UE Next Of Kin Unknown Unavailable Melissa Jovel Next Of Kin [address] [place] [address] [address] [place] Next Of Kin [address] [facility] [address] [place] [address] CARLTON MCCLENDON Next Of Kin [address] [place] [address] CONVERGY'S Next Of Kin [address] [place] [address] YO, RAQUEL Next Of Kin [address] [place] [address] [place] [address] STREAM Next Of Kin [address] [place] [address] RAM, EPHRAIN Next Of Kin [address] [place] [id number] [employer]ICE [employer] EASY Next Of Kin [address] [place] [address] Unavailable LAZARO SOTO Next Of Kin [address] [place] [address] LAZARO SOTO ECON [address] [place] [address] Unavailable Care Team Providers Care Curriculum Supervisor Name Role Phone Rodriguez, E Bettye REPEAT CHIEF Unavailable Unavailable Rodriguez, E Bettye REPEAT CHIEF Unavailable Unavailable Rodriguez, E Bettye REPEAT CHIEF Unavailable Unavailable Rodriguez, E Bettye REPEAT CHIEF Unavailable Unavailable Rodriguez, E Bettye REPEAT CHIEF Unavailable Unavailable Rodriguez, E Bettye REPEAT CHIEF Unavailable Unavailable Rodriguez, E Bettye REPEAT CHIEF Unavailable Unavailable Rodriguez, E Bettye REPEAT CHIEF Unavailable Unavailable Rodriguez, E Bettye REPEAT CHIEF Unavailable Unavailable Rodriguez, E Bettye REPEAT CHIEF Unavailable Unavailable Rodriguez, E Bettye REPEAT CHIEF Unavailable Unavailable Rodriguez, E Bettye REPEAT CHIEF Unavailable Unavailable Rodriguez, E Bettye REPEAT CHIEF Unavailable Unavailable Rodriguez, E Bettye REPEAT CHIEF Unavailable Unavailable Rodriguez, E Bettye REPEAT CHIEF Unavailable Unavailable Rodriguez, E Bettye REPEAT CHIEF Unavailable Unavailable Rodriguez, E Bettye REPEAT CHIEF Unavailable Unavailable Rodriguez, E Bettye REPEAT CHIEF Unavailable Unavailable Rodriguez, E Bettye REPEAT CHIEF Unavailable Unavailable Rodriguez, E Bettye REPEAT CHIEF Unavailable Unavailable Rodriguez, E Bettye REPEAT CHIEF Unavailable Unavailable Rodriguez, E Bettey REPEAT CHIEF Unavailable Unavailable Rodriguez, E Bettye REPEAT CHIEF Unavailable Unavailable Scordo, M Meggan PA Unavailable Unavailable Scordo, M Meggan PA Unavailable Unavailable Scordo, M Meggan PA Unavailable Unavailable Scordo, M Emggan PA Unavailable Unavailable Scordo, M Meggan PA [...] Scordo, M Meggan PA Unavailable Unavailable Asif, Presto Nichelle Unavailable Unavailable Asif, Presto Nichelle Unavailable Unavailable Asif, Presto Nichelle Unavailable Unavailable Asif, Presto Nichelle Unavailable Unavailable Asif, Presto Nichelle Unavailable Unavailable Asif, Presto Nichelle Unavailable Unavailable Asif, Presto Nichelle Unavailable Unavailable Asif, Presto Nichelle Unavailable Unavailable Asif, Presto Nichelle Unavailable Unavailable Asif, Presto Nichelle Unavailable Unavailable Asif, Presto Nichelle Unavailable Unavailable Asif, Presto Nichelle Unavailable Unavailable Asif, Presto Nichelle Unavailable Unavailable Re-disclosure Warning The records [...] is protected by Article 27-F of the [facility] Public Health law. If you continue you may have access to information: Regarding HIV / AIDS; Provided by facilities licensed or operated by the [facility] Office of Mental Health; or Provided by the [facility] Office for People With Developmental Disabilities. If such information is present, then the following [facility] mandated warning applies: This information has been [...] law may result in a fine or alf sentence or both. A general authorization for the release of medical or other information is NOT sufficient authorization for further disc losure. Family History Family Member Name Family Member Gender Family Member Status Date o f Status Description Data Source(s) Unknown Female Problem MEDENT ([facility] ) Encounters Encounter Providers Location Date Indications Data Source(s ) Meggan Azar PA-C: [address] [place] [address], Ph. Attender: Meggan SEGOVIA [facility] Medical 02/15/2021 12:00:00 AM EDT ISELIN ([facility]) JOE ReyesC: [address] [place] [address], Ph. Attender: Nichelle Asif [facility] Medical 09/12/2020 12:00:00 AM EDT POLO ([facility]) EDI Reyes: [address] [place] [address], Ph. Attender: Nichelle Asif [facility] Medical 09/12/2020 12:00:00 AM EDT ISELIN ([facility]) Meggan Azar PA-C: [address] [place] [address], Ph. Attender: Meggan SEGOVIA [facility] Medical 09/08/2020 12:00:00 AM EDT ISELIN ([facility]) Meggan Azar PA-C: [address], [place] [address], Ph. Attender: Meggan SEGOVIA [facility] Medical 09/08/2020 12:00:00 AM EDT ISELIN ([facility]) Meggan Azar PA-C: [address], [place] [address], Ph. Attender: Meggan SEGOVIA [facility] Medical 09/08/2020 12:00:00 AM EDT ISELIN ([facility]) CAS VasquesBC: [address], [place] [address], Ph. Attender: Bettye Rodriguez NP [facility] Medical 07/12/2020 12:00:00 AM EST POLO ([facility]) TJ Vasques: [address], [place] [address], Ph. Attender: Bettye Rodriguez NP [facility] Medical 07/12/2020 12:00:00 AM EST POLO ([facility]) TJ Vasques: [address], [place] [address], Ph. Attender: Bettye Rodriguez NP [facility] Medical 07/12/2020 12:00:00 AM EST POLO ([facility]) CAS VasquesBC: [address], [place] [address], Ph. Attender: Bettye Rodriguez NP [facility] Medical 07/12/2020 12:00:00 AM EST POLO ([facility]) Outpatient FP 03/21/2020 02:56:03 PM EDT [facility] Outpatient FP 03/15/2020 12:10:00 PM EDT [facility] Outpatient FP 03/15/2020 08:37:00 AM EDT [facility] Outpatient FP 02/17/2020 02:46:42 PM EDT [facility] Outpatient FP 02/15/2020 02:55:00 PM EDT [facility] Immunizations Vaccine Date Status Description Data Source(s) COVID-19 VACCINE Moderna 11/04/2020 12:00:00 AM EDT completed [facility] Vaccine Series Complete: YESThis Data wa s Submitted to [facility] [employer]. COVID-19 VACCINE Moderna 10/07/2020 12:00:00 AM EDT completed [facility] Vaccine Series Complete: YESThis Data wa s Submitted to [facility] [employer]. COVID-19 vaccine, vector-nr, rS-Ad26, PF, 0.5 mL 09/14/2020 10:07:32 AM EDT completed .5 mL POLO ([facility]) COVID-19 vaccine, vector-nr, rS-Ad26, PF, 0.5 mL 09/14/2020 10:07:32 AM EDT completed .5 mL POLO ([facility]) COVID-19 VACCINE Marlee 09/14/2020 12:00:00 AM EDT completed [facility] Vaccine Series Complete: YESThis Data wa s Submitted to [facility] [employer]. Medications Medication Brand Name Start Date Product Form Dose Route Admi nistrative Instructions Pharmacy Instructions Status Indications Reaction Description Data Source(s) 40 mg 03/05/2021 12:00:00 AM EDT capsule,delayed release (DR/EC) 60 TAKE ONE CAPSULE BY MOUTH TWICE A DAY TAKE ONE CAPSULE BY MOUTH TWICE A DAY SOLD: 03/07/2021 [facility] 24 HR Bupropion Hydrochloride 150 MG Extended [...] 30 MINUTES BEFORE MEALS SOLD: 08/14/2020 [facility] Isibloom 28 Day Pack 0.15-0.03 mg DESOGESTREL-ETHINYL ESTRAD IOL 07/21/2020 12:00:00 AM EST tablet 84 TAKE ONE TABLET BY MOUTH EVERY DAY TAKE ONE TABLET BY MOUTH EVERY DAY SOLD: 08/14/2020 [facility] 4 mg 07/21/2020 12:00:00 AM EST tablet 10 TAKE ONE TABLET BY MOUTH EVERY 4 HOURS NEEDED TAKE ONE TABLET BY MOUTH EVERY 4 HOURS NEEDED SOLD: 08/14/2020 [facility] Misoprostol 0.2 MG Oral Tablet 200 mcg MISOPROSTOL 12:00:00 AM EST tablet 120 TAKE ONE TABLET BY M OUTH FOUR TIMES A DAY WITH MEALS AND AT BEDTIME TAKE ONE TABLET BY MOUTH FOUR TIMES A DAY WITH MEALS A ND AT BEDTIME SOLD: 08/14/2020 [facility] Misoprostol 0.2 MG Oral Tablet misoprost ol 200 mcg tablet TAKE ONE TABLET BY MOUTH FOUR TIMES A DAY WITH MEALS AND AT BEDTIME misoprostol 200 mcg tablet TAKE ONE TABLET BY MOUTH FOUR TIMES A DAY WITH MEALS AND AT BEDTIME completed misoprostol 0.2 MG Oral Tablet A THENA ([facility]) Fluconazole 150 MG Oral Tablet fluconazole 150 mg tabl et fluconazole 150 mg tablet completed fluconazole 150 MG Oral Tablet POLO ([facility]) Phentermine Hydrochloride 15 MG Oral Cap jesica phentermine 15 mg capsule TAKE 1 CAPSULE BY MOUTH ONCE DAILY phentermine 15 mg capsule TAKE 1 CAPSULE BY MOUTH ONCE DAILY completed phe ntermine hydrochloride 15 MG Oral Capsule POLO ([facility]) Levonorgestrel 1.5 MG Oral Tablet [Take Action] Take Action 1.5 mg tablet TAKE DIRECTED Take Action 1.5 mg tablet TAKE DIRECTED completed levonorgestrel 1.5 MG Oral Tablet [Take Action] ISELIN ([facility]) Oxycodone Hydrochloride 5 MG Oral Tablet oxycodone [...] oxycodone hydroc hloride 5 MG Oral Tablet ISELIN ([facility]) Oxycodone Hydrochloride 5 MG Oral Tablet oxycodone [...] oxycodone hydroc hloride 5 MG Oral Tablet ISELIN ([facility]) Spironolactone 25 MG Oral Tablet spironolactone 25 mg tablet spironolactone 25 mg tablet completed spironolacto ne 25 MG Oral Tablet ISELIN ([facility]) Ondansetron 4 MG Oral Tablet ondansetron HCl 4 mg tablet TAKE ONE TABLET BY MOUTH EVERY 4 HOURS NEEDED ondansetron HCl 4 mg tablet TAKE ONE TAB LET BY MOUTH EVERY 4 HOURS NEEDED complete d ondansetron 4 MG Oral Tablet POLO ([facility]) Sucralfate 1000 MG Oral Tablet sucralfate 1 gram table t sucralfate 1 gram tablet completed sucralfate 1000 MG Oral Tablet ISELIN ([facility]) Cephalexin 500 MG Oral Capsule cephalexi n 500 mg capsule TAKE 1 CAPSULE BY MOUTH EVERY 6 HOURS FOR 7 DAYS cephalexin 500 mg capsule TAKE 1 CAPSULE BY MOUTH EVERY 6 HOURS FOR 7 DAYS completed cep halexin 500 MG Oral Capsule ISELIN ([facility]) Phentermine Hydrochloride 15 MG Oral Cap jesica phentermine 15 mg capsule TAKE 1 CAPSULE BY MOUTH ONCE DAILY phentermine 15 mg capsule TAKE 1 CAPSULE BY MOUTH ONCE DAILY completed phe ntermine hydrochloride 15 MG Oral Capsule POLO ([facility]) Oxycodone Hydrochloride 5 MG Oral Tablet oxycodone [...] oxycodone hydroc hloride 5 MG Oral Tablet ISELIN ([facility]) Amoxicillin 875 MG / Clavulanate 125 MG Oral Tablet amoxicillin 875 mg-potassium clavulanate 125 mg tablet TAKE ONE TABLET BY MOUTH TWO TIMES A DAY amoxicillin 875 mg-potassium clavulanate 125 mg tablet TAKE ONE TABLET BY MOUTH TWO TIMES A DAY completed amoxici llin 875 MG / clavulanate 125 MG Oral Tablet POLO ([facility]) Oxycodone Hydrochloride 5 MG Oral Tablet oxycodone [...] oxycodone hydroc hloride 5 MG Oral Tablet ISELIN ([facility]) Cephalexin 500 MG Oral Capsule cephalexi n 500 mg capsule TAKE 1 CAPSULE BY MOUTH EVERY 6 HOURS FOR 7 DAYS cephalexin 500 mg capsule TAKE 1 CAPSULE BY MOUTH EVERY 6 HOURS FOR 7 DAYS completed cep halexin 500 MG Oral Capsule ISELIN ([facility]) Tri-Lo-Desirae 0.18/0.215/0.25 mg-25 mcg tablet [id number] completed Tri-Lo-Desirae 0.18/0.215/0.25 mg-25 mcg tablet ISELIN ([facility]) Phentermine Hydrochloride 15 MG Oral Cap jesica phentermine 15 mg capsule TAKE 1 CAPSULE BY MOUTH ONCE DAILY phentermine 15 mg capsule TAKE 1 CAPSULE BY MOUTH ONCE DAILY completed phe ntermine hydrochloride 15 MG Oral Capsule POOL ([facility] er) Cephalexin 500 MG Oral Capsule cephalexi n 500 mg capsule TAKE 1 CAPSULE BY MOUTH EVERY 6 HOURS FOR 7 DAYS cephalexin 500 mg capsule TAKE 1 CAPSULE BY MOUTH EVERY 6 HOURS FOR 7 DAYS completed cep halexin 500 MG Oral Capsule POLO ([facility]) Levonorgestrel 1.5 MG Oral Tablet [Take Action] Take Action 1.5 mg tablet TAKE DIRECTED Take Action 1.5 mg tablet TAKE DIRECTED completed levonorgestrel 1.5 MG Oral Tablet [Take Action] POLO ([facility]) Isibloom 0.15 mg-0.03 mg tablet TAKE ONE TABLET BY MOUTH EVERY DAY [id number] completed Isibloom 0.15 mg-0.0 3 mg tablet ISELIN ([facility]) Spironolactone 25 MG Oral Tablet spironolactone 25 mg tablet spironolactone 25 mg tablet completed spironolacto ne 25 MG Oral Tablet ISELIN ([facility]) Levonorgestrel 1.5 MG Oral Tablet [Take Action] Take Action 1.5 mg tablet TAKE DIRECTED Take Action 1.5 mg tablet TAKE DIRECTED completed levonorgestrel 1.5 MG Oral Tablet [Take Action] ISELIN ([facility]) Misoprostol 0.2 MG Oral Tablet misoprostol 200 mcg tab let misoprostol 200 mcg tablet completed misoprostol 0.2 MG Oral Tablet ISELIN ([facility]) Spironolactone 25 MG Oral Tablet spironolactone 25 mg tablet spironolactone 25 mg tablet completed spironolacto ne 25 MG Oral Tablet POLO ([facility]) Cephalexin 500 MG Oral Capsule cephalexi n 500 mg capsule TAKE 1 CAPSULE BY MOUTH EVERY 6 HOURS FOR 7 DAYS cephalexin 500 mg capsule TAKE 1 CAPSULE BY MOUTH EVERY 6 HOURS FOR 7 DAYS completed cep halexin 500 MG Oral Capsule POLO ([facility]) Insurance Providers Payer name Policy type / Coverage type Policy ID Covered constitution party ID Covered constitution party's relationship to knight Policy Knight Plan Information Managed Care - Community Plan [facility] [id number] S [id number] Medicaid S [id number] [facility] Community Plan Medigap Part B [id number] Self [id number] [facility] Community Plan Medigap Part [id number] Self Managed Care - Community Plan [facility] P [id number] S [id number] Managed Care - MVP P [id number] S [id number] Medicaid S [id number] [facility]) Workers Compensation [id number] Self [id number] WORKERS COMPENSATION GENERIC W [id number] Empl [id number] KAYLEE CLAIM MGMT W [id number] Empl [id number] [facility]) Workers Compensation . [id number] Self [facility]) Workers Compensation [id number] Self [id number] MVP MCDHMO [id number] SP [id number] MVP [id number] Elaine [id number] MVP MEDICAID [id number] xxxxxxxxxxx [id number] MVP MEDICAID [id number] Elaine [id number] Medicaid S [id number] MVP I [id number] Self [id number] Medicaid S [id number] S [id number] Managed Care - MVP P [id number] S [id number] Medicaid S [id number] S [id number] INSURANCE COVID-19 COVID Elaine C OVID INSURANCE COVID-19 [id number] MVP PI PI MVP Medicaid Commercial [id number] Self [id number] [facility] [id number] SP [id number] MVP MCDHMO [id number] SP [id number] KAYLEE CLAIM SERVICES O [id number] S [id number] [facility] STORE [id number] SP [id number] [facility] [id number] SP [id number] ONE CALL CARE MANAGEMENT O [id number] S [id number] [facility]MERLY [facility] COMMUNITY PLAN [id number] [id number] SP [id number] [facility] O [id number] S [id number] SELF PAY UNAVAILABLE SP UNAVAILA BLE BLUE CROSS PARTIDA PLAN [id number] SP [id number] [facility] Medicaid Commercial [id number] Self [id number] [facility] [id number] SP [id number] SELF PAY ONLY [facility] [id number] SP [id number] Sliding Fee Scale O [id number] S [id number] O BLUE [id number] SP [id number] P HEALTH CARE O [id number] S [id number] [facility] MCDO [id number] SP [id number] MEDICAID M [id number] S [id number] MEDICAID [id number] SP [id number] P Medicaid Commercial [id number] Self [id number] P Medicaid Commercial [id number] Self [id number] P Medicaid Commercial [id number] Self [id number] [facility] Commercial [id number] Self [id number] [facility] O [id number] S [id number] MVP Medicaid Commercial [id number] Self [id number] MVP Medicaid Commercial [id number] Self [id number] MVP MEDICAID PI [facility] [id number] SP [id number] MVP Medicaid Commercial [id number] Self [id number] MVP Medicaid Commercial [id number] Self [id number] MVP MCDHMO [id number] SP [id number] MVP Medicaid Commercial [id number] Self [id number] Problems, Conditions, and Diagnoses Code Display Name Description Problem Type Effective Dates Data Source(s) [id number] Contraception care management Contraception Care Manag ement Problem 03/10/2019 12:00:00 AM EDT - 09/11/2020 12:00:00 AM EDT POLO ([facility]) [id number] Contraception care management Contraception Care Manag ement Problem 03/10/2019 12:00:00 AM EDT - 09/11/2020 12:00:00 AM EDT POLO ([facility]) [id number] Contraception care management Contraception Care Manag ement Problem 03/10/2019 12:00:00 AM EDT - 09/11/2020 12:00:00 AM EDT POLO ([facility]) [id number] Dental caries on smooth surface penetrat ing into pulp Dental Caries on Smooth Surface Penetrating into Pulp Problem 017 12:00:00 AM EST - 09/11/2020 12:00:00 AM EDT POLO ([facility]) 61057180 Crowding of teeth Crowding of Teeth Problem 04/23 12:00:00 AM EST - 09/11/2020 12:00:00 AM EDT POLO ([facility]) [id number] Dental caries on smooth surface penetrat ing into pulp Dental Caries on Smooth Surface Penetrating into Pulp Problem 017 12:00:00 AM EST - 09/11/2020 12:00:00 AM EDT POLO ([facility]) [id number] Crowding of teeth Crowding of Teeth Problem 04/23 12:00:00 AM EST - 09/11/2020 12:00:00 AM EDT POLO ([facility]) [id number] Dental caries on smooth surface penetrat ing into pulp Dental Caries on Smooth Surface Penetrating into Pulp Problem 017 12:00:00 AM EST - 09/11/2020 12:00:00 AM EDT POLO ([facility]) [id number] Crowding of teeth Crowding of Teeth Problem 04/23 12:00:00 AM EST - 09/11/2020 12:00:00 AM EDT POLO ([facility]) 843121925 Pre-surgery testing Pre-surgery Testing Problem 1 12:00:00 AM EDT - 09/11/2020 12:00:00 AM EDT POLO ([facility]) [id number] Streptococcal sore throat Streptococcal Sore Throat Pr oblem 03/31/2017 12:00:00 AM EDT - 09/11/2020 12:00:00 AM EDT POLO ([facility]) [id number] Pre-surgery testing Pre-surgery Testing Problem 1 12:00:00 AM EDT - 09/11/2020 12:00:00 AM EDT POLO ([facility]) [id number] Streptococcal sore throat Streptococcal Sore Throat Pr oblem 03/31/2017 12:00:00 AM EDT - 09/11/2020 12:00:00 AM EDT POLO ([facility]) [id number] Pre-surgery testing Pre-surgery Testing Problem 1 12:00:00 AM EDT - 09/11/2020 12:00:00 AM EDT POLO ([facility]) [id number] Streptococcal sore throat Streptococcal Sore Throat Pr oblem 03/31/2017 12:00:00 AM EDT - 09/11/2020 12:00:00 AM EDT POLO ([facility]) [id number] Clinical finding Clinical Finding Problem 017 12:00:00 AM EDT - 07/12/2020 12:00:00 AM EST POLO ([facility]) [id number] Clinical finding Clinical Finding Problem 017 12:00:00 AM EDT - 07/12/2020 12:00:00 AM EST POLO ([facility]) [id number] Clinical finding Clinical Finding Problem 017 12:00:00 AM EDT - 07/12/2020 12:00:00 AM EST POLO ([facility]) 873241303 Clinical finding Clinical Finding Problem 017 12:00:00 AM EDT - 07/12/2020 12:00:00 AM EST POLO ([facility]) [id number] Procedure by method Procedure by Method Problem 0 11/12/2016 12:00:00 AM EDT - 07/12/2020 12:00:00 AM EST POLO ([facility]) 133352745 Abnormal weight gain Abnormal Weight Gain Problem 11/12/2016 12:00:00 AM EDT - 09/11/2020 12:00:00 AM EDT POLO ([facility]) [id number] Procedure by method Procedure by Method Problem 0 11/12/2016 12:00:00 AM EDT - 07/12/2020 12:00:00 AM EST POLO ([facility]) 142512496 Abnormal weight gain Abnormal Weight Gain Problem 11/12/2016 12:00:00 AM EDT - 09/11/2020 12:00:00 AM EDT POLO ([facility]) [id number] Procedure by method Procedure by Method Problem 0 11/12/2016 12:00:00 AM EDT - 07/12/2020 12:00:00 AM EST POLO ([facility]) [id number] Abnormal weight gain Abnormal Weight Gain Problem 11/12/2016 12:00:00 AM EDT - 09/11/2020 12:00:00 AM EDT POLO ([facility]) [id number] Procedure by method Procedure by Method Problem 0 11/12/2016 12:00:00 AM EDT - 07/12/2020 12:00:00 AM EST POLO ([facility]) Surgeries/Procedures No Information Results ID Date Data Source [id number] 09/02/2020 05:46:00 AM EDT [facility]) Name Value Range Interpretation Code Description Data Ophelia rce(s) Supporting Document(s) glucose, fasting 82 mg/dL 70-100 Glucose, Fasting AT [facility]) blood urea nitrogen 5 mg/dL 7-18 Below low normal Blood Urea Nitrogen ISELIN ([facility]) creatinine for GFR 0.59 mg/dL 0.55-1.30 Creatinine for GF R ISELIN ([facility]) sodium level 143 mEq/L 136-145 Sodium Level ISELIN (No [facility]) glomerular filtration rate > 60.0 >60 Glomerula r Filtration Rate ISELIN ([facility]) potassium serum 3.5 mEq/L 3.5-5.1 [facility] chloride level 112 mEq/L 98-107 Above high normal Chloride Level ISELIN ([facility]) carbon dioxide level 27 mEq/L 21-32 Carbon Dioxide Level [facility]) anion gap 4 mEq/L 8-16 Below low normal Anion Gap ISELIN ( [facility]) calcium level 8.0 mg/dL 8.5-10.1 Below low normal Calcium Level AT [facility]) ID Date Data Source [id number] 09/02/2020 05:46:00 AM EDT [facility]) Name Value Range Interpretation Code Description Data Ophelia rce(s) Supporting Document(s) white blood count 5.8 10 4.0-10.0 White Blood Count ISELIN ([facility]) red blood count 2.92 10 4.00-5.40 Below low normal Red Blood Coun t POLO ([facility]) hematocrit 26.9 % 36.0-47.0 Below low normal Hematocrit ISELIN ( [facility]) hemoglobin 8.7 g/dL 12.0-15.5 Below low normal Hemoglobin POLO ( [facility]) mean corpuscular volume 92.1 fL 80.0-96.0 Mean Corpusc ular Volume POLO ([facility]) mean corpuscular HGB conc 32.3 g/dL 32.0-36.5 Mean Corpu scular HGB Conc ISELIN ([facility]) mean corpuscular hemoglobin 29.8 pg 27.0-33.0 Mean Cor puscular Hemoglobin ISELIN ([facility]) platelet count, automated 353 10 150-450 Platelet C ount, Automated POLO ([facility]) red cell distribution width 13.8 % 11.5-14.5 Red Cell Distribution Width ISELIN ([facility]) nucleated red blood cell % 0.0 % 0-0 Nucleated Red Blood Cell % ISELIN ([facility]) ID Date Data Source [id number] 09/02/2020 05:46:00 AM EDT [facility]) Name Value Range Interpretation Code Description Data Ophelia rce(s) Supporting Document(s) glucose, fasting 82 mg/dL 70-100 Glucose, Fasting AT [facility]) blood urea nitrogen 5 mg/dL 7-18 Below low normal Blood Urea Nitrogen POLO ([facility]) creatinine for GFR 0.59 mg/dL 0.55-1.30 Creatinine for GF R POLO ([facility]) glomerular filtration rate > 60.0 >60 Glomerula r Filtration Rate POLO ([facility]) potassium serum 3.5 mEq/L 3.5-5.1 Potassium Serum ATHE NA ([facility]) sodium level 143 mEq/L 136-145 Sodium Level POLO (No [facility]) chloride level 112 mEq/L 98-107 Above high normal Chloride Level POLO ([facility]) carbon dioxide level 27 mEq/L 21-32 Carbon Dioxide Level POLO ([facility]) calcium level 8.0 mg/dL 8.5-10.1 Below low normal Calcium Level AT [facility] ([facility]) anion gap 4 mEq/L 8-16 Below low normal Anion Gap ISELIN ( [facility]) ID Date Data Source [id number] 09/02/2020 05:46:00 AM EDT [facility]) Name Value Range Interpretation Code Description Data Ophelia rce(s) Supporting Document(s) white blood count 5.8 10 4.0-10.0 White Blood Count ISELIN ([facility]) hemoglobin 8.7 g/dL 12.0-15.5 Below low normal Hemoglobin ISELIN ( [facility]) red blood count 2.92 10 4.00-5.40 Below low normal Red Blood Coun t ISELIN ([facility]) mean corpuscular volume 92.1 fL 80.0-96.0 Mean Corpusc ular Volume ISELIN ([facility]) hematocrit 26.9 % 36.0-47.0 Below low normal Hematocrit ISELIN ( [facility]) mean corpuscular hemoglobin 29.8 pg 27.0-33.0 Mean Cor puscular Hemoglobin ISELIN ([facility]) mean corpuscular HGB conc 32.3 g/dL 32.0-36.5 Mean Corpu scular HGB Conc ISELIN ([facility]) platelet count, automated 353 10 150-450 Platelet C ount, Automated POLO ([facility]) red cell distribution width 13.8 % 11.5-14.5 Red Cell Distribution Width ISELIN ([facility]) nucleated red blood cell % 0.0 % 0-0 Nucleated Red Blood Cell % ISELIN ([facility]) ID Date Data Source [id number] 09/02/2020 05:46:00 AM EDT [facility]) Name Value Range Interpretation Code Description Data Ophelia rce(s) Supporting Document(s) glucose, fasting 82 mg/dL 70-100 Glucose, Fasting AT [facility] ([facility]) blood urea nitrogen 5 mg/dL 7-18 Below low normal Blood Urea Nitrogen POLO ([facility]) creatinine for GFR 0.59 mg/dL 0.55-1.30 Creatinine for GF R ISELIN ([facility]) sodium level 143 mEq/L 136-145 Sodium Level ISELIN ([facility]) glomerular filtration rate > 60.0 >60 Glomerula r Filtration Rate POLO ([facility]) chloride level 112 mEq/L 98-107 Above high normal Chloride Level ISELIN ([facility]) potassium serum 3.5 mEq/L 3.5-5.1 Potassium Serum [facility]) carbon dioxide level 27 mEq/L 21-32 Carbon Dioxide Level ISELIN ([facility]) anion gap 4 mEq/L 8-16 Below low normal Anion Gap ISELIN ( [facility]) calcium level 8.0 mg/dL 8.5-10.1 Below low normal Calcium Level AT [facility] ([facility]) ID Date Data Source [id number] 09/02/2020 05:46:00 AM EDT [facility]) Name Value Range Interpretation Code Description Data Ophelia rce(s) Supporting Document(s) red blood count 2.92 10 4.00-5.40 Below low normal Red Blood Coun t ISELIN ([facility]) white blood count 5.8 10 4.0-10.0 White Blood Count [facility]) hematocrit 26.9 % 36.0-47.0 Below low normal Hematocrit ISELIN ( [facility]) hemoglobin 8.7 g/dL 12.0-15.5 Below low normal Hemoglobin ISELIN ( [facility]) mean corpuscular hemoglobin 29.8 pg 27.0-33.0 Mean Cor puscular Hemoglobin ISELIN ([facility]) mean corpuscular volume 92.1 fL 80.0-96.0 Mean Corpusc ular Volume ISELIN ([facility]) red cell distribution width 13.8 % 11.5-14.5 Red Cell Distribution Width POLO ([facility]) mean corpuscular HGB conc 32.3 g/dL 32.0-36.5 Mean Corpu scular HGB Conc POLO ([facility]) platelet count, automated 353 10 150-450 Platelet C ount, Automated POLO ([facility]) nucleated red blood cell % 0.0 % 0-0 Nucleated Red Blood Cell % ISELIN ([facility]) ID Date Data Source [id number] 09/01/2020 05:13:00 AM EDT [facility]) Name Value Range Interpretation Code Description Data Ophelia rce(s) Supporting Document(s) blood urea nitrogen 4 mg/dL 7-18 Below low normal Blood Urea Nitrogen POLO ([facility]) glucose, fasting 104 mg/dL 70-100 Above high normal Glucose, Fas ting ISELIN ([facility]) glomerular filtration rate > 60.0 >60 Glomerula r Filtration Rate ISELIN ([facility]) creatinine for GFR 0.57 mg/dL 0.55-1.30 Creatinine for GF R ISELIN ([facility]) potassium serum 3.6 mEq/L 3.5-5.1 Potassium Serum ATH NA ([facility]) sodium level 144 mEq/L 136-145 Sodium Level POLO (No [facility]) chloride level 111 mEq/L 98-107 Above high normal Chloride Level POLO ([facility]) carbon dioxide level 28 mEq/L 21-32 Carbon Dioxide Level ISELIN ([facility]) anion gap 5 mEq/L 8-16 Below low normal Anion Gap POLO ( [facility]) calcium level 7.8 mg/dL 8.5-10.1 Below low normal Calcium Level AT [facility]) ID Date Data Source [id number] 09/01/2020 05:13:00 AM EDT [facility]) Name Value Range Interpretation Code Description Data Ophelia rce(s) Supporting Document(s) white blood count 6.5 10 4.0-10.0 White Blood Count POLO ([facility]) red blood count 2.85 10 4.00-5.40 Below low normal Red Blood Coun t POLO ([facility]) hematocrit 26.0 % 36.0-47.0 Below low normal Hematocrit POLO ( [facility]) hemoglobin 8.3 g/dL 12.0-15.5 Below low normal Hemoglobin ISELIN ( [facility]) mean corpuscular volume 91.2 fL 80.0-96.0 Mean Corpusc ular Volume POLO ([facility]) mean corpuscular hemoglobin 29.1 pg 27.0-33.0 Mean Cor puscular Hemoglobin ISELIN ([facility]) mean corpuscular HGB conc 31.9 g/dL 32.0-36.5 Below low mary l Mean Corpuscular HGB Conc ISELIN ([facility]) red cell distribution width 13.9 % 11.5-14.5 Red Cell Distribution Width ISELIN ([facility]) platelet count, automated 301 10 150-450 Platelet C ount, Automated ISELIN ([facility]) nucleated red blood cell % 0.0 % 0-0 Nucleated Red Blood Cell % ISELIN ([facility]) ID Date Data Source [id number] 09/01/2020 05:13:00 AM EDT ISELIN ([facility]) Name Value Range Interpretation Code Description Data Ophelia rce(s) Supporting Document(s) glucose, fasting 104 mg/dL 70-100 Above high normal Glucose, Fas ting POLO ([facility]) blood urea nitrogen 4 mg/dL 7-18 Below low normal Blood Urea Nitrogen ISELIN ([facility]) creatinine for GFR 0.57 mg/dL 0.55-1.30 Creatinine for GF R POLO ([facility]) glomerular filtration rate > 60.0 >60 Glomerula r Filtration Rate POLO ([facility]) potassium serum 3.6 mEq/L 3.5-5.1 Potassium Serum ATH NA ([facility]) sodium level 144 mEq/L 136-145 Sodium Level POLO ([facility]) carbon dioxide level 28 mEq/L 21-32 Carbon Dioxide Level ISELIN ([facility]) chloride level 111 mEq/L 98-107 Above high normal Chloride Level ISELIN ([facility]) calcium level 7.8 mg/dL 8.5-10.1 Below low normal Calcium Level AT [facility]) anion gap 5 mEq/L 8-16 Below low normal Anion Gap ISELIN ( [facility]) ID Date Data Source [id number] 09/01/2020 05:13:00 AM EDT ISELIN ([facility]) Name Value Range Interpretation Code Description Data Ophelia rce(s) Supporting Document(s) white blood count 6.5 10 4.0-10.0 White Blood Count ISELIN ([facility]) red blood count 2.85 10 4.00-5.40 Below low normal Red Blood Coun t ISELIN ([facility]) hemoglobin 8.3 g/dL 12.0-15.5 Below low normal Hemoglobin ISELIN ( [facility]) hematocrit 26.0 % 36.0-47.0 Below low normal Hematocrit ISELIN ( [facility]) mean corpuscular volume 91.2 fL 80.0-96.0 Mean Corpusc ular Volume ISELIN ([facility]) mean corpuscular HGB conc 31.9 g/dL 32.0-36.5 Below low mary l Mean Corpuscular HGB Conc ISELIN ([facility]) mean corpuscular hemoglobin 29.1 pg 27.0-33.0 Mean Cor puscular Hemoglobin ISELIN ([facility]) platelet count, automated 301 10 150-450 Platelet C ount, Automated POLO ([facility]) red cell distribution width 13.9 % 11.5-14.5 Red Cell Distribution Width ISELIN ([facility]) nucleated red blood cell % 0.0 % 0-0 Nucleated Red Blood Cell % ISELIN ([facility]) ID Date Data Source [id number] 09/01/2020 05:13:00 AM EDT [facility]) Name Value Range Interpretation Code Description Data Ophelia rce(s) Supporting Document(s) glucose, fasting 104 mg/dL 70-100 Above high normal Glucose, Fas ting POLO ([facility]) blood urea nitrogen 4 mg/dL 7-18 Below low normal Blood Urea Nitrogen POLO ([facility]) creatinine for GFR 0.57 mg/dL 0.55-1.30 Creatinine for GF R POLO ([facility]) glomerular filtration rate > 60.0 >60 Glomerula r Filtration Rate POLO ([facility]) sodium level 144 mEq/L 136-145 Sodium Level POLO ([facility]) potassium serum 3.6 mEq/L 3.5-5.1 [facility] gap 5 mEq/L 8-16 Below low normal Anion Gap ISELIN ( [facility]) chloride level 111 mEq/L 98-107 Above high normal Chloride Level ISELIN ([facility]) carbon dioxide level 28 mEq/L 21-32 Carbon Dioxide Level ISELIN ([facility]) calcium level 7.8 mg/dL 8.5-10.1 Below low normal Calcium Level AT [facility]) ID Date Data Source [id number] 09/01/2020 05:13:00 AM EDT [facility]) Name Value Range Interpretation Code Description Data Ophelia rce(s) Supporting Document(s) white blood count 6.5 10 4.0-10.0 White Blood Count ISELIN ([facility]) red blood count 2.85 10 4.00-5.40 Below low normal Red Blood Coun t POLO ([facility]) hemoglobin 8.3 g/dL 12.0-15.5 Below low normal Hemoglobin ISELIN ( [facility]) hematocrit 26.0 % 36.0-47.0 Below low normal Hematocrit ISELIN ( [facility]) mean corpuscular volume 91.2 fL 80.0-96.0 Mean Corpusc ular Volume ISELIN ([facility]) mean corpuscular hemoglobin 29.1 pg 27.0-33.0 Mean Cor puscular Hemoglobin POLO ([facility]) mean corpuscular HGB conc 31.9 g/dL 32.0-36.5 Below low mary l Mean Corpuscular HGB Conc POLO ([facility]) red cell distribution width 13.9 % 11.5-14.5 Red Cell Distribution Width POLO ([facility]) platelet count, automated 301 10 150-450 Platelet C ount, Automated POLO ([facility]) nucleated red blood cell % 0.0 % 0-0 Nucleated Red Blood Cell % ISELIN ([facility]) ID Date Data Source [id number] 09/01/2020 01:49:00 AM EDT [facility]) Name Value Range Interpretation Code Description Data Ophelia rce(s) Supporting Document(s) bedside glucose 103 mg/dL 70-105 Bedside Glucose ATHMacie ([facility]) ID Date Data Source [id number] 09/01/2020 01:49:00 AM EDT [facility]) Name Value Range Interpretation Code Description Data Ophelia rce(s) Supporting Document(s) bedside glucose 103 mg/dL 70-105 Bedside Glucose ATHE ([facility]) ID Date Data Source [id number] 09/01/2020 01:49:00 AM EDT [facility]) Name Value Range Interpretation Code Description Data Ophelia rce(s) Supporting Document(s) bedside glucose 103 mg/dL 70-105 Bedside Glucose ATHE ([facility]) ID Date Data Source [id number] 08/31/2020 01:10:00 PM EDT [facility]) Name Value Range Interpretation Code Description Data Ophelia rce(s) Supporting Document(s) blood urea nitrogen 8 mg/dL 7-18 Blood Urea Nitro gen ISELIN [facility]) glucose, fasting 87 mg/dL 70-100 Glucose, Fasting AT [facility] ([facility]) creatinine for GFR 0.68 mg/dL 0.55-1.30 Creatinine for GF R POLO ([facility]) sodium level 141 mEq/L 136-145 Sodium Level POLO (No [facility]) glomerular filtration rate > 60.0 >60 Glomerula r Filtration Rate POLO ([facility]) potassium serum 3.8 mEq/L 3.5-5.1 Potassium Serum ATH NA ([facility]) chloride level 108 mEq/L 98-107 Above high normal Chloride Level ISELIN ([facility]) anion gap 5 mEq/L 8-16 Below low normal Anion Gap ISELIN ( [facility]) carbon dioxide level 28 mEq/L 21-32 Carbon Dioxide Level ISELIN ([facility]) calcium level 8.0 mg/dL 8.5-10.1 Below low normal Calcium Level AT [facility] ([facility]) ID Date Data Source [id number] 08/31/2020 01:10:00 PM EDT ISELIN ([facility]) Name Value Range Interpretation Code Description Data Ophelia rce(s) Supporting Document(s) white blood count 9.8 10 4.0-10.0 White Blood Count ISELIN ([facility]) red blood count 3.05 10 4.00-5.40 Below low normal Red Blood Coun t ISELIN ([facility]) hemoglobin 9.1 g/dL 12.0-15.5 Below low normal Hemoglobin ISELIN ( [facility]) hematocrit 28.2 % 36.0-47.0 Below low normal Hematocrit ISELIN ( [facility]) mean corpuscular hemoglobin 29.8 pg 27.0-33.0 Mean Cor puscular Hemoglobin ISELIN ([facility]) mean corpuscular volume 92.5 fL 80.0-96.0 Mean Corpusc ular Volume POLO ([facility]) red cell distribution width 14.3 % 11.5-14.5 Red Cell Distribution Width ISELIN ([facility]) mean corpuscular HGB conc 32.3 g/dL 32.0-36.5 Mean Corpu scular HGB Conc ISELIN ([facility]) platelet count, automated 325 10 150-450 Platelet C ount, Automated ISELIN ([facility]) nucleated red blood cell % 0.0 % 0-0 Nucleated Red Blood Cell % ISELIN ([facility]) ID Date Data Source [id number] 08/31/2020 01:10:00 PM EDT [facility]) Name Value Range Interpretation Code Description Data Ophelia rce(s) Supporting Document(s) glucose, fasting 87 mg/dL 70-100 Glucose, Fasting AT [facility]) creatinine for GFR 0.68 mg/dL 0.55-1.30 Creatinine for GF R [facility]) blood urea nitrogen 8 mg/dL 7-18 Blood Urea Nitro gen ISELIN ([facility]) glomerular filtration rate > 60.0 >60 Glomerula r Filtration Rate ISELIN ([facility]) potassium serum 3.8 mEq/L 3.5-5.1 Potassium Serum ATH NA ([facility]) sodium level 141 mEq/L 136-145 Sodium Level ISELIN (No [facility]) chloride level 108 mEq/L 98-107 Above high normal Chloride Level ISELIN ([facility]) calcium level 8.0 mg/dL 8.5-10.1 Below low normal Calcium Level AT [facility]) anion gap 5 mEq/L 8-16 Below low normal Anion Gap ISELIN ( [facility]) carbon dioxide level 28 mEq/L 21-32 Carbon Dioxide Level ISELIN ([facility]) ID Date Data Source [id number] 08/31/2020 01:10:00 PM EDT [facility]) Name Value Range Interpretation Code Description Data Ophelia rce(s) Supporting Document(s) red blood count 3.05 10 4.00-5.40 Below low normal Red Blood Coun t [facility]) white blood count 9.8 10 4.0-10.0 White Blood Count POLO ([facility]) mean corpuscular volume 92.5 fL 80.0-96.0 Mean Corpusc ular Volume POLO ([facility]) hemoglobin 9.1 g/dL 12.0-15.5 Below low normal Hemoglobin POLO ( [facility]) hematocrit 28.2 % 36.0-47.0 Below low normal Hematocrit POLO ( [facility]) mean corpuscular hemoglobin 29.8 pg 27.0-33.0 Mean Cor puscular Hemoglobin ISELIN ([facility]) platelet count, automated 325 10 150-450 Platelet C ount, Automated POLO ([facility]) red cell distribution width 14.3 % 11.5-14.5 Red Cell Distribution Width ISELIN ([facility]) mean corpuscular HGB conc 32.3 g/dL 32.0-36.5 Mean Corpu scular HGB Conc ISELIN ([facility]) nucleated red blood cell % 0.0 % 0-0 Nucleated Red Blood Cell % ISELIN ([facility]) ID Date Data Source [id number] 08/31/2020 01:10:00 PM EDT ISELIN ([facility]) Name Value Range Interpretation Code Description Data Ophelia rce(s) Supporting Document(s) glucose, fasting 87 mg/dL 70-100 Glucose, Fasting AT [facility]) creatinine for GFR 0.68 mg/dL 0.55-1.30 Creatinine for GF R ISELIN ([facility]) blood urea nitrogen 8 mg/dL 7-18 Blood Urea Nitro gen POLO ([facility]) glomerular filtration rate > 60.0 >60 Glomerula r Filtration Rate POLO ([facility]) sodium level 141 mEq/L 136-145 Sodium Level POLO ([facility]) chloride level 108 mEq/L 98-107 Above high normal Chloride Level POLO ([facility]) carbon dioxide level 28 mEq/L 21-32 Carbon Dioxide Level ISELIN ([facility]) potassium serum 3.8 mEq/L 3.5-5.1 Potassium Serum ATHE NA ([facility]) anion gap 5 mEq/L 8-16 Below low normal Anion Gap POLO ( [facility]) calcium level 8.0 mg/dL 8.5-10.1 Below low normal Calcium Level AT MAY ([facility]) ID Date Data Source [id number] 08/31/2020 01:10:00 PM EDT ISELIN ([facility]) Name Value Range Interpretation Code Description Data Ophelia rce(s) Supporting Document(s) white blood count 9.8 10 4.0-10.0 White Blood Count POLO ([facility]) red blood count 3.05 10 4.00-5.40 Below low normal Red Blood Coun t POLO ([facility]) hemoglobin 9.1 g/dL 12.0-15.5 Below low normal Hemoglobin ISELIN ( [facility]) hematocrit 28.2 % 36.0-47.0 Below low normal Hematocrit POLO ( [facility]) mean corpuscular volume 92.5 fL 80.0-96.0 Mean Corpusc ular Volume POLO ([facility]) mean corpuscular HGB conc 32.3 g/dL 32.0-36.5 Mean Corpu scular HGB Conc POLO ([facility]) mean corpuscular hemoglobin 29.8 pg 27.0-33.0 Mean Cor puscular Hemoglobin POLO ([facility]) red cell distribution width 14.3 % 11.5-14.5 Red Cell Distribution Width POLO ([facility]) platelet count, automated 325 10 150-450 Platelet C ount, Automated POLO ([facility]) nucleated red blood cell % 0.0 % 0-0 Nucleated Red Blood Cell % POLO ([facility]) ID Date Data Source [id number] 08/31/2020 05:19:00 AM EDT ISELIN ([facility]) Name Value Range Interpretation Code Description Data Ophelia rce(s) Supporting Document(s) magnesium level 2.0 mg/dL 1.8-2.4 Magnesium Level ATHE NA ([facility]) ID Date Data Source [id number] 08/31/2020 05:19:00 AM EDT [facility]) Name Value Range Interpretation Code Description Data Ophelia rce(s) Supporting Document(s) glucose, fasting 70 mg/dL 70-100 Glucose, Fasting AT [facility]) blood urea nitrogen 10 mg/dL 7-18 Blood Urea Nitro gen ISELIN ([facility]) creatinine for GFR 0.65 mg/dL 0.55-1.30 Creatinine for GF R ISELIN ([facility]) sodium level 142 mEq/L 136-145 Sodium Level ISELIN (No [facility]) glomerular filtration rate > 60.0 >60 Glomerula r Filtration Rate ISELIN ([facility]) potassium serum 3.3 mEq/L 3.5-5.1 Below low normal Potassium Seru m [facility]) carbon dioxide level 26 mEq/L 21-32 Carbon Dioxide Level [facility]) chloride level 109 mEq/L 98-107 Above high normal Chloride Level [facility]) anion gap 7 mEq/L 8-16 Below low normal Anion Gap ISELIN ( [facility]) calcium level 7.8 mg/dL 8.5-10.1 Below low normal Calcium Level AT [facility]) ID Date Data Source [id number] 08/31/2020 05:19:00 AM EDT [facility]) Name Value Range Interpretation Code Description Data Ophelia rce(s) Supporting Document(s) white blood count 11.1 10 4.0-10.0 Above high normal White Blood Count ISELIN ([facility]) hemoglobin 8.5 g/dL 12.0-15.5 Below low normal Hemoglobin ISELIN ( [facility]) red blood count 2.87 10 4.00-5.40 Below low normal Red Blood Coun t [facility]) mean corpuscular volume 92.7 fL 80.0-96.0 Mean Corpusc ular Volume POLO ([facility]) hematocrit 26.6 % 36.0-47.0 Below low normal Hematocrit ISELIN ( [facility]) mean corpuscular HGB conc 32.0 g/dL 32.0-36.5 Mean Corpu scular HGB Conc ISELIN ([facility]) mean corpuscular hemoglobin 29.6 pg 27.0-33.0 Mean Cor puscular Hemoglobin POLO ([facility]) platelet count, automated 298 10 150-450 Platelet C ount, Automated POLO ([facility]) red cell distribution width 14.4 % 11.5-14.5 Red Cell Distribution Width ISELIN ([facility]) nucleated red blood cell % 0.0 % 0-0 Nucleated Red Blood Cell % ISELIN ([facility]) ID Date Data Source [id number] 08/31/2020 05:19:00 AM EDT ISELIN ([facility]) Name Value Range Interpretation Code Description Data Ophelia rce(s) Supporting Document(s) magnesium level 2.0 mg/dL 1.8-2.4 Magnesium Level [facility] ([facility]) ID Date Data Source [id number] 08/31/2020 05:19:00 AM EDT [facility]) Name Value Range Interpretation Code Description Data Ophelia rce(s) Supporting Document(s) glucose, fasting 70 mg/dL 70-100 Glucose, Fasting AT [facility] ([facility]) blood urea nitrogen 10 mg/dL 7-18 Blood Urea Nitro gen POLO ([facility]) creatinine for GFR 0.65 mg/dL 0.55-1.30 Creatinine for GF R ISELIN ([facility]) glomerular filtration rate > 60.0 >60 Glomerula r Filtration Rate ISELIN ([facility]) sodium level 142 mEq/L 136-145 Sodium Level ISELIN (No [facility]) potassium serum 3.3 mEq/L 3.5-5.1 Below low normal Potassium Seru m ISELIN ([facility]) chloride level 109 mEq/L 98-107 Above high normal Chloride Level POLO ([facility]) carbon dioxide level 26 mEq/L 21-32 Carbon Dioxide Level POLO ([facility]) anion gap 7 mEq/L 8-16 Below low normal Anion Gap POLO ( [facility]) calcium level 7.8 mg/dL 8.5-10.1 Below low normal Calcium Level AT [facility] ([facility]) ID Date Data Source [id number] 08/31/2020 05:19:00 AM EDT ISELIN ([facility]) Name Value Range Interpretation Code Description Data Ophelia rce(s) Supporting Document(s) white blood count 11.1 10 4.0-10.0 Above high normal White Blood Count ISELIN ([facility]) red blood count 2.87 10 4.00-5.40 Below low normal Red Blood Coun t POLO ([facility]) hematocrit 26.6 % 36.0-47.0 Below low normal Hematocrit POLO ( [facility]) hemoglobin 8.5 g/dL 12.0-15.5 Below low normal Hemoglobin POLO ( [facility]) mean corpuscular volume 92.7 fL 80.0-96.0 Mean Corpusc ular Volume POLO ([facility]) mean corpuscular hemoglobin 29.6 pg 27.0-33.0 Mean Cor puscular Hemoglobin POLO ([facility]) platelet count, automated 298 10 150-450 Platelet C ount, Automated POLO ([facility]) red cell distribution width 14.4 % 11.5-14.5 Red Cell Distribution Width POLO ([facility]) mean corpuscular HGB conc 32.0 g/dL 32.0-36.5 Mean Corpu scular HGB Conc POLO ([facility]) nucleated red blood cell % 0.0 % 0-0 Nucleated Red Blood Cell % POLO ([facility]) ID Date Data Source [id number] 08/31/2020 05:19:00 AM EDT ISELIN ([facility]) Name Value Range Interpretation Code Description Data Ophelia rce(s) Supporting Document(s) magnesium level 2.0 mg/dL 1.8-2.4 Magnesium Level ATHE NA ([facility]) ID Date Data Source [id number] 08/31/2020 05:19:00 AM EDT [facility]) Name Value Range Interpretation Code Description Data Ophelia rce(s) Supporting Document(s) blood urea nitrogen 10 mg/dL 7-18 Blood Urea Nitro gen ISELIN ([facility]) glucose, fasting 70 mg/dL 70-100 Glucose, Fasting AT [facility] ([facility]) creatinine for GFR 0.65 mg/dL 0.55-1.30 Creatinine for GF R ISELIN ([facility]) glomerular filtration rate > 60.0 >60 Glomerula r Filtration Rate ISELIN ([facility]) sodium level 142 mEq/L 136-145 Sodium Level ISELIN ([facility]) potassium serum 3.3 mEq/L 3.5-5.1 Below low normal Potassium Seru m ISELIN ([facility]) chloride level 109 mEq/L 98-107 Above high normal Chloride Level ISELIN ([facility]) carbon dioxide level 26 mEq/L 21-32 Carbon Dioxide Level [facility]) anion gap 7 mEq/L 8-16 Below low normal Anion Gap ISELIN ( [facility]) calcium level 7.8 mg/dL 8.5-10.1 Below low normal Calcium Level AT [facility]) ID Date Data Source [id number] 08/31/2020 05:19:00 AM EDT [facility]) Name Value Range Interpretation Code Description Data Ophelia rce(s) Supporting Document(s) white blood count 11.1 10 4.0-10.0 Above high normal White Blood Count ISELIN ([facility]) red blood count 2.87 10 4.00-5.40 Below low normal Red Blood Coun t ISELIN ([facility]) mean corpuscular volume 92.7 fL 80.0-96.0 Mean Corpusc ular Volume POLO ([facility]) hematocrit 26.6 % 36.0-47.0 Below low normal Hematocrit POLO ( [facility]) hemoglobin 8.5 g/dL 12.0-15.5 Below low normal Hemoglobin POLO ( [facility]) mean corpuscular HGB conc 32.0 g/dL 32.0-36.5 Mean Corpu scular HGB Conc POLO ([facility]) mean corpuscular hemoglobin 29.6 pg 27.0-33.0 Mean Cor puscular Hemoglobin POLO ([facility]) platelet count, automated 298 10 150-450 Platelet C ount, Automated POLO ([facility]) red cell distribution width 14.4 % 11.5-14.5 Red Cell Distribution Width POLO ([facility]) nucleated red blood cell % 0.0 % 0-0 Nucleated Red Blood Cell % POLO ([facility]) ID Date Data Source [id number] 08/30/2020 11:45:00 PM EDT ISELIN ([facility]) Name Value Range Interpretation Code Description Data Ophelia rce(s) Supporting Document(s) bedside glucose 76 mg/dL 70-105 Bedside Glucose ATHE ([facility]) ID Date Data Source [id number] 08/30/2020 11:45:00 PM EDT ISELIN ([facility]) Name Value Range Interpretation Code Description Data Ophelia rce(s) Supporting Document(s) bedside glucose 76 mg/dL 70-105 Bedside Glucose ATHE NA ([facility]) ID Date Data Source [id number] 08/30/2020 11:45:00 PM EDT [facility]) Name Value Range Interpretation Code Description Data Ophelia rce(s) Supporting Document(s) bedside glucose 76 mg/dL 70-105 Bedside Glucose ATHE ([facility]) ID Date Data Source [id number] 08/30/2020 05:56:00 PM EDT POLO ([facility]) Name Value Range Interpretation Code Description Data Ophelia rce(s) Supporting Document(s) bedside glucose 68 mg/dL 70-105 Below low normal Bedside Glucos e POLO ([facility]) ID Date Data Source [id number] 08/30/2020 05:56:00 PM EDT POLO ([facility]) Name Value Range Interpretation Code Description Data Ophelia rce(s) Supporting Document(s) bedside glucose 68 mg/dL 70-105 Below low normal Bedside Glucos e POLO ([facility]) ID Date Data Source [id number] 08/30/2020 05:56:00 [facility] Name Value Range Interpretation Code Description Data Ophelia rce(s) Supporting Document(s) bedside glucose 68 mg/dL 70-105 Below low normal Bedside Glucos e POLO ([facility]) ID Date Data Source [id number] 08/30/2020 01:02:00 PM EDT [facility] Name Value Range Interpretation Code Description Data Ophelia rce(s) Supporting Document(s) troponin I < 0.02 < 0.10 Troponin I POLO ([facility]) ID Date Data Source [id number] 08/30/2020 01:02:00 PM EDT POLO ([facility]) Name Value Range Interpretation Code Description Data Ophelia rce(s) Supporting Document(s) troponin I < 0.02 < 0.10 Troponin I ISELIN ([facility]) ID Date Data Source [id number] 08/30/2020 01:02:00 PM EDT [facility] Name Value Range Interpretation Code Description Data Ophelia rce(s) Supporting Document(s) troponin I < 0.02 < 0.10 Troponin I POLO ([facility]) ID Date Data Source [id number] 08/30/2020 11:41:00 AM EDT [facility]) Name Value Range Interpretation Code Description Data Ophelia rce(s) Supporting Document(s) bedside glucose 75 mg/dL 70-105 Bedside Glucose ATHE NA ([facility]) ID Date Data Source [id number] 08/30/2020 11:41:00 AM EDT [facility]) Name Value Range Interpretation Code Description Data Ophelia rce(s) Supporting Document(s) bedside glucose 75 mg/dL 70-105 Bedside Glucose [facility] ([facility]) ID Date Data Source [id number] 08/30/2020 11:41:00 AM EDT [facility]) Name Value Range Interpretation Code Description Data Ophelia rce(s) Supporting Document(s) bedside glucose 75 mg/dL 70-105 Bedside Glucose [facility] ([facility]) ID Date Data Source [id number] 08/30/2020 05:16:00 AM EDT [facility]) Name Value Range Interpretation Code Description Data Ophelia rce(s) Supporting Document(s) troponin I < 0.02 < 0.10 Troponin I POLO ([facility]) ID Date Data Source [id number] 08/30/2020 05:16:00 AM EDT [facility]) Name Value Range Interpretation Code Description Data Ophelia rce(s) Supporting Document(s) blood urea nitrogen 8 mg/dL 7-18 Blood Urea Nitro gen ISELIN ([facility]) glucose, fasting 100 mg/dL 70-100 Glucose, Fasting AT [facility]) glomerular filtration rate > 60.0 >60 Glomerula r Filtration Rate POLO ([facility]) sodium level 140 mEq/L 136-145 Sodium Level POLO (No [facility]) creatinine for GFR 0.61 mg/dL 0.55-1.30 Creatinine for GF R POLO ([facility]) chloride level 108 mEq/L 98-107 Above high normal Chloride Level ISELIN ([facility]) carbon dioxide level 25 mEq/L 21-32 Carbon Dioxide Level POLO ([facility]) potassium serum 3.5 mEq/L 3.5-5.1 Potassium Serum ATH NA ([facility]) calcium level 7.7 mg/dL 8.5-10.1 Below low normal Calcium Level AT [facility] ([facility]) anion gap 7 mEq/L 8-16 Below low normal Anion Gap ISELIN ( [facility]) ID Date Data Source [id number] 08/30/2020 05:16:00 AM EDT ISELIN ([facility]) Name Value Range Interpretation Code Description Data Ophelia rce(s) Supporting Document(s) white blood count 20.6 10 4.0-10.0 Above high normal White Blood Count ISELIN ([facility]) red blood count 3.17 10 4.00-5.40 Below low normal Red Blood Coun t ISELIN ([facility]) hemoglobin 9.5 g/dL 12.0-15.5 Below low normal Hemoglobin ISELIN ( [facility]) mean corpuscular volume 91.5 fL 80.0-96.0 Mean Corpusc ular Volume POLO ([facility]) hematocrit 29.0 % 36.0-47.0 Below low normal Hematocrit POLO ( [facility]) mean corpuscular hemoglobin 30.0 pg 27.0-33.0 Mean Cor puscular Hemoglobin ISELIN ([facility]) mean corpuscular HGB conc 32.8 g/dL 32.0-36.5 Mean Corpu scular HGB Conc POLO ([facility]) red cell distribution width 14.3 % 11.5-14.5 Red Cell Distribution Width POLO ([facility]) platelet count, automated 326 10 150-450 Platelet C ount, Automated POLO ([facility]) nucleated red blood cell % 0.0 % 0-0 Nucleated Red Blood Cell % ISELIN ([facility]) ID Date Data Source [id number] 08/30/2020 05:16:00 AM EDT ISELIN ([facility]) Name Value Range Interpretation Code Description Data Ophelia rce(s) Supporting Document(s) troponin I < 0.02 < 0.10 Troponin I ISELIN ([facility]) ID Date Data Source [id number] 08/30/2020 05:16:00 AM EDT ISELIN ([facility]) Name Value Range Interpretation Code Description Data Ophelia rce(s) Supporting Document(s) glucose, fasting 100 mg/dL 70-100 Glucose, Fasting AT [facility]) blood urea nitrogen 8 mg/dL 7-18 Blood Urea Nitro gen POLO ([facility]) creatinine for GFR 0.61 mg/dL 0.55-1.30 Creatinine for GF R ISELIN ([facility]) sodium level 140 mEq/L 136-145 Sodium Level ISELIN (No [facility]) glomerular filtration rate > 60.0 >60 Glomerula r Filtration Rate ISELIN ([facility]) potassium serum 3.5 mEq/L 3.5-5.1 Potassium Serum ATH NA ([facility]) chloride level 108 mEq/L 98-107 Above high normal Chloride Level ISELIN ([facility]) calcium level 7.7 mg/dL 8.5-10.1 Below low normal Calcium Level AT [facility]) anion gap 7 mEq/L 8-16 Below low normal Anion Gap ISELIN ( [facility]) carbon dioxide level 25 mEq/L 21-32 Carbon Dioxide Level ISELIN ([facility]) ID Date Data Source [id number] 08/30/2020 05:16:00 AM EDT POLO ([facility]) Name Value Range Interpretation Code Description Data Ophelia rce(s) Supporting Document(s) white blood count 20.6 10 4.0-10.0 Above high normal White Blood Count POLO ([facility]) red blood count 3.17 10 4.00-5.40 Below low normal Red Blood Coun t ISELIN ([facility]) hemoglobin 9.5 g/dL 12.0-15.5 Below low normal Hemoglobin ISELIN ( [facility]) mean corpuscular hemoglobin 30.0 pg 27.0-33.0 Mean Cor puscular Hemoglobin ISELIN ([facility]) hematocrit 29.0 % 36.0-47.0 Below low normal Hematocrit ISELIN ( [facility]) mean corpuscular volume 91.5 fL 80.0-96.0 Mean Corpusc ular Volume ISELIN ([facility]) mean corpuscular HGB conc 32.8 g/dL 32.0-36.5 Mean Corpu scular HGB Conc POLO ([facility]) red cell distribution width 14.3 % 11.5-14.5 Red Cell Distribution Width ISELIN ([facility]) platelet count, automated 326 10 150-450 Platelet C ount, Automated POLO ([facility]) nucleated red blood cell % 0.0 % 0-0 Nucleated Red Blood Cell % ISELIN ([facility]) ID Date Data Source [id number] 08/30/2020 05:16:00 AM EDT ISELIN ([facility]) Name Value Range Interpretation Code Description Data Ophelia rce(s) Supporting Document(s) troponin I < 0.02 < 0.10 Troponin I [facility]) ID Date Data Source [id number] 08/30/2020 05:16:00 AM EDT [facility]) Name Value Range Interpretation Code Description Data Ophelia rce(s) Supporting Document(s) glucose, fasting 100 mg/dL 70-100 Glucose, Fasting AT [facility] ([facility]) blood urea nitrogen 8 mg/dL 7-18 Blood Urea Nitro gen POLO ([facility]) glomerular filtration rate > 60.0 >60 Glomerula r Filtration Rate POLO ([facility]) sodium level 140 mEq/L 136-145 Sodium Level POLO (No [facility]) creatinine for GFR 0.61 mg/dL 0.55-1.30 Creatinine for GF R POLO ([facility]) carbon dioxide level 25 mEq/L 21-32 Carbon Dioxide Level POL[facility] ([facility]) potassium serum 3.5 mEq/L 3.5-5.1 Potassium Serum ATHE NA ([facility]) chloride level 108 mEq/L 98-107 Above high normal Chloride Level ISELIN ([facility]) anion gap 7 mEq/L 8-16 Below low normal Anion Gap ISELIN ( [facility]) calcium level 7.7 mg/dL 8.5-10.1 Below low normal Calcium Level AT [facility] ([facility]) ID Date Data Source [id number] 08/30/2020 05:16:00 AM EDT ISELIN ([facility]) Name Value Range Interpretation Code Description Data Ophelia rce(s) Supporting Document(s) white blood count 20.6 10 4.0-10.0 Above high normal White Blood Count POL[facility] ([facility]) red blood count 3.17 10 4.00-5.40 Below low normal Red Blood Coun t POL[facility] ([facility]) hemoglobin 9.5 g/dL 12.0-15.5 Below low normal Hemoglobin POLO ( [facility]) hematocrit 29.0 % 36.0-47.0 Below low normal Hematocrit POLO ( [facility]) mean corpuscular volume 91.5 fL 80.0-96.0 Mean Corpusc ular Volume ISELIN ([facility]) mean corpuscular hemoglobin 30.0 pg 27.0-33.0 Mean Cor puscular Hemoglobin POLO ([facility]) mean corpuscular HGB conc 32.8 g/dL 32.0-36.5 Mean Corpu scular HGB Conc POLO ([facility]) red cell distribution width 14.3 % 11.5-14.5 Red Cell Distribution Width ISELIN ([facility]) platelet count, automated 326 10 150-450 Platelet C ount, Automated ISELIN ([facility]) nucleated red blood cell % 0.0 % 0-0 Nucleated Red Blood Cell % ISELIN ([facility]) ID Date Data Source [id number] 08/30/2020 01:59:00 AM EDT ISELIN ([facility]) Name Value Range Interpretation Code Description Data Ophelia rce(s) Supporting Document(s) sars covid-19 amplification negative negative Sars Cov id-19 Amplification [facility]) ID Date Data Source [id number] 08/30/2020 01:59:00 AM EDT [facility]) Name Value Range Interpretation Code Description Data Ophelia rce(s) Supporting Document(s) sars covid-19 amplification negative negative Sars Cov id-19 Amplification [facility]) ID Date Data Source [id number] 08/30/2020 01:59:00 AM EDT [facility] Name Value Range Interpretation Code Description Data Ophelia rce(s) Supporting Document(s) SARS coronavirus 2 RNA [Presence] in Res piratory specimen by [facility] with probe detection NEGATIVE [facility] This lab was ordered by [facility] a nd reported by [facility]. ID Date Data Source [id number] 08/30/2020 01:59:00 AM EDT [facility]) Name Value Range Interpretation Code Description Data Ophelia rce(s) Supporting Document(s) sars covid-19 amplification negative negative Sars Cov id-19 Amplification [facility]) ID Date Data Source [id number] 08/30/2020 12:44:00 AM EDT [facility]) Name Value Range Interpretation Code Description Data Ophelia rce(s) Supporting Document(s) appearance, urine rfx clear clear Appearance, Ur ine Rfx POLO ([facility]) color, urine rfx yellow yellow Color, Urine Rfx AT [facility] ([facility]) pH,urine rfx 5.0 units 5.0-9.0 pH,urine Rfx [facility] ([facility]) specific gravity ur auto rfx >1.060 1.002-1.035 Above high n ormal Specific [place] Ur Auto Rfx POLO ([facility]) glucose, urine (UA) auto rfx negative negative Glucose , Urine (UA) Auto Rfx POL[facility] ([facility]) protein, urine auto rfx negative negative Protein, Uri ne Auto Rfx ISELIN ([facility]) ketone, urine auto rfx trace negative Above high normal Ketone , Urine Auto Rfx I[facility] ([facility]) bilirubin, urine auto rfx negative negative Bilirubin, Urine Auto Rfx I[facility] ([facility]) urobilinogen, urine auto rfx 0.2 mg/dL 0.0-2.0 Urobili nogen, Urine Auto Rfx I[facility] ([facility]) nitrite, urine auto rfx negative negative Nitrite, Uri ne Auto Rfx ISEL[facility] ([facility]) leukocyte esterase ur auto rfx negative negative Leukocyte Esterase Ur Auto Rfx I[facility] ([facility]) RBC, urine auto rfx 0 /hpf 0-3 RBC, Urine Auto Rfx [facility] ([facility]) blood, urine blood rfx negative negative Blood, Urine Blood Rfx I[facility] ([facility]) WBC, urine auto rfx 0 /hpf 0-3 WBC, Urine Auto Rfx [facility] ([facility]) squam epithelial cell ur aurfx 2 /hpf 0-6 Squam Epithelial Cell Ur Aurfx POL[facility] ([facility]) bacteria, urine auto rfx negative negative Bacteria, U rine Auto Rfx I[facility] ([facility]) mucus, urine rfx small negative Mucus, Urine Rfx AT [facility] ([facility]) hyaline cast, urine auto rfx 0 /lpf 0-1 Hyaline Cast, Urine Auto Rfx I[facility] ([facility]) ID Date Data Source [id number] 08/30/2020 12:44:00 AM EDT [facility] ([facility]) Name Value Range Interpretation Code Description Data Ophelia rce(s) Supporting Document(s) appearance, urine rfx clear clear Appearance, Ur ine Rfx I[facility] ([facility]) color, urine rfx yellow yellow Color, Urine Rfx AT [facility] ([facility]) pH,urine rfx 5.0 units 5.0-9.0 pH,urine Rfx POL[facility] (No [facility]) glucose, urine (UA) auto rfx negative negative Glucose , Urine (UA) Auto Rfx I[facility] ([facility]) protein, urine auto rfx negative negative Protein, Uri ne Auto Rfx [facility]) specific gravity ur auto rfx >1.060 1.002-1.035 Above high n ormal Specific [place] Ur Auto Rfx I[facility] ([facility]) bilirubin, urine auto rfx negative negative Bilirubin, Urine Auto Rfx [facility] ([facility]) ketone, urine auto rfx trace negative Above high normal Ketone , Urine Auto Rfx [facility] ([facility]) urobilinogen, urine auto rfx 0.2 mg/dL 0.0-2.0 Urobili nogen, Urine Auto Rfx I[facility] ([facility]) leukocyte esterase ur auto rfx negative negative Leukocyte Esterase Ur Auto Rfx I[facility] ([facility]) nitrite, urine auto rfx negative negative Nitrite, Uri ne Auto Rfx I[facility] ([facility]) RBC, urine auto rfx 0 /hpf 0-3 RBC, Urine Auto Rfx [facility] ([facility]) blood, urine blood rfx negative negative Blood, Urine Blood Rfx [facility] ([facility]) WBC, urine auto rfx 0 /hpf 0-3 WBC, Urine Auto Rfx [facility] ([facility]) squam epithelial cell ur aurfx 2 /hpf 0-6 Squam Epithelial Cell Ur Aurfx [facility] ([facility]) mucus, urine rfx small negative Mucus, Urine Rfx AT [facility] ([facility]) bacteria, urine auto rfx negative negative Bacteria, U rine Auto Rfx [facility] ([facility]) hyaline cast, urine auto rfx 0 /lpf 0-1 Hyaline Cast, Urine Auto Rfx [facility] ([facility]) ID Date Data Source [id number] 08/30/2020 12:44:00 AM EDT [facility] ([facility]) Name Value Range Interpretation Code Description Data Ophelia rce(s) Supporting Document(s) appearance, urine rfx clear clear Appearance, Ur ine Rfx [facility] ([facility]) color, urine rfx yellow yellow Color, Urine Rfx AT [facility] ([facility]) pH,urine rfx 5.0 units 5.0-9.0 pH,urine Rfx ISEL[facility] (No [facility]) specific gravity ur auto rfx >1.060 1.002-1.035 Above high n ormal Specific [place] Ur Auto Rfx [facility] ([facility]) protein, urine auto rfx negative negative Protein, Uri ne Auto Rfx [facility] ([facility]) glucose, urine (UA) auto rfx negative negative Glucose , Urine (UA) Auto Rfx [facility] ([facility]) ketone, urine auto rfx trace negative Above high normal Ketone , Urine Auto Rfx [facility] ([facility]) bilirubin, urine auto rfx negative negative Bilirubin, Urine Auto Rfx [facility] ([facility]) urobilinogen, urine auto rfx 0.2 mg/dL 0.0-2.0 Urobili nogen, Urine Auto Rfx [facility] ([facility]) nitrite, urine auto rfx negative negative Nitrite, Uri ne Auto Rfx [facility] ([facility]) leukocyte esterase ur auto rfx negative negative Leukocyte Esterase Ur Auto Rfx [facility] ([facility]) blood, urine blood rfx negative negative Blood, Urine Blood Rfx [facility] ([facility]) WBC, urine auto rfx 0 /hpf 0-3 WBC, Urine Auto Rfx [facility] ([facility]) bacteria, urine auto rfx negative negative Bacteria, U rine Auto Rfx [facility] ([facility]) RBC, urine auto rfx 0 /hpf 0-3 RBC, Urine Auto Rfx [facility] ([facility]) squam epithelial cell ur aurfx 2 /hpf 0-6 Squam Epithelial Cell Ur Aurfx [facility] ([facility]) mucus, urine rfx small negative Mucus, Urine Rfx AT [facility] ([facility]) hyaline cast, urine auto rfx 0 /lpf 0-1 Hyaline Cast, Urine Auto Rfx [facility] ([facility]) ID Date Data Source [id number] 08/29/2020 08:48:00 PM EDT [facility]) Name Value Range Interpretation Code Description Data Ophelia rce(s) Supporting Document(s) ID Date Data Source [id number] 08/29/2020 08:48:00 PM EDT [facility]) Name Value Range Interpretation Code Description Data Ophelia rce(s) Supporting Document(s) ID Date Data Source [id number] 08/29/2020 08:48:00 PM EDT [facility]) Name Value Range Interpretation Code Description Data Ophelia rce(s) Supporting Document(s) ID Date Data Source [id number] 08/29/2020 08:48:00 PM EDT [facility]) Name Value Range Interpretation Code Description Data Ophelia rce(s) Supporting Document(s) ID Date Data Source [id number] 08/29/2020 08:48:00 PM EDT [facility]) Name Value Range Interpretation Code Description Data Ophelia rce(s) Supporting Document(s) ID Date Data Source [id number] 08/29/2020 08:48:00 PM EDT [facility]) Name Value Range Interpretation Code Description Data Ophelia rce(s) Supporting Document(s) ID Date Data Source [id number] 08/29/2020 08:08:00 PM [facility]T [facility] Name Value Range Interpretation Code Description Data Ophelia rce(s) Supporting Document(s) ferritin 21 NG/mL 8-252 Ferritin [facility] ([facility]) ID Date Data Source [id number] 08/29/2020 08:08:00 PM EDT POL[facility] ([facility]) Name Value Range Interpretation Code Description Data Ophelia rce(s) Supporting Document(s) vitamin B12 level 287 pg/mL Vitamin B12 Level [facility] ([facility]) folate 7.8 NG/mL Folate [facility] ([facility]) ID Date Data Source [id number] 08/29/2020 08:08:00 PM EDT POL[facility] ([facility]) Name Value Range Interpretation Code Description Data Ophelia rce(s) Supporting Document(s) total iron binding capacity 431 ug/dL 250-450 Total Ir on Binding Capacity [facility] ([facility]) iron (fe) 8 ug/dL 50-170 Below low normal Iron (Fe) I[facility] ( [facility]) percent saturation 1.9 % 13.2-45.0 Below low normal Percent Sat uration [facility] ([facility]) ID Date Data Source [id number] 08/29/2020 08:08:00 PM EDT [facility] Name Value Range Interpretation Code Description Data Ophelia rce(s) Supporting Document(s) HCG, serum qualitative negative negative HCG, Serum Qu alitative [facility] ID Date Data Source [id number] 08/29/2020 08:08:00 PM EDT [facility] Name Value Range Interpretation Code Description Data Ophelia rce(s) Supporting Document(s) lipase 42 U/L 73-393 Below low normal Lipase [facility] ( [facility]) ID Date Data Source [id number] 08/29/2020 08:08:00 PM EDT [facility] ([facility]) Name Value Range Interpretation Code Description Data Ophelia rce(s) Supporting Document(s) glucose, fasting 115 mg/dL 70-100 Above high normal Glucose, Fas ting [facility] ([facility]) blood urea nitrogen 9 mg/dL 7-18 Blood Urea Nitro gen [facility] ([facility]) glomerular filtration rate > 60.0 >60 Glomerula r Filtration Rate I[facility] ([facility]) creatinine for GFR 0.68 mg/dL 0.55-1.30 Creatinine for GF R POL[facility] ([facility]) sodium level 140 mEq/L 136-145 Sodium Level [facility] ([facility]) potassium serum 3.6 mEq/L 3.5-5.1 Potassium Serum [facility] ([facility]) carbon dioxide level 26 mEq/L 21-32 Carbon Dioxide Level [facility] ([facility]) chloride level 109 mEq/L 98-107 Above high normal Chloride Level [facility] ([facility]) calcium level 8.3 mg/dL 8.5-10.1 Below low normal Calcium Level AT [facility] ([facility]) anion gap 5 mEq/L 8-16 Below low normal Anion Gap [facility] ( [facility]) ID Date Data Source [id number] 08/29/2020 08:08:00 PM EDT [facility] ([facility]) Name Value Range Interpretation Code Description Data Ophelia rce(s) Supporting Document(s) AST/SGOT 8 U/L 7-37 AST/SGOT [facility] ([facility]) ALT/SGPT 17 U/L 12-78 ALT/SGPT [facility] ([facility]) bilirubin,total 0.7 mg/dL 0.2-1.0 Bilirubin,total ATHE ([facility]) alkaline phosphatase 88 U/L 45-117 Alkaline Phosph atase [facility] ([facility]) albumin 3.5 gm/dL 3.2-5.2 Albumin [facility] ([facility]) total protein 7.1 gm/dL 6.4-8.2 Total Protein [facility] ( [facility]) bilirubin,direct 0.3 mg/dL 0.0-0.2 Above high normal Bilirubin,di rect [facility] ([facility]) albumin/globulin ratio 1.2-2.2 Below low normal Albumin /globulin Ratio [facility] ([facility]) ID Date Data Source [id number] 08/29/2020 08:08:00 PM EDT [facility]) Name Value Range Interpretation Code Description Data Ophelia rce(s) Supporting Document(s) lactic acid sepsis protocol 1.0 mmol/L 0.4-2.0 Lactic A jaswant Sepsis Protocol [facility] ([facility]) ID Date Data Source [id number] 08/29/2020 08:08:00 PM EDT [facility] ([facility]) Name Value Range Interpretation Code Description Data Ophelia rce(s) Supporting Document(s) white blood count 23.6 10 4.0-10.0 Above high normal White Blood Count [facility] ([facility]) hematocrit 33.4 % 36.0-47.0 Below low normal Hematocrit [facility] ( [facility]) red blood count 3.66 10 4.00-5.40 Below low normal Red Blood Coun t [facility] ([facility]) hemoglobin 10.9 g/dL 12.0-15.5 Below low normal Hemoglobin [facility] ( [facility]) mean corpuscular volume 91.3 fL 80.0-96.0 Mean Corpusc ular Volume [facility] ([facility]) mean corpuscular hemoglobin 29.8 pg 27.0-33.0 Mean Cor puscular Hemoglobin [facility] ([facility]) red cell distribution width 14.2 % 11.5-14.5 Red Cell Distribution Width [facility] ([facility]) mean corpuscular HGB conc 32.6 g/dL 32.0-36.5 Mean Corpu scular HGB Conc [facility] ([facility]) platelet count, automated 372 10 150-450 Platelet C ount, Automated [facility] ([facility]) neutrophils % 92.7 % 36.0-66.0 Above high normal Neutrophils % A [facility] ([facility]) mono % 1.9 % 2.0-8.0 Below low normal [place] % [facility] ( [facility]) lymph % 4.2 % 24.0-44.0 Below low normal Lymph % [facility] ( [facility]) baso % 0.2 % 0.0-1.0 Baso % [facility] ([facility]) eos % 0.2 % 0.0-3.0 Eos % [facility] ([facility]) neutrophils # 21.8 10 1.5-8.5 Above high normal Neutrophils # A THENA ([facility]) immature granulocyte % 0.8 % 0-3.0 Immature Gran ulocyte % [facility] ([facility]) nucleated red blood cell % 0.0 % 0-0 Nucleated Red Blood Cell % [facility] ([facility]) lymph # 1.0 10 1.5-5.0 Below low normal Lymph # [facility] ( [facility]) eos # 0.0 10 0.0-0.5 Eos # [facility] ([facility]) mono # 0.5 10 0.0-0.8 [place] # [facility] ([facility]) baso # 0.1 10 0.0-0.2 Baso # [facility] ([facility]) ID Date Data Source [id number] 08/29/2020 08:08:00 PM EDT POL[facility] ([facility]) Name Value Range Interpretation Code Description Data Ophelia rce(s) Supporting Document(s) ferritin 21 NG/mL 8-252 Ferritin [facility] ([facility]) ID Date Data Source [id number] 08/29/2020 08:08:00 PM EDT [facility] ([facility]) Name Value Range Interpretation Code Description Data Ophelia rce(s) Supporting Document(s) folate 7.8 NG/mL Folate [facility] ([facility]) vitamin B12 level 287 pg/mL Vitamin B12 Level [facility] ([facility]) ID Date Data Source [id number] 08/29/2020 08:08:00 PM EDT [facility]) Name Value Range Interpretation Code Description Data Ophelia rce(s) Supporting Document(s) iron (fe) 8 ug/dL 50-170 Below low normal Iron (Fe) I[facility] ( [facility]) percent saturation 1.9 % 13.2-45.0 Below low normal Percent Sat uration [facility] ([facility]) total iron binding capacity 431 ug/dL 250-450 Total Ir on Binding Capacity [facility]) ID Date Data Source [id number] 08/29/2020 08:08:00 PM EDT [facility]) Name Value Range Interpretation Code Description Data Ophelia rce(s) Supporting Document(s) HCG, serum qualitative negative negative HCG, Serum Qu alitative [facility]) ID Date Data Source [id number] 08/29/2020 08:08:00 PM EDT [facility]) Name Value Range Interpretation Code Description Data Ophelia rce(s) Supporting Document(s) lipase 42 U/L 73-393 Below low normal Lipase [facility] ( [facility]) ID Date Data Source [id number] 08/29/2020 08:08:00 PM EDT [facility]) Name Value Range Interpretation Code Description Data Ophelia rce(s) Supporting Document(s) glucose, fasting 115 mg/dL 70-100 Above high normal Glucose, Fas ting [facility]) creatinine for GFR 0.68 mg/dL 0.55-1.30 Creatinine for GF R POL[facility] ([facility]) glomerular filtration rate > 60.0 >60 Glomerula r Filtration Rate [facility] ([facility]) sodium level 140 mEq/L 136-145 Sodium Level POLO (No [facility]) blood urea nitrogen 9 mg/dL 7-18 Blood Urea Nitro gen [facility] ([facility]) potassium serum 3.6 mEq/L 3.5-5.1 Potassium Serum ATHE NA ([facility]) chloride level 109 mEq/L 98-107 Above high normal Chloride Level [facility] ([facility]) carbon dioxide level 26 mEq/L 21-32 Carbon Dioxide Level [facility] ([facility]) anion gap 5 mEq/L 8-16 Below low normal Anion Gap POL[facility] ( [facility]) calcium level 8.3 mg/dL 8.5-10.1 Below low normal Calcium Level AT [facility]) ID Date Data Source [id number] 08/29/2020 08:08:00 PM EDT POL[facility] ([facility]) Name Value Range Interpretation Code Description Data Ophelia rce(s) Supporting Document(s) AST/SGOT 8 U/L 7-37 AST/SGOT [facility] ([facility]) ALT/SGPT 17 U/L 12-78 ALT/SGPT [facility] ([facility]) bilirubin,total 0.7 mg/dL 0.2-1.0 Bilirubin,total ATHE ([facility]) alkaline phosphatase 88 U/L 45-117 Alkaline Phosph atase [facility] ([facility]) total protein 7.1 gm/dL 6.4-8.2 Total Protein [facility] ( [facility]) albumin/globulin ratio 1.2-2.2 Below low normal Albumin /globulin Ratio [facility] ([facility]) albumin 3.5 gm/dL 3.2-5.2 Albumin [facility] ([facility]) bilirubin,direct 0.3 mg/dL 0.0-0.2 Above high normal Bilirubin,di rect [facility] ([facility]) ID Date Data Source [id number] 08/29/2020 08:08:00 PM EDT [facility] ([facility]) Name Value Range Interpretation Code Description Data Ophelia rce(s) Supporting Document(s) lactic acid sepsis protocol 1.0 mmol/L 0.4-2.0 Lactic A jaswant Sepsis Protocol [facility] ([facility]) ID Date Data Source [id number] 08/29/2020 08:08:00 PM EDT [facility] ([facility]) Name Value Range Interpretation Code Description Data Ophelia rce(s) Supporting Document(s) white blood count 23.6 10 4.0-10.0 Above high normal White Blood Count [facility] ([facility]) red blood count 3.66 10 4.00-5.40 Below low normal Red Blood Coun t [facility]) hematocrit 33.4 % 36.0-47.0 Below low normal Hematocrit I[facility] ( [facility]) hemoglobin 10.9 g/dL 12.0-15.5 Below low normal Hemoglobin [facility] ( [facility]) mean corpuscular volume 91.3 fL 80.0-96.0 Mean Corpusc ular Volume [facility] ([facility]) mean corpuscular hemoglobin 29.8 pg 27.0-33.0 Mean Cor puscular Hemoglobin [facility] ([facility]) mean corpuscular HGB conc 32.6 g/dL 32.0-36.5 Mean Corpu scular HGB Conc I[facility] ([facility]) red cell distribution width 14.2 % 11.5-14.5 Red Cell Distribution Width [facility] ([facility]) platelet count, automated 372 10 150-450 Platelet C ount, Automated [facility] neutrophils % 92.7 % 36.0-66.0 Above high normal Neutrophils % A THE[facility] ([facility]) lymph % 4.2 % 24.0-44.0 Below low normal Lymph % I[facility] ( [facility]) mono % 1.9 % 2.0-8.0 Below low normal [place] % [facility] ( [facility]) eos % 0.2 % 0.0-3.0 Eos % [facility] ([facility]) baso % 0.2 % 0.0-1.0 Baso % [facility] ([facility]) immature granulocyte % 0.8 % 0-3.0 Immature Gran ulocyte % [facility] ([facility]) nucleated red blood cell % 0.0 % 0-0 Nucleated Red Blood Cell % [facility] ([facility]) neutrophils # 21.8 10 1.5-8.5 Above high normal Neutrophils # A THENA ([facility]) mono # 0.5 10 0.0-0.8 [place] # [facility] ([facility]) lymph # 1.0 10 1.5-5.0 Below low normal Lymph # [facility] ( [facility]) eos # 0.0 10 0.0-0.5 Eos # [facility] ([facility]) baso # 0.1 10 0.0-0.2 Baso # [facility] ([facility]) ID Date Data Source [id number] 08/29/2020 08:08:00 PM EDT POL[facility] ([facility]) Name Value Range Interpretation Code Description Data Ophelia rce(s) Supporting Document(s) ferritin 21 NG/mL 8-252 Ferritin [facility] ([facility]) ID Date Data Source [id number] 08/29/2020 08:08:00 PM EDT POL[facility] ([facility]) Name Value Range Interpretation Code Description Data Ophelia rce(s) Supporting Document(s) vitamin B12 level 287 pg/mL Vitamin B12 Level [facility] ([facility]) folate 7.8 NG/mL Folate [facility] ([facility]) ID Date Data Source [id number] 08/29/2020 08:08:00 PM EDT POL[facility] ([facility]) Name Value Range Interpretation Code Description Data Ophelia rce(s) Supporting Document(s) total iron binding capacity 431 ug/dL 250-450 Total Ir on Binding Capacity [facility] ([facility]) iron (fe) 8 ug/dL 50-170 Below low normal Iron (Fe) [facility] ( [facility]) percent saturation 1.9 % 13.2-45.0 Below low normal Percent Sat uration [facility] ([facility]) ID Date Data Source [id number] 08/29/2020 08:08:00 PM EDT [facility] ([facility]) Name Value Range Interpretation Code Description Data Ophelia rce(s) Supporting Document(s) HCG, serum qualitative negative negative HCG, Serum Qu alitative [facility] ([facility]) ID Date Data Source [id number] 08/29/2020 08:08:00 PM EDT [facility]) Name Value Range Interpretation Code Description Data Ophelia rce(s) Supporting Document(s) lipase 42 U/L 73-393 Below low normal Lipase I[facility] ( [facility]) ID Date Data Source [id number] 08/29/2020 08:08:00 PM EDT [facility]) Name Value Range Interpretation Code Description Data Ophelia rce(s) Supporting Document(s) glucose, fasting 115 mg/dL 70-100 Above high normal Glucose, Fas ting POL[facility] ([facility]) creatinine for GFR 0.68 mg/dL 0.55-1.30 Creatinine for GF R [facility] ([facility]) glomerular filtration rate > 60.0 >60 Glomerula r Filtration Rate [facility] ([facility]) blood urea nitrogen 9 mg/dL 7-18 Blood Urea Nitro gen [facility] ([facility]) carbon dioxide level 26 mEq/L 21-32 Carbon Dioxide Level POL[facility] ([facility]) potassium serum 3.6 mEq/L 3.5-5.1 Potassium Serum ATHE NA ([facility]) sodium level 140 mEq/L 136-145 Sodium Level POLO (No [facility]) chloride level 109 mEq/L 98-107 Above high normal Chloride Level [facility] ([facility]) anion gap 5 mEq/L 8-16 Below low normal Anion Gap POL[facility] ( [facility]) calcium level 8.3 mg/dL 8.5-10.1 Below low normal Calcium Level AT [facility] ([facility]) ID Date Data Source [id number] 08/29/2020 08:08:00 PM EDT POL[facility] ([facility]) Name Value Range Interpretation Code Description Data Ophelia rce(s) Supporting Document(s) AST/SGOT 8 U/L 7-37 AST/SGOT [facility] ([facility]) ALT/SGPT 17 U/L 12-78 ALT/SGPT [facility] ([facility]) bilirubin,direct 0.3 mg/dL 0.0-0.2 Above high normal Bilirubin,di rect [facility] ([facility]) bilirubin,total 0.7 mg/dL 0.2-1.0 Bilirubin,total ATHE NA ([facility]) alkaline phosphatase 88 U/L 45-117 Alkaline Phosph atase [facility] ([facility]) total protein 7.1 gm/dL 6.4-8.2 Total Protein POL[facility] ( [facility]) albumin 3.5 gm/dL 3.2-5.2 Albumin POL[facility] ([facility]) albumin/globulin ratio 1.2-2.2 Below low normal Albumin /globulin Ratio [facility] ([facility]) ID Date Data Source [id number] 08/29/2020 08:08:00 PM EDT POL[facility] ([facility]) Name Value Range Interpretation Code Description Data Ophelia rce(s) Supporting Document(s) lactic acid sepsis protocol 1.0 mmol/L 0.4-2.0 Lactic A jaswant Sepsis Protocol [facility] ([facility]) ID Date Data Source [id number] 08/29/2020 08:08:00 PM EDT POL[facility] ([facility]) Name Value Range Interpretation Code Description Data Ophelia rce(s) Supporting Document(s) white blood count 23.6 10 4.0-10.0 Above high normal White Blood Count [facility] ([facility]) hematocrit 33.4 % 36.0-47.0 Below low normal Hematocrit POL[facility] ( [facility]) red blood count 3.66 10 4.00-5.40 Below low normal Red Blood Coun t POL[facility] ([facility]) hemoglobin 10.9 g/dL 12.0-15.5 Below low normal Hemoglobin POLO ( [facility]) mean corpuscular volume 91.3 fL 80.0-96.0 Mean Corpusc ular Volume POL[facility] ([facility]) mean corpuscular hemoglobin 29.8 pg 27.0-33.0 Mean Cor puscular Hemoglobin POL[facility] ([facility]) red cell distribution width 14.2 % 11.5-14.5 Red Cell Distribution Width [facility] ([facility]) platelet count, automated 372 10 150-450 Platelet C ount, Automated POLO ([facility]) mean corpuscular HGB conc 32.6 g/dL 32.0-36.5 Mean Corpu scular HGB Conc POL[facility] ([facility]) neutrophils % 92.7 % 36.0-66.0 Above high normal Neutrophils % A [facility] ([facility]) mono % 1.9 % 2.0-8.0 Below low normal [place] % POLO ( [facility]) lymph % 4.2 % 24.0-44.0 Below low normal Lymph % POLO ( [facility]) eos % 0.2 % 0.0-3.0 Eos % POL[facility] ([facility]) baso % 0.2 % 0.0-1.0 Baso % POL[facility] ([facility]) nucleated red blood cell % 0.0 % 0-0 Nucleated Red Blood Cell % [facility] ([facility]) neutrophils # 21.8 10 1.5-8.5 Above high normal Neutrophils # A [facility] ([facility]) immature granulocyte % 0.8 % 0-3.0 Immature Gran ulocyte % [facility] ([facility]) baso # 0.1 10 0.0-0.2 Baso # [facility] ([facility]) mono # 0.5 10 0.0-0.8 Benson # [facility] ([facility]) eos # 0.0 10 0.0-0.5 Eos # [facility] ([facility]) lymph # 1.0 10 1.5-5.0 Below low normal Lymph # [facility] ( [facility]) ID Date Data Source [id number] 07/06/2020 12:00:00 AM EST [facility] Name Value Range Interpretation Code Description Data Ophelia rce(s) Supporting Document(s) SARS coronavirus 2 Ag Negative [facility] This lab was ordered by [facility] and reported by [facility]. ID Date Data Source [id number] 03/17/2020 03:05:04 PM EDT [facility] Vital SignsBlood Pressure: 157/111 left arm sitting automaticMultiple Vital SignsVitals #2BP: 157/98 Name Value Range Interpretation Code Description Data Ophelia rce(s) Supporting Document(s) Procedure Social History No Information Vital Signs ID Date Data Source UNK Name Value Range Interpretation Code Description Data Source(s) Body height 65 [in_i] 65 [in_i] [facility] ([facility]) Diastolic blood pressure 78 mm[Hg] 78 mm[Hg] [facility] ([facility]) Body height 65 [in_i] 65 [in_i] [facility] ([facility]) Body mass index (BMI) [Ratio] 29.2 kg/m2 29.2 k g/m2 [facility] ([facility]) Systolic blood pressure 129 mm[Hg] 129 mm[Hg] Celina [facility] ([facility]) Body weight 2804 [oz_av] 2804 [oz_av] [facility] ([facility]) Diastolic blood pressure 78 mm[Hg] 78 mm[Hg] [facility] ([facility]) Body height 65 [in_i] 65 [in_i] [facility] ([facility]) Body mass index (BMI) [Ratio] 29.2 kg/m2 29.2 k g/m2 [facility] ([facility]) Systolic blood pressure 129 mm[Hg] 129 mm[Hg] A [facility] ([facility]) Body weight 2804 [oz_av] 2804 [oz_av] [facility] ([facility]) Diastolic blood pressure 78 mm[Hg] 78 mm[Hg] [facility] ([facility]) Body height 65 [in_i] 65 [in_i] [facility] ([facility]) Body mass index (BMI) [Ratio] 29.2 kg/m2 29.2 k g/m2 [facility] ([facility]) Systolic blood pressure 129 mm[Hg] 129 mm[Hg] A [facility] ([facility]) Body weight 2804 [oz_av] 2804 [oz_av] [facility] ([facility]) Body height 65 [in_i] 65 [in_i] [facility] ([facility]) Body height 65 [in_i] 65 [in_i] [facility] ([facility]) Body height 65 [in_i] 65 [in_i] [facility] ([facility]) Body height 65 [in_i] 65 [in_i] [facility] ([facility]) Diastolic blood pressure 111 mm[Hg] 111 mm[Hg] [facility] ([facility]) Systolic blood pressure 157 mm[Hg] 157 mm[Hg] [facility] Diastolic blood pressure 111 mm[Hg] 111 mm[Hg] [facility] ([facility]) Systolic blood pressure 157 mm[Hg] 157 mm[Hg] A [facility] ([facility]) Diastolic blood pressure 111 mm[Hg] 111 mm[Hg] [facility] ([facility]) Systolic blood pressure 157 mm[Hg] 157 mm[Hg] A [facility] ([facility]) Diastolic blood pressure 111 mm[Hg] 111 mm[Hg] [facility] ([facility]) Systolic blood pressure 157 mm[Hg] 157 mm[Hg] A [facility] ([facility]) Patient Treatment Plan of Care Planned Activity Planned Date Details Description Data Source (s) Tri-Lo-Desirae 0.18/0.215/0.25 mg-25 mcg tablet [facility] ([facility]) Levonorgestrel 1.5 MG Oral Tablet [Take Action] [facility] ([facility]) Sucralfate 1000 MG Oral Tablet [facility] ([facility]) Spironolactone 25 MG Oral Tablet [facility] ([facility]) Phentermine Hydrochloride 15 MG Oral Capsule [facility] ([facility]) Oxycodone Hydrochloride 5 MG Oral Tablet [facility] ([facility]) Ondansetron 4 MG Oral Tablet [facility] ([facility]) Misoprostol 0.2 MG Oral Tablet [facility] ([facility]) Isibloom 0.15 mg-0.03 mg tablet TAKE ONE TABLET BY MOUTH EVERY DAY [facility] ([facility]) Fluconazole 150 MG Oral Tablet [facility] ([facility]) Cephalexin 500 MG Oral Capsule [facility] ([facility]) Amoxicillin 875 MG / Clavulanate 125 MG Oral Tablet [facility] ([facility]) Levonorgestrel 1.5 MG Oral Tablet [Take Action] [facility] ([facility]) Spironolactone 25 MG Oral Tablet [facility] ([facility]) Phentermine Hydrochloride 15 MG Oral Capsule [facility] ([facility]) Oxycodone Hydrochloride 5 MG Oral Tablet [facility] ([facility]) Cephalexin 500 MG Oral Capsule [facility] ([facility]) Levonorgestrel 1.5 MG Oral Tablet [Take Action] [facility] ([facility]) Spironolactone 25 MG Oral Tablet [facility] ([facility]) Phentermine Hydrochloride 15 MG Oral Capsule [facility] ([facility]) Oxycodone Hydrochloride 5 MG Oral Tablet [facility] ([facility]) Cephalexin 500 MG Oral Capsule [facility] ([facility]) Oxycodone Hydrochloride 5 MG Oral Tablet [facility] ([facility]) Misoprostol 0.2 MG Oral Tablet [facility] ([facility]) Cephalexin 500 MG Oral Capsule [facility] ([facility])
[2021-04-16 11:58] LABS: RSV AMPLIFICATION NEGATIVE (NEGATIVE)
[2021-04-16 12:35] LABS: BASO % 0.5 % (0.0-1.0); EOS # 0.1 10^3/uL (0.0-0.5); EOS % 1.1 % (0.0-3.0); HEMATOCRIT 35.4 % (36.0-47.0); HEMOGLOBIN 11.5 g/dl (12.0-15.5); LYMPH # 3.6 10^3/uL (1.5-5.0); LYMPH % 43.3 % (24.0-44.0); MEAN CORPUSCULAR HEMOGLOBIN 30.3 pg (27.0-33.0); MEAN CORPUSCULAR HGB CONC 32.5 g/dl (32.0-36.5); MEAN CORPUSCULAR VOLUME 93.2 fl (80.0-96.0); MONO # 0.5 10^3/uL (0.0-0.8); MONO % 5.6 % (2.0-8.0); NEUTROPHILS # 4.1 10^3/uL (1.5-8.5); NEUTROPHILS % 49.1 % (36.0-66.0); PLATELET COUNT, AUTOMATED 269 10^3/uL (150-450); WHITE BLOOD COUNT 8.4 10^3/uL (4.0-10.0)
[2021-04-16 13:11] LABS: ALBUMIN 2.9 GM/DL (3.2-5.2); ALT/SGPT 23 U/L (12-78); BILIRUBIN,DIRECT < 0.1 MG/DL (0.0-0.2); BILIRUBIN,TOTAL 0.2 MG/DL (0.2-1.0); BLOOD UREA NITROGEN 13 MG/DL (7-18); CALCIUM LEVEL 8.6 MG/DL (8.5-10.1); CARBON DIOXIDE LEVEL 25 MEQ/L (21-32); CHLORIDE LEVEL 111 MEQ/L (98-107); CK-MB VALUE MASS < 1.0 NG/ML (<3.6); CPK CREATINE PHOSPHOKINASE 98 U/L (26-192); CREATININE FOR GFR 0.65 MG/DL (0.55-1.30); GLOMERULAR FILTRATION RATE > 60.0 (>60); GLUCOSE, FASTING 84 MG/DL (70-100); MB/CK RELATIVE INDEX 1.02 (< OR =4); POTASSIUM SERUM 4.3 MEQ/L (3.5-5.1); SODIUM LEVEL 141 MEQ/L (136-145); TOTAL PROTEIN 6.3 GM/DL (6.4-8.2); TROPONIN I < 0.02 NG/ML (< 0.10)
--- NOTE | 2021-04-16 14:09 | REP ---
INDICATION: chest pain, shortness of breath. COMPARISON: Multiple the latest 08/29/2020 TECHNIQUE: Portable FINDINGS: The technique utilized in obtaining the radiograph has magnified the cardiac silhouette and accentuated the interstitial markings. The superior mediastinal structures are midline. The cardiac silhouette is unremarkable in size, shape, and position. The diaphragmatic surfaces of the lungs are regular, and the costophrenic angles are clear. The pulmonary bragg are clear. The imaged osseous structures are intact. IMPRESSION: There is no acute cardiopulmonary disease. <Electronically signed by Jose D Polanco > 04/16/21 [id number]
[2021-04-16] MEDS ORDERED: TESS100C PO (14:35)
[2021-04-16 14:51] VITALS: BP 115/57
--- NOTE | 2021-04-17 06:31 | ECGEPIP ---
[facility] - ED Test Date: 2021-04-16 Pat Name: AGUILA RAM Department: Room: - Gender: Female Help Desk Support: KRISTINA : 1990 Requested By: Carolee Wall PA-C Order Number: [id number] Reading MD: Max Hill Measurements Intervals [place] Rate: 62 P: 28 UT: 144 QRS: 30 QRSD: 78 T: 22 QT: 400 QTc: 406 Interpretive Statements Normal sinus rhythm low qrs voltage limb leads Delayed R wave progression Nonspecific ST T wave changes cw 08/30/[address] T wave changes Electronically Signed on 04-17-2021 6:31:12 EST by Max Hill
== END 2021-04-16 14:53 | disposition home or self-care (01) ==
LOC: M ED 09:22
DX: J06.9 Acute upper respiratory infection, unspecified (principal); R07.9 Chest pain, unspecified; Z87.891 Personal history of nicotine dependence

== ENCOUNTER → 2021-06-27 | Outpatient (REF) | payer OTHER ==
[~2021-06-27] MED LIST changes: -OMEP-221 PO; +OMEP40CA5 PO; -PHEN15CA PO; +PHEN15CA6 PO; +TESS100C PO
== END ==
LOC: M WUC 19:23
PROVIDERS: ATTEND Physician Assistant
DX: R05.9 Cough, unspecified (principal)

== ENCOUNTER 2021-07-27 08:52 | Emergency (ER) | payer OTHER ==
[~2021-07-27] VITALS: Ht 162.6 cm; Wt 78.8 kg
[2021-07-27 08:52] VITALS: BP 138/82
[2021-07-27] MEDS ORDERED: ONDANSETRON 4MG/2ML VIAL IV ONE (11:35)
[2021-07-27] MEDS ORDERED: ACETAMINOPHEN 325 MG TAB PO ONE (11:35)
[2021-07-27 11:48] LABS: BASO # 0.1 10^3/uL (0.0-0.2); BASO % 0.7 % (0.0-1.0); EOS # 0.1 10^3/uL (0.0-0.5); EOS % 0.6 % (0.0-3.0); HEMATOCRIT 34.2 % (36.0-47.0); HEMOGLOBIN 11.4 g/dl (12.0-15.5); LYMPH # 3.4 10^3/uL (1.5-5.0); LYMPH % 39.4 % (24.0-44.0); MEAN CORPUSCULAR HEMOGLOBIN 31.1 pg (27.0-33.0); MEAN CORPUSCULAR HGB CONC 33.3 g/dl (32.0-36.5); MEAN CORPUSCULAR VOLUME 93.2 fl (80.0-96.0); MONO # 0.5 10^3/uL (0.0-0.8); MONO % 5.9 % (2.0-8.0); NEUTROPHILS # 4.5 10^3/uL (1.5-8.5); PLATELET COUNT, AUTOMATED 285 10^3/uL (150-450); RED BLOOD COUNT 3.67 10^6/uL (4.00-5.40); WHITE BLOOD COUNT 8.5 10^3/uL (4.0-10.0)
[2021-07-27 12:12] LABS: HCG, SERUM QUALITATIVE POSITIVE (NEGATIVE)
[2021-07-27 12:13] LABS: ALBUMIN 3.7 GM/DL (3.2-5.2); ALT/SGPT 30 U/L (12-78); BILIRUBIN,DIRECT 0.2 MG/DL (0.0-0.2); BILIRUBIN,TOTAL 0.4 MG/DL (0.2-1.0); BLOOD UREA NITROGEN 9 MG/DL (7-18); CALCIUM LEVEL 8.9 MG/DL (8.5-10.1); CARBON DIOXIDE LEVEL 23 MEQ/L (21-32); CHLORIDE LEVEL 109 MEQ/L (98-107); CREATININE FOR GFR 0.67 MG/DL (0.55-1.30); GLOMERULAR FILTRATION RATE > 60.0 (>60); GLUCOSE, FASTING 74 MG/DL (70-100); LIPASE 50 U/L (73-393); POTASSIUM SERUM 4.3 MEQ/L (3.5-5.1); SODIUM LEVEL 140 MEQ/L (136-145); TOTAL PROTEIN 6.6 GM/DL (6.4-8.2)
[2021-07-27 14:36] LABS: HCG, SERUM QUANTITATIVE 2936 MIU/ML
[2021-07-27] MEDS ORDERED: OMEP40CA4 PO (16:41)
== END 2021-07-27 17:29 | disposition home or self-care (01) ==
LOC: M ED 08:52
DX: K80.20 Calculus of gallbladder without cholecystitis without obstruction (principal); O73.1 Retained portions of placenta and membranes, without hemorrhage; N83.201 Unspecified ovarian cyst, right side; N83.202 Unspecified ovarian cyst, left side; E11.9 Type 2 diabetes mellitus without complications; I10 Essential (primary) hypertension; K21.9 Gastro-esophageal reflux disease without esophagitis; Z98.84 Bariatric surgery status; Z79.899 Other long term (current) drug therapy; Z88.8 Allergy status to other drugs, medicaments and biological substances; F17.210 Nicotine dependence, cigarettes, uncomplicated
CPT/HCPCS: 74021; 76705; 76801; 76817; 80048; 80076; 83690; 84702; 84703; 85025; 93976; 96374; 99283; J2405

== ENCOUNTER 2021-10-20 03:58 | Emergency (ER) | payer OTHER ==
[~2021-10-20] VITALS: Ht 162.6 cm; Wt 81.8 kg
[2021-10-20] MEDS ORDERED: CARA1TAB6 PO (04:10)
[2021-10-20 04:34] LABS: BASO % 0.7 % (0.0-1.0); EOS # 0.2 10^3/uL (0.0-0.5); EOS % 3.7 % (0.0-3.0); HEMATOCRIT 35.8 % (36.0-47.0); LYMPH # 2.4 10^3/uL (1.5-5.0); LYMPH % 41.1 % (24.0-44.0); MEAN CORPUSCULAR HEMOGLOBIN 31.7 pg (27.0-33.0); MEAN CORPUSCULAR HGB CONC 33.5 g/dl (32.0-36.5); MEAN CORPUSCULAR VOLUME 94.5 fl (80.0-96.0); MONO # 0.4 10^3/uL (0.0-0.8); MONO % 7.3 % (2.0-8.0); NEUTROPHILS # 2.8 10^3/uL (1.5-8.5); NEUTROPHILS % 46.9 % (36.0-66.0); PLATELET COUNT, AUTOMATED 313 10^3/uL (150-450); RED BLOOD COUNT 3.79 10^6/uL (4.00-5.40); WHITE BLOOD COUNT 5.9 10^3/uL (4.0-10.0)
[2021-10-20 05:05] LABS: HCG, SERUM QUALITATIVE NEGATIVE (NEGATIVE)
[2021-10-20 05:06] LABS: ALBUMIN 2.9 GM/DL (3.2-5.2); ALT/SGPT 643 U/L (12-78); BILIRUBIN,DIRECT < 0.1 MG/DL (0.0-0.2); BILIRUBIN,TOTAL 0.4 MG/DL (0.2-1.0); BLOOD UREA NITROGEN 11 MG/DL (7-18); CALCIUM LEVEL 8.5 MG/DL (8.5-10.1); CARBON DIOXIDE LEVEL 21 MEQ/L (21-32); CHLORIDE LEVEL 113 MEQ/L (98-107); CREATININE FOR GFR 0.73 MG/DL (0.55-1.30); GLOMERULAR FILTRATION RATE > 60.0 (>60); GLUCOSE, FASTING 89 MG/DL (70-100); LIPASE 57 U/L (73-393); POTASSIUM SERUM 5.5 MEQ/L (3.5-5.1); SODIUM LEVEL 141 MEQ/L (136-145); TOTAL PROTEIN 6.9 GM/DL (6.4-8.2)
[2021-10-20] MEDS ORDERED: ONDANSETRON 4MG/2ML VIAL IV ONE ×2 (05:35→09:20)
[2021-10-20] MEDS ORDERED: MORPHINE 4 MG/ML 1ML VIAL/SYRINGE IV ONE ×2 (05:35→07:15)
[2021-10-20] MEDS ORDERED: NS 1,000 ML IV ONE (05:35)
[2021-10-20] MEDS ORDERED: ISOVUE-370 76% 100ML VIAL As Ordered ONE (05:48)
[2021-10-20 08:51] LABS: RSV AMPLIFICATION NEGATIVE (NEGATIVE)
[2021-10-20] MEDS ORDERED: KETOROLAC 30 MG/ML 1ML VIAL IV ONE (09:20)
[2021-10-20 09:29] LABS: MONO REFLEX EBV COMP NEGATIVE (NEGATIVE)
[2021-10-20] MEDS ORDERED: HYDROMORPHONE HCL 0.5 MG/ 0.5 ML SYRINGE (J1170 PER 1) IV ONE ×2 (11:40→15:05)
[2021-10-20 12:17] LABS: ALBUMIN 2.9 GM/DL (3.2-5.2); BILIRUBIN,DIRECT 0.2 MG/DL (0.0-0.2); BILIRUBIN,TOTAL 0.4 MG/DL (0.2-1.0); TOTAL PROTEIN 6.1 GM/DL (6.4-8.2)
[2021-10-20 15:45] VITALS: BP 128/61
[2021-10-22] MEDS ORDERED: PHEN15CA6 (07:49)
[2021-10-22 11:07] LABS: HEPATITIS B SURFACE ANTIGEN NEGATIVE (NEGATIVE)
[2021-10-22 11:34] LABS: HEPATITIS B CORE ANTIBODY IGM NEGATIVE (NEGATIVE); HEPATITIS C VIRUS ABY INDEX 0.1 INDEX (<0.8)
[2021-10-23 16:10] LABS: EBV VIRAL CAPSID AG IgG >600.0 U/mL (0.0-17.9); EBV VIRAL CAPSID AG IgM <36.0 U/mL (0.0-35.9)
== END 2021-10-20 15:50 | disposition short-term general hospital (02) ==
LOC: M ED 03:58
DX: K80.50 Calculus of bile duct without cholangitis or cholecystitis without obstruction (principal); E66.9 Obesity, unspecified; E11.9 Type 2 diabetes mellitus without complications; I10 Essential (primary) hypertension; K21.9 Gastro-esophageal reflux disease without esophagitis; J45.909 Unspecified asthma, uncomplicated; F17.210 Nicotine dependence, cigarettes, uncomplicated; Z88.8 Allergy status to other drugs, medicaments and biological substances; Z87.19 Personal history of other diseases of the digestive system; Z90.49 Acquired absence of other specified parts of digestive tract; Z98.0 Intestinal bypass and anastomosis status; Z98.890 Other specified postprocedural states; Z86.16 Personal history of COVID-19
CPT/HCPCS: 74177; 74181; 76705; 80048; 80076; 83690; 84703; 85025; 86308; 86664; 86665; 86705; 86709; 86803; 87340; 87631; 96374; 96375; 96376; 99285; J1170; J1885; J2270; J2405; Q9967

== ENCOUNTER → 2021-11-07 | Outpatient (CLI) | payer OTHER ==
[~2021-11-07] MED LIST changes: +CARA1TAB6 PO; +E-Z-GAS II EFFERVESCENT PACKET (SODIUM BICARB./CITRIC ACID/SIMETHICONE) As Ordered ONE; +E-Z-HD 98% w/w 340GM SUSP BTL As Ordered ONE; +E-Z-PAQUE 96% w/w SUSP 176GM BTL As Ordered ONE; +PHEN15CA6
== END ==
LOC: M RAD 08:17
PROVIDERS: ATTEND Internal Medicine Gastroenterology
DX: K56.1 Intussusception (principal); K63.89 Other specified diseases of intestine; Z98.84 Bariatric surgery status

== ENCOUNTER → 2021-11-14 | Outpatient (CLI) | payer OTHER ==
[~2021-11-14] MED LIST changes: -E-Z-GAS II EFFERVESCENT PACKET (SODIUM BICARB./CITRIC ACID/SIMETHICONE) As Ordered ONE; -E-Z-HD 98% w/w 340GM SUSP BTL As Ordered ONE; -E-Z-PAQUE 96% w/w SUSP 176GM BTL As Ordered ONE
== END ==
LOC: M LABSMTC 10:24
PROVIDERS: ATTEND Anesthesiology
DX: Z01.812 Encounter for preprocedural laboratory examination (principal); Z20.822 Contact with and (suspected) exposure to COVID-19

== ENCOUNTER 2021-11-19 11:08 | Day surgery (SDC) | payer OTHER ==
[~2021-11-19] VITALS: Ht 162.6 cm; Wt 83.4 kg
[~2021-11-19 11:08] MED LIST changes: +NS 1,000 ML IV ONE; +fentaNYL 100 MCG/2 ML INJECTION As Ordered ONE
[2021-11-19] MEDS ORDERED: propofoL 200 MG/20 ML VIAL As Ordered ONE (12:35)
[2021-11-19] MEDS ORDERED: LIDOCAINE 2% 100MG/5ML SDV (FOR ANES.) As Ordered ONE (12:35)
[2021-11-19 13:39] VITALS: BP 123/75
== END 2021-11-19 13:49 | disposition home or self-care (01) ==
LOC: M OPP 11:08
PROVIDERS: ATTEND Internal Medicine Gastroenterology
DX: R10.84 Generalized abdominal pain (principal); K59.00 Constipation, unspecified; Z98.0 Intestinal bypass and anastomosis status; R10.13 Epigastric pain; Z79.899 Other long term (current) drug therapy; Z88.8 Allergy status to other drugs, medicaments and biological substances; Z87.891 Personal history of nicotine dependence; Z90.49 Acquired absence of other specified parts of digestive tract
CPT/HCPCS: 43235; 45378; J3010

== ENCOUNTER 2022-01-18 17:36 | Emergency (ER) | payer OTHER ==
[~2022-01-18] VITALS: Ht 160 cm; Wt 85.0 kg
[~2022-01-18 17:36] MED LIST changes: -NS 1,000 ML IV ONE; -fentaNYL 100 MCG/2 ML INJECTION As Ordered ONE
[2022-01-18] MEDS ORDERED: LINZ290C (17:44)
[2022-01-18] MEDS ORDERED: AMOX500C (17:44)
[2022-01-18] MEDS ORDERED: OMEP40CA5 (17:44)
[2022-01-18] MEDS ORDERED: HYDR-3713 (17:44)
[2022-01-18 22:35] LABS: BASO % 0.5 % (0.0-1.0); EOS # 0.1 10^3/uL (0.0-0.5); EOS % 1.8 % (0.0-3.0); HEMATOCRIT 33.9 % (36.0-47.0); HEMOGLOBIN 11.1 g/dl (12.0-15.5); LYMPH # 3.7 10^3/uL (1.5-5.0); LYMPH % 48.9 % (24.0-44.0); MEAN CORPUSCULAR HEMOGLOBIN 30.7 pg (27.0-33.0); MEAN CORPUSCULAR HGB CONC 32.7 g/dl (32.0-36.5); MEAN CORPUSCULAR VOLUME 93.6 fl (80.0-96.0); MONO # 0.6 10^3/uL (0.0-0.8); MONO % 7.2 % (2.0-8.0); NEUTROPHILS # 3.2 10^3/uL (1.5-8.5); NEUTROPHILS % 41.3 % (36.0-66.0); PLATELET COUNT, AUTOMATED 328 10^3/uL (150-450); RED BLOOD COUNT 3.62 10^6/uL (4.00-5.40); WHITE BLOOD COUNT 7.7 10^3/uL (4.0-10.0)
[2022-01-18 22:57] LABS: HCG, SERUM QUALITATIVE NEGATIVE (NEGATIVE)
[2022-01-18 23:06] LABS: ALBUMIN 3.7 GM/DL (3.2-5.2); ALT/SGPT 25 U/L (12-78); BILIRUBIN,DIRECT 0.2 MG/DL (0.0-0.2); BILIRUBIN,TOTAL 0.4 MG/DL (0.2-1.0); BLOOD UREA NITROGEN 6 MG/DL (7-18); CALCIUM LEVEL 8.9 MG/DL (8.5-10.1); CARBON DIOXIDE LEVEL 27 MEQ/L (21-32); CHLORIDE LEVEL 110 MEQ/L (98-107); CREATININE FOR GFR 0.81 MG/DL (0.55-1.30); GLOMERULAR FILTRATION RATE > 60.0 (>60); GLUCOSE, FASTING 84 MG/DL (70-100); LIPASE 52 U/L (73-393); POTASSIUM SERUM 3.9 MEQ/L (3.5-5.1); SODIUM LEVEL 142 MEQ/L (136-145); TOTAL PROTEIN 7.2 GM/DL (6.4-8.2)
[2022-01-18 23:15] VITALS: BP 152/94
== END 2022-01-19 02:25 | disposition left against medical advice (07) ==
LOC: M ED 17:36
DX: Z53.21 Procedure and treatment not carried out due to patient leaving prior to being seen by health care provider (principal)

== ENCOUNTER → 2022-08-12 | Outpatient (CLI) | payer OTHER ==
[~2022-08-12] MED LIST changes: +AMOX500C; +HYDR-3713; +LINZ290C PO; +OMEP-173 PO; +OMEP40CA5; +VITMTA PO
== END ==
LOC: M LABSMTC 11:18
PROVIDERS: ATTEND Anesthesiology
DX: Z01.812 Encounter for preprocedural laboratory examination (principal)

== ENCOUNTER 2022-08-15 08:14 | Day surgery (SDC) | payer OTHER ==
[~2022-08-15] VITALS: Ht 162.6 cm; Wt 82.9 kg
[~2022-08-15 08:14] MED LIST changes: +NS 1,000 ML IV ONE
[2022-08-15] MEDS ORDERED: LIDOCAINE 2% 100MG/5ML SDV (FOR ANES.) As Ordered ONE (09:06)
[2022-08-15] MEDS ORDERED: propofoL 200 MG/20 ML VIAL As Ordered ONE (09:06)
[2022-08-15 09:27] VITALS: BP 128/77
== END 2022-08-15 09:53 | disposition home or self-care (01) ==
LOC: M OPP 08:14
PROVIDERS: ATTEND Internal Medicine Gastroenterology
DX: K63.5 Polyp of colon (principal); K64.8 Other hemorrhoids; K58.1 Irritable bowel syndrome with constipation; Q43.8 Other specified congenital malformations of intestine; Z87.891 Personal history of nicotine dependence; Z98.84 Bariatric surgery status; Z90.49 Acquired absence of other specified parts of digestive tract; Z79.3 Long term (current) use of hormonal contraceptives; Z79.899 Other long term (current) drug therapy; Z88.6 Allergy status to analgesic agent

== ENCOUNTER 2023-07-29 12:44 | Day surgery (SDC) | payer OTHER ==
[~2023-07-29] VITALS: Ht 160 cm; Wt 83.5 kg
[~2023-07-29 12:44] MED LIST changes: +ATIV1TAB10 PO; +LEXA1TAB2 PO; +LIDOCAINE 2% 100MG/5ML SDV (FOR ANES.) As Ordered ONE; +LINZ145C PO; -MISO200T56 PO; +MISO200T83 PO; -NS 1,000 ML IV ONE; +propofoL 200 MG/20 ML VIAL As Ordered ONE
[2023-07-29] MEDS: NS 1,000 ML IV ONE (13:09)
[2023-07-29] MEDS ORDERED: fentaNYL 100 MCG/2 ML INJECTION As Ordered ONE (13:32)
[2023-07-29 14:30] VITALS: TEMP 96.5
[2023-07-29 14:45] VITALS: BP 122/82; O2SAT 100
== END 2023-07-29 14:53 | disposition home or self-care (01) ==
LOC: M OPP 12:44
PROVIDERS: ATTEND Internal Medicine Gastroenterology
DX: Z98.0 Intestinal bypass and anastomosis status (principal); R10.13 Epigastric pain; R11.10 Vomiting, unspecified; Z87.891 Personal history of nicotine dependence; Z98.84 Bariatric surgery status; Z79.899 Other long term (current) drug therapy
CPT/HCPCS: 43235; J3010

== ENCOUNTER → 2024-03-19 | Outpatient (REF) | payer OTHER ==
[~2024-03-19] MED LIST changes: -LIDOCAINE 2% 100MG/5ML SDV (FOR ANES.) As Ordered ONE; -MULT200T7 PO; +MULT200T9 PO; -propofoL 200 MG/20 ML VIAL As Ordered ONE
[2024-03-19 17:27] LABS: HEMOGLOBIN A1c 5.2 % (4.0-6.0)
[2024-03-19 17:32] LABS: BASO # 0.1 10^3/uL (0.0-0.2); BASO % 1.1 % (0.0-1.0); EOS # 0.2 10^3/uL (0.0-0.5); EOS % 3.2 % (0.0-3.0); HEMATOCRIT 29.5 % (36.0-47.0); LYMPH # 2.8 10^3/uL (1.5-5.0); LYMPH % 37.8 % (24.0-44.0); MEAN CORPUSCULAR HEMOGLOBIN 25.5 pg (27.0-33.0); MEAN CORPUSCULAR HGB CONC 30.5 g/dl (32.0-36.5); MEAN CORPUSCULAR VOLUME 83.6 fl (80.0-96.0); MONO # 0.5 10^3/uL (0.0-0.8); MONO % 6.7 % (2.0-8.0); NEUTROPHILS # 3.8 10^3/uL (1.5-8.5); NEUTROPHILS % 50.9 % (36.0-66.0); PLATELET COUNT, AUTOMATED 474 10^3/uL (150-450); RED BLOOD COUNT 3.53 10^6/uL (4.00-5.40); WHITE BLOOD COUNT 7.4 10^3/uL (4.0-10.0)
[2024-03-19 17:38] LABS: ALBUMIN 3.5 G/DL (3.2-5.2); ALKALINE PHOSPHATASE 91 U/L (46-116); ALT/SGPT 20 U/L (7.0-40); AST/SGOT 16 U/L (<34); BILIRUBIN,TOTAL 0.4 MG/DL (0.3-1.2); BLOOD UREA NITROGEN 11 MG/DL (9-23); CALCIUM LEVEL 9.1 MG/DL (8.5-10.1); CARBON DIOXIDE LEVEL 25 MMOL/L (20-31); CHLORIDE LEVEL 111 MMOL/L (98-107); CHOLESTEROL LEVEL 126 MG/DL (<200); CHOLESTEROL RISK RATIO 1.81 (<5); CREATININE FOR GFR 0.77 MG/DL (0.55-1.30); GLOMERULAR FILTRATION RATE > 60.0 (>60); GLUCOSE, FASTING 82 MG/DL (60-100); HDL CHOLESTEROL 69.5 MG/DL (>40); LDL CHOLESTEROL 47.5 MG/DL (<100); NON-HDL-C 56.5 MG/DL; POTASSIUM SERUM 4.6 MMOL/L (3.5-5.1); SODIUM LEVEL 139 MMOL/L (136-145); TOTAL PROTEIN 6.8 G/DL (5.7-8.2); TRIGLYCERIDES LEVEL 45 MG/DL (<150)
[2024-03-19 17:40] LABS: THYROID STIMULATING HORMONE 3.357 uIU/ML (0.55-4.78)
== END ==
LOC: M LAB REF 16:15
PROVIDERS: ATTEND Nurse Practitioner Family
DX: R53.83 Other fatigue (principal); E66.9 Obesity, unspecified

== ENCOUNTER → 2024-04-14 | Outpatient (REF) | payer OTHER ==
[2024-04-14 14:47] LABS: IRON (FE) 30 UG/DL (50-170); LDH LACTATE DEHYDROGENASE 206 U/L (120-246)
[2024-04-14 14:48] LABS: BASO # 0.1 10^3/uL (0.0-0.2); EOS # 0.3 10^3/uL (0.0-0.5); EOS % 3.8 % (0.0-3.0); FERRITIN 7.9 NG/ML (7.3-270.7); HEMATOCRIT 31.5 % (36.0-47.0); HEMOGLOBIN 9.8 g/dl (12.0-15.5); LYMPH # 2.8 10^3/uL (1.5-5.0); LYMPH % 36.5 % (24.0-44.0); MEAN CORPUSCULAR HEMOGLOBIN 27.1 pg (27.0-33.0); MEAN CORPUSCULAR HGB CONC 31.1 g/dl (32.0-36.5); MONO # 0.5 10^3/uL (0.0-0.8); MONO % 6.2 % (2.0-8.0); NEUTROPHILS % 52.2 % (36.0-66.0); PERCENT SATURATION 6.5 % (13.2-45.0); PLATELET COUNT, AUTOMATED 499 10^3/uL (150-450); RED BLOOD COUNT 3.62 10^6/uL (4.00-5.40); TOTAL IRON BINDING CAPACITY 460 UG/DL (250-425); WHITE BLOOD COUNT 7.7 10^3/uL (4.0-10.0)
[2024-04-14 14:49] LABS: FOLATE > 24.0 NG/ML (>5.4)
[2024-04-14 14:54] LABS: VITAMIN B12 LEVEL > 2000 PG/ML (211-911)
== END ==
LOC: M LAB REF 13:49
PROVIDERS: ATTEND Nurse Practitioner Family
DX: D64.9 Anemia, unspecified (principal)

== ENCOUNTER → 2024-05-28 | Outpatient (REF) | payer OTHER ==
[2024-05-28 17:08] LABS: IMMUNOGLOBULIN A 183.9 MG/DL (40-350); IRON (FE) 233 UG/DL (50-170); TOTAL IRON BINDING CAPACITY 466 UG/DL (250-425)
[2024-05-28 17:09] LABS: BASO # 0.1 10^3/uL (0.0-0.2); BASO % 1.1 % (0.0-1.0); EOS # 0.1 10^3/uL (0.0-0.5); EOS % 1.7 % (0.0-3.0); HEMATOCRIT 35.9 % (36.0-47.0); HEMOGLOBIN 11.6 g/dl (12.0-15.5); LYMPH # 2.5 10^3/uL (1.5-5.0); LYMPH % 39.7 % (24.0-44.0); MEAN CORPUSCULAR HEMOGLOBIN 27.7 pg (27.0-33.0); MEAN CORPUSCULAR HGB CONC 32.3 g/dl (32.0-36.5); MEAN CORPUSCULAR VOLUME 85.7 fl (80.0-96.0); MONO # 0.4 10^3/uL (0.0-0.8); MONO % 6.6 % (2.0-8.0); NEUTROPHILS # 3.2 10^3/uL (1.5-8.5); NEUTROPHILS % 50.7 % (36.0-66.0); PLATELET COUNT, AUTOMATED 386 10^3/uL (150-450); RED BLOOD COUNT 4.19 10^6/uL (4.00-5.40); WHITE BLOOD COUNT 6.4 10^3/uL (4.0-10.0)
[2024-05-31 13:51] LABS: RUBEOLA IgG ANTIBODY > 300.00 AU/mL (>16.49)
[2024-05-31 14:42] LABS: TISSUE TRANSGLUTAMINASE IgA < 1.0 U/mL (<15.0)
== END ==
LOC: M LAB REF 16:28
PROVIDERS: ATTEND Nurse Practitioner Family
DX: D50.9 Iron deficiency anemia, unspecified (principal); Z23 Encounter for immunization